=== PATIENT | male | born 1950 | race Caucasian/White ===

== ENCOUNTER → 2017-10-14 09:06 | Outpatient (CLI) | payer MEDICARE, OTHER, SELFPAY ==
[2017-10-14 10:29] LABS: Cholesterol 182 mg/dL (200); Glucose 95 mg/dL (74-106); High Density Lipoprotein 43 mg/dL; Triglycerides 172 mg/dL; Very Low Density Lipoprotein 34 mg/dL (5-40)
== END ==
PROVIDERS: Family Provider Family Medicine; PCP Family Medicine; Visit Provider Family Medicine
DX: Z13.220 Encounter for screening for lipoid disorders (principal); Z13.1 Encounter for screening for diabetes mellitus
CPT/HCPCS: 36415; 80061; 82947

== ENCOUNTER → 2020-07-31 | Outpatient (CLI) | payer MEDICARE, OTHER, SELFPAY | END | disposition home or self-care (01) | PROVIDERS: PCP Family Medicine; Visit Provider Family Medicine | DX: Z20.822 Contact with and (suspected) exposure to COVID-19 (principal) | CPT/HCPCS: 87635; U0005; U0003 ==

== ENCOUNTER 2020-08-09 13:51 | Outpatient (RCR) | payer MEDICARE, SELFPAY ==
[2020-08-09] MEDS: COVID-19 VACC, MRNA(PFIZER)/PF 30 MCG/0.3 ML SYRINGE IM (08:14)
[2020-08-30] MEDS: COVID-19 VACC, MRNA(PFIZER)/PF 30 MCG/0.3 ML SYRINGE IM (08:00)
== END 2020-08-09 23:59 ==
LOC: IMMUN 13:51
PROVIDERS: PCP Family Medicine; Visit Provider Family Medicine
DX: Z23 Encounter for immunization (principal)
CPT/HCPCS: 0001A; 0002A

== ENCOUNTER → 2020-12-27 13:12 | Outpatient (CLI) | payer MEDICARE, OTHER, SELFPAY ==
[2020-12-17 13:10] VITALS: BMI 22.8
--- NOTE | 2020-12-27 13:15 | CT_ITS ---
STUDY: LOW DOSE CT LUNG CANCER SCREENING REASON FOR EXAM: Male, 70 years old. Patient has a 50 pack-year history of smoking. Patient quit smoking 20 years ago. RADIATION DOSAGE (If Supplied By Facility): CTDIvol = ( 1.59 ) mGy, DLP = ( 57.98 ) mGycm TECHNIQUE: No contrast was administered. Low dose technique was utilized (average mAS-38 and kVp 120). 1.25 mm axial source images with a slice interval of 1.25-mm were reconstructed in lung windows. 2.5 mm axial source images with a slice interval of 2.5-mm were reconstructed in lung windows. 5.0 mm axial source images with a slice interval of 5.0-mm were reconstructed in soft tissue windows. Nodule measured using lung windows on PACS and/or independent workstation with automated measurement of minimum and maximum diameter. Nodule measurement reported as average diameter rounded to the nearest whole number. Growth is defined as an increase ins size of greater than 1.5 mm. COMPARISON: None. NODULES: There is an 8.7 cm x 7 cm x 5.3 cm mass in the lingular segment of the left upper lobe abutting the left major fissure. There is enlargement of the left hilum in keeping with adenopathy. The mass lesion abuts the mediastinum and left cardiac border. Emphysema: Hyperinflation. Diffuse emphysema with centrilobular changes worse in the upper lobes. There is evidence of stellate-like scarring in the right lung apex. Linear scarring at the lung bases more prominent on the right side. Aorta: Atherosclerotic calcification of the aorta. Coronary arteries: Coronary artery calcification. CT/Low Dose CT Lung Screening IMPRESSION: Lung-RADS category 4B - Chest CT with or without contrast, PET/CT and/or tissue sampling can be obtained depending on the probability of malignancy and comorbidities. IMPORTANT NOTES FOR USE: ACR Lung-RADS Version 1.1 Assessment Categories Release Date: 2018 Category: Coded 0-4 bases on nodule(s) with highest degree of suspicion. Negative screen is defined as categories 1 and 2; a positive screen is defined as categories 3 and 4. Category 3 and 4A nodules that are unchanged on interval CT should be coded as category 2, and individuals returned to screening in 12 months. Category 4X: Category 3 or 4 nodules with additional imaging findings that increase the suspicion of lung cancer, such as spiculation, GGN that doubles in size in 1 year, enlarged lymph notes, etc. Category Modifiers: S (significant finding unrelated to lung cancer) Electronically Signed: Juan M Gipson MD at 14:03 EDT , Service support ,
== END ==
PROVIDERS: PCP Family Medicine; Referring Provider Internal Medicine Critical Care Medicine; Visit Provider Internal Medicine Critical Care Medicine
DX: J44.9 Chronic obstructive pulmonary disease, unspecified (principal); Z87.891 Personal history of nicotine dependence
CPT/HCPCS: 71271

== ENCOUNTER 2021-01-11 10:59 | Day surgery (SDC) | payer MEDICARE, OTHER, SELFPAY ==
[2020-12-28 08:37] VITALS: BMI 22.9
[2021-01-11] VITALS (9 sets, daily range): BP systolic 96–137; BP diastolic 47–87; PULSE 88–97; RESP 16–18; TEMP 36–36.6; O2SAT 92–100; BMI 22.8
--- NOTE | 2021-01-11 | IMM_PTH ---
PATIENT: TONY SNYDER LOC: EN U#:[id number] AGE/SX: 70/M ROOM: RE01/11/[address]: Dr. Long Banegas MD : 1950 BED: DIS: 01/11/2021 SPEC #: [id number] RECD: 01/14/21 13:52 STATUS: XAVIER REQ #: [id number] MCKENNA: 01/11/21 00:[address]: Long Banegas DEPT: IMMUNOHISTOCHEMISTRY RECD BY: Lisa Golden ENTERED: 01/14/21 13:54 SP TYPE: IMMUNO OTHR DR: Dr. Travis Reyes MD Tissues: L - Lung, NOS Procedures: CK14 (add) CK20 (add) CK5-6 (add) CK7 (add) MACRO (add) P53 (add) Vimentin (add) Pankeratin (initial) P40 (add) PHYSICIAN & INSTITUTION [place] [id number] SPECIMEN INFORMATION: Tissue Source: L ? EBUS, TBNA, site 7 Clinical Info: Lung mass Specimen Number: [id number] CPT code: 73814, 65586 x8 METHODOLOGY: Deparaffinized sections of prefer/formalin-fixed tissue or PAP/DQ stained slides are incubated with monoclonal/polyclonal antibodies/oligonucleotide probes. Localization is made via biotin free immunoperoxidase method. Appropriate controls are performed and reacted as expected. Results on target cell population are indicated in the following table: RESULTS: ANTIBODY / CLONE RESULT Block L AE1-3 (AE1/AE3/PCK26) negative CK7 (OV-TL12/30) negative CK20 (KS20.8) negative Vimentin (V9) positive Macro (HAM-56) positive CK5-6 (D5 & 1684) negative CK14 (LL002) negative P40 (BC28) negative P53 (DO-7) negative These tests were developed and their performance characteristics determined by [facility]. They may not have been cleared or approved by the U.S. Food and Drug Administration. The FDA has determined that such clearance or approval is not necessary. The above immunohistochemical/dualISH markers are ordered and reviewed by the Pathologist. INTERPRETATION: Macarena EBUS, TBNA, site 7: Pigment laden histiocytes. No evidence of carcinoma. AM:debbie 01/15/2021
--- NOTE | 2021-01-11 | IMM_PTH ---
PATIENT: TONY SNYDER LOC: EN U#:[id number] AGE/SX: 70/M ROOM: RE01/11/[address]: Dr. Long Banegas MD : 1950 BED: DIS: 01/11/2021 SPEC #: [id number] RECD: 01/14/21 13:50 STATUS: XAVIER REQ #: [id number] MCKENNA: 01/11/21 00:[address]: Long Banegas DEPT: IMMUNOHISTOCHEMISTRY RECD BY: Lisa Golden ENTERED: 01/14/21 13:51 SP TYPE: IMMUNO OTHR DR: Dr. Travis Reyes MD Tissues: Lung, NOS Procedures: NAPSIN A (add) CK14 (add) CK20 (add) CK5-6 (add) CK7 (add) CK8 (add) P16 (add) P53 (add) TTF1 (add) Pankeratin (initial) P40 (add) PHYSICIAN & INSTITUTION [place] [id number] SPECIMEN INFORMATION: Tissue Source: LLL, endobronchial biopsy Clinical Info: Lung mass Specimen Number: [id number] CPT code: 56544, 35567 x10 METHODOLOGY: Deparaffinized sections of prefer/formalin-fixed tissue or PAP/DQ stained slides are incubated with monoclonal/polyclonal antibodies/oligonucleotide probes. Localization is made via biotin free immunoperoxidase method. Appropriate controls are performed and reacted as expected. Results on target cell population are indicated in the following table: RESULTS: ANTIBODY / CLONE RESULT AE1-3 (AE1/AE3/PCK26) positive CK7 (OV-TL12/30) negative CK8 (51lyqpJ98) positive CK20 (KS20.8) negative TTF-1 (8G7G3/1) negative Napsin A (Rabbit Polyclonal) negative CK5-6 (D5 & 1684) positive CK14 (LL002) negative P40 (BC28) positive P16 (E6H4) negative P53 (DO-7) positive, >95% These tests were developed and their performance characteristics determined by [facility]. They may not have been cleared or approved by the U.S. Food and Drug Administration. The FDA has determined that such clearance or approval is not necessary. The above immunohistochemical/dualISH markers are ordered and reviewed by the Pathologist. INTERPRETATION: HANY, endobronchial biopsy: Squamous cell carcinoma. AM:debbie 01/15/2021
--- NOTE | 2021-01-11 | ASPIG_PTH ---
PATIENT: TONY SNYDER LOC: EN U#:[id number] AGE/SX: 70/M ROOM: RE01/11/[address]: Dr. Long Banegas MD : 1950 BED: DIS: 01/11/2021 SPEC #: [id number] RECD: 01/11/21 13:34 STATUS: XAVIER ELIF #: [id number] MCKENNA: 01/11/21 00:[address]: Long Banegas DEPT: CYTOLOGY RECD BY: Rebecca Gerardo ENTERED: 01/11/21 13:36 SP TYPE: ASP OUT OTHR DR: Dr. Travis Reyes MD Tissues: A - Lung, NOS B - Lung, NOS C - Lung, NOS D - Lung, NOS E - Lung, NOS F - Lung, NOS G - Lung, NOS H - Lung, NOS I - Lung, NOS J - Lung, NOS K - Lung, NOS L - Lung, NOS M - Lung, NOS N - Bronchus of left lower lobe Procedures: FNA Specimen Adequacy Special Stain Group II Surgery Specimen Level IV Imprint (control) Cytology Other HEADER OPERATION: EBUS PRE-OP DIAGNOSIS: Lung mass TISSUE SUBMITTED: A - EBUS, TBNA, site 4R #1, B - EBUS, TBNA, site 4R #2, C - EBUS, TBNA, site 7 #3, D - EBUS, TBNA, site 7 #4, E - EBUS, TBNA, site 7 #5, F - EBUS, TBNA, site 7 #6, G - EBUS, TBNA, site 7 #7, H - EBUS, TBNA, site 10L #8, I - EBUS, TBNA, site 10L #9, J - EBUS, TBNA, site 10L #10, K - EBUS, TBNA, site 4R, L - EBUS, TBNA, site 7, M - EBUS, TBNA, site 10, N - Wash LLL, O - LLL biopsy DIAGNOSIS CYTOLOGY A. EBUS, TBNA, site 4R #1: Negative for carcinoma. Lymphocytes are present. B. EBUS, TBNA, site 4R #2: Negative for malignant cells. Abundant bronchial epithelial cells. Rare lymphocytes. C. EBUS, TBNA, site 7 #3: Negative for malignant cells. No lymphocytes. D. EBUS, TBNA, site 7 #4: Negative for malignant cells. Blood and some lymphocytes. E. EBUS, TBNA, site 7 #5: Negative for malignant cells. Blood. Rare lymphocytes. F. EBUS, TBNA, site 7 #6: Negative for malignant cells. Blood. Rare lymphocytes. G. EBUS, TBNA, site 7 #7: Negative for malignant cells. Bronchial epithelial and subepithelial cells. Blood. H. EBUS, TBNA, site 10L #8: Negative for malignant cells. Abundant lymphocyte. Macrophages with pigment. Blood I. EBUS, TBNA, site 10L #9: Negative for malignant cells. Blood. Rare lymphocytes. J. EBUS, TBNA, site 10L #10: Negative for malignant cells. Blood. Rare lymphocytes. K. EBUS, TBNA, site 4R (cell block): Negative for malignant cells. See comment. L. EBUS, TBNA, site 7 (cell block): Pigment laden macrophages, blood, lymphocytes and neutrophils. Fragment of benign bronchial epithelium and cartilage. See comment. M. EBUS, TBNA, site 10 (cell block): Negative for malignant cells, blood and lymphocytes. N. Left lower lobe of lung, washings (cytospin and cell block): Negative for malignant cells. O. Left lower lobe lung, biopsy (crush prep): Negative for malignant cells. AM:debbie 01/14/2021 COMMENT The specimen is evaluated at the time of procedure by Dr. Green. Rapid Onsite Evaluation: A. EBUS, TBNA, site 4R #1: Negative for carcinoma. Lymphocytes are present. B. EBUS, TBNA, site 4R #2: Negative for malignant cells. Abundant bronchial epithelial cells. Rare lymphocytes. C. EBUS, TBNA, site 7 #3: Negative for malignant cells. No lymphocytes. D. EBUS, TBNA, site 7 #4: Negative for malignant cells. Blood and some lymphocytes. E. EBUS, TBNA, site 7 #5: Negative for malignant cells. Blood. Rare lymphocytes. F. EBUS, TBNA, site 7 #6: Negative for malignant cells. Blood. Rare lymphocytes. G. EBUS, TBNA, site 7 #7: Negative for malignant cells. Bronchial epithelial and subepithelial cells. Blood. H. EBUS, TBNA, site 10L #8: Negative for malignant cells. Abundant lymphocyte. Macrophages with pigment. Blood I. EBUS, TBNA, site 10L #9: Negative for malignant cells. Blood. Rare lymphocytes. J. EBUS, TBNA, site 10L #10: Negative for malignant cells. Blood. Rare lymphocytes. A-J. The specimen contains blood and rare lymphocytes. K. The specimen contains benign bronchial epithelial cells, blood and rare lymphocytes. L. Immunohistochemistry ([id number]) supports the above diagnosis. O. The specimen is evaluated at the time of crush prep by Dr. Green. Immediate Evaluation = Negative for malignant cells. Abundant bronchial epithelial cells. Please correlate this case with endobronchial biopsy of left lower lung mass ([id number]). Case has been reviewed in consultation with Dr. Kulkarni who concurs with the above diagnosis. IDC:SJ CYTOLOGY STUDY Slides are reviewed. CYTOLOGY GROSS A - Received labeled with the patient's name and and designated EBUS, TBNA, site 4R #1. The specimen consists of two stained smears for SID (Rapid Onsite Evaluation). B - Received labeled with the patient's name and and designated EBUS, TBNA, site 4R #2. The specimen consists of two stained smears for SID. C - Received labeled with the patient's name and and designated EBUS, TBNA, site 7 #3. The specimen consists of two stained smears for SID. D - Received labeled with the patient's name and and designated EBUS, TBNA, site 7 #4. The specimen consists of two stained smears for SID. E - Received labeled with the patient's name and and designated EBUS, TBNA, site 7 #5. The specimen consists of two stained smears for SID. F - Received labeled with the patient's name and and designated EBUS, TBNA, site 7 #6. The specimen consists of two stained smears for SID. G - Received labeled with the patient's name and and designated EBUS, TBNA, site 7 #7. The specimen consists of two stained smears for SID. H - Received labeled with the patient's name and and designated EBUS, TBNA, site 10L #8. The specimen consists of two stained smears for SID. I - Received labeled with the patient's name and and designated EBUS, TBNA, site 10L #9. The specimen consists of two stained smears for SID. J - Received labeled with the patient's name and and designated EBUS, TBNA, site 10L #10. The specimen consists of two stained smears for SID. K - Received in RPMI is 20 ml of pink, needle rinsed fluid labeled with the patient's name and and designated EBUS, TBNA, site 4R. The specimen is submitted for cell block preparation. L - Received in RPMI is 20 ml of pink, needle rinsed fluid labeled with the patient's name and and designated EBUS, TBNA, site 7. The specimen is submitted for cell block preparation. M - Received in RPMI is 20 ml of pink, needle rinsed fluid labeled with the patient's name and and designated EBUS, TBNA, site 10. The specimen is submitted for cell block preparation. N - Received is 35 ml of red mucoidy fluid labeled with the patient's name and and designated per the requisition as wash LLL. Submitted for cytology preparation including cell block. O - Received in fixative is one container labeled with the patient's name and designated left lower lobe lung biopsy (crush prep). The specimen consists of fresh pink-bergman tissue measuring 0.2 x 0.2 x <0.1 cm. A crush prep smear is prepared. / AM:debbie 01/11/2021 TC:5 CPT: 77028, 20384, 96092 x3, 96658 x3, 74617 x7, 33006 x4
--- NOTE | 2021-01-11 | LUNG_PTH ---
PATIENT: TONY SNYDER LOC: EN U#:[id number] AGE/SX: 70/M ROOM: RE01/11/[address]: Dr. Long Banegas MD : 1950 BED: DIS: 01/11/2021 SPEC #: [id number] RECD: 01/11/21 13:56 STATUS: XAVIER ELIF #: [id number] MCKENNA: 01/11/21 00:[address]: Long Banegas DEPT: SURGICAL PATHOLOGY RECD BY: Rebecca Gerardo ENTERED: 01/11/21 13:56 SP TYPE: LUNG BX OTHR DR: Dr. Travis Reyes MD Tissues: Lung, NOS Procedures: Surgery Specimen Level IV HEADER OPERATION: EBUS PRE-OP DIAGNOSIS: Lung mass TISSUE SUBMITTED: Endobronchial biopsy LLL MICROSCOPIC DIAGNOSIS Left lower lobe of lung, endobronchial biopsy: Squamous cell carcinoma. See comment. AM:debbie 01/14/2021 COMMENT Immunohistochemistry ([id number]) supports the above diagnosis. Please correlate with corresponding EBUS ([id number]). Case has been reviewed in consultation with Dr. Kulkarni who concurs with the above diagnosis. IDC:SJ MICROSCOPIC DESCRIPTION Slides are reviewed. GROSS DESCRIPTION Received in fixative is one container labeled with the patient's name and designated endobronchial biopsy left lower lobe of lung. The specimen consists of multiple irregular fragments of bergman mucoid soft tissue that in aggregate measure 0.8 x 0.5 x <0.1 cm. The specimen is totally submitted in one cassette. / AM:debbie 01/11/21 TC:0 CPT: 77093 ADDENDUM ADDENDUM ADDENDUM ADDENDUM ADDENDUM ADDENDUM 02/19/2021 09:01 ADDENDUM 02/19/2021 09:01 ADDENDUM 02/19/2021 09:01 ADDENDUM 02/19/2021 09:01 ADDENDUM 02/19/2021 09:01 PD-L1 (KEYTRUDA) IMMUNOHISTOCHEMICAL ANALYSIS FROM [email or web address] RESULTS: Tumor proportion score: <1% / Negative Please see complete report in e-chart or EMR
[2021-01-11] MEDS: Lactated Ringers 1,000 ML 100 ML IV (11:30)
[2021-01-11] MEDS: Lidocaine 2% Jelly 1 APPLIC Tube (13:17)
[2021-01-11 13:46] LABS: Cytology, Body Fluid / CSF SEE PATHOLOGY REPORT
--- NOTE | 2021-01-11 14:07 | OP.BRONCH_ITS ---
Patient Name: Savi Mohr Procedure Date: 01/11/2021 11:50 AM Date of : 1950 Age: 70 Procedure: Bronchoscopy Indications: Sub-hayley mass, Mediastinal adenopathy, Lung mass Providers: Long Banegas MD Referring MD: Travis Reyes Complications: No immediate complications Procedure: Pre-Anesthesia Assessment: - Prior to the procedure, a History and Physical was performed, and patient medications and allergies were reviewed. The patient's tolerance of previous anesthesia was also reviewed. The risks and benefits of the procedure and the sedation options and risks were discussed with the patient. All questions were answered, and informed consent was obtained. Prior Anticoagulants: The patient has taken no previous anticoagulant or antiplatelet agents. ASA Grade Assessment: III - A patient with severe systemic disease. After reviewing the risks and benefits, the patient was deemed in satisfactory condition to undergo the procedure. - A History and Physical has been performed. The patient's medications, allergies and sensitivities have been reviewed. - Patient identification and proposed procedure were verified prior to the procedure by the physician, the nurse and the technical sales specialist. The procedure was verified in the procedure room. After I obtained informed consent, the scope was passed under direct vision. Throughout the procedure, the patient's blood pressure, pulse, and oxygen saturations were monitored continuously. The bronchoscope was introduced through the mouth, via laryngeal mask airway and advanced to the tracheobronchial tree. The ultrasound bronchoscope was introduced through the mouth and advanced to the tracheobronchial tree. The procedure was accomplished without difficulty. The patient tolerated the procedure well. The procedure was accomplished without difficulty. The patient tolerated the procedure well. Findings: The laryngeal mask airway is in good position. The vocal cords appear normal. The subglottic space is normal. The trachea is of normal caliber. The hayley is sharp. The tracheobronchial tree was examined to at least the first subsegmental level. Bronchial mucosa and anatomy are normal; there are no endobronchial lesions, and no secretions. The scope was withdrawn and replaced with the EBUS bronchoscope to accomplish the ultrasound examination. Lymph Nodes: An endobronchial ultrasound endoscope was utilized to systematically examine the right lower paratracheal region (level 4R), subcarinal mediastinum (level 7) and left hilar region (level 10L) in order to assist with fine needle aspiration. Lymph node sizing was performed via endobronchial ultrasound for suspected lung cancer. Sampling by transbronchial needle aspiration was also performed using an Olympus EBUS-TBNA 19 gauge needle in the right lower paratracheal region (level 4R), subcarinal mediastinum (level 7) and left hilar region (level 10L) and sent for routine cytology. Rapid On-Site Evaluation (SID) was also performed. - The 4R (lower paratracheal) node was not measured by EBUS. The node was had poorly defined margins. Two samples with the needle were obtained. Preliminary cytology was suggestive of benign-appearing lymphoid tissue (final results are pending). - The 7 (subcarinal) node was not measured by EBUS. The node was hyperechoic and had poorly defined margins. Five samples with the needle were obtained. Preliminary cytology was suggestive of benign-appearing lymphoid tissue (final results are pending). - The 10L (hilar) node was 20 mm by EBUS. The node was round, hyperechoic, homogenous and had well defined margins. Three samples with the needle were obtained. Preliminary cytology was suggestive of benign-appearing lymphoid tissue (final results are pending). The EBUS scope was withdrawn and bronchoscope was introduced. Endobronchial biopsies were performed in the anterior medial segment of the left lower lobe and in the lateral basal segment of the left lower lobe using forceps and sent for histopathology examination. 7 were obtained. Impression: - Sub-hayley mass - Mediastinal adenopathy - Lung mass - The airway examination was normal. - Endobronchial ultrasound was performed. - Systematic lymph node sizing, sampling, ultrasound visualization and preliminary cytology was performed. Tissue was obtained from this exam, and results are pending. However, the endosonographic appearance is benign inflammatory changes. This was staged as T1. Recommendation: - The patient will be observed post-procedure, until all discharge criteria are met. - Await biopsy and cytology results. - Follow up with bronchoscopist when results available. - The patient was advised to call or return to the clinic if there are signs or symptoms suggesting a complication/adverse reaction from the procedure. Procedure Code(s): --- Professional --- 59872, Bronchoscopy, rigid or flexible, including fluoroscopic guidance, when performed; with endobronchial ultrasound (EBUS) guided transtracheal and/or transbronchial sampling (eg, aspiration[s]/biopsy[ies]), 3 or more mediastinal and/or hilar lymph node stations or structures 77048, 51, Bronchoscopy, rigid or flexible, including fluoroscopic guidance, when performed; with bronchial or endobronchial biopsy(s), single or multiple sites Diagnosis Code(s): --- Professional --- R91.8, Other nonspecific abnormal finding of lung field R59.0, Localized enlarged lymph nodes CPT copyright 2017 [employer]. All rights reserved. The codes documented in this report are preliminary and upon human resources professional review may be revised to meet current compliance requirements. MD Long Slater MD 01/11/2021 2:06:47 PM This report has been signed electronically. Number of Addenda: 0 Note Initiated On: 01/11/2021 11:50 AM
--- NOTE | 2021-01-14 13:26 | PCM.HP.BLA ---
History and Physical Date of Admission: 01/11/21 Patient was seen and evaluated prior to the procedure. Multiple questions were answered by the family. There were no changes compared to the note completed below. Assessment and Plan Assessment and Plan (1) Mass of left lung: Status: Acute Orders: Orders: CBC-Complete Blood Cnt No Diff Today Plan - Seble Dee CLINICAL RESEARCH MANAGEMENT ASSOCIATE, CLINICAL RESEARCH MANAGEMENT ASSOCIATE-C: New. Lengthy discussion about possible next steps. We discussed the possibility of CT-guided biopsy, endobronchial ultrasound-guided biopsy or traditional bronchoscopy with biopsy. After discussing the risks and benefits of each procedure the patient and his decided that they would like to proceed with an EBUS. He will need a little bit of blood work the week prior to his procedure to make sure that he is not at increased risk for bleeding. He is not currently on any blood thinners. This case was discussed in detail with Dr. Banegas. (2) COPD (chronic obstructive pulmonary disease): Status: Chronic Plan - Seble Dee CLINICAL RESEARCH MANAGEMENT ASSOCIATE, CLINICAL RESEARCH MANAGEMENT ASSOCIATE-C: Complicates exam, plan, care and prognosis. He does not appear to be in exacerbation today. No change in maintenance medications. Plan Details Other Orders: Orders: Bronchoscopy 01/18/21 Partial Thromboplast Time Today R06.00 Prothrombin Time w/INR Today R06.00, Z87.19, Z98.[address] results Chief Complaint: Review test results HPI Comments Details: This patient presents to the office today to discuss recent test results. He is ambulatory and currently on room air. He is accompanied today by his . He has not been seen in the ED or urgent care for any respiratory illnesses since his last office visit. He has not required any antibiotics or prednisone for any breathing problems. He maintains compliance with the use of Asmanex twice daily. He does report rinsing his mouth out after each use. He denies any medication side effect such as sore throat or thrush. He is also compliant with the use of Stiolto daily. He continues compliance with Singulair and Daliresp. He is using his albuterol rescue inhaler approximately once per day. He does have shortness of breath on exertion, it has not progressed. He has a cough that is typically productive of clear to white-colored sputum. He denies any hemoptysis. He does report some chest tightness and chest congestion. He denies any chest pain or palpitations. He has not had any fever, chills or body aches. Test results personally reviewed with the patient: Low-dose CT lung screening completed on December 27, 2020. Impression: Lung RADS category 4B chest CT without contrast PET/CT and or tissue sampling can be obtained depending on probability of malignancy and comorbidities. Noted is an 8.7 cm x 7 cm x 5.3 cm mass in the lingular segment of the left upper lobe abutting the left major fissure. There is enlargement of the left hilum in keeping with adenopathy. The mass lesion abuts the mediastinum and left cardiac border. Hyperinflation and diffuse emphysematous central lobar changes worse in the upper lobes. There is evidence of stellate-like scarring in the right lung apex. Linear scarring at the lung bases more prominent on the right side. Intake Vital Signs 12/28/20 08:37 Height 5 ft 9 in Weight: 155 lb 6 oz BMI 22.9 BP 141/83 H Blood Pressure Location Lt brachial Position Sitting Respiration 18 Pulse 74 Pulse Source Monitor Temp 98.5 F Temperature Source Tympanic Pulse Oximetry (%) 97 Oxygen Delivery Method room air Intake Visit Reasons: CT results Allergies No Known Allergies Allergy (Unverified 12/28/20 09:11) Medications albuterol sulfate 90 mcg/actuation aerosol inhaler 2 puff INHALATION Q6H PRN 12/11/20 [History Confirmed 12/28/20] mometasone 1 inh INHALATION BID 12/11/20 [History Confirmed 12/28/20] montelukast 10 mg tablet 10 mg PO QHS 12/11/20 [History Confirmed 12/28/20] roflumilast 500 mcg tablet 500 mcg PO DAILY 12/11/20 [History Confirmed 12/28/20] tiotropium 2.5 mcg-olodaterol 2.5 mcg/actuation mist for inhalation 2 puff INHALATION DAILY 12/11/20 [History Confirmed 12/28/20] diclofenac sodium 1.5 % topical drops-menthol 10 % roll-on combo pack pkg TOPICAL 12/17/20 [History Confirmed 12/28/20] [facility] Medical History (Reviewed 12/28/20 @ 09:21 by Seble Dee CLINICAL RESEARCH MANAGEMENT ASSOCIATE, CLINICAL RESEARCH MANAGEMENT ASSOCIATE-C) COPD (chronic obstructive pulmonary disease) Surgical History (Reviewed 12/28/20 @ 09:21 by Seble Dee CLINICAL RESEARCH MANAGEMENT ASSOCIATE, CLINICAL RESEARCH MANAGEMENT ASSOCIATE-C) History of inguinal hernia repair History of tonsillectomy and adenoidectomy Social History (Reviewed 12/28/20 @ 09:21 by Seble Dee CLINICAL RESEARCH MANAGEMENT ASSOCIATE, CLINICAL RESEARCH MANAGEMENT ASSOCIATE-C) Smoking Status: Former smoker pack-years: 30 Tobacco: How many years used: 30 Review of Systems Resp Respiratory: Yes as per HPI Exam Const Constitutional: Positive conversant, cooperative, in no acute respiratory distress, healthy appearing, well developed, well nourished, good hygiene and thin Head Head: Yes normocephalic, Yes atraumatic and No cyanosis of lips/distal nose Eyes Eye: Positive clear conjunctiva; Negative nystagmus, scleral abnormality or cataract present Ears Ear: Positive hearing normal and external ears normal; Negative hard of hearing Neck Neck: Positive normal visual inspection, full ROM and trachea midline Chest Wall Chest: Positive normal inspection of the chest and symmetric chest movement; Negative crepitus or tenderness Resp lung sounds: Positive diminished lung sounds and normal expiratory time; Negative wheezes, rhonchi, rales or use of accessory muscles Cardio Cardiac: Positive regular rate, regular rhythm, S1 normal and S2 normal; Negative murmur, rub or gallop GI GI: Positive normal to inspection; Negative distended, ascites or epigastric tenderness Genitourinary: Positive deferred Musc Musculoskeletal: Positive steady gait; Negative using an assistive device for ambulation, kyphosis or scoliosis Skin Pulmonary Skin Exam: Positive intact; Negative lesion, rash, ulcers or erythema Pulses Pulse: Yes radial pulses present Extremities Extremities: Yes capillary refill normal, No clubbing, No cyanosis and No edema Neuro Neurologic: Yes no focal neuro deficits, Yes conversant, Yes cooperative, Yes normal cognition, Yes normal coordination, Yes normal concentration and Yes understands questions Psych Appearance: Positive grossly normal Mental Status: Positive mental status grossly normal Mood: Positive congruent mood Affect: Positive normal affect Assessment & Plan Assessment/Plan (1) Mass of left lung:
== END 2021-01-11 14:34 ==
LOC: EN 11:00 → AC 11:02
PROVIDERS: PCP Family Medicine; Referring Provider Family Medicine; Visit Provider Internal Medicine Critical Care Medicine
PROC: BB4BZZZ Ultrasonography of Pleura (ICD-10-PCS; CPT 31625; principal; 2021-01-11 11:30)
DX: C34.32 Malignant neoplasm of lower lobe, left bronchus or lung (principal); J44.9 Chronic obstructive pulmonary disease, unspecified; M19.90 Unspecified osteoarthritis, unspecified site; K21.9 Gastro-esophageal reflux disease without esophagitis; Z79.899 Other long term (current) drug therapy; Z79.51 Long term (current) use of inhaled steroids; Z87.891 Personal history of nicotine dependence
CPT/HCPCS: 31625; 31653; 88161; 88172; 88305; 88313; 88341; 88342; J7120; J2405

== ENCOUNTER → 2021-02-05 06:54 | Outpatient (CLI) | payer MEDICARE, OTHER, SELFPAY ==
[2020-12-17 13:10] VITALS: BMI 22.8
[2021-02-05 11:56] LABS: Base Excess -4 mmol/L (-2 to +2); Bicarbonate 20.3 mmol/L (22-26); Blood Gas Specimen Type ART; PO2 87 mmHG (75-100); SITE L Brach; SO2 97 % (95-99); Total Carbon Dioxide 21 mmol/L; pCO2 28.3 mmHg (35-45); pH 7.46 (7.35-7.45)
--- NOTE | 2021-02-05 14:33 | PFTCOMP_ITS ---
COMPLETE PULMONARY FUNCTION TEST INTERPRETATION Brief HPI: Patient is a 71 year old male, currently under the care of myself, who presents to [facility] for complete pulmonary function tests secondary to diagnosis of COPD. Respiratory therapist reports good effort and reproducible results. Interpretation: Forced expiration spirometry shows a very severe large airways obstructive ventilatory defect with an FEV1 of 39% predicted. There is no significant bronchodilator response by strict ATS criteria. Spirograms are of good quality and plateau slowly, indicating slowly emptying areas of the lungs. The respiratory flow volume loop shows decreased expiratory flow rates at all lung volumes consistent with airway obstruction. Lung volumes by body plethysmography show an elevated total lung capacity at 8.38 L, 134% predicted. FRC and RV are elevated out of proportion. Lung volume measurements are consistent with hyperinflation and air-trapping. Diffusion capacity by carbon monoxide is decreased at 32% predicted. The airway resistance is elevated. No previous pulmonary function tests were available for review. Impression: Irreversible very severe large airways obstructive ventilatory defect with a symmetric reduction diffusing capacity, resulting in air trapping with hyperinflation.
== END ==
PROVIDERS: PCP Family Medicine; Referring Provider Internal Medicine Critical Care Medicine; Visit Provider Internal Medicine Critical Care Medicine
DX: J44.9 Chronic obstructive pulmonary disease, unspecified (principal); C34.90 Malignant neoplasm of unspecified part of unspecified bronchus or lung
CPT/HCPCS: 36600; 82803; 94060; 94726; 94729

== ENCOUNTER 2021-02-14 09:14 | Inpatient (IN) | payer MEDICARE, OTHER, SELFPAY ==
[2021-02-14] VITALS (20 sets, daily range): BP systolic 113–166; BP diastolic 63–86; PULSE 95–132; RESP 12–31; TEMP 36–37.3; O2SAT 95–100; BMI 22.4
--- NOTE | 2021-02-14 09:20 | NURSING ---
NO OLD EKGS
--- NOTE | 2021-02-14 09:38 | EKG12_ITS ---
Test Reason : Blood Pressure : / mmHG Vent. Rate : 125 BPM Atrial Rate : 125 BPM P-R Int : 120 ms QRS Dur : 086 ms QT Int : 284 ms P-R-T Axes : 082 018 017 degrees QTc Int : 409 ms Sinus tachycardia Otherwise normal ECG Confirmed by DOMINIC BUTLER, SCARLETT ([id number]), non linear editor SHAYNE LAURA ([id number]) on 02/18/2021 1:01:31 PM Referred By: AMPARO Confirmed By:SCARLETT ALFARO MD
--- NOTE | 2021-02-14 09:38 | RAD_ITS ---
STUDY: X-RAY CHEST REASON FOR EXAM: Male, 71 years old. Chest pain. Covid positive. Lung cancer. TECHNIQUE: Single AP portable view of the chest. COMPARISON: Comparison is made with prior study dated 10/03/2011. FINDINGS: EKG electrodes are seen. There is hyperinflation of the lungs consistent with chronic obstructive lung disease (COPD). There is evidence of a 11.2 cm x 7.2 cm mass in the lingular segment of the left upper lobe abutting the left cardiac border with the mild scarring. Minimal scarring at the right lung base. There is no demonstrated pleural abnormality. Normal size heart. Normal mediastinum and urszula. Normal visualized pulmonary arteries. Normal visualized aortic arch and descending thoracic aorta. There are diffuse degenerative changes of the visualized thoracic spine. Normal visualized ribs, clavicles, and shoulders. There is no demonstrated abnormality of the visualized soft tissue structures of the upper abdomen. RAD/Chest 1 View (Portable) IMPRESSION: 11.2 cm x 7.2 cm mass in the late Gabriel of the left upper lobe. Hyperinflation. Findings suggestive of linear scarring in the right lung base and left midlung. Electronically Signed: Juan M Gipson MD at 10:32 EDT , Service support ,
--- NOTE | 2021-02-14 09:40 | ED.VIS.DYS ---
HPI History of Present Illness Chief Complaint: Shortness of Breath Informant: patient and spouse/S.O. Onset/Context/Timing Onset: Days and Weeks Timing: Continuous Current Severity: Mild Maximum Severity: Moderate Worsened by: Exertion and Coughing Relieved by: Oxygen Associated Symptoms cough Chest Pain: Positive for None Narrative Narrative: 71-year-old male history of lung cancer diagnosed in December which she has not had any treatment for and diagnosed with COVID-19 around 1 week ago but they believe he may have had symptoms for a week before that. He is normally not on home O2. His shortness of breath is progressively gotten worse and his pulse ox today when the paramedics brought him in from home was 71% on room air. He denies any hemoptysis. is present at bedside. PE Risk Factors: Positive for Cancer; Negative for OCP + Smoking + > 35, Prior DVT or PE, Recent immobilization, Recent surgery and Recent travel Prior similar symptoms: Yes Recent Illness/Hospitalization: No PFSH PFSH Medical History Arthritis Back pain Chronic cough COPD (chronic obstructive pulmonary disease) Former smoker Gastric reflux History of pain when walking History of steroid therapy History of stress test Shortness of breath on exertion Wears hearing aid Home Medications albuterol sulfate 90 mcg/actuation aerosol inhaler 2 puff INHALATION Q6H PRN 12/11/20 [History Last Taken Unknown] montelukast 10 mg tablet 10 mg PO QHS 12/11/20 [History Last Taken Unknown] roflumilast 500 mcg tablet 500 mcg PO DAILY 12/11/20 [History Last Taken Unknown] mometasone [Asmanex HFA] 2 puff INHALATION BID 01/10/21 [History Last Taken Unknown] tiotropium-olodaterol [Stiolto Respimat] 2 puff INHALATION DAILY 01/10/21 [History Last Taken Unknown] prednisone 20 mg PO QDAY 02/14/21 [History Last Taken Unknown] Allergy/AdvReac Type Severity Reaction Status Date / Time No Known Allergies Allergy Verified 02/14/21 09:28 Surgical History History of inguinal hernia repair History of tonsillectomy and adenoidectomy Hx of bilateral cataract extraction Social History Smoking Status: Former smoker pack-years: 30 Tobacco: How many years used: 30 ROS ROS ED ROS Narrative Cough, shortness of breath, loose stools and nausea. Review of Systems ROS Unobtainable: Denies due to encephalopathy Constitutional Constitutional ED: Denies chills or fever(s) Eyes Eyes: Denies change in vision ENT ENT ED: Denies ear pain or sore throat Cardiovascular Cardiovascular: Denies chest pain Respiratory/Chest Respiratory/Chest: Reports cough and dyspnea Gastrointestinal Gastrointestinal: Reports diarrhea and nausea; Denies abdominal pain or vomiting Genitourinary Genitourinary ED: Denies dysuria Musculoskeletal Musculoskeletal: Denies myalgias Integumentary Denies rash Neurologic Neurologic: Denies headache(s) Psychiatric Psychiatric: Denies depression Endocrine Endocrinology: Denies polyuria Hematologic/Lymphatic Hematologic/Lymphatic: Denies easy bruising Allergic/Immunologic Allergic/Immunologic ED: Denies urticaria EXAM Physical Exam Narrative Exam Narrative: Older male vital signs are stable. He is tachycardic at 132. His pulse ox 100% compliance on BiPAP. Temperature 991. HEENT exam unremarkable. Moist with memories. Neck nontender no lymphadenopathy. Lungs few scattered expiratory wheezes. No rales or rhonchi. Equal symmetrical. Heart tachycardic rate about 120 no murmur. Abdomen soft nontender. Patient moving all 4 extremities. Calves are nontender without edema. Neurologically is awake alert moving all 4 extremities. Const Vital Signs: 02/14/21 09:21 02/14/21 09:24 02/14/21 09:41 Temperature 99.1 F 99.1 F Temperature Source Temporal Temporal Pulse Rate 132 H 131 H Respiratory Rate 26 H 31 H Respiratory Effort Short of Breath Labored Accessory Muscle Use Respiratory Depth Deep Respiratory Pattern Hyperpnea Blood Pressure 166/86 H 166/86 H Blood Pressure Mean 112 112 Pulse Ox 100 100 100 Oxygen Delivery Method Bi-pap Bi-pap Bi-pap Fraction of Inspired Oxygen (FIO2) 02/14/21 10:26 02/14/21 10:29 Temperature 96.8 F L Temperature Source Temporal Pulse Rate 112 H 119 H Respiratory Rate 28 H 31 H Respiratory Effort Respiratory Depth Respiratory Pattern Tachypnea Blood Pressure 133/70 H Blood Pressure Mean 91 Pulse Ox 100 100 Oxygen Delivery Method Bi-pap Fraction of Inspired Oxygen (FIO2) 100 Positive well nourished and well developed; Negative for obese, cachectic, contractures or unkempt General Appearance ED: well developed; Negative for unkempt, cachectic, contractures or NAD Nutritional Appearance: Negative for cachectic or obese HEENT Reports moist mucous membranes atraumatic; Negative for trauma or tenderness Eyes PERRL and EOMs intact bilaterally Neck no lymphadenopathy, supple, no meningeal signs and no JVD General: Negative for tenderness Resp No normal respiratory effort and No clear to auscultation bilaterally Resp Narrative: Increased respiratory effort on oxygen. Auscultation: wheezes; Negative for rales or rhonchi Cardio regular rhythm, S1 normal heart sound, S2 normal heart sound and no murmurs; Negative for regular rate Rate: tachycardic GI non-tender, non-distended and no masses Auscultation: normoactive bowel sounds Palpation: soft; Negative for tender, guarding or rebound tenderness present Back/Spine no CVA tenderness and normal to inspection Extremity normal to inspection General Extremety ED: Negative for edema or tenderness General Extremity: Negative for edema Neuro oriented x3 Sensorium / Orientation: alert, oriented to person, oriented to place and oriented to time; Negative for orientation impaired, confused, lethargic or stuporous Motor Exam: strength 5/5 throughout Psych mental status grossly normal Appearance: Negative for unkempt Skin no wounds Lesions: no lesions Rashes: no rashes MDM MDM MDM Narrative Medical decision making narrative: Older male Covid positive for more than a week by test and probably 2+ weeks with symptoms. Progressively worsening with increasing oxygen requirement hypoxic at home. He worked up. Treated with Solu-Medrol and will need to be admitted. Repeat exam at 10:40 AM patient is doing well. He is on BiPAP. His sats are around 100%. He does have mildly labored breathing. He and his and I discussed his test results and were awaiting admission. Lab Data Attestation: I reviewed the patient's lab results. Lab results narrative: CBC shows a white count of 16.4. Hemoglobin 11.3. D-dimer slightly elevated 0.55 but given his age that is not significantly abnormal. Electrolytes unremarkable gap of 6 normal creatinine. Troponin XV. Labs: Laboratory Results - last 24 hr 02/14/21 02/14/21 02/14/21 09:26 09:26 09:26 WBC 16.4 H RBC 4.48 L Hgb 11.3 L Hct 36.8 L MCV 82.1 MCH 25.2 L MCHC 30.7 L RDW Std Deviation 43.8 RDW Coeff of Zane 14.6 Plt Count 455 H MPV 9.0 Immature Gran % (Auto) 0.500 Neut % (Auto) 90.6 H Lymph % (Auto) 2.6 L [place] % (Auto) 6.1 Eos % (Auto) 0.0 Baso % (Auto) 0.2 Absolute Neuts (auto) 14.9 H Absolute Lymphs (auto) 0.42 L Nucleated RBC % 0 Differential Comment SCANNED D-Dimer Quant (PE/DVT) 0.55 H* Sodium 136 Potassium 3.5 Chloride 103 Carbon Dioxide 27.0 Anion Gap 6 BUN 16 Creatinine 0.93 Estim Creat Clear Calc 71.00 Est GFR (MDRD) Af Amer 103 Est GFR (MDRD) Non-Af 85 BUN/Creatinine Ratio 17.2 Glucose 116 H Calcium 9.7 Troponin I High Sens 15 Radiography Chest X-Ray - ED: 1 View, Read by ED Physician, Heart, Mediastinum, Bony Structures and No Acute Disease Diagnostic Testing: Radiology Impression Chest X-Ray 02/14/21 09:38 IMPRESSION: 11.2 cm x 7.2 cm mass in the late May of the left upper lobe. Hyperinflation. Findings suggestive of linear scarring in the right lung base and left midlung. Electronically Signed: Juan M Gipson MD at 10:32 EDT , Service support , Portable chest x-ray 1 view interpreted by myself and radiologist shows left lung mass consistent with cancer which the patient has a history of. No obvious pneumonia. Rhythm Strip Rhythm Strip: Sinus Tach Rate: 125 Ectopy: None EKG Initial EKG: Attestation: I personally reviewed and interpreted this EKG as follows: Interpretation: No Acute Injury Pattern and Sinus Tachycardia Comments: Sinus tachycardia rate of 125 no acute signs of MN or ischemia. Discharge Plan Triage Chief Complaint: Shortness of Breath ED Provider: Jonathan Khan Dx/Rx/DC Orders Clinical Impression: COPD (chronic obstructive pulmonary disease), COVID-19, Hypoxia, History of lung cancer Prescriptions: No Action albuterol sulfate [Proventil HFA] 90 mcg/actuation HFA aerosol inhaler 2 puff inhalation Q6H PRN (Reason: COPD) RF: 0 Daliresp 500 mcg tablet 500 mcg PO DAILY RF: 0 montelukast 10 mg tablet 10 mg PO QHS RF: 0 Asmanex HFA 200 mcg/actuation Hfa Aerosol Inhaler 2 puff INHALATION BID RF: 0 Stiolto Respimat 2.5-2.5 mcg/actuation Mist 2 puff INHALATION DAILY RF: 0 prednisone 10 mg tablet 20 mg PO QDAY RF: 0 Primary Care Provider: Travis Reyes Referrals: Travis Reyes MD [Primary Care Provider] - Disposition Disposition: Acute Care Hospital [facility]
[2021-02-14 09:55] LABS: Absolute Lymphocyte Count 0.42 X10^3/uL (0.83-4.51); Absolute Neutrophil Count 14.9 X10^3/uL (2.0-7.7); Basophil# 0.03 X10^3/uL; Basophil% 0.2 % (0-1); Differential Indicated SCAN CRITERIA MET; Hematocrit 36.8 % (40-54); Hemoglobin 11.3 g/dL (13.0-16.5); Lymphocyte # 0.42 X10^3/ul (0.83-4.51); Lymphocyte % 2.6 % (19-41); Mean Corp Hgb Conc 30.7 g/dL (32-36); Mean Corpuscular Hgb 25.2 pg (27.0-32.0); Mean Corpuscular Volume 82.1 fL (80-94); Monocyte% 6.1 % (0-10); NRBC Flagged by Analyzer 0 % (0-5); Neutrophil % 90.6 % (47-70); POSITIVE DIFFERENTIAL YES; Platelet Count 455 K/mm3 (150-450); RBC Distribution Width CV 14.6 % (11.6-14.6); RBC Distribution Width SD 43.8 fl (35.1-43.9); Red Blood Count 4.48 M/mm3 (4.6-6.2); White Blood Count 16.4 K/mm3 (4.4-11.0)
[2021-02-14 10:05] LABS: Anion Gap 6 (5-15); BUN 16 mg/dL (7-18); BUN/Creat Ratio 17.2 RATIO (10-20); Calcium,Total 9.7 mg/dL (8.5-10.1); Chloride 103 mmol/L (98-107); Creatinine, Serum 0.93 mg/dL (0.70-1.30); EST Glomerular Filtration Rate 85 mL/min (>60); Est Glom Filt Rate - Afr Amer 103 mL/min (>60); Glucose 116 mg/dL (74-106); Potassium 3.5 mmol/L (3.5-5.1); Sodium Level 136 mmol/L (136-145); Troponin-I HS 15 pg/mL (3.0-78.0)
[2021-02-14 10:11] LABS: D-Dimer Quantitative (DVT/PE) 0.55 FEU/ug/m (0.27-0.49)
[2021-02-14 10:25] LABS: Differential Comment SCANNED
--- NOTE | 2021-02-14 10:48 | HP.PCM.HOS_ITS ---
[facility] - General General Date of Admission: 02/14/21 HPI Narrative TONY SNYDER, is a 71 M with an extensive PMH presents with a complaint of shortness of breath. She was diagnosed with lung cancer in December 2020. He was diagnosed with covid ~ one weeka go, and thinks he may have had symptoms a week prior to disgnoais. Shortness of breath gradually worsened and so the squad was called and was found to be saturating at 71% on room air. Review of systems is otherwise negative. At time of review, blood pressure was 133/70 with pulse rate of 119, respiratory rate of 31 and was saturating at 100% on BiPAP. Temperature was 96.8 Fahrenheit. ABG showed pH of 7.46 with bicarb of 21 and PCO2 of 28.3. Chest x-ray showed an 11.2 cm x 7.2 cm mass in the in the left upper lobe which is a known malignancy. He has been admitted to be managed for acute hypoxic respiratory failure due to COVID-19 infection. [facility] Medical History Arthritis Back pain Chronic cough COPD (chronic obstructive pulmonary disease) Former smoker Gastric reflux History of pain when walking History of steroid therapy History of stress test Shortness of breath on exertion Wears hearing aid Home Medications albuterol sulfate 90 mcg/actuation aerosol inhaler 2 puff INHALATION Q6H PRN 12/11/20 [History Last Taken Unknown] montelukast 10 mg tablet 10 mg PO QHS 12/11/20 [History Last Taken Unknown] roflumilast 500 mcg tablet 500 mcg PO DAILY 12/11/20 [History Last Taken Unknown] mometasone [Asmanex HFA] 2 puff INHALATION BID 01/10/21 [History Last Taken Un known] tiotropium-olodaterol [Stiolto Respimat] 2 puff INHALATION DAILY 01/10/21 [History Last Taken Unknown] prednisone 20 mg PO QDAY 02/14/21 [History Last Taken Unknown] Allergy/AdvReac Type Severity Reaction Status Date / Time No Known Allergies Allergy Verified 02/14/21 09:28 Surgical History History of inguinal hernia repair History of tonsillectomy and adenoidectomy Hx of bilateral cataract extraction Social History Smoking Status: Former smoker pack-years: 30 Tobacco: How many years used: 30 ROS Constitutional Constitutional: Reports anorexia, fatigue, fever(s), malaise and weakness; Denies change in weight Eyes Eyes: Denies change in vision ENT HEENT: Denies headache(s), nasal congestion or nasal discharge Cardiovascular Cardiovascular: Reports dyspnea on exertion, orthopnea, paroxysmal nocturnal dyspnea and rapid heart rate; Denies chest pain, lightheadedness or palpitations Respiratory/Chest Respiratory/Chest: Reports cough, dyspnea, shortness of breath at rest and shortness of breath with exertion; Denies excessive phlegm production, hemoptysis, productive cough or wheezing Gastrointestinal Gastrointestinal: Reports vomiting; Denies abdominal pain, constipation, diarrhea, dyspepsia or nausea Genitourinary Genitourinary: Denies burning urination or dysuria Musculoskeletal Musculoskeletal: Denies arthralgias or joint swelling Neurologic Neurologic: Denies confusion, dizziness, focal weakness, headache(s), numbness, seizure-like activity, seizures or syncope Psychiatric Psychiatric: Denies anxiety or depression Endocrine Endocrinology: Denies change in body appearance Hematologic/Lymphatic Hematologic/Lymphatic: Denies anemia Vital Signs Vital Signs Vital Signs: 02/14/21 09:21 02/14/21 09:24 02/14/21 09:41 Temperature 99.1 F 99.1 F Temperature Source Temporal Temporal Pulse Rate 132 H 131 H Respiratory Rate 26 H 31 H Respiratory Effort Short of Breath Labored Accessory Muscle Use Respiratory Depth Deep Respiratory Pattern Hyperpnea Blood Pressure 166/86 H 166/86 H Blood Pressure Mean 112 112 Pulse Ox 100 100 100 Oxygen Delivery Method Bi-pap Bi-pap Bi-pap Fraction of Inspired Oxygen (FIO2) 02/14/21 10:26 02/14/21 10:29 Temperature 96.8 F L Temperature Source Temporal Pulse Rate 112 H 119 H Respiratory Rate 28 H 31 H Respiratory Effort Respiratory Depth Respiratory Pattern Tachypnea Blood Pressure 133/70 H Blood Pressure Mean 91 Pulse Ox 100 100 Oxygen Delivery Method Bi-pap Fraction of Inspired Oxygen (FIO2) 100 Weight Weight: 151 lb 14.376 oz Body Mass Index (BMI) 22.4 Physical Exam Const alert and oriented x3 General Appearance: cooperative Orientation / Consciousness: lethargic HEENT normocephalic, head/scalp atraumatic and hearing grossly normal bilaterally HEENT Narrative: dry mucosal membranes Eyes PERRL, EOMs intact bilaterally and conjunctivae normal Neck no lymphadenopathy Resp Resp Narrative: tachypneic, on BIPAP, diminished breath sounds bibasally, no wheezes or crackles. Cardio regular rhythm, S1 normal heart sound, S2 normal heart sound and no murmurs Cardio Narrative: tachycardic GI normal to inspection, nondistended, normoactive bowel sounds, soft to palpation, non-tender and non-distended Extremity normal to inspection, full ROM and no clubbing, cyanosis or edema Peripheral Pulses: Yes pulses 2+ throughout Skin no rashes or lesions noted Neuro oriented x3 Sensorium / Orientation: awake and alert Psych affect normal Results Lab / Micro Data Result Diagrams: 02/14/21 09:26 02/14/21 09:26 Labs: Laboratory Results - last 24 hr 02/14/21 09:26: WBC 16.4 H, RBC 4.48 L, Hgb 11.3 L, Hct 36.8 L, MCV 82.1, MCH 25.2 L, MCHC 30.7 L, RDW Std Deviation 43.8, RDW Coeff of Zane 14.6, Plt Count 455 H, MPV 9.0, Immature Gran % (Auto) 0.500, Neut % (Auto) 90.6 H, Lymph % (A uto) 2.6 L, [place] % (Auto) 6.1, Eos % (Auto) 0.0, Baso % (Auto) 0.2, Absolute Neuts (auto) 14.9 H, Absolute Lymphs (auto) 0.42 L, Nucleated RBC % 0, Differential Comment SCANNED 02/14/21 09:26: Sodium 136, Potassium 3.5, Chloride 103, Carbon Dioxide 27.0, Anion Gap 6, BUN 16, Creatinine 0.93, Estim Creat Clear Calc 71.00, Est GFR (MDRD) Af Amer 103, Est GFR (MDRD) Non-Af 85, BUN/Creatinine Ratio 17.2, Glucose 116 H, Calcium 9.7, Troponin I High Sens 15 02/14/21 09:26: D-Dimer Quant (PE/DVT) 0.55 H* Rhythm Strip Rhythm Strip: Sinus Tach Rate: 125 Ectopy: None Radiology Impression Chest X-Ray 02/14/21 09:38 IMPRESSION: 11.2 cm x 7.2 cm mass in the late May of the left upper lobe. Hyperinflation. Findings suggestive of linear scarring in the right lung base and left midlung. Electronically Signed: Juan M Gipson MD at 10:32 EDT , Service support , Assessment & Plan Assessment/Plan (1) COVID-19: (2) Hypoxia: PLAN: #Acute hypoxic respiratory failure due to COVID 19 infection * Admit to ICU as patient is tachypneic and tachycardic and on BiPAP; patient however wishes to be DNRCCA no intubation, so admitted to PCU * Titrate oxygen to maintain saturation above 90%. Start on remdesivir and Decadron * Breathing treatments of bronchodilators * Consult pulmonology * did receive both doses of the COVID vaccine back in September 2020/ * #COVID-19 infection: As above * Diagnosed about 1 week ago though he states his symptoms likely started 2 weeks prior to that. * Management as above. * #Sepsis due to COVID-19 infection: * SIRS criteria is 2 out of 4 as patient is tachypneic and tachycardic. M anagement as above. * #History of lung cancer * Recently diagnosed. Not yet started treatment. To follow-up with pulmonology and oncology on outpatient basis. * #History of COPD: On Roflumilast and Respimat as well as montelukast. DVT prophylaxis: Lovenox 40 mg daily. CODE STATUS: DNR CCA no intubation * Patient and his were counseled extensively about differences between DNR CC, DNR CCA and full code. Patient elects to be DNR CCA and does not want to be intubated or sedated if needed. * Total [id number] time 17 minutes. Charges/Coding Visit Charges Inpatient E&M: 80783 Init Hosp L3 Procedures Hospitalists Procedures: 86650 Advncd Care Plan 30 Min
--- NOTE | 2021-02-14 10:51 | NURSING ---
DR MINERVA CHRISTENSEN
--- NOTE | 2021-02-14 10:57 | NURSING ---
PCU MINERVA COVID, HYPOXIA, COPD FLARE, LUNG CA
--- NOTE | 2021-02-14 11:12 | NURSING ---
ICU 3
--- NOTE | 2021-02-14 11:29 | CM.ED ---
Addendum entered by Brigitte Justa 02/14/21 14:50: ANIL provided patient with advanced directives information from [facility]. [facility] [employer] Addendum entered by [facility] Justa 02/14/21 13:54: SW updated MD Khan that patient is listed as full code but wants no compression or vents. [facility] [employer] Addendum [facility] by [facility] 02/14/21 12:55: SW met with patient and to review the Advanced Directive form. Patient request no vent or chest compressions. Patients stated that they have updated MD about the patient's desires. SW signed as witness as well as RN. Copy went to medical records to be scanned and original to the patient and . Plan: Advanced Directives completed and patient voices he does not want vent or chest compressions. Brigitte Justa [employer] Original Note: ANIL Note: Referral Source: RN Reason for Referral: Patient and family are requesting Advanced Directives SW was advised that patient wants advised directives. ANIL educated patient and the about advanced directives. Patient is being admitted to ICU. ANIL will follow up with ICU social science manager. Plan: Advanced Directives provided Brigitte Justa WEEMS
--- NOTE | 2021-02-14 14:19 | NURSING ---
RM 123
--- NOTE | 2021-02-14 16:35 | CM.ED ---
sW Note ANIL reviewed legal status and noted that patient is full code. ANIL called Daisy (PCU Charge) and stated patient does not want compressions or to be placed on a vent. ANIL advised that patient had completed his advanced directives. Plan: Updated medical team regarding patient's code status Brigitte YU
[2021-02-14 16:54] LABS: International Normalized Ratio 1.2; Prothrombin Time (Protime)PT. 14.1 SECONDS (11.7-14.9)
[2021-02-14] MEDS: 0.9% Saline Lock 10 ML Syringe IV (17:00)
[2021-02-14] MEDS: 0.9% Normal Saline 1,000 ML 100 ML IV (17:00)
[2021-02-14 17:13] LABS: BNP,B-Type NATRIURETIC PEPTIDE 52.4 pg/mL (0-100)
[2021-02-14 17:16] LABS: Alkaline Phosphatase 56 U/L (45-117); CPK Total, Creatine Kinase 27 U/L (39-308); LDH 365 U/L (87-241)
--- NOTE | 2021-02-14 17:16 | CPS ---
Nurse kun has put monitor on patient so the vitals can be seen at the nurses station due to covid.
[2021-02-14 17:22] LABS: Procalcitonin 0.75 ng/mL (0.00-0.09)
[2021-02-14 17:36] LABS: Lactic Acid 2.3 mmol/L (0.4-1.9)
[2021-02-14] MEDS: Budesonide Respules 0.5 MG/2 ML AMPUL.NEB. INHALATION (19:15)
[2021-02-14] MEDS: Montelukast 10 MG Tablet PO (20:12)
[2021-02-14 20:36] LABS: Reflex Lactate? Y
[2021-02-14 23:04] LABS: Lactic Acid 1.2 mmol/L (0.4-1.9)
[2021-02-15] VITALS (26 sets, daily range): BP systolic 109–161; BP diastolic 63–103; PULSE 92–202; RESP 12–29; TEMP 36.3–37.1; O2SAT 87–98
[2021-02-15] MEDS: 0.9% Normal Saline 1,000 ML 100 ML IV (03:20)
[2021-02-15] MEDS: Ipratropium/Albuterol Sulfate 3 ML AMPUL.NEB INHALATION ×2 (07:00→19:07)
[2021-02-15] MEDS: Budesonide Respules 0.5 MG/2 ML AMPUL.NEB. INHALATION ×2 (07:01→19:07)
[2021-02-15 07:19] LABS: Absolute Lymphocyte Count 0.53 X10^3/uL (0.83-4.51); Absolute Neutrophil Count 28.2 X10^3/uL (2.0-7.7); Basophil# 0.04 X10^3/uL; Basophil% 0.1 % (0-1); Hematocrit 34.9 % (40-54); Hemoglobin 10.4 g/dL (13.0-16.5); Lymphocyte # 0.53 X10^3/ul (0.83-4.51); Lymphocyte % 1.7 % (19-41); Mean Corp Hgb Conc 29.8 g/dL (32-36); Mean Corpuscular Hgb 24.9 pg (27.0-32.0); Mean Corpuscular Volume 83.7 fL (80-94); Mean Platelet Vol. 9.2 fl (6.2-12.0); Monocyte# 1.34 X10^3/uL; Monocyte% 4.4 % (0-10); NRBC Flagged by Analyzer 0 % (0-5); Neutrophil # 28.19 X10^3/uL (2.7-7.7); POSITIVE COUNT YES; POSITIVE DIFFERENTIAL YES; Platelet Count 431 K/mm3 (150-450); RBC Distribution Width SD 45.8 fl (35.1-43.9); Red Blood Count 4.17 M/mm3 (4.6-6.2); White Blood Count 30.3 K/mm3 (4.4-11.0)
[2021-02-15 07:22] LABS: Differential Indicated SCAN CRITERIA MET
[2021-02-15 07:54] LABS: ALB/GLOB Ratio 0.5 RATIO (0.9-2.4); AST(SGOT) 23 U/L (15-37); Alanine Aminotransfer ALT/SGPT 26 U/L (16-61); Albumin, Serum 2.2 g/dL (3.2-5.0); Alkaline Phosphatase 49 U/L (45-117); Anion Gap 5 (5-15); BUN 16 mg/dL (7-18); Calcium,Total 9.4 mg/dL (8.5-10.1); Chloride 106 mmol/L (98-107); EST Glomerular Filtration Rate 101 mL/min (>60); Est Glom Filt Rate - Afr Amer 123 mL/min (>60); Globulin 4.7 g/dL (2.2-4.2); Glucose 109 mg/dL (74-106); Potassium 4.3 mmol/L (3.5-5.1); Protein, Total 6.9 g/dL (6.4-8.2); Sodium Level 137 mmol/L (136-145)
[2021-02-15 08:02] LABS: Platelet Estimate ADEQUATE (ADEQ); Red Cell Morphology NORM C+C NORMAL (NORM C&C)
--- NOTE | 2021-02-15 08:13 | EX.PCM.CONCC ---
Assessment & Plan Assessment/Plan (1) COVID-19: PLAN: RECOMMENDATIONS: 1. Continue BiPAP therapy as needed and wean oxygen to maintain saturations at or above 90%. 2. Unclear need for remdesivir, given duration of symptoms. 3. Continue Decadron to complete 10-day treatment course. 4. Given increased white count and sputum production, start empiric antimicrobials. 5. Obtain and send sputum for culture. 6. Continue Lovenox twice daily. IMPRESSIONS: 1. Acute hypoxemic respiratory failure secondary to COVID-19 pneumonia The patient apparently tested +1-week ago. However, he has had approximately 2 weeks of symptoms. Therefore, unclear benefit for continuing remdesivir. I would recommend that the patient be continued on Decadron as ordered to complete 10 days of therapy. Continue scheduled bronchodilator therapy. Given the patient's elevated white blood cell count and sputum production, I would also plan to initiate empiric antimicrobials. Obtain and send sputum for culture, if feasible. Continue to utilize BiPAP therapy as needed for patient comfort. Wean FiO2 to maintain oxygen saturations at or above 90%. Continue Lovenox twice daily. 2. Recent diagnosis of squamous cell carcinoma of the lung Follow-up with oncology through the [facility] system as previously ordered. 3. History of COPD Continue bronchodilator therapy as noted above. Resume triple therapy inhaler regimen at discharge. This note was generated with [employer] dictation software. It may contain incorrect words, spelling, and punctuation that were not noted in checking the note before signing. HPI Consult Data Date of Consult: 02/15/21 HPI Narrative Reason for Consultation: Acute hypoxemic respiratory failure secondary to COVID-19 pneumonia HPI Narrative: The patient is a 71-year-old male, with a history as outlined below, who presented to the emergency department on February 14 with worsening dyspnea and hypoxemia. 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 The patient is currently followed in the pulmonary medicine clinic by Dr. Banegas and recently underwent an EBUS procedure which revealed squamous cell carcinoma of the lung. The patient reports to me that his lungs feel tight. On presentation to the emergency department, the patient was noted to be afebrile and hemodynamically stable. He was, however, notably tachycardic and tachypneic. The patient was immediately placed on BiPAP. Initial laboratory evaluation revealed an elevated white blood cell count to 16,000. Platelet count was elevated to 455,000. D-dimer was noted to be 0.55. Chemistry profile was unremarkable. Lactate was elevated to 2.3. Procalcitonin was noted to be 0.75. Chest x-ray demonstrated hyperinflated lung meredith with the previously noted left upper lobe lung mass. The patient was subsequently placed on remdesivir, Decadron and Lovenox. Scheduled bronchodilator therapy was initiated. The patient was subsequently admitted to the progressive care unit for further management. [facility], [facility] Medical History Arthritis Back pain Chronic cough COPD (chronic obstructive pulmonary disease) Former smoker Gastric reflux History of pain when walking History of steroid therapy History of stress test Shortness of breath on exertion Wears hearing aid Home Medications albuterol sulfate 90 mcg/actuation aerosol inhaler 2 puff INHALATION Q6H PRN 12/11/20 [History Last Taken Unknown] montelukast 10 mg tablet 10 mg PO QHS 12/11/20 [History Last Taken Unknown] roflumilast 500 mcg tablet 500 mcg PO DAILY 12/11/20 [History Last Taken Unknown] mometasone [Asmanex HFA] 2 puff INHALATION BID 01/10/21 [History Last Taken Unknown] tiotropium-olodaterol [Stiolto Respimat] 2 puff INHALATION DAILY 01/10/21 [History Last Taken Unknown] prednisone 20 mg PO QDAY 02/14/21 [History Last Taken Unknown] Allergy/AdvReac Type Severity Reaction Status Date / Time No Known Allergies Allergy Verified 02/14/21 09:28 Surgical History History of inguinal hernia repair History of tonsillectomy and adenoidectomy Hx of bilateral cataract extraction Social History Smoking Status: Former smoker pack-years: 30 Tobacco: How many years used: 30 ROS Constitutional Constitutional: Reports fatigue; Denies chills or fever(s) Eyes Eyes: Denies blurry vision or change in vision ENT HEENT: Denies dysphagia, loss taste/smell, nasal discharge or sore throat Cardiovascular Cardiovascular: Reports dyspnea; Denies chest pain Respiratory/Chest Respiratory/Chest: Reports cough and dyspnea Gastrointestinal Gastrointestinal: Denies abdominal pain, diarrhea, nausea or vomiting Genitourinary Genitourinary: Denies difficulty urinating Musculoskeletal Musculoskeletal: Denies arthralgias, back pain or joint pain Integumentary Integumentary: Denies lesions, rash or skin ulcer Neurologic Neurologic: Denies abnormal gait or abnormal speech Psychiatric Psychiatric: Denies anxiety or depression Endocrine Endocrinology: Denies fatigue or polydipsia Hematologic/Lymphatic Hematologic/Lymphatic: Denies easy bleeding or easy bruising Physical Exam Const alert General Appearance: cooperative and on BiPAP HEENT normocephalic and head/scalp atraumatic Eyes EOMs intact bilaterally and conjunctivae normal Neck supple General: trachea midline Resp Effort and Inspection: tachypneic Auscultation: diminished lung sounds; Negative for rales, rhonchi or wheezes Cardio S1 normal heart sound and S2 normal heart sound Rate: tachycardic GI normal to inspection, nondistended, normoactive bowel sounds Extremity no clubbing, cyanosis or edema Skin no rashes or lesions noted Neuro CN's II-XII intact bilaterally and no focal motor deficits Psych cooperative and affect normal Lab / Micro Data Result Diagrams: 02/15/21 07:00 02/15/21 07:00 Labs: Laboratory Results - last 24 hr 02/14/21 09:26: WBC 16.4 H, RBC 4.48 L, Hgb 11.3 L, Hct 36.8 L, MCV 82.1, MCH 25.2 L, MCHC 30.7 L, RDW Std Deviation 43.8, RDW Coeff of Zane 14.6, Plt Count 455 H, MPV 9.0, Immature Gran % (Auto) 0.500, Neut % (Auto) 90.6 H, Lymph % (Auto) 2.6 L, [place] % (Auto) 6.1, Eos % (Auto) 0.0, Baso % (Auto) 0.2, Absolute Neuts (auto) 14.9 H, Absolute Lymphs (auto) 0.42 L, Nucleated RBC % 0, Differential Comment SCANNED 02/14/21 09:26: Sodium 136, Potassium 3.5, Chloride 103, Carbon Dioxide 27.0, Anion Gap 6, BUN 16, Creatinine 0.93, Estim Creat Clear Calc 71.00, Est GFR (MDRD) Af Amer 103, Est GFR (MDRD) Non-Af 85, BUN/Creatinine Ratio 17.2, Glucose 116 H, Calcium 9.7, Troponin I High Sens 15 02/14/21 09:26: D-Dimer Quant (PE/DVT) 0.55 H* 02/14/21 16:15: Alkaline Phosphatase 56, Lactate Dehydrogenase 365 H, Total Creatine Kinase 27 L, C-React Prot Ext Range 107.00 H 02/14/21 16:15: B-Natriuretic Peptide 52.4 02/14/21 16:15: PT 14.1, INR 1.2 02/14/21 16:15: Lactic Acid 2.3 H* 02/14/21 16:15: Procalcitonin 0.75 H 02/14/21 22:13: Lactic Acid 1.2 02/15/21 07:00: WBC 30.3 H*, RBC 4.17 L, Hgb 10.4 L, Hct 34.9 L, MCV 83.7, MCH 24.9 L, MCHC 29.8 L, RDW Std Deviation 45.8 H, RDW Coeff of Znae 15.0 H, Plt Count 431, MPV 9.2, Immature Gran % (Auto) 0.800, Neut % (Auto) 93.0 H, Lymph % (Auto) 1.7 L, [place] % (Auto) 4.4, Eos % (Auto) 0.0, Baso % (Auto) 0.1, Absolute Neuts (auto) 28.2 H, Absolute Lymphs (auto) 0.53 L, Nucleated RBC % 0, Differential Comment , Diff Path Review May foll, Platelet Estimate ADEQUATE, RBC Morphology NORM C+C 02/15/21 07:00: Sodium 137, Potassium 4.3, Chloride 106, Carbon Dioxide 26.0, Anion Gap 5, BUN 16, Creatinine 0.80, Estim Creat Clear Calc 82.30, Est GFR (MDRD) Af Amer 123, Est GFR (MDRD) Non-Af 101, BUN/Creatinine Ratio 20.0, Glucose 109 H, Calcium 9.4, Total Bilirubin 0.40, AST 23, ALT 26, Alkaline Phosphatase 49, Total Protein 6.9, Albumin 2.2 L, Globulin 4.7 H, Albumin/Globulin Ratio 0.5 L Rhythm Strip Rhythm Strip: Sinus Tach Rate: 125 Ectopy: None Radiology Impression Chest X-Ray 02/14/21 09:38 IMPRESSION: 11.2 cm x 7.2 cm mass in the late May of the left upper lobe. Hyperinflation. Findings suggestive of linear scarring in the right lung base and left midlung. Electronically Signed: Juan M Gipson MD at 10:32 EDT , Service support , Charges/Coding Visit Charges Inpatient E&M: 10886 Init Hosp L3
[2021-02-15] MEDS: dexAMETHasone 10 MG/ML Vial 6 MG IV (10:02)
[2021-02-15] MEDS: Enoxaparin 40 MG/0.4 ML Syringe SC (10:03)
--- NOTE | 2021-02-15 10:28 | PCS.PANDOC ---
PANDEMIC DOCUMENTATION INITIATED: Date: 01/21/2021 Time: 190
--- NOTE | 2021-02-15 11:17 | PN.HOSP_ITS ---
Subjective Subjective Patient seen and examined. He had no active complaints and had been taken off BIPAP and was on 4L of oxygen. He still felt like his breathing hadnt improved much as he had severe coughing and was expectorating a lot of sputum. Review of systems is otherwise negative. He was noted to be tachycardic and tachypneic th is morning. WBC has also trended up to 30.3. Objective Data Objective Data Vital Signs: Vital Signs Temp Pulse Resp BP Pulse Ox 97.6 F L 102 H 19 H 139/63 H 97 02/15/21 08:00 02/15/21 08:00 02/15/21 08:00 02/15/21 08:00 02/15/21 08:00 Oxygen Flow Rate (L/min) 6 Oxygen Delivery Method Nasal Cannula Weight: 151 lb 7.321 oz Body Mass Index (BMI) 22.4 Intake & Output: Intake and Output for Last 24 Hours 02/13/21 02/14/21 02/15/21 23:59 23:59 23:59 Intake Total 490 / 490 1969 Output Total 600 / 600 Balance -110 / -110 1969 Lab / Micro Data Result Diagrams: 02/15/21 07:00 02/15/21 07:00 Labs: Laboratory Results - last 24 hr 02/14/21 16:15: Alkaline Phosphatase 56, Lactate Dehydrogenase 365 H, Total Creatine Kinase 27 L, C-React Prot Ext Range 107.00 H 02/14/21 16:15: B-Natriuretic Peptide 52.4 02/14/21 16:15: PT 14.1, INR 1.2 02/14/21 16:15: Lactic Acid 2.3 H* 02/14/21 16:15: Procalcitonin 0.75 H 02/14/21 22:13: Lactic Acid 1.2 02/15/21 07:00: WBC 30.3 H*, RBC 4.17 L, Hgb 10.4 L, Hct 34.9 L, MCV 83.7, MCH 24.9 L, MCHC 29.8 L, RDW Std Deviation 45.8 H, RDW Coeff of Zane 15.0 H, Plt Count 431, MPV 9.2, Immature Gran % (Auto) 0.800, Neut % (Auto) 93.0 H, Lymph % (Auto) 1.7 L, [place] % (Auto) 4.4, Eos % (Auto) 0.0, Baso % (Auto) 0.1, Absolute Neuts (auto) 28.2 H, Absolute Lymphs (auto) 0.53 L, Nucleated RBC % 0, Differential Comment , Diff Path Review May foll, Platelet Estimate ADEQUATE, RBC Morphology NORM C+C 02/15/21 07:00: Sodium 137, Potassium 4.3, Chloride 106, Carbon Dioxide 26.0, Anion Gap 5, BUN 16, Creatinine 0.80, Estim Creat Clear Calc 82.30, Est GFR (MDRD) Af Amer 123, Est GFR (MDRD) Non-Af 101, BUN/Creatinine Ratio 20.0, Glucose 109 H, Calcium 9.4, Total Bilirubin 0.40, AST 23, ALT 26, Alkaline Phosphatase 49, Total Protein 6.9, Albumin 2.2 L, Globulin 4.7 H, Albumin/Globulin Ratio 0.5 L Rhythm Strip Rhythm Strip: Sinus Tach Rate: 125 Ectopy: None Physical Exam Const alert, oriented x3 and no apparent distress General Appearance: cooperative Exam Limitations: no limitations HEENT normocephalic, head/scalp atraumatic and hearing grossly normal bilaterally Head and Scalp: normocephalic Eyes PERRL, EOMs intact bilaterally and conjunctivae normal Neck no lymphadenopathy Resp Resp Narrative: tachypneic, on 4L of oxygen by nasal canula, breath sounds diminished bibasally, no wheezes or crackles. Cardio regular rhythm, S1 normal heart sound, S2 normal heart sound and no murmurs Cardio Narrative: tachycardic GI normal to inspection, nondistended, normoactive bowel sounds, soft to palpation, non-tender and non-distended Extremity normal to inspection, full ROM and no clubbing, cyanosis or edema Peripheral Pulses: Yes pulses 2+ throughout Skin no rashes or lesions noted Neuro oriented x3 Sensorium / Orientation: awake and alert Psych affect normal Assessment & Plan Assessment/Plan (1) COVID-19: (2) Hypoxia: PLAN: #Acute hypoxic respiratory failure due to COVID 19 infection * now on 4L of oxygen by nasal canula * on remdesivir and decadron. * pulmonology consulted. * titrate oxygen to maintain sats >90% * breathing treatment with bronchodilators * 021/ * #COVID-19 infection: As above * Diagnosed about 1 week ago though he states his symptoms likely started 2 weeks prior to that. * Management as above. * has received both vaccines * #SIRS criteria due to COVID-19 infection: * tachycardia and tachypnea got better whilst on BIPAP. Tachycardic and t achypneic again this morning after he was taken off BIPAP * D dimer was 0.55, which when age adjusted is not elevated. * BIPAP prn for shortness of breath. * #History of lung cancer * Recently diagnosed. Not yet started treatment. To follow-up with pulmonology and oncology on outpatient basis. * #History of COPD: On Roflumilast and Respimat as well as montelukast. DVT prophylaxis: Lovenox 40 mg daily. CODE STATUS: DNR CCA no intubation * Charges/Coding Visit Charges Inpatient E&M: 03679 Subs Hosp L3
--- NOTE | 2021-02-15 11:18 | EKG12_ITS ---
Test Reason : Blood Pressure : / mmHG Vent. Rate : 120 BPM Atrial Rate : 120 BPM P-R Int : 128 ms QRS Dur : 086 ms QT Int : 296 ms P-R-T Axes : 076 032 046 degrees QTc Int : 418 ms Sinus tachycardia Otherwise normal ECG When compared with ECG of 14-FEB-2021 09:50, MANUAL COMPARISON REQUIRED, DATA IS UNCONFIRMED Confirmed by SEBLE BUTLER, NERI ([id number]), newspaper editor SHAYNE LAURA ([id number]) on 02/19/2021 10:35:36 AM Referred By: MINERVA Confirmed By:NERI PRUETT MD
--- NOTE | 2021-02-15 14:07 | CON.PCM.ID_ITS ---
Assessment & Plan Assessment/Plan (1) COVID-19: PLAN: Sx since 02/05/21. On dex, remdesivir. Will check sputum cx, agree with empiric zosyn. On lovenox 40mg daily, d-dimer was 0.5. Has been vaccinated. Plan on 20 day quarantine. Will follow, thank you (2) Hypoxia: (3) Squamous cell carcinoma of left lung: HPI Consult Data Date of Consult: 02/15/21 HPI Narrative HPI Narrative: TONY SNYDER, is a 71 M with COPD, recent dx NSCLC, presented with sx starting 02/05/21, c/o dyspnea, cough with yellow sputum, change in taste/smell, fatigue. Sat down to the 70s at home, came to ED, admitted on dex, remdesivir. Zosyn added today. He and have been vaccinated for covid. Full ROS performed and neg except as noted above. PFSH Medical History Arthritis Back pain Chronic cough COPD (chronic obstructive pulmonary disease) Former smoker Gastric reflux History of pain when walking History of steroid therapy History of stress test Shortness of breath on exertion Wears hearing aid Home Medications albuterol sulfate 90 mcg/actuation aerosol inhaler 2 puff INHALATION Q6H PRN 12/11/20 [History Last Taken Unknown] montelukast 10 mg tablet 10 mg PO QHS 12/11/20 [History Last Taken Unknown] roflumilast 500 mcg tablet 500 mcg PO DAILY 12/11/20 [History Last Taken Unknown] mometasone [Asmanex HFA] 2 puff INHALATION BID 01/10/21 [History Last Taken Unknown] tiotropium-olodaterol [Stiolto Respimat] 2 puff INHALATION DAILY 01/10/21 [History Last Taken Unknown] prednisone 20 mg PO QDAY 02/14/21 [History Last Taken Unknown] Allergy/AdvReac Type Severity Reaction Status Date / Time No Known Allergies Allergy Verified 02/14/21 09:28 Surgical History History of inguinal hernia repair History of tonsillectomy and adenoidectomy Hx of bilateral cataract extraction Social History Smoking Status: Former smoker pack-years: 30 Tobacco: How many years used: 30 Physical Exam Const alert and no apparent distress General Appearance: cooperative HEENT normocephalic and head/scalp atraumatic Eyes PERRL and EOMs intact bilaterally Neck supple and No nodes Resp clear to auscultation bilaterally Auscultation: diminished lung sounds Cardio regular rate and regular rhythm GI normal to inspection, nondistended, normoactive bowel sounds Extremity no clubbing, cyanosis or edema Skin no rashes or lesions noted Neuro CN's II-XII intact bilaterally Lab / Micro Data Result Diagrams: 02/15/21 07:00 02/15/21 07:00 Labs: Laboratory Results - last 24 hr 02/14/21 16:15: Alkaline Phosphatase 56, Lactate Dehydrogenase 365 H, Total Creatine Kinase 27 L, C-React Prot Ext Range 107.00 H 02/14/21 16:15: B-Natriuretic Peptide 52.4 02/14/21 16:15: PT 14.1, INR 1.2 02/14/21 16:15: Lactic Acid 2.3 H* 02/14/21 16:15: Procalcitonin 0.75 H 02/14/21 22:13: Lactic Acid 1.2 02/15/21 07:00: WBC 30.3 H*, RBC 4.17 L, Hgb 10.4 L, Hct 34.9 L, MCV 83.7, MCH 24.9 L, MCHC 29.8 L, RDW Std Deviation 45.8 H, RDW Coeff of Zane 15.0 H, Plt Count 431, MPV 9.2, Immature Gran % (Auto) 0.800, Neut % (Auto) 93.0 H, Lymph % (Auto) 1.7 L, [place] % (Auto) 4.4, Eos % (Auto) 0.0, Baso % (Auto) 0.1, Absolute Neuts (auto) 28.2 H, Absolute Lymphs (auto) 0.53 L, Nucleated RBC % 0, Differential Comment , Diff Path Review May foll, Platelet Estimate ADEQUATE, RBC Morphology NORM C+C 02/15/21 07:00: Sodium 137, Potassium 4.3, Chloride 106, Carbon Dioxide 26.0, Anion Gap 5, BUN 16, Creatinine 0.80, Estim Creat Clear Calc 82.30, Est GFR (MDRD) Af Amer 123, Est GFR (MDRD) Non-Af 101, BUN/Creatinine Ratio 20.0, Glucose 109 H, Calcium 9.4, Total Bilirubin 0.40, AST 23, ALT 26, Alkaline Phosphatase 49, Total Protein 6.9, Albumin 2.2 L, Globulin 4.7 H, Albumin/Globulin Ratio 0.5 L Rhythm Strip Rhythm Strip: Sinus Tach Rate: 125 Ectopy: None
--- NOTE | 2021-02-15 14:20 | CASEMGMT ---
SHAWN VARGAS Assessment: Initial transition planning/care coordination assessment. SHAWN VARGAS introduced self and role at [facility], pt voices understanding and consents to assessment. Pt able to speak in full sentences on 6L nc at this time. Pt is A/Ox4 and answers all questions appropriately. Care providers, pharmacy, and demographics verified. Presentation: Pt COVID + w/ hx lung CA, COPD, asthma-pt states was tested at [facility] urgent care Admitting dx: Acute hypoxic resp failure d/t COVID PCP: Amy Specialists: Bassam pulshelli; Jeremiah, onc Preferred Pharmacy: [facility]/Mustapha Jimenez Insurance: ALTHIA A/B, Babycare, FiTeq Prescription Benefit: [place] only Living Will/HPOA: Pt has LW/HPOA that was just completed this visit in the ED prior to admission and are on chart. LNOK: Latoya Mohr, Living Arrangements: Pt states lives with in 1 story home and states no concerns at home. Pt states is independent with ADL's. Pt states no concerns getting groceries, etc. once home. Transportation: Pt states drives self and states no transportation concerns. DME/HHC: Pt states no current DME or need for any further DME. Pt states unsure of [facility] vs local DME for home oxygen, if he qualifies for oxygen at d/c. CM to follow. Pt states no hx of HHC or SNF in the past. Pt states no concerns with going home at time of discharge. Pt is retired. Pt states quit smoking 20 years ago and states occasionally drinks ETOH. Pt states no further concerns/needs. CM to follow for home oxygen and any further discharge planning/needs. Advised pt to ask for CM if any further questions/concerns/needs arise, voices understanding. Pt Goal: Home Plan: Home, pending home oxygen testing. [place] SHAWN VARGAS
--- NOTE | 2021-02-15 19:28 | EKG12_ITS ---
Test Reason : TACHY Blood Pressure : / mmHG Vent. Rate : 139 BPM Atrial Rate : 139 BPM P-R Int : 142 ms QRS Dur : 092 ms QT Int : 278 ms P-R-T Axes : 044 037 031 degrees QTc Int : 423 ms Sinus tachycardia Otherwise normal ECG No previous ECGs available Confirmed by SEBLE BUTLER, NERI ([id number]), telegraph editor SHAYNE LAURA ([id number]) on 02/19/2021 10:52:31 AM Referred By: Confirmed By:NERI PRUETT MD
--- NOTE | 2021-02-15 19:42 | NURSING ---
Telemetry alarming HR 203. This RN into room to assess pt. Pt resting in bed with bipap on getting breathing treatment. Respiratory therapist Padmini in room. Pt taken off bipap and placed on 5 L NC. Had pt bear down x2 and blow through straw with no results. HR remains 202 on monitor. EKG obtained. Anita ESCOBAR paged Dr Alexis to room. Pt HR now 137, v/o from Dr. Alexis who is now at bedside for metoprolol.
[2021-02-15] MEDS: Montelukast 10 MG Tablet PO (20:54)
[2021-02-15] MEDS: Metoprolol Tartrate 25 MG Tablet PO (20:54)
[2021-02-16] VITALS (21 sets, daily range): BP systolic 107–132; BP diastolic 59–78; PULSE 76–121; RESP 12–24; TEMP 36.7–36.8; O2SAT 95–100
[2021-02-16 07:37] LABS: Absolute Lymphocyte Count 0.51 X10^3/uL (0.83-4.51); Absolute Neutrophil Count 22.6 X10^3/uL (2.0-7.7); Basophil# 0.02 X10^3/uL; Basophil% 0.1 % (0-1); Hematocrit 35.8 % (40-54); Hemoglobin 10.9 g/dL (13.0-16.5); Lymphocyte # 0.51 X10^3/ul (0.83-4.51); Lymphocyte % 2.1 % (19-41); Mean Corp Hgb Conc 30.4 g/dL (32-36); Mean Corpuscular Hgb 24.9 pg (27.0-32.0); Mean Corpuscular Volume 81.9 fL (80-94); Mean Platelet Vol. 9.6 fl (6.2-12.0); Monocyte# 1.05 X10^3/uL; Monocyte% 4.3 % (0-10); NRBC Flagged by Analyzer 0 % (0-5); Neutrophil # 22.56 X10^3/uL (2.7-7.7); Neutrophil % 91.6 % (47-70); POSITIVE DIFFERENTIAL YES; POSITIVE MORPHOLOGY YES; Platelet Count 434 K/mm3 (150-450); RBC Distribution Width SD 45.6 fl (35.1-43.9); Red Blood Count 4.37 M/mm3 (4.6-6.2); White Blood Count 24.6 K/mm3 (4.4-11.0)
[2021-02-16 07:44] LABS: ALB/GLOB Ratio 0.4 RATIO (0.9-2.4); AST(SGOT) 40 U/L (15-37); Alanine Aminotransfer ALT/SGPT 42 U/L (16-61); Alkaline Phosphatase 51 U/L (45-117); Anion Gap 6 (5-15); BUN 19 mg/dL (7-18); BUN/Creat Ratio 26.1 RATIO (10-20); Calcium,Total 9.2 mg/dL (8.5-10.1); Chloride 103 mmol/L (98-107); Creatinine, Serum 0.73 mg/dL (0.70-1.30); EST Glomerular Filtration Rate 113 mL/min (>60); Est Glom Filt Rate - Afr Amer 137 mL/min (>60); Estimated Creatinine Clearance 65.84 ml/min; Globulin 4.8 g/dL (2.2-4.2); Glucose 105 mg/dL (74-106); Potassium 4.1 mmol/L (3.5-5.1); Protein, Total 6.8 g/dL (6.4-8.2); Sodium Level 137 mmol/L (136-145)
[2021-02-16] MEDS: Ipratropium/Albuterol Sulfate 3 ML AMPUL.NEB INHALATION ×2 (07:57→21:21)
[2021-02-16] MEDS: Budesonide Respules 0.5 MG/2 ML AMPUL.NEB. INHALATION (07:57)
[2021-02-16 08:00] LABS: Differential Indicated SCAN CRITERIA MET
--- NOTE | 2021-02-16 09:33 | PCM.PN.INT ---
Assessment & Plan Assessment/Plan (1) COVID-19: PLAN: RECOMMENDATIONS: 1. Continue to wean oxygen as tolerated to maintain saturations at or above 90%. 2. Continue remdesivir to complete treatment course. 3. Continue Decadron to complete 10-day treatment course. 4. Continue empiric antimicrobials. 5. Continue Lovenox. IMPRESSIONS: 1. Acute hypoxemic respiratory failure secondary to COVID-19 pneumonia The patient apparently tested +1-week ago. However, he has had approximately 2 weeks of symptoms. Therefore, unclear benefit for continuing remdesivir. I would recommend that the patient be continued on Decadron as ordered to complete 10 days of therapy. Continue scheduled bronchodilator therapy. Given the patient's elevated white blood cell count and sputum production, I would also plan to continue empiric antimicrobials. Obtain and send sputum for culture, if feasible. Continue to utilize BiPAP therapy as needed for patient comfort. Continue to wean oxygen to maintain saturations at or above 90%. Continue Lovenox. 2. Recent diagnosis of squamous cell carcinoma of the lung Follow-up with oncology through the [facility] system as previously ordered. 3. History of COPD Continue bronchodilator therapy as noted above. Resume triple therapy inhaler regimen at discharge. This note was generated with [employer] dictation software. It may contain incorrect words, spelling, and punctuation that were not noted in checking the note before signing. Subjective Subjective The patient was seen and examined at the bedside this morning. Events from the last 24 hours have been reviewed. The patient is currently afebrile, hemodynamically stable and maintaining appropriate oxygen saturations on BiPAP with an FiO2 requirement of 30%. The patient is currently documented to be overall net +1.7 L for the hospital admission. The patient remains on antimicrobials, remdesivir, Decadron and Lovenox. Objective Data Objective Data The patient's most recent lab work, culture data and imaging studies have all been personally reviewed. Vital Signs: Vital Signs Temp Pulse Resp BP Pulse Ox 98.0 F 99 22 H 107/73 98 02/16/21 06:00 02/16/21 07:02 02/16/21 06:00 02/16/21 06:00 02/16/21 06:00 Oxygen Flow Rate (L/min) 5 Oxygen Delivery Method Bi-pap Weight: 68.7 kg Body Mass Index (BMI) 22.4 Intake & Output: Intake and Output for Last 24 Hours 02/14/21 02/15/21 02/16/21 23:59 23:59 23:59 Intake Total 490 / 490 2710 / 2710 50 / 50 Output Total 600 / 600 550 / 550 350 / 350 Balance -110 / -110 2160 / 2160 -300 / -300 Lab / Micro Data Attestation: I reviewed the patient's lab results. Result Diagrams: 02/16/21 07:05 02/16/21 07:05 Labs: Laboratory Results - last 24 hr 02/16/21 07:05: WBC 24.6 H, RBC 4.37 L, Hgb 10.9 L, Hct 35.8 L, MCV 81.9, MCH 24.9 L, MCHC 30.4 L, RDW Std Deviation 45.6 H, RDW Coeff of Zane 15.0 H, Plt Count 434, MPV 9.6, Immature Gran % (Auto) 1.900 H, Neut % (Auto) 91.6 H, Lymph % (Auto) 2.1 L, [place] % (Auto) 4.3, Eos % (Auto) 0.0, Baso % (Auto) 0.1, Absolute Neuts (auto) 22.6 H, Absolute Lymphs (auto) 0.51 L, Nucleated RBC % 0 02/16/21 07:05: Sodium 137, Potassium 4.1, Chloride 103, Carbon Dioxide 28.0, Anion Gap 6, BUN 19 H, Creatinine 0.73, Estim Creat Clear Calc 65.84, Est GFR (MDRD) Af Amer 137, Est GFR (MDRD) Non-Af 113, BUN/Creatinine Ratio 26.1 H, Glucose 105, Calcium 9.2, Total Bilirubin 0.40, AST 40 H, ALT 42, Alkaline Phosphatase 51, Total Protein 6.8, Albumin 2.0 L, Globulin 4.8 H, Albumin/Globulin Ratio 0.4 L Rhythm Strip Rhythm Strip: Sinus Tach Rate: 125 Ectopy: None Physical Exam Const alert and no apparent distress General Appearance: cooperative HEENT normocephalic and head/scalp atraumatic Eyes EOMs intact bilaterally and conjunctivae normal Neck supple General: trachea midline Resp Auscultation: diminished lung sounds; Negative for rales, rhonchi or wheezes Cardio regular rate, regular rhythm, S1 normal heart sound and S2 normal heart sound GI normal to inspection, nondistended, normoactive bowel sounds Extremity no clubbing, cyanosis or edema Skin no rashes or lesions noted Neuro CN's II-XII intact bilaterally and no focal motor deficits Psych cooperative and affect normal Charges/Coding Visit Charges Inpatient E&M: 76446 Subs Hosp L2
--- NOTE | 2021-02-16 11:04 | PN.HOSP_ITS ---
Subjective Subjective Patient seen and examined. He was oxygen at time of review. He had just been taken off BIPAP. He was coughing and bringing up greenish sputum. He denies fever or chills. Review of systems otherwise negative. Objective Data Objective Data Vital Signs: Vital Signs Temp Pulse Resp BP Pulse Ox 98.0 F 99 22 H 107/73 98 02/16/21 06:00 02/16/21 07:02 02/16/21 06:00 02/16/21 06:00 02/16/21 06:00 Oxygen Flow Rate (L/min) 5 Oxygen Delivery Method Bi-pap Weight: 151 lb 7.321 oz Body Mass Index (BMI) 22.4 Intake & Output: Intake and Output for Last 24 Hours 02/14/21 02/15/21 02/16/21 23:59 23:59 23:59 Intake Total 490 / 490 2710 / 2710 50 / 50 Output Total 600 / 600 550 / 550 350 / 350 Balance -110 / -110 2160 / 2160 -300 / -300 Lab / Micro Data Result Diagrams: 02/16/21 07:05 02/16/21 07:05 Labs: Laboratory Results - last 24 hr 02/16/21 07:05: WBC 24.6 H, RBC 4.37 L, Hgb 10.9 L, Hct 35.8 L, MCV 81.9, MCH 24.9 L, MCHC 30.4 L, RDW Std Deviation 45.6 H, RDW Coeff of Zane 15.0 H, Plt Count 434, MPV 9.6, Immature Gran % (Auto) 1.900 H, Neut % (Auto) 91.6 H, Lymph % (Auto) 2.1 L, [place] % (Auto) 4.3, Eos % (Auto) 0.0, Baso % (Auto) 0.1, Absolute Neuts (auto) 22.6 H, Absolute Lymphs (auto) 0.51 L, Nucleated RBC % 0 02/16/21 07:05: Sodium 137, Potassium 4.1, Chloride 103, Carbon Dioxide 28.0, Anion Gap 6, BUN 19 H, Creatinine 0.73, Estim Creat Clear Calc 65.84, Est GFR (MDRD) Af Amer 137, Est GFR (MDRD) Non-Af 113, BUN/Creatinine Ratio 26.1 H, Glucose 105, Calcium 9.2, Total Bilirubin 0.40, AST 40 H, ALT 42, Alkaline Phosphatase 51, Total Protein 6.8, Albumin 2.0 L, Globulin 4.8 H, Albumin/Globulin Ratio 0.4 L Rhythm Strip Rhythm Strip: Sinus Tach Rate: 125 Ectopy: None Physical Exam Const alert, oriented x3 and no apparent distress General Appearance: cooperative Orientation / Consciousness: lethargic Exam Limitations: no limitations HEENT normocephalic, head/scalp atraumatic and hearing grossly normal bilaterally Head and Scalp: normocephalic Eyes PERRL, EOMs intact bilaterally and conjunctivae normal Neck no lymphadenopathy Resp Resp Narrative: tachypneic, on 10L of oxygen by nasal canula, breath sounds diminished bibasally, no wheezes or crackles. Cardio regular rate, regular rhythm, S1 normal heart sound, S2 normal heart sound and no murmurs Cardio Narrative: tachycardic GI normal to inspection, nondistended, normoactive bowel sounds, soft to palpation, non-tender and non-distended Extremity normal to inspection, full ROM and no clubbing, cyanosis or edema Peripheral Pulses: Yes pulses 2+ throughout Skin no rashes or lesions noted Neuro oriented x3 Sensorium / Orientation: awake and alert Psych affect normal Assessment & Plan Assessment/Plan (1) COVID-19: (2) Hypoxia: PLAN: #Acute hypoxic respiratory failure due to COVID 19 infection * now on 10L of oxygen by nasal canula * on remdesivir and decadron. * pulmonology on board; started on zosyn o/a of productive cough. * titrate oxygen to maintain sats >90% * breathing treatment with bronchodilators * wbc is down to 24.6 today from 30 yesterday * ID also consulted. * #COVID-19 infection: As above * Management as above. * has received both vaccines * #sepsis due to Superimposed bacterial pneumonia * wbc trended up to 24.6 today. he is tachypneic and SIRS criteria is 2.4 * started on zosyn yesterday. * sputum cultures ordered * will order blood cultures * #History of lung cancer * Recently diagnosed. Not yet started treatment. To follow-up with pulmonology and oncology on outpatient basis. * #History of COPD: On Roflumilast and Respimat as well as montelukast. DVT prophylaxis: Lovenox 40 mg daily. CODE STATUS: DNR CCA no intubation * Charges/Coding Visit Charges Inpatient E&M: 28265 Subs Hosp L3
[2021-02-16] MEDS: Enoxaparin 40 MG/0.4 ML Syringe SC (11:22)
[2021-02-16] MEDS: dexAMETHasone 10 MG/ML Vial 6 MG IV (11:23)
[2021-02-16] MEDS: Metoprolol Tartrate 25 MG Tablet PO ×2 (11:24→20:47)
[2021-02-16 12:02] LABS: Differential Comment SCANNED
[2021-02-16] MEDS: Montelukast 10 MG Tablet PO (20:47)
--- NOTE | 2021-02-16 21:37 | CPS ---
Patient wants to try being off the BiPAP tonight. 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
[2021-02-17] VITALS (20 sets, daily range): BP systolic 117–145; BP diastolic 65–82; PULSE 79–109; RESP 18–21; TEMP 36.1–36.7; O2SAT 87–98
[2021-02-17 06:57] LABS: Absolute Lymphocyte Count 0.36 X10^3/uL (0.83-4.51); Absolute Neutrophil Count 14.8 X10^3/uL (2.0-7.7); Basophil# 0.02 X10^3/uL; Basophil% 0.1 % (0-1); Hematocrit 32.2 % (40-54); Hemoglobin 9.7 g/dL (13.0-16.5); Lymphocyte # 0.36 X10^3/ul (0.83-4.51); Lymphocyte % 2.3 % (19-41); Mean Corp Hgb Conc 30.1 g/dL (32-36); Mean Corpuscular Hgb 24.9 pg (27.0-32.0); Mean Corpuscular Volume 82.6 fL (80-94); Monocyte# 0.54 X10^3/uL; Monocyte% 3.4 % (0-10); NRBC Flagged by Analyzer 0 % (0-5); Neutrophil # 14.75 X10^3/uL (2.7-7.7); Neutrophil % 93.5 % (47-70); POSITIVE DIFFERENTIAL YES; Platelet Count 348 K/mm3 (150-450); RBC Distribution Width CV 14.9 % (11.6-14.6); RBC Distribution Width SD 44.9 fl (35.1-43.9); White Blood Count 15.8 K/mm3 (4.4-11.0)
[2021-02-17 07:08] LABS: Differential Indicated SCAN CRITERIA MET
[2021-02-17 07:19] LABS: ALB/GLOB Ratio 0.5 RATIO (0.9-2.4); AST(SGOT) 28 U/L (15-37); Alanine Aminotransfer ALT/SGPT 41 U/L (16-61); Albumin, Serum 1.9 g/dL (3.2-5.0); Alkaline Phosphatase 47 U/L (45-117); Anion Gap 4 (5-15); BUN 23 mg/dL (7-18); BUN/Creat Ratio 36.2 RATIO (10-20); Calcium,Total 8.8 mg/dL (8.5-10.1); Chloride 104 mmol/L (98-107); Creatinine, Serum 0.64 mg/dL (0.70-1.30); EST Glomerular Filtration Rate 132 mL/min (>60); Est Glom Filt Rate - Afr Amer 160 mL/min (>60); Estimated Creatinine Clearance 65.93 ml/min; Globulin 4.2 g/dL (2.2-4.2); Glucose 130 mg/dL (74-106); Potassium 4.2 mmol/L (3.5-5.1); Protein, Total 6.1 g/dL (6.4-8.2); Sodium Level 138 mmol/L (136-145)
[2021-02-17 08:16] LABS: Differential Comment SCANNED
[2021-02-17] MEDS: Metoprolol Tartrate 25 MG Tablet PO ×2 (09:15→21:05)
[2021-02-17] MEDS: 0.9% Saline Lock 10 ML Syringe IV (09:15)
[2021-02-17] MEDS: Enoxaparin 40 MG/0.4 ML Syringe SC (09:15)
[2021-02-17] MEDS: dexAMETHasone 10 MG/ML Vial 6 MG IV (09:16)
--- NOTE | 2021-02-17 10:13 | PN.HOSP_ITS ---
Subjective Subjective Patient seen and examined. He is down to 2L of oxygen today and looks much better. He is still coughing and is expectorating greenish sputum. He remains mildly tachycardic but is otherwise stable. Review of systems otherwise negative. Objective Data Objective Data Vital Signs: Vital Signs Temp Pulse Resp BP Pulse Ox 97.1 F L 109 H 19 H 119/67 92 02/17/21 09:10 02/17/21 09:15 02/17/21 09:10 02/17/21 09:10 02/17/21 09:23 Oxygen Flow Rate (L/min) 2 Oxygen Delivery Method Room Air Weight: 151 lb 10.848 oz Body Mass Index (BMI) 22.4 Intake & Output: Intake and Output for Last 24 Hours 02/15/21 02/16/21 02/17/21 23:59 23:59 23:59 Intake Total 2710 / 2710 799.17 / 799.17 850 / 850 Output Total 550 / 550 700 / 700 500 / 500 Balance 2160 / 2160 99.17 / 99.17 350 / 350 Lab / Micro Data Result Diagrams: 02/17/21 06:35 02/17/21 06:35 Labs: Laboratory Results - last 24 hr 02/16/21 07:05: Differential Comment SCANNED 02/17/21 02:35: MRSA (PCR) Cancelled 02/17/21 06:35: WBC 15.8 H, RBC 3.90 L, Hgb 9.7 L, Hct 32.2 L, MCV 82.6, MCH 24.9 L, MCHC 30.1 L, RDW Std Deviation 44.9 H, RDW Coeff of Zane 14.9 H, Plt Count 348, MPV 10.0, Immature Gran % (Auto) 0.700, Neut % (Auto) 93.5 H, Lymph % (Auto) 2.3 L, [place] % (Auto) 3.4, Eos % (Auto) 0.0, Baso % (Auto) 0.1, Absolute Neuts (auto) 14.8 H, Absolute Lymphs (auto) 0.36 L, Nucleated RBC % 0, Differential Comment SCANNED 02/17/21 06:35: Sodium 138, Potassium 4.2, Chloride 104, Carbon Dioxide 30.0, Anion Gap 4 L, BUN 23 H, Creatinine 0.64 L, Estim Creat Clear Calc 65.93, Est GFR (MDRD) Af Amer 160, Est GFR (MDRD) Non-Af 132, BUN/Creatinine Ratio 36.2 H, Glucose 130 H, Calcium 8.8, Total Bilirubin 0.40, AST 28, ALT 41, Alkaline Phosphatase 47, Total Protein 6.1 L, Albumin 1.9 L, Globulin 4.2, Albumin/Globulin Ratio 0.5 L Micro: Microbiology 02/17/21 02:55 Urine, Clean Catch Legionella Antigen - Final 02/17/21 02:55 Urine, Clean Catch Streptococcus pneumoniae Antigen (M - Final Rhythm Strip Rhythm Strip: Sinus Tach Rate: 125 Ectopy: None Physical Exam Const alert, oriented x3 and no apparent distress General Appearance: cooperative Exam Limitations: no limitations HEENT normocephalic, head/scalp atraumatic and hearing grossly normal bilaterally Head and Scalp: normocephalic Eyes PERRL, EOMs intact bilaterally and conjunctivae normal Neck no lymphadenopathy Resp Resp Narrative: on 2L of oxygen by nasal canula, no wheezes or crackles. Cardio regular rhythm, S1 normal heart sound, S2 normal heart sound and no murmurs Cardio Narrative: tachycardic GI normal to inspection, nondistended, normoactive bowel sounds, soft to palpation, non-tender and non-distended Extremity normal to inspection, full ROM and no clubbing, cyanosis or edema Skin no rashes or lesions noted Neuro oriented x3 Sensorium / Orientation: awake and alert Psych affect normal Assessment & Plan Assessment/Plan (1) COVID-19: (2) Hypoxia: PLAN: #Acute hypoxic respiratory failure due to COVID 19 infection * now down to 2L of oxygen by nasal canula * on remdesivir and decadron. * on IV zosyn * titrate oxygen to maintain sats >90% * breathing treatment with bronchodilators * wbc is down to is down to 15.8 today * ID also consulted. * #COVID-19 infection: As above * Management as above. * has received both vaccines * #sepsis due to Superimposed bacterial pneumonia * wbc trended down to 15.8 today. * on IV zosyn * sputum culutres and blood culutres pending * urine for strep and legionella negative. * * #History of lung cancer * Recently diagnosed. Not yet started treatment. To follow-up with pulmonology and oncology on outpatient basis. * #History of COPD: On Roflumilast and Respimat as well as montelukast. DVT prophylaxis: Lovenox 40 mg daily. CODE STATUS: DNR CCA no intubation * * Disposition: for potential discharge in 24-48 hours Charges/Coding Visit Charges Inpatient E&M: 40064 Subs Hosp L2
[2021-02-17 12:39] LABS: M R Staph aureus DNA By PCR Negative (Negative); Probe Check PASS; Specimen Processing Control PASS
[2021-02-17] MEDS: Ipratropium/Albuterol Sulfate 3 ML AMPUL.NEB INHALATION ×2 (13:12→19:56)
--- NOTE | 2021-02-17 14:21 | PCM.PN.INT ---
Assessment & Plan Assessment/Plan (1) COVID-19: PLAN: RECOMMENDATIONS: 1. Continue to wean oxygen as tolerated to maintain saturations at or above 90%. 2. Discontinue Remdesivir 3. Continue Decadron to complete 10-day treatment course. 4. Continue empiric antimicrobials. 5. Continue Lovenox. 6. Obtain walking oximetry IMPRESSIONS: 1. Acute hypoxemic respiratory failure secondary to COVID-19 pneumonia The patient apparently tested +1-week ago. However, he has had approximately 2 weeks of symptoms. Therefore, unclear benefit for continuing remdesivir. I would recommend that the patient be continued on Decadron as ordered to complete 10 days of therapy. Continue scheduled bronchodilator therapy. Continue empiric antibiotics pending culture results. Continue to utilize BiPAP therapy as needed for patient comfort. Continue to wean oxygen to maintain saturations at or above 90%. Continue Lovenox. Anticipate multiple contributing etiologies. Patient does not have significant bilateral infiltrates. Patient could potentially be discharged if able to tolerate ambulation on 6 L or less. Patient could follow-up in our office as previously planned. 2. Recent diagnosis of squamous cell carcinoma of the lung Follow-up with oncology through the [facility] as previously ordered. Patient follows with Dr. Daniels 3. History of COPD Continue bronchodilator therapy as noted above. Resume triple therapy inhaler regimen at discharge. This note was generated with [employer] dictation software. It may contain incorrect words, spelling, and punctuation that were not noted in checking the note before signing. Subjective Subjective Patient did well overnight. No acute issues were reported. Patient continues to report a cough productive of white sputum. No hemoptysis is been reported. Patient is denying any chest pain. Objective Data Objective Data Vital Signs: Vital Signs Temp Pulse Resp BP Pulse Ox 36.4 C L 85 20 H 122/65 H 96 02/17/21 12:53 02/17/21 13:12 02/17/21 13:12 02/17/21 12:53 02/17/21 12:53 Oxygen Flow Rate (L/min) 2 Oxygen Delivery Method Nasal Cannula Weight: 68.8 kg Body Mass Index (BMI) 22.4 Intake & Output: Intake and Output for Last 24 Hours 02/15/21 02/16/21 02/17/21 23:59 23:59 23:59 Intake Total 2710 / 2710 799.17 / 799.17 900 / 900 Output Total 550 / 550 700 / 700 500 / 500 Balance 2160 / 2160 99.17 / 99.17 400 / 400 Lab / Micro Data Result Diagrams: 02/17/21 06:35 02/17/21 06:35 Labs: Laboratory Results - last 24 hr 02/17/21 02:35: MRSA (PCR) Cancelled 02/17/21 06:35: WBC 15.8 H, RBC 3.90 L, Hgb 9.7 L, Hct 32.2 L, MCV 82.6, MCH 24.9 L, MCHC 30.1 L, RDW Std Deviation 44.9 H, RDW Coeff of Zane 14.9 H, Plt Count 348, MPV 10.0, Immature Gran % (Auto) 0.700, Neut % (Auto) 93.5 H, Lymph % (Auto) 2.3 L, [place] % (Auto) 3.4, Eos % (Auto) 0.0, Baso % (Auto) 0.1, Absolute Neuts (auto) 14.8 H, Absolute Lymphs (auto) 0.36 L, Nucleated RBC % 0, Differential Comment SCANNED 02/17/21 06:35: Sodium 138, Potassium 4.2, Chloride 104, Carbon Dioxide 30.0, Anion Gap 4 L, BUN 23 H, Creatinine 0.64 L, Estim Creat Clear Calc 65.93, Est GFR (MDRD) Af Amer 160, Est GFR (MDRD) Non-Af 132, BUN/Creatinine Ratio 36.2 H, Glucose 130 H, Calcium 8.8, Total Bilirubin 0.40, AST 28, ALT 41, Alkaline Phosphatase 47, Total Protein 6.1 L, Albumin 1.9 L, Globulin 4.2, Albumin/Globulin Ratio 0.5 L 02/17/21 09:30: MRSA (PCR) Negative Micro: Microbiology 02/17/21 02:55 Urine, Clean Catch Legionella Antigen - Final 02/17/21 02:55 Urine, Clean Catch Streptococcus pneumoniae Antigen (M - Final Rhythm Strip Rhythm Strip: Sinus Tach Rate: 125 Ectopy: None Physical Exam Const alert and no apparent distress General Appearance: cooperative HEENT normocephalic and head/scalp atraumatic Eyes EOMs intact bilaterally and conjunctivae normal Neck supple General: trachea midline Chest Chest Narrative: Increased AP diameter Resp Auscultation: diminished lung sounds; Negative for rales, rhonchi or wheezes Cardio regular rate, regular rhythm, S1 normal heart sound and S2 normal heart sound GI normal to inspection, nondistended, normoactive bowel sounds Extremity General Extremity: clubbing; Negative for cyanosis or edema Skin no rashes or lesions noted Neuro CN's II-XII intact bilaterally and no focal motor deficits Psych cooperative and affect normal Charges/Coding Visit Charges Inpatient E&M: 74565 Subs Hosp L2
[2021-02-17] MEDS: Budesonide Respules 0.5 MG/2 ML AMPUL.NEB. INHALATION (19:56)
[2021-02-17] MEDS: Montelukast 10 MG Tablet PO (21:04)
[2021-02-18] VITALS (15 sets, daily range): BP systolic 128–148; BP diastolic 67–83; PULSE 75–101; RESP 16–20; TEMP 35.2–36.8; O2SAT 87–98
--- NOTE | 2021-02-18 00:12 | CPS ---
pt refusing bipap
[2021-02-18] MEDS: Ipratropium/Albuterol Sulfate 3 ML AMPUL.NEB INHALATION ×3 (07:12→19:02)
--- NOTE | 2021-02-18 07:25 | CPS ---
no pulmicort available in pcu accudose for morning treatment
[2021-02-18 08:01] LABS: Absolute Lymphocyte Count 0.59 X10^3/uL (0.83-4.51); Absolute Neutrophil Count 18.2 X10^3/uL (2.0-7.7); Basophil# 0.02 X10^3/uL; Basophil% 0.1 % (0-1); Hematocrit 30.8 % (40-54); Hemoglobin 9.5 g/dL (13.0-16.5); Lymphocyte # 0.59 X10^3/ul (0.83-4.51); Lymphocyte % 2.9 % (19-41); Mean Corp Hgb Conc 30.8 g/dL (32-36); Mean Corpuscular Hgb 25.2 pg (27.0-32.0); Mean Corpuscular Volume 81.7 fL (80-94); Mean Platelet Vol. 9.7 fl (6.2-12.0); Monocyte# 1.16 X10^3/uL; Monocyte% 5.8 % (0-10); NRBC Flagged by Analyzer 0 % (0-5); Neutrophil # 18.19 X10^3/uL (2.7-7.7); Neutrophil % 90.6 % (47-70); POSITIVE DIFFERENTIAL YES; Platelet Count 429 K/mm3 (150-450); RBC Distribution Width CV 14.6 % (11.6-14.6); RBC Distribution Width SD 43.9 fl (35.1-43.9); Red Blood Count 3.77 M/mm3 (4.6-6.2); White Blood Count 20.1 K/mm3 (4.4-11.0)
[2021-02-18 08:03] LABS: Differential Indicated SCAN CRITERIA MET
[2021-02-18 08:32] LABS: ALB/GLOB Ratio 0.5 RATIO (0.9-2.4); AST(SGOT) 26 U/L (15-37); Alanine Aminotransfer ALT/SGPT 44 U/L (16-61); Albumin, Serum 1.8 g/dL (3.2-5.0); Alkaline Phosphatase 59 U/L (45-117); Anion Gap 5 (5-15); BUN 21 mg/dL (7-18); BUN/Creat Ratio 31.3 RATIO (10-20); Calcium,Total 8.7 mg/dL (8.5-10.1); Chloride 104 mmol/L (98-107); Creatinine, Serum 0.67 mg/dL (0.70-1.30); EST Glomerular Filtration Rate 124 mL/min (>60); Est Glom Filt Rate - Afr Amer 150 mL/min (>60); Estimated Creatinine Clearance 65.17 ml/min; Globulin 3.9 g/dL (2.2-4.2); Glucose 100 mg/dL (74-106); Potassium 3.9 mmol/L (3.5-5.1); Protein, Total 5.7 g/dL (6.4-8.2); Sodium Level 138 mmol/L (136-145)
[2021-02-18] MEDS: Enoxaparin 40 MG/0.4 ML Syringe SC (10:15)
[2021-02-18] MEDS: Metoprolol Tartrate 25 MG Tablet PO ×2 (10:15→23:03)
[2021-02-18] MEDS: dexAMETHasone 10 MG/ML Vial 6 MG IV (10:15)
--- NOTE | 2021-02-18 11:32 | DCINST_ITS ---
Discharge Instructions Diet Discharge Diet: No restrictions Activity Discharge Activity: Return to Normal Activity Additional Activity Instructions:: Self isolate for at least 20 days since symptoms began 01/30-02/19/2021) AND at least one day (24 hours) have passed since resolution of fever without the use of fever-reducing agents AND improvement of symptoms (e.g., cough, shortness of breath) When around people in the same room, wear a face mask. Individuals also in the room should wear a mask. If possible, use a different bathroom and bedroom. Perform adequate hand hygiene. Avoid sharing dishes, glasses, etc. Dressing / Incision Call your doctor if you observe: Fever of 101 or Higher and Shortness of breath Follow Up Care Test Results: Test results from this visit will be discussed in further detail at your follow-up appointment, if applicable. Discharge Plan Admission Admit Date/Time: 02/14/21 11:17 Primary Reason for Your Visit: Respiratory failure. COVID 19. Pneumonia Attending Provider: Hunter Moreno Primary Care Provider: Travis Reyes Consulting Providers: Humberto Correa ; Long Banegas ; Misael Perez ; Seble Dee RAKE OPERATOR Discharge Orders/Prescriptions Prescriptions: No Action albuterol sulfate [Proventil HFA] 90 mcg/actuation HFA aerosol inhaler 2 puff inhalation Q6H PRN (Reason: COPD) RF: 0 Daliresp 500 mcg tablet 500 mcg PO DAILY RF: 0 montelukast 10 mg tablet 10 mg PO QHS RF: 0 Asmanex HFA 200 mcg/actuation Hfa Aerosol Inhaler 2 puff INHALATION BID RF: 0 Stiolto Respimat 2.5-2.5 mcg/actuation Mist 2 puff INHALATION DAILY RF: 0 prednisone 10 mg tablet 20 mg PO QDAY RF: 0 Referrals / Follow Up: Department of [employer] [Outside] - Within 2 Weeks (Pulmonology) Farooq Daniels MD [STAFF PHYSICIAN] - Within 2 Weeks Travis Reyes MD [Primary Care Provider] - Within 1 Week Disposition Disposition (needs filled in before D/C Order can be placed): Home, Self Care
--- NOTE | 2021-02-18 11:37 | PCM.DC.SUM ---
Providers Date of Admission: 02/14/21 Primary Care Physician: Dr. Travis Reyes MD Consultations 02/14/21 15:26 Consult: Infectious Disease Routine Consulting Provider: Humberto Correa Reason for Consult: Covid-19 EMERGENT Consult: No Notified: Yes Date Notified: 02/14/21 Time Notified: 11:16 Method of Notification: Text Consult: Laser Beam Machine Operator / Pulmonary Medicine Routine Consulting Provider: Pulmonary Medicine [facility] Reason for Consult: Covid-19 EMERGENT Consult: No Notified: Yes Date Notified: 02/14/21 Time Notified: 11:16 Method of Notification: Text Reason For Visit: ACUTE HYPOXIC RESPIRATORY FAILURE DUE TO COVID 19 Diagnosis Discharge Diagnosis (1) COVID-19: Status: Acute Code(s): U07.1 - COVID-19 (2) Acute respiratory failure with hypoxia: Status: Acute Code(s): J96.01 - Acute respiratory failure with hypoxia (3) COPD exacerbation: Status: Chronic Code(s): J44.1 - Chronic obstructive pulmonary disease with (acute) exacerbation (4) Pseudomonal pneumonia: Status: Acute Code(s): J15.1 - Pneumonia due to Pseudomonas Medications at Discharge Home Medications albuterol sulfate 90 mcg/actuation aerosol inhaler 2 puff INHALATION Q6H PRN 12/11/20 montelukast 10 mg tablet 10 mg PO QHS 12/11/20 roflumilast 500 mcg tablet 500 mcg PO DAILY 12/11/20 Asmanex HFA 2 puff INHALATION BID 01/10/21 Stiolto Respimat 2 puff INHALATION DAILY 01/10/21 prednisone 20 mg PO QDAY 02/14/21 dexamethasone 6 mg PO DAILY #6 tab 02/19/21 levofloxacin 750 mg PO DAILY #3 tab 02/19/21 metoprolol tartrate 25 mg PO BID #60 tab 02/19/21 Hospital Course Operations None Procedures None Summary of Care Provided Minutes Spent on Discharge: 32 Hospital Course: 1. acute hypoxic respiratory failure multifactorial: COVID 19 + pseudomonal pneumonia + AECOPD + lung CA wean oxygen as able. Will require oxygen upon discharge. Patient requires 2 L nasal cannula at rest. 2. Pseudomonal pneumonia confirmed on Cx, sensitivity pending dc pip/tazo and transition to levofloxacin to complete 7 day of abx. 3. COVID 19 pneumonia on dexa through the completed remdesivir Quantine through the 4. AECOPD continue BDs and steroid follow up with pulm 5. Lung CA complicates care and recovery follow up with Dr. Daniels Physical Exam Const alert Resp normal respiratory effort, no retractions, no use of accessory muscles and clear to auscultation bilaterally Cardio regular rate, regular rhythm, S1 normal heart sound and S2 normal heart sound GI normal to inspection, nondistended, normoactive bowel sounds, soft to palpation, non-tender and non-distended Weight / BMI Weight Weight: 68 kg Body Mass Index (BMI) 22.4 ABG / Lab / Microbiology Data Result Diagrams: 02/19/21 06:34 02/19/21 06:34 Laboratory: Laboratory Results - last 24 hr 02/17/21 09:30: MRSA (PCR) Negative 02/18/21 07:10: WBC 20.1 H, RBC 3.77 L, Hgb 9.5 L, Hct 30.8 L, MCV 81.7, MCH 25.2 L, MCHC 30.8 L, RDW Std Deviation 43.9, RDW Coeff of Zane 14.6, Plt Count 429, MPV 9.7, Immature Gran % (Auto) 0.600, Neut % (Auto) 90.6 H, Lymph % (Auto) 2.9 L, [place] % (Auto) 5.8, Eos % (Auto) 0.0, Baso % (Auto) 0.1, Absolute Neuts (auto) 18.2 H, Absolute Lymphs (auto) 0.59 L, Nucleated RBC % 0, Differential Comment COMMENT 02/18/21 07:10: Sodium 138, Potassium 3.9, Chloride 104, Carbon Dioxide 29.0, Anion Gap 5, BUN 21 H, Creatinine 0.67 L, Estim Creat Clear Calc 65.17, Est GFR (MDRD) Af Amer 150, Est GFR (MDRD) Non-Af 124, BUN/Creatinine Ratio 31.3 H, Glucose 100, Calcium 8.7, Total Bilirubin 0.40, AST 26, ALT 44, Alkaline Phosphatase 59, Total Protein 5.7 L, Albumin 1.8 L, Globulin 3.9, Albumin/Globulin Ratio 0.5 L Microbiology: Microbiology 02/17/21 03:00 Sputum, Expectorated/Coughed Respiratory Culture - Preliminary GNR Poss Pseudomonas sp 02/17/21 02:35 Sputum, Expectorated/Coughed Respiratory Culture - Preliminary Appears to be normal respiratory feng. Further studies to follow. 02/16/21 11:39 Blood Culture (Wb) - Anticubital Right Blood Culture - Preliminary No growth in 48 hours. 02/16/21 11:45 Blood Culture (Wb) - Arm Right Blood Culture - Preliminary No growth in 48 hours. 02/17/21 02:55 Urine, Clean Catch Legionella Antigen - Final 02/17/21 02:55 Urine, Clean Catch Streptococcus pneumoniae Antigen (M - Final D/C Instructions Discharge Diet: No restrictions Additional Activity Instructions: Self isolate for at least 20 days since symptoms began 01/30-02/19/2021) AND at least one day (24 hours) have passed since resolution of fever without the use of fever-reducing agents AND improvement of symptoms (e.g., cough, shortness of breath) When around people in the same room, wear a face mask. Individuals also in the room should wear a mask. If possible, use a different bathroom and bedroom. Perform adequate hand hygiene. Avoid sharing dishes, glasses, etc. Call your doctor if you observe: Fever of 101 or Higher and Shortness of breath Meaningful Use Info Meaningful Use Diagnoses (Choose all that apply): None applicable Discharge Plan Admission Admit Date/Time: 02/14/21 11:17 Primary Reason for Your Visit: Respiratory failure. COVID 19. Pneumonia Attending Provider: Hunter Moreno Primary Care Provider: Travis Reyes Consulting Providers: Humberto Correa ; Long Banegas ; Misael Perez ; Seble Dee HOSPITAL INTERN Discharge Orders/Prescriptions Prescriptions: New metoprolol tartrate 25 mg Tablet 25 mg PO BID Qty: 60 RF: 0 levofloxacin 750 mg tablet 750 mg PO DAILY Qty: 3 RF: 0 dexamethasone 6 mg tablet 6 mg PO DAILY Qty: 6 RF: 0 Continued albuterol sulfate [Proventil HFA] 90 mcg/actuation HFA aerosol inhaler 2 puff inhalation Q6H PRN (Reason: COPD) RF: 0 Daliresp 500 mcg tablet 500 mcg PO DAILY RF: 0 montelukast 10 mg tablet 10 mg PO QHS RF: 0 Asmanex HFA 200 mcg/actuation Hfa Aerosol Inhaler 2 puff INHALATION BID RF: 0 Stiolto Respimat 2.5-2.5 mcg/actuation Mist 2 puff INHALATION DAILY RF: 0 Held prednisone 10 mg tablet 20 mg PO QDAY RF: 0 Hold Instructions: Resume on 02/26/21. Referrals / Follow Up: [facility] [place] [facility] [Outside] - Within 2 Weeks (Pulmonology) Farooq Daniels MD [STAFF PHYSICIAN] - Within 2 Weeks Travis Reyes MD [Primary Care Provider] - Within 1 Week Disposition Disposition (needs filled in before D/C Order can be placed): Home, Self Care Charges/Coding Visit Charges Inpatient E&M: 70090 Disch Hosp
--- NOTE | 2021-02-18 11:40 | PN.HOSP_ITS ---
Subjective Subjective Feeling better. Anxious to go home. Coughing up some sputum, yellow in appearance. Objective Data Objective Data Vital Signs: Vital Signs Temp Pulse Resp BP Pulse Ox 36.6 C 87 16 148/83 H 92 02/18/21 10:07 02/18/21 10:15 02/18/21 10:07 02/18/21 10:15 02/18/21 10:07 Oxygen Flow Rate (L/min) 3 Oxygen Delivery Method Nasal Cannula Weight: 68 kg Body Mass Index (BMI) 22.4 Intake & Output: Intake and Output for Last 24 Hours 02/16/21 02/17/21 02/18/21 23:59 23:59 23:59 Intake Total 799.17 / 799.17 1800 / 1800 220 / 220 Output Total 700 / 700 500 / 500 400 / 400 Balance 99.17 / 99.17 1300 / 1300 -180 / -180 Lab / Micro Data Result Diagrams: 02/18/21 07:10 02/18/21 07:10 Labs: Laboratory Results - last 24 hr 02/17/21 09:30: MRSA (PCR) Negative 02/18/21 07:10: WBC 20.1 H, RBC 3.77 L, Hgb 9.5 L, Hct 30.8 L, MCV 81.7, MCH 25.2 L, MCHC 30.8 L, RDW Std Deviation 43.9, RDW Coeff of Zane 14.6, Plt Count 429, MPV 9.7, Immature Gran % (Auto) 0.600, Neut % (Auto) 90.6 H, Lymph % (Auto) 2.9 L, [place] % (Auto) 5.8, Eos % (Auto) 0.0, Baso % (Auto) 0.1, Absolute Neuts (auto) 18.2 H, Absolute Lymphs (auto) 0.59 L, Nucleated RBC % 0, Differential Comment COMMENT 02/18/21 07:10: Sodium 138, Potassium 3.9, Chloride 104, Carbon Dioxide 29.0, Anion Gap 5, BUN 21 H, Creatinine 0.67 L, Estim Creat Clear Calc 65.17, Est GFR (MDRD) Af Amer 150, Est GFR (MDRD) Non-Af 124, BUN/Creatinine Ratio 31.3 H, Glucose 100, Calcium 8.7, Total Bilirubin 0.40, AST 26, ALT 44, Alkaline Phosphatase 59, Total Protein 5.7 L, Albumin 1.8 L, Globulin 3.9, Albumin/Globulin Ratio 0.5 L Micro: Microbiology 02/17/21 03:00 Sputum, Expectorated/Coughed Respiratory Culture - Preliminary GNR Poss Pseudomonas sp 02/17/21 02:35 Sputum, Expectorated/Coughed Respiratory Culture - Preliminary Appears to be normal respiratory feng. Further studies to follow. 02/16/21 11:39 Blood Culture (Wb) - Anticubital Right Blood Culture - Preliminary No growth in 48 hours. 02/16/21 11:45 Blood Culture (Wb) - Arm Right Blood Culture - Preliminary No growth in 48 hours. 02/17/21 02:55 Urine, Clean Catch Legionella Antigen - Final 02/17/21 02:55 Urine, Clean Catch Streptococcus pneumoniae Antigen (M - Final Rhythm Strip Rhythm Strip: Sinus Tach Rate: 125 Ectopy: None Physical Exam Const alert and oriented x3 Constitutional Narrative: up in chair on oxygen. no respiratory distress. no co nversational dyspnea. Resp normal respiratory effort, no retractions, no use of accessory muscles and clear to auscultation bilaterally Cardio regular rate, regular rhythm, S1 normal heart sound and S2 normal heart sound GI normal to inspection, nondistended, normoactive bowel sounds, soft to palpation, non-tender and non-distended Psych affect normal Assessment & Plan Assessment/Plan (1) Acute respiratory failure with hypoxia: (2) Pseudomonal pneumonia: QUALIFIERS: Laterality: unspecified laterality Lung location: unspecified part of lung Qualified Code(s): J15.1 - Pneumonia due to Pseudomonas (3) COPD exacerbation: (4) COVID-19: PLAN: 1. acute hypoxic respiratory failure multifactorial: COVID 19 + pseudomonal pneumonia + AECOPD + lung CA wean oxygen as able. 2. Pseudomonal pneumonia confirmed on Cx, sensitivity pending continue pip/tazo, wean abx according to final sensitivities 3. COVID 19 pneumonia on dexa through the completed remdesivir Quantine through the 4. AECOPD continue BDs and steroid follow up with pulm 5. Lung CA complicates care and recovery follow up with Dr. Daniels 6. VTE prophylaxis: LMWH 7. DC planning: will need oxygen upon discharge. Hold DC today pending results of culture. Charges/Coding Visit Charges Inpatient E&M: 44881 Subs Hosp L2
[2021-02-18 13:15] LABS: Pathologist Review Reviewed
--- NOTE | 2021-02-18 13:35 | PCM.PN.INT ---
Assessment & Plan Assessment/Plan (1) COVID-19: PLAN: RECOMMENDATIONS: 1. Continue to wean oxygen as tolerated to maintain saturations at or above 90%. 2. Discontinue Remdesivir 3. Continue Decadron to complete 10-day treatment course. 4. Patient can likely complete a 7-day course of antibiotics (p.o. Levaquin to complete course) 5. Continue Lovenox. 6. Obtain walking oximetry prior to discharge 7. Patient can follow-up in our office as previously scheduled. 8. Priority for oncology to initiate chemotherapy IMPRESSIONS: 1. Acute hypoxemic respiratory failure secondary to COVID-19 pneumonia The patient apparently tested +1-week ago. However, he has had approximately 2 weeks of symptoms. Therefore, unclear benefit for continuing remdesivir. I would recommend that the patient be continued on Decadron as ordered to complete 10 days of therapy. Continue scheduled bronchodilator therapy. Continue empiric antibiotics pending culture results. Continue to utilize BiPAP therapy as needed for patient comfort. Continue to wean oxygen to maintain saturations at or above 90%. Continue Lovenox. Anticipate multiple contributing etiologies. Patient does not have significant bilateral infiltrates. Patient could potentially be discharged if able to tolerate ambulation on 6 L or less. Patient could follow-up in our office as previously planned. Patient is growing minor Pseudomonas from sputum culture. It is unclear if this represents colonization versus an acute infection, but given that the patient will require chemotherapy in the near future, treatment for 7 days total of antibiotics would be appropriate. Patient should prioritize initiation of therapy for squamous cell lung carcinoma with oncology over pulmonary follow-up. 2. Recent diagnosis of squamous cell carcinoma of the lung Follow-up with oncology through the [facility] system as previously ordered. Patient follows with Dr. Daniels 3. History of COPD Continue bronchodilator therapy as noted above. Resume triple therapy inhaler regimen at discharge. This note was generated with [employer] dictation software. It may contain incorrect words, spelling, and punctuation that were not noted in checking the note before signing. Subjective Subjective Patient did well overnight. Patient has tolerated nasal cannula oxygen over the last 24 hours. Patient continues to cough, but reports little secretions. Objective Data Objective Data Vital Signs: Vital Signs Temp Pulse Resp BP Pulse Ox 36.6 C 86 20 H 148/83 H 89 02/18/21 10:07 02/18/21 13:08 02/18/21 13:08 02/18/21 10:15 02/18/21 11:49 Oxygen Flow Rate (L/min) [ 2 AMBULATING with Oxygen #2] Oxygen Flow Rate (L/min) [ 1 AMBULATING with Oxygen #1] Oxygen Flow Rate (L/min) [ 0 AMBULATING on Room Air] Oxygen Flow Rate (L/min) [At 0 REST on Room Air] Oxygen Flow Rate (L/min) 3 Oxygen Delivery Method Nasal Cannula Weight: 68 kg Body Mass Index (BMI) 22.4 Intake & Output: Intake and Output for Last 24 Hours 02/16/21 02/17/21 02/18/21 23:59 23:59 23:59 Intake Total 799.17 / 799.17 1800 / 1800 220 / 220 Output Total 700 / 700 500 / 500 400 / 400 Balance 99.17 / 99.17 1300 / 1300 -180 / -180 Lab / Micro Data Result Diagrams: 02/18/21 07:10 02/18/21 07:10 Labs: Laboratory Results - last 24 hr 02/15/21 07:00: Diff Path Review Reviewed 02/18/21 07:10: WBC 20.1 H, RBC 3.77 L, Hgb 9.5 L, Hct 30.8 L, MCV 81.7, MCH 25.2 L, MCHC 30.8 L, RDW Std Deviation 43.9, RDW Coeff of Zane 14.6, Plt Count 429, MPV 9.7, Immature Gran % (Auto) 0.600, Neut % (Auto) 90.6 H, Lymph % (Auto) 2.9 L, [place] % (Auto) 5.8, Eos % (Auto) 0.0, Baso % (Auto) 0.1, Absolute Neuts (auto) 18.2 H, Absolute Lymphs (auto) 0.59 L, Nucleated RBC % 0, Differential Comment COMMENT 02/18/21 07:10: Sodium 138, Potassium 3.9, Chloride 104, Carbon Dioxide 29.0, Anion Gap 5, BUN 21 H, Creatinine 0.67 L, Estim Creat Clear Calc 65.17, Est GFR (MDRD) Af Amer 150, Est GFR (MDRD) Non-Af 124, BUN/Creatinine Ratio 31.3 H, Glucose 100, Calcium 8.7, Total Bilirubin 0.40, AST 26, ALT 44, Alkaline Phosphatase 59, Total Protein 5.7 L, Albumin 1.8 L, Globulin 3.9, Albumin/Globulin Ratio 0.5 L Micro: Microbiology 02/17/21 03:00 Sputum, Expectorated/Coughed Respiratory Culture - Preliminary GNR Poss Pseudomonas sp 02/17/21 02:35 Sputum, Expectorated/Coughed Respiratory Culture - Preliminary Appears to be normal respiratory feng. Further studies to follow. 02/16/21 11:39 Blood Culture (Wb) - Anticubital Right Blood Culture - Preliminary No growth in 48 hours. 02/16/21 11:45 Blood Culture (Wb) - Arm Right Blood Culture - Preliminary No growth in 48 hours. 02/17/21 02:55 Urine, Clean Catch Legionella Antigen - Final 02/17/21 02:55 Urine, Clean Catch Streptococcus pneumoniae Antigen (M - Final Rhythm Strip Rhythm Strip: Sinus Tach Rate: 125 Ectopy: None Physical Exam Const alert and no apparent distress General Appearance: cooperative HEENT normocephalic and head/scalp atraumatic Eyes EOMs intact bilaterally and conjunctivae normal Neck supple General: trachea midline Chest Chest Narrative: Increased AP diameter Resp Auscultation: diminished lung sounds; Negative for rales, rhonchi or wheezes Cardio regular rate, regular rhythm, S1 normal heart sound and S2 normal heart sound GI normal to inspection, nondistended, normoactive bowel sounds Extremity General Extremity: clubbing; Negative for cyanosis or edema Skin no rashes or lesions noted Neuro CN's II-XII intact bilaterally and no focal motor deficits Psych cooperative and affect normal Charges/Coding Visit Charges Inpatient E&M: 38032 Subs Hosp L2
--- NOTE | 2021-02-18 14:10 | CPS ---
pt refuses bipap
--- NOTE | 2021-02-18 15:20 | PCM.PN.ID ---
Physical Exam Narrative Feeling better, wants to go home, still thick sputum Const alert General Appearance: cooperative Resp Auscultation: diminished lung sounds Cardio regular rate and regular rhythm GI normal to inspection, nondistended, normoactive bowel sounds Extremity no clubbing, cyanosis or edema Skin no rashes or lesions noted ID ID: Route of nutrition/ use of supplements: [] Nutritional Intake: [] IV Site: [] [place] Catheter: [] Assessment & Plan Assessment/Plan (1) COVID-19: PLAN: Sx since 02/05/21. On dex, completed remdesivir. Sputum with pseudomonas. Cont with empiric zosyn. On lovenox 40mg daily, d-dimer was 0.5. Has been vaccinated. Plan on 20 day quarantine. Will follow (2) Hypoxia: (3) Squamous cell carcinoma of left lung:
[2021-02-18] MEDS: Budesonide Respules 0.5 MG/2 ML AMPUL.NEB. INHALATION (19:02)
[2021-02-18] MEDS: Montelukast 10 MG Tablet PO (23:03)
[2021-02-19] VITALS (9 sets, daily range): BP systolic 138–149; BP diastolic 64–74; PULSE 65–108; RESP 16–20; TEMP 36.8; O2SAT 94–98
[2021-02-19 06:48] LABS: Absolute Lymphocyte Count 1.02 X10^3/uL (0.83-4.51); Basophil# 0.02 X10^3/uL; Basophil% 0.1 % (0-1); Hematocrit 32.2 % (40-54); Hemoglobin 9.8 g/dL (13.0-16.5); Lymphocyte # 1.02 X10^3/ul (0.83-4.51); Lymphocyte % 6.2 % (19-41); Mean Corp Hgb Conc 30.4 g/dL (32-36); Mean Corpuscular Volume 82.1 fL (80-94); Mean Platelet Vol. 9.2 fl (6.2-12.0); Monocyte# 1.33 X10^3/uL; Monocyte% 8.1 % (0-10); NRBC Flagged by Analyzer 0 % (0-5); Neutrophil # 13.95 X10^3/uL (2.7-7.7); Neutrophil % 84.7 % (47-70); Platelet Count 457 K/mm3 (150-450); RBC Distribution Width CV 14.7 % (11.6-14.6); RBC Distribution Width SD 44.5 fl (35.1-43.9); Red Blood Count 3.92 M/mm3 (4.6-6.2); White Blood Count 16.5 K/mm3 (4.4-11.0)
[2021-02-19] MEDS: Budesonide Respules 0.5 MG/2 ML AMPUL.NEB. INHALATION (07:13)
[2021-02-19] MEDS: Ipratropium/Albuterol Sulfate 3 ML AMPUL.NEB INHALATION ×2 (07:13→13:41)
[2021-02-19 07:27] LABS: ALB/GLOB Ratio 0.5 RATIO (0.9-2.4); AST(SGOT) 18 U/L (15-37); Alanine Aminotransfer ALT/SGPT 42 U/L (16-61); Albumin, Serum 1.8 g/dL (3.2-5.0); Alkaline Phosphatase 45 U/L (45-117); Anion Gap 4 (5-15); BUN 20 mg/dL (7-18); Calcium,Total 8.5 mg/dL (8.5-10.1); Chloride 106 mmol/L (98-107); Creatinine, Serum 0.69 mg/dL (0.70-1.30); EST Glomerular Filtration Rate 120 mL/min (>60); Est Glom Filt Rate - Afr Amer 146 mL/min (>60); Estimated Creatinine Clearance 65.65 ml/min; Globulin 3.9 g/dL (2.2-4.2); Glucose 87 mg/dL (74-106); Potassium 3.8 mmol/L (3.5-5.1); Protein, Total 5.7 g/dL (6.4-8.2); Sodium Level 139 mmol/L (136-145)
--- NOTE | 2021-02-19 09:44 | CASEMGMT ---
Addendum entered by Leonora Joseph 02/19/21 10:20: Pt was tested yesterday for home oxygen and qualifies for 2L w/ exertion. Referral faxed to [facility] and call to [facility] to notify of referral/pt discharge. Pt voices no further questions/concerns/needs. Jackie ESCOBAR CM Original Note: Per pt, he would like this RN CM to call to decide on DME company and pharmacy for discharge. Call to pt's and after provided list of local DME companies, states no preference for DME company and states would like home meds sent to [facility] retail pharmacy for this visit. states no further questions/concerns with pt coming home at discharge and pt is anxious to be discharged. CM to follow for O2 testing and any further discharge planning/needs. Jackie ESCOBAR CM
--- NOTE | 2021-02-19 10:05 | DCINST_ITS ---
Discharge Instructions Diet Discharge Diet: No restrictions Activity Discharge Activity: Return to Normal Activity Additional Activity Instructions:: Self isolate for at least 20 days since symptoms began (01/30-02/19/2021) AND at least one day (24 hours) have passed since resolution of fever without the use of fever-reducing agents AND improvement of symptoms (e.g., cough, shortness of breath) When around people in the same room, wear a face mask. Individuals also in the room should wear a mask. If possible, use a different bathroom and bedroom. Perform adequate hand hygiene. Avoid sharing dishes, glasses, etc. Dressing / Incision Call your doctor if you observe: Fever of 101 or Higher and Shortness of breath Follow Up Care Test Results: Test results from this visit will be discussed in further detail at your follow-up appointment, if applicable. Discharge Plan Admission Admit Date/Time: 02/14/21 11:17 Primary Reason for Your Visit: Respiratory failure. COVID 19. Pneumonia Attending Provider: Hunter Moreno Primary Care Provider: Travis Reyes Consulting Providers: Humberto Correa ; Long Banegas ; Misael Perez ; Seble Dee FRONT OFFICE REPRESENTATIVE Discharge Orders/Prescriptions Prescriptions: No Action albuterol sulfate [Proventil HFA] 90 mcg/actuation HFA aerosol inhaler 2 puff inhalation Q6H PRN (Reason: COPD) RF: 0 Daliresp 500 mcg tablet 500 mcg PO DAILY RF: 0 montelukast 10 mg tablet 10 mg PO QHS RF: 0 Asmanex HFA 200 mcg/actuation Hfa Aerosol Inhaler 2 puff INHALATION BID RF: 0 Stiolto Respimat 2.5-2.5 mcg/actuation Mist 2 puff INHALATION DAILY RF: 0 prednisone 10 mg tablet 20 mg PO QDAY RF: 0 Referrals / Follow Up: [facility] [Outside] - Within 2 Weeks (Pulmonology) Farooq Daniels MD [STAFF PHYSICIAN] - Within 2 Weeks Travis Reyes MD [Primary Care Provider] - Within 1 Week Disposition Disposition (needs filled in before D/C Order can be placed): Home, Self Care
--- NOTE | 2021-02-19 10:07 | PCM.DC ---
Discharge Instructions Diet Discharge Diet: No restrictions Activity Discharge Activity: Return to Normal Activity Additional Activity Instructions:: Self isolate for at least 20 days since symptoms began (01/30-02/19/2021) AND at least one day (24 hours) have passed since resolution of fever without the use of fever-reducing agents AND improvement of symptoms (e.g., cough, shortness of breath) When around people in the same room, wear a face mask. Individuals also in the room should wear a mask. If possible, use a different bathroom and bedroom. Perform adequate hand hygiene. Avoid sharing dishes, glasses, etc. Dressing / Incision Call your doctor if you observe: Fever of 101 or Higher and Shortness of breath Follow Up Care Test Results: Test results from this visit will be discussed in further detail at your follow-up appointment, if applicable. Discharge Plan Admission Admit Date/Time: 02/14/21 11:17 Primary Reason for Your Visit: Respiratory failure. COVID 19. Pneumonia Attending Provider: Hunter Moreno Primary Care Provider: Travis Reyes Consulting Providers: Humberto Correa ; Long Banegas ; Misael Perez ; Seble Dee STUDENT ACTIVITIES DIRECTOR Discharge Orders/Prescriptions Prescriptions: New metoprolol tartrate 25 mg Tablet 25 mg PO BID Qty: 60 RF: 0 levofloxacin 750 mg tablet 750 mg PO DAILY Qty: 3 RF: 0 dexamethasone 6 mg tablet 6 mg PO DAILY Qty: 6 RF: 0 Continued albuterol sulfate [Proventil HFA] 90 mcg/actuation HFA aerosol inhaler 2 puff inhalation Q6H PRN (Reason: COPD) RF: 0 Daliresp 500 mcg tablet 500 mcg PO DAILY RF: 0 montelukast 10 mg tablet 10 mg PO QHS RF: 0 Asmanex HFA 200 mcg/actuation Hfa Aerosol Inhaler 2 puff INHALATION BID RF: 0 Stiolto Respimat 2.5-2.5 mcg/actuation Mist 2 puff INHALATION DAILY RF: 0 Held prednisone 10 mg tablet 20 mg PO QDAY RF: 0 Hold Instructions: Resume on 02/26/21. Referrals / Follow Up: [facility] [employer] [Outside] - Within 2 Weeks (Pulmonology) Farooq Daniels MD [STAFF PHYSICIAN] - Within 2 Weeks Travis Reyes MD [Primary Care Provider] - Within 1 Week Disposition Disposition (needs filled in before D/C Order can be placed): Home, Self Care
[2021-02-19] MEDS: Enoxaparin 40 MG/0.4 ML Syringe SC (10:26)
[2021-02-19] MEDS: Metoprolol Tartrate 25 MG Tablet PO (10:26)
[2021-02-19] MEDS: dexAMETHasone 10 MG/ML Vial 6 MG IV (10:27)
--- NOTE | 2021-02-20 13:38 | CASEMGMT ---
Addendum entered by Guillermina Mchugh 02/20/21 14:12: Per Dr Moreno, pt to resume home prednisone dose 02/26 he was on prior to coming to the hospital after he completes the new rx for dexamethasone. Spoke w/ re: Prednisone dose pt was taking prior to coming to the hospital. She states pt was just taking it as needed as a rescue medication that was prescribed by pt's acid mixer. Clarification made w/ re: new script for dexamethasone and resumption of prednisone. aware pt is to take the 6 days of dexamethasone and then to resume prednisone as he was previously taking prior to coming to the hospital and made aware pt is not to take the tapering dose. She voices understanding. Original Note: RN CM Discharge Follow-Up Phone Call. Lace: 12 Strata: 3 Discharge Date: 02/19/21 Adm Dx: Acute Hypoxic resp failure d/t COVID-19 Call to pt to inquire about how he has been doing since being discharged from the hospital. Pt and both got on the phone and spoke w/this SHAWN VARGAS. Pt states he is doing fine, stating his breathing is about the same and states pulse ox has been in the 90's since being home. [employer] did deliver O2 to pt's home last PM. Pt did receive his new medications from [facility] pharmacy prior to going home. Questions answered. They deny having any further questions about the discharge instructions. Pt has an appt scheduled w/Dr Daniels and they plan on making an appt w/Dr Banegas-pulmonology, [facility] of [facility]. They plan to call Dr Reyes's office yet. Pt states the care @ [facility] was great. Cinthya ARIASN SHAWN CM
== END 2021-02-19 15:59 | disposition home or self-care (01) | DRG 177 ==
LOC: ED 10:44 → ICU 11:30 → PCU 14:22
PROVIDERS: Admitting Provider Student in an Organized Health Care Education/Training Program; Emergency Provider Emergency Medicine; PCP Family Medicine
DX: U07.1 COVID-19 (principal); J12.82 Pneumonia due to coronavirus disease 2019; J15.1 Pneumonia due to Pseudomonas; J96.01 Acute respiratory failure with hypoxia; C34.12 Malignant neoplasm of upper lobe, left bronchus or lung; J44.0 Chronic obstructive pulmonary disease with (acute) lower respiratory infection; J44.1 Chronic obstructive pulmonary disease with (acute) exacerbation; R79.89 Other specified abnormal findings of blood chemistry; M19.90 Unspecified osteoarthritis, unspecified site; K21.9 Gastro-esophageal reflux disease without esophagitis; Z79.899 Other long term (current) drug therapy; Z92.241 Personal history of systemic steroid therapy; Z87.891 Personal history of nicotine dependence
CPT/HCPCS: 36415; 71045; 80048; 80053; 82550; 83605; 83615; 83880; 84075; 84145; 84484; 85025; 85379; 85610; 86140; 87040; 87070; 87077; 87184; 87186; 87205; 87449; 87641; 93005; 94002; 94003; 94640; 97110; 97162; 97166; 97530; 99251; 99285; J7030; J7040; J7050; A4216; G0463

== ENCOUNTER 2021-03-11 16:54 | Emergency (ER) | payer MEDICARE, OTHER, SELFPAY ==
[2021-03-11] VITALS (9 sets, daily range): BP systolic 81–120; BP diastolic 53–62; PULSE 91–108; RESP 20–28; TEMP 36.3; O2SAT 95–100; BMI 21.4
--- NOTE | 2021-03-11 17:01 | EKG12_ITS ---
Test Reason : Blood Pressure : / mmHG Vent. Rate : 103 BPM Atrial Rate : 103 BPM P-R Int : 100 ms QRS Dur : 086 ms QT Int : 330 ms P-R-T Axes : 049 029 -09 degrees QTc Int : 432 ms Sinus tachycardia with short MD with Premature atrial complexes Otherwise normal ECG Confirmed by DOMINIC BUTLER, SCARLETT ([id number]), index editor SHAYNE LAURA ([id number]) on 03/12/2021 8:40:28 AM Referred By: YOSI Confirmed By:SCARLETT ALFARO MD
--- NOTE | 2021-03-11 17:17 | RAD_ITS ---
INDICATION: chest pain EXAMINATION/TECHNIQUE: X-RAY - XR Chest 1 View COMPARISON: 02/14/2021. FINDINGS: Slight interval decrease in size of a left perihilar mass measuring approximately 10 x 8.5 cm. The cardiomediastinal silhouette is unremarkable. No pleural effusion or pneumothorax. No acute osseous abnormalities. RAD/Chest 1 View (Portable) IMPRESSION: Slight interval decrease in size of a left perihilar mass measuring approximately 10 x 8.5 cm. Electronically Signed: Alejandro Medellin MD at 17:47 EDT Tel , Service support ,
[2021-03-11 17:31] LABS: Hematocrit 31.6 % (40-54); Hemoglobin 9.9 g/dL (13.0-16.5); Mean Corp Hgb Conc 31.3 g/dL (32-36); Mean Corpuscular Hgb 25.5 pg (27.0-32.0); Mean Corpuscular Volume 81.4 fL (80-94); POSITIVE DIFFERENTIAL YES; POSITIVE MORPHOLOGY YES; Platelet Count 191 K/mm3 (150-450); RBC Distribution Width CV 16.1 % (11.6-14.6); RBC Distribution Width SD 47.8 fl (35.1-43.9); Red Blood Count 3.88 M/mm3 (4.6-6.2); White Blood Count 7.3 K/mm3 (4.4-11.0)
[2021-03-11] MEDS: 0.9% Normal Saline 1,000 ML 500 ML IV (17:50)
[2021-03-11 17:57] LABS: Scan Smear per Review Criteria MANUAL DIFF
[2021-03-11 17:58] LABS: Differential Indicated MANUAL DIFF
[2021-03-11 17:59] LABS: Anion Gap 11 (5-15); BUN 18 mg/dL (7-18); BUN/Creat Ratio 18.4 RATIO (10-20); Calcium,Total 8.4 mg/dL (8.5-10.1); Chloride 96 mmol/L (98-107); Creatinine, Serum 0.98 mg/dL (0.70-1.30); EST Glomerular Filtration Rate 80 mL/min (>60); Est Glom Filt Rate - Afr Amer 97 mL/min (>60); Estimated Creatinine Clearance 64.32 ml/min; Glucose 156 mg/dL (74-106); Potassium 3.3 mmol/L (3.5-5.1); Sodium Level 133 mmol/L (136-145); Troponin-I HS 72 pg/mL (3.0-78.0)
[2021-03-11 18:01] LABS: Lymphocyte 17 % (19-41); Monocyte 3 % (0-10); Neutrophil-Band 16 % (0-5); Neutrophil-Segmented 64 % (47-70); Total Cells Counted 100 (MANUAL DIFF)
[2021-03-11 18:02] LABS: Platelet Estimate ADEQUATE (ADEQ); Red Cell Morphology NORM C+C NORMAL (NORM C&C)
[2021-03-11 18:04] LABS: Absolute Lymphocyte Count 1.24 X10^3/uL (0.83-4.51); Absolute Neutrophil Count 5.8 X10^3/uL (2.0-7.7)
[2021-03-11 19:10] LABS: Lactic Acid 1.4 mmol/L (0.4-1.9)
--- NOTE | 2021-03-11 19:53 | EDS_ITS ---
HPI History of Present Illness Chief Complaint: Shortness of Breath Informant: patient Onset/Context/Timing Onset: Today and Hours Context: Gradual Onset Timing: Continuous Current Severity: Mild Maximum Severity: Mild Narrative Narrative: 71-year-old male known history of COPD on home O2 and lung CA receiving chemotherapy just had his most recent second treatment. Patient states he just feels generally weak. His heart rate was elevated today and he was sent in by his oncologist to be evaluated. He had nausea vomiting x1. Denies any fever. No diarrhea. No chest pain. No abdominal pain. No melena. Prior similar symptoms: Yes Recent Illness/Hospitalization: Yes [facility] Medical History Arthritis Back pain Chronic cough COPD (chronic obstructive pulmonary disease) Former smoker Gastric reflux History of lung cancer History of pain when walking History of smoking 30 or more pack years History of steroid therapy History of stress test Mass of left lung Shortness of breath on exertion Squamous cell carcinoma of left lung Wears hearing aid Home Medications albuterol sulfate 90 mcg/actuation aerosol inhaler 2 puff INHALATION Q6H PRN 12/11/20 [History Last Taken Unknown] montelukast 10 mg tablet 10 mg PO QHS 12/11/20 [History Last Taken Unknown] roflumilast 500 mcg tablet 500 mcg PO DAILY 12/11/20 [History Last Taken Unknown] Asmanex HFA 2 puff INHALATION BID 01/10/21 [History Last Taken Unknown] Stiolto Respimat 2 puff INHALATION DAILY 01/10/21 [History Last Taken Unknown] prednisone 20 mg PO QDAY 02/14/21 [History Last Taken Unknown] dexamethasone 6 mg PO DAILY #6 tab 02/19/21 [Rx Last Taken Unknown] levofloxacin 750 mg PO DAILY #3 tab 02/19/21 [Rx Last Taken Unknown] metoprolol tartrate 25 mg PO BID #60 tab 02/19/21 [Rx Last Taken Unknown] prochlorperazine maleate 10 mg tablet 10 mg PO Q6H PRN 03/04/21 [History Last Taken Unknown] Allergy/AdvReac Type Severity Reaction Status Date / Time No Known Allergies Allergy Verified 03/11/21 16:55 Surgical History History of inguinal hernia repair History of tonsillectomy and adenoidectomy Hx of bilateral cataract extraction Social History Smoking Status: Former smoker pack-years: 30 Tobacco: How many years used: 30 ROS ROS ED ROS Narrative Generalized weakness. Accelerated heart rate. Chronic shortness of breath. Review of Systems ROS Unobtainable: Denies due to encephalopathy Constitutional Constitutional ED: Denies chills or fever(s) Eyes Eyes: Denies change in vision ENT ENT ED: Denies ear pain, rhinorrhea or sore throat Cardiovascular Cardiovascular: Denies chest pain Respiratory/Chest Respiratory/Chest: Reports dyspnea Gastrointestinal Gastrointestinal: Reports nausea and vomiting; Denies abdominal pain or diarrhea Genitourinary Genitourinary ED: Denies dysuria Musculoskeletal Musculoskeletal: Denies myalgias Integumentary Denies rash Neurologic Neurologic: Denies headache(s) Psychiatric Psychiatric: Denies depression Endocrine Endocrinology: Denies polyuria Allergic/Immunologic Allergic/Immunologic ED: Denies urticaria EXAM Physical Exam Narrative Exam Narrative: 71-year-old male coming by his initial blood pressure 81/53. Pulse 108. Respirations 20 temperature 97.4 O2 sat 95% on oxygen. He does not look septic or toxic. H EENT exam unremarkable. Neck nontender. Lungs coarse breath sounds bilaterally. No rales, rhonchi no wheezing. The heart regular rhythm rate about 110 no murmur. Abdomen soft nontender normal bowel sounds no peritoneal signs. Patient moving all 4 extremities. Calves nontender no edema back nontender. Neurologically is awake alert with no focal motor deficit. Const Vital Signs: 03/11/21 16:55 03/11/21 18:15 03/11/21 18:16 Temperature 97.4 F L Temperature Source Temporal Pulse Rate 108 H 99 Respiratory Rate 20 H 28 H Respiratory Effort Blood Pressure 81/53 L Blood Pressure Mean 62 Pulse Ox 95 100 Oxygen Delivery Method Nasal Cannula Nasal Cannula Nasal Cannula Oxygen Flow Rate (L/min) 2 3 2 Fraction of Inspired Oxygen (FIO2) 100 03/11/21 18:18 03/11/21 18:19 03/11/21 18:21 Temperature Temperature Source Pulse Rate Respiratory Rate Respiratory Effort Short of Breath Labored Blood Pressure 91/57 L Blood Pressure Mean 68 Pulse Ox 100 Oxygen Delivery Method Nasal Cannula Nasal Cannula Oxygen Flow Rate (L/min) 2 1 Fraction of Inspired Oxygen (FIO2) 03/11/21 19:31 03/11/21 20:26 03/11/21 21:15 Temperature Temperature Source Pulse Rate 96 91 96 Respiratory Rate 22 H 24 H 24 H Respiratory Effort Blood Pressure 93/61 120/62 Blood Pressure Mean 71 81 Pulse Ox 99 99 99 Oxygen Delivery Method Nasal Cannula Nasal Cannula Nasal Cannula Oxygen Flow Rate (L/min) 1 1 2 Fraction of Inspired Oxygen (FIO2) Positive well nourished and well developed; Negative for obese, cachectic, contractures or unkempt General Appearance ED: well developed and NAD; Negative for unkempt, cachectic, contractures, cyanotic, diaphoretic or pallor Nutritional Appearance: Negative for cachectic or obese HEENT Reports moist mucous membranes Negative for trauma or tenderness Eyes PERRL and EOMs intact bilaterally Neck no lymphadenopathy, supple and no JVD General: Negative for tenderness Chest Wall inspection of chest normal and palpation of chest normal Resp normal respiratory effort and clear to auscultation bilaterally Resp Narrative: Coarse distant breath sounds bilaterally. History of COPD. No distress. Effort and Inspection: Negative for pain with movement Auscultation: Negative for rales, rhonchi or wheezes Cardio regular rhythm, S1 normal heart sound, S2 normal heart sound and no murmurs Rate: tachycardic GI normal to inspection, nondistended, normoactive bowel sounds, non-tender, non- distended and no masses Auscultation: normoactive bowel sounds Palpation: soft; Negative for tender Back/Spine no CVA tenderness General Back: Negative for CVA tenderness Cervical Spine: Negative for cervical spine tenderness Extremity normal to inspection General Extremety ED: Negative for edema or tenderness General Extremity: Negative for edema Neuro oriented x3 Sensorium / Orientation: alert; Negative for orientation impaired, lethargic or stuporous Motor Exam: strength 5/5 throughout Psych mental status grossly normal Appearance: Negative for unkempt Attitude: No agitated Mood & Affect: Negative for depressed or tearful Skin no rashes or lesions noted, no wounds and No skin turgor normal General Skin Exam: elasticity normal; Negative for jaundice or pallor MDM MDM MDM Narrative Medical decision making narrative: 71-year-old male with hypotension. Clinically looks well. Afebrile. He will undergo an evaluation. He has no lung cancer and COPD is currently undergoing chemotherapy. Repeat exam patient is doing well at 9:30 PM. He says he feels fine. He got up and ambulated his pulse ox stayed above 90 the entire time he had no trouble walking. He has no complaints. He was given IV fluids currently his blood pressure is 120/62 and his heart rates around 100. His exam is benign. I went over all lab results with both he and his . This is his baseline anemia. His kidney function is normal there is no signs of significant dehydration. No signs of sepsis and is got a normal lactic acid and troponin. They are comfortable with him being discharged home and he will follow up with his oncologist. I have that group on page. Lab Data Attestation: I reviewed the patient's lab results. Lab results narrative: CBC shows a white count 7.3. Hemoglobin 9.9 which is his baseline chronic anemia. Electrolytes sodium 133 potassium 3.3 gap 11 normal BUN and creatinine glucose 156. Lactic acid 1.4. Troponin 72. Labs: Laboratory Results - last 24 hr 03/11/21 03/11/21 03/11/21 17:14 17:14 18:30 WBC 7.3 RBC 3.88 L Hgb 9.9 L Hct 31.6 L MCV 81.4 MCH 25.5 L MCHC 31.3 L RDW Std Deviation 47.8 H RDW Coeff of Zane 16.1 H Plt Count 191 MPV 10.0 Immature Gran % (Auto) ACUTE SPECIALIST Neut % (Auto) ACUTE SPECIALIST Lymph % (Auto) ACUTE SPECIALIST Brantley % (Auto) ACUTE SPECIALIST Eos % (Auto) ACUTE SPECIALIST Baso % (Auto) ACUTE SPECIALIST Absolute Neuts (auto) 5.8 Absolute Lymphs (auto) 1.24 Total Counted 100 Neutrophils % (Manual) 64 Band Neutrophils % 16 H Lymphocytes % (Manual) 17 L Monocytes % (Manual) 3 Nucleated RBC % ACUTE SPECIALIST Differential Comment Diff Path Review May foll Platelet Estimate ADEQUATE RBC Morphology NORM C+C Sodium 133 L Potassium 3.3 L Chloride 96 L Carbon Dioxide 26.0 Anion Gap 11 BUN 18 Creatinine 0.98 Estim Creat Clear Calc 64.32 Est GFR (MDRD) Af Amer 97 Est GFR (MDRD) Non-Af 80 BUN/Creatinine Ratio 18.4 Glucose 156 H Lactic Acid 1.4 Calcium 8.4 L Troponin I High Sens 72 03/11/21 20:20 WBC RBC Hgb Hct MCV MCH MCHC RDW Std Deviation RDW Coeff of Zane Plt Count MPV Immature Gran % (Auto) Neut % (Auto) Lymph % (Auto) Brantley % (Auto) Eos % (Auto) Baso % (Auto) Absolute Neuts (auto) Absolute Lymphs (auto) Total Counted Neutrophils % (Manual) Band Neutrophils % Lymphocytes % (Manual) Monocytes % (Manual) Nucleated RBC % Differential Comment Diff Path Review Platelet Estimate RBC Morphology Sodium Potassium Chloride Carbon Dioxide Anion Gap BUN Creatinine Estim Creat Clear Calc Est GFR (MDRD) Af Amer Est GFR (MDRD) Non-Af BUN/Creatinine Ratio Glucose Lactic Acid Cancelled Calcium Troponin I High Sens Radiography Chest X-Ray - ED: 1 View, Read by ED Physician, Read by Radiologist and Chronic Changes Diagnostic Testing: Radiology Impression Chest X-Ray 03/11/21 17:17 IMPRESSION: Slight interval decrease in size of a left perihilar mass measuring approximately 10 x 8.5 cm. Electronically Signed: Alejandro Medellin MD at 17:47 EDT Tel , Service support , Portable single view chest x-ray shows lungs consistent with COPD and a left hilar mass which she has had known history of lung cancer. Rhythm Strip Rhythm Strip: Sinus Tach Rate: 103 Ectopy: None EKG Initial EKG: Attestation: I personally reviewed and interpreted this EKG as follows: Interpretation: Sinus Rhythm and No Acute Injury Pattern Comments: Sinus tachycardia rate of 103 no acute signs of [place] or ischemia. Discharge Plan Triage Chief Complaint: Shortness of Breath ED Provider: Jonathan Khan Dx/Rx/DC Orders Clinical Impression: Tachycardia, Transient hypotension, History of lung cancer, History of COPD Prescriptions: No Action albuterol sulfate [Proventil HFA] 90 mcg/actuation HFA aerosol inhaler 2 puff inhalation Q6H PRN (Reason: COPD) RF: 0 Daliresp 500 mcg tablet 500 mcg PO DAILY RF: 0 montelukast 10 mg tablet 10 mg PO QHS RF: 0 prochlorperazine maleate 10 mg tablet 10 mg PO Q6H PRNRF: 0 Asmanex HFA 200 mcg/actuation Hfa Aerosol Inhaler 2 puff INHALATION BID RF: 0 Stiolto Respimat 2.5-2.5 mcg/actuation Mist 2 puff INHALATION DAILY RF: 0 prednisone 10 mg tablet 20 mg PO QDAY RF: 0 Hold Instructions: Resume on 02/26/21. metoprolol tartrate 25 mg Tablet 25 mg PO BID Qty: 60 RF: 0 levofloxacin 750 mg tablet 750 mg PO DAILY Qty: 3 RF: 0 dexamethasone 6 mg tablet 6 mg PO DAILY Qty: 6 RF: 0 Primary Care Provider: Travis Reyes Referrals: Travis Reyes MD [Primary Care Provider] - As Needed Activity Restrictions/Additional Instructions: Plenty of fluids and rest. Follow-up with Dr. Escamilla. Your labs EKG and x-ray tonight were unremarkable. Disposition Disposition: Home, Self Care
[2021-03-11] MEDS: 0.9% Normal Saline 1,000 ML 999 ML IV (20:18)
[2021-03-12 12:02] LABS: Pathologist Review Reviewed
== END 2021-03-11 21:45 | disposition home or self-care (01) ==
PROVIDERS: Emergency Provider Emergency Medicine; PCP Family Medicine
DX: R06.02 Shortness of breath (principal); R00.0 Tachycardia, unspecified; J44.9 Chronic obstructive pulmonary disease, unspecified; C34.92 Malignant neoplasm of unspecified part of left bronchus or lung; I95.9 Hypotension, unspecified; D64.9 Anemia, unspecified; R11.2 Nausea with vomiting, unspecified; M19.90 Unspecified osteoarthritis, unspecified site; K21.9 Gastro-esophageal reflux disease without esophagitis; Z99.81 Dependence on supplemental oxygen; Z79.890 Hormone replacement therapy; Z79.52 Long term (current) use of systemic steroids; Z79.51 Long term (current) use of inhaled steroids; Z79.899 Other long term (current) drug therapy; Z87.891 Personal history of nicotine dependence
CPT/HCPCS: 71045; 80048; 83605; 84484; 85025; 93005; 96360; 96361; 99283; J7030; A4216

== ENCOUNTER → 2021-04-15 | Outpatient (CLI) | payer MEDICARE, OTHER, SELFPAY ==
[2021-04-15] VITALS (7 sets, daily range): BP systolic 93–124; BP diastolic 48–63; PULSE 63–80; RESP 16; TEMP 36.2–36.6; O2SAT 98–100; BMI 21.7
[2021-04-15] MEDS: Acetaminophen 325 MG Tablet 650 MG PO (08:06)
[2021-04-15] MEDS: 0.9 % NaCl (Sterile) Posiflush 10 mL IV (08:07)
[2021-04-15] MEDS: 0.9% NaCl VAD Flush IV (12:46)
== END | disposition home or self-care (01) ==
LOC: MEDOUTP 07:51
PROVIDERS: PCP Family Medicine; Referring Provider Internal Medicine Hematology & Oncology; Visit Provider Internal Medicine Hematology & Oncology
DX: Z51.89 Encounter for other specified aftercare (principal); D64.81 Anemia due to antineoplastic chemotherapy; D49.9 Neoplasm of unspecified behavior of unspecified site
CPT/HCPCS: 36430; 86850; 86900; 86901; 86920; 86922; J7040; P9016; A4216

== ENCOUNTER → 2021-04-24 | Outpatient (CLI) | payer MEDICARE, OTHER, SELFPAY | END | disposition home or self-care (01) | LOC: LABSPEC 09:33 | PROVIDERS: PCP Family Medicine; Referring Provider Nurse Practitioner Acute Care; Visit Provider Nurse Practitioner Acute Care | DX: J44.9 Chronic obstructive pulmonary disease, unspecified (principal) | CPT/HCPCS: 87070; 87205 ==

== ENCOUNTER 2021-05-24 14:18 | Emergency (ER) | payer OTHER, MEDICARE, SELFPAY ==
[2021-05-24] VITALS (7 sets, daily range): BP systolic 114–131; BP diastolic 60–72; PULSE 115–125; RESP 18–20; TEMP 36.5–36.9; O2SAT 96–98; BMI 20.7
--- NOTE | 2021-05-24 14:45 | EKG12_ITS ---
Test Reason : SOB Blood Pressure : / mmHG Vent. Rate : 108 BPM Atrial Rate : 108 BPM P-R Int : 122 ms QRS Dur : 080 ms QT Int : 324 ms P-R-T Axes : 064 060 043 degrees QTc Int : 434 ms Sinus tachycardia Otherwise normal ECG Confirmed by DOMINIC BUTLER, SCARLETT ([id number]), editorial assistant SHAYNE LAURA ([id number]) on 05/27/2021 11:05:59 AM Referred By: DAVE Confirmed By:SCARLETT ALFARO MD
--- NOTE | 2021-05-24 14:55 | EDS_ITS ---
HPI History of Present Illness Chief Complaint: Shortness of Breath Narrative Narrative: 71-year-old male with history of COPD and lung cancer presenting with shortness of breath which is worse over the last 3 days. He status post chemotherapy and just started radiation therapy on Thursday. He states he has been short of breath at home. He has 3 L of oxygen that he wears as needed at home. He previously had home nebulizers when he had pneumonia which he states was about a month ago. He was on antibiotics and states that he used all the nebulizers at home. Patient has not had a fever or chills. He does admit to a cough which is worse over the last 3 days. He does not have any chest pain. He denies history of DVT/PE. [facility] Medical History Arthritis Back pain Chronic cough COPD (chronic obstructive pulmonary disease) Former smoker Gastric reflux History of lung cancer History of pain when walking History of smoking 30 or more pack years History of steroid therapy History of stress test Mass of left lung Shortness of breath on exertion Squamous cell carcinoma of left lung Wears hearing aid Home Medications albuterol sulfate 90 mcg/actuation aerosol inhaler 2 puff INHALATION Q6H PRN 12/11/20 [History Last Taken Unknown] montelukast 10 mg tablet 10 mg PO QHS 12/11/20 [History Last Taken Unknown] roflumilast 500 mcg tablet 500 mcg PO DAILY 12/11/20 [History Last Taken Unknown] Asmanex HFA 2 puff INHALATION BID 01/10/21 [History Last Taken Unknown] Stiolto Respimat 2 puff INHALATION DAILY 01/10/21 [History Last Taken Unknown] metoprolol tartrate 25 mg PO BID #60 tab 02/19/21 [Rx Last Taken Unknown] prochlorperazine maleate 10 mg tablet 10 mg PO Q6H PRN 03/04/21 [History Last Taken Unknown] potassium chloride 20 mEq/15 mL oral liquid 20 meq PO BID 03/27/21 [History Last Taken Unknown] guaifenesin 1,200 mg tablet, extended release 12 hr 1,200 mg PO Q12H #60 tab 04/24/21 [Rx Last Taken Unknown] albuterol sulfate 0.63 mg INHALATION Q6H PRN #90 ml 05/24/21 [Rx Last Taken Unknown] apixaban [Eliquis DVT-PE Treat 30D Start] 5 mg PO BID #74 tab 05/24/21 [Rx Last Taken Unknown] prednisone 50 mg PO DAILY 5 Days #5 tab 05/24/21 [Rx Last Taken Unknown] Allergy/AdvReac Type Severity Reaction Status Date / Time No Known Allergies Allergy Verified 05/24/21 14:20 Surgical History History of inguinal hernia repair History of tonsillectomy and adenoidectomy Hx of bilateral cataract extraction Social History Smoking Status: Former smoker pack-years: 30 Tobacco: How many years used: 30 ROS ROS ED Constitutional Constitutional ED: Denies chills or fever(s) Eyes Eyes: Denies blurry vision or diplopia ENT ENT ED: Denies rhinorrhea or sore throat Cardiovascular Cardiovascular: Denies chest pain or palpitations Respiratory/Chest Respiratory/Chest: Reports cough, dyspnea and dyspnea on exertion Gastrointestinal Gastrointestinal: Denies abdominal pain, nausea or vomiting Genitourinary Genitourinary ED: Denies dysuria or hematuria Musculoskeletal Musculoskeletal: Denies arthralgias or myalgias Integumentary Denies Abrasions or rash Neurologic Neurologic: Denies headache(s) or weakness Psychiatric Psychiatric: Denies anxiety or depression EXAM Physical Exam Const Vital Signs: 05/24/21 14:19 05/24/21 14:29 05/24/21 14:53 Temperature 97.7 F L Temperature Source Temporal Pulse Rate 115 H Respiratory Rate 20 H 20 H Respiratory Effort Normal Respiratory Depth Normal Respiratory Pattern Normal Normal Blood Pressure 131/72 H Blood Pressure Mean 91 Pulse Ox 96 Oxygen Delivery Method Nasal Cannula Nasal Cannula Oxygen Flow Rate (L/min) 3 3 05/24/21 16:26 05/24/21 17:06 05/24/21 19:00 Temperature 98.4 F 98.5 F Temperature Source Oral Oral Pulse Rate 121 H 125 H Respiratory Rate 18 18 Respiratory Effort Respiratory Depth Respiratory Pattern Blood Pressure 122/60 H 114/60 Blood Pressure Mean 80 78 Pulse Ox 96 97 Oxygen Delivery Method Nasal Cannula Nasal Cannula Nasal Cannula Oxygen Flow Rate (L/min) 3 05/24/21 19:01 Temperature Temperature Source Pulse Rate Respiratory Rate 18 Respiratory Effort Respiratory Depth Respiratory Pattern Blood Pressure Blood Pressure Mean Pulse Ox Oxygen Delivery Method Oxygen Flow Rate (L/min) Positive well nourished General Appearance ED: NAD; Negative for pallor HEENT Reports dry mucous membranes atraumatic Mouth ED: Yes dry mucous membranes Mouth: dry mucous membranes Eyes PERRL and EOMs intact bilaterally General Eye ED: Negative for pale conjunctiva or scleral icterus Neck no lymphadenopathy and supple Resp normal respiratory effort Auscultation: rales bilateral and wheezes scattered wheezes Cardio regular rhythm Rate: tachycardic Neuro oriented x3 and CN's II-XII intact bilaterally Sensorium / Orientation: alert Skin General Skin Exam: Negative for jaundice or pallor Rashes: no rashes MDM MDM MDM Narrative Medical decision making narrative: Patient presented with shortness of breath. He does wear 3 L of oxygen is not requiring more than this. He is wheezing on exam he is given breathing treatments and IV Medrol. Patient does not have any chest pain. He is not had fever, chills, body aches, loss of taste or smell but does admit to a little bit of a cough. Patient status post chemotherapy and is currently doing radiation therapy with his last visit on Thursday. EKG is performed on arrival which shows a sinus tachycardia with a ventricular rate of 108 bpm on my interpretation. Chest x-ray on my interpretation shows bilateral pleural effusions the radiologist reads this as infiltrates as well. Patient does not have any fever or chills. His white blood cell count is 9.3. It is noted that his hemoglobin is 7.7 which is lower than it previously been in the nines. I did obtain an occult stool and this is negative. Renal function and electrolytes are normal. LFTs unremarkable. Lactic acid is 1.0. Urinalysis negative for infection. D-dimer was significantly elevated at 4.12, so I did obtain a CTA of the chest patient is found to have PEs in the right upper and lower lobes there is also a 7 mm pulmonary nodule and there is also 74 x 36 mm cavitary mass which the radiologist read is consistent with the patient's known lung cancer. The radiologist reads the bilateral lower lobes is possibly infiltrates could also be lymphangitic spread of pneumonia. Patient feels improved after breathing treatments. I do not believe there is any evidence of true infection. I spoke with Dr. Davila regarding the patient. He feels the same. The patient is slightly anemic but he does not have a GI bleed. He feels the patient is safe for outpatient follow-up and may need a transfusion on an outpatient setting by Thursday. He agrees with starting Eliquis for the PEs. Patient is written a prescription for refills of his nebulizer solution. He is also given a prednisone burst. Patient was cultured and counseled these are positive he might have to return. Patient is amenable to this plan. Impression: 1. Dyspnea 2. Anemia 3. Right upper lobe and lower lobe pulmonary emboli 4. COPD exacerbation 5. History of squamous cell carcinoma Lab Data Labs: Laboratory Results - last 24 hr 05/24/21 05/24/21 05/24/21 15:30 15:30 15:30 WBC 9.3 RBC 2.55 L Hgb 7.7 L Hct 24.5 L MCV 96.1 H MCH 30.2 MCHC 31.4 L RDW Std Deviation 72.1 H RDW Coeff of Zane 20.5 H Plt Count 262 MPV 9.4 Immature Gran % (Auto) 1.500 H Neut % (Auto) 87.1 H Lymph % (Auto) 6.2 L Dickenson % (Auto) 4.7 Eos % (Auto) 0.2 Baso % (Auto) 0.3 Absolute Neuts (auto) 8.1 H Absolute Lymphs (auto) 0.58 L Nucleated RBC % 0 Differential Comment Platelet Estimate ADEQUATE Hypochromasia 1+ Anisocytosis 2+ PT 16.0 H INR 1.3 APTT 45.2 H D-Dimer Quant (PE/DVT) 4.12 H* Sodium 135 L Potassium 3.7 Chloride 102 Carbon Dioxide 23.0 Anion Gap 10 BUN 22 H Creatinine 0.81 Estim Creat Clear Calc 75.13 Est GFR (MDRD) Af Amer 120 Est GFR (MDRD) Non-Af 99 BUN/Creatinine Ratio 27.0 H Glucose 126 H Lactic Acid Calcium 9.2 Total Bilirubin 0.50 AST 44 H ALT 49 Alkaline Phosphatase 99 Troponin I High Sens 8 Total Protein 7.4 Albumin 2.1 L Globulin 5.3 H Albumin/Globulin Ratio 0.4 L Urine Color Urine Clarity Urine pH Ur Specific [place] Urine Protein Urine Glucose (UA) Urine Ketones Urine Occult Blood Urine Nitrite Urine Bilirubin Urine Urobilinogen Ur Leukocyte Esterase Urine RBC Urine WBC Ur Squamous Epith Cells Urine Bacteria Urine Mucus 05/24/21 05/24/21 15:34 18:17 WBC RBC Hgb Hct MCV MCH MCHC RDW Std Deviation RDW Coeff of Zane Plt Count MPV Immature Gran % (Auto) Neut % (Auto) Lymph % (Auto) Dickenson % (Auto) Eos % (Auto) Baso % (Auto) Absolute Neuts (auto) Absolute Lymphs (auto) Nucleated RBC % Differential Comment Platelet Estimate Hypochromasia Anisocytosis PT INR APTT D-Dimer Quant (PE/DVT) Sodium Potassium Chloride Carbon Dioxide Anion Gap BUN Creatinine Estim Creat Clear Calc Est GFR (MDRD) Af Amer Est GFR (MDRD) Non-Af BUN/Creatinine Ratio Glucose Lactic Acid 1.0 Calcium Total Bilirubin AST ALT Alkaline Phosphatase Troponin I High Sens Total Protein Albumin Globulin Albumin/Globulin Ratio Urine Color Yellow Urine Clarity Sl. Cloudy Urine pH 5.0 Ur Specific [place] 1.015 Urine Protein 30 H Urine Glucose (UA) Normal Urine Ketones 5 H Urine Occult Blood 10 H Urine Nitrite Negative Urine Bilirubin Negative Urine Urobilinogen Normal Ur Leukocyte Esterase Negative Urine RBC 0-5 SEEN Urine WBC 0 SEEN Ur Squamous Epith Cells 0-5 SEEN Urine Bacteria 0 SEEN Urine Mucus 0 SEEN Radiography Diagnostic Testing: Clinical Impression(s) from Imaging Studies Chest X-Ray 05/24/21 16:19 IMPRESSION: There are bilateral pleural effusions. There are bilateral infiltrates. Electronically Signed: Dov Jenkins MD at 16:38 EST , Service support , Chest CTA 05/24/21 17:05 IMPRESSION: 1. There is a thrombus in the right upper lobe and right lower lobe pulmonary artery branches. There is no heart strain. 2. There is a a 7 mm right upper lobe nodule. Se 2 Im; 236. Metastatic focus should be considered. 3. There is a left upper lobe / left hilar cavitary mass that is 74 x 36 mm in size. Se 2 IM: 135. This is consistent with the patients known history of lung cancer. 4. There are posterior lower lobe infiltrates which may be related to a pneumonia. However, this also has appearance of lymphangitic spread of carcinoma. Electronically Signed: Dov Jenkins MD at 17:44 EST , Service support , ADDENDUM: 05/24/211816 IMPRESSION: 1. There is a thrombus in the right upper lobe and right lower lobe pulmonary artery branches. There is no heart strain. 2. There is a a 7 mm right upper lobe nodule. Se 2 Im; 236. Metastatic focus should be considered. 3. There is a left upper lobe / left hilar cavitary mass that is 74 x 36 mm in size. Se 2 IM: 135. This is consistent with the patients known history of lung cancer. 4. There are posterior lower lobe infiltrates which may be related to a pneumonia. However, this also has appearance of lymphangitic spread of carcinoma. N.B. : The above Results were Read Back by Dov Jenkins MD to MD Adarsh, and understanding confirmed on 05/24/2021 18:10:33 (ET). Electronically Signed: Dov Jenkins MD at 17:44 EST , Service support , Discharge Plan Triage Chief Complaint: Shortness of Breath ED Provider: Jonathan Kruger Dx/Rx/DC Orders Instructions: DVT/PE Discharge instruction sheet, ED COPD Flare Prescriptions: New prednisone 50 mg tablet 50 mg PO DAILY 5 Days Qty: 5 RF: 0 Eliquis DVT-PE Treat 30D Start 5 mg (74 tabs) tablets,dose pack 5 mg PO BID Qty: 74 RF: 0 Changed albuterol sulfate 0.63 mg/3 mL solution for nebulization 0.63 mg inhalation Q6H PRN (Reason: wheezing) Qty: 90 RF: 3 No Action albuterol sulfate [Proventil HFA] 90 mcg/actuation HFA aerosol inhaler 2 puff inhalation Q6H PRN (Reason: COPD) RF: 0 Daliresp 500 mcg tablet 500 mcg PO DAILY RF: 0 montelukast 10 mg tablet 10 mg PO QHS RF: 0 potassium chloride 20 mEq/15 mL liquid 20 meq PO BID RF: 0 prochlorperazine maleate 10 mg tablet 10 mg PO Q6H PRNRF: 0 guaifenesin 1,200 mg tablet extended release 12hr 1,200 mg PO Q12H Qty: 60 RF: 6 Asmanex HFA 200 mcg/actuation Hfa Aerosol Inhaler 2 puff INHALATION BID RF: 0 Stiolto Respimat 2.5-2.5 mcg/actuation Mist 2 puff INHALATION DAILY RF: 0 metoprolol tartrate 25 mg Tablet 25 mg PO BID Qty: 60 RF: 0 Primary Care Provider: Travis Reyes Referrals: Travis Reyes MD [Primary Care Provider] - Disposition Disposition: Home, Self Care Discharge Date/Time: 05/24/21 19:06
[2021-05-24] MEDS: Ipratropium/Albuterol Sulfate 3 ML AMPUL.NEB INHALATION (14:58)
[2021-05-24] MEDS: Albuterol 2.5 MG/3 ML VIAL.NEB. INHALATION (14:58)
[2021-05-24] MEDS: MethylPREDNISolone 125 MG/2 ML Vial IV (15:41)
[2021-05-24 15:49] LABS: Absolute Lymphocyte Count 0.58 X10^3/uL (0.83-4.51); Absolute Neutrophil Count 8.1 X10^3/uL (2.0-7.7); Basophil# 0.03 X10^3/uL; Basophil% 0.3 % (0-1); Eosinophil# 0.02 X10^3/uL; Eosinophils% 0.2 % (0-5); Hematocrit 24.5 % (40-54); Hemoglobin 7.7 g/dL (13.0-16.5); Lymphocyte # 0.58 X10^3/ul (0.83-4.51); Lymphocyte % 6.2 % (19-41); Mean Corp Hgb Conc 31.4 g/dL (32-36); Mean Corpuscular Hgb 30.2 pg (27.0-32.0); Mean Corpuscular Volume 96.1 fL (80-94); Mean Platelet Vol. 9.4 fl (6.2-12.0); Monocyte# 0.44 X10^3/uL; Monocyte% 4.7 % (0-10); NRBC Flagged by Analyzer 0 % (0-5); Neutrophil # 8.12 X10^3/uL (2.7-7.7); Neutrophil % 87.1 % (47-70); POSITIVE DIFFERENTIAL YES; POSITIVE MORPHOLOGY YES; Platelet Count 262 K/mm3 (150-450); RBC Distribution Width CV 20.5 % (11.6-14.6); RBC Distribution Width SD 72.1 fl (35.1-43.9); Red Blood Count 2.55 M/mm3 (4.6-6.2); White Blood Count 9.3 K/mm3 (4.4-11.0)
[2021-05-24 15:56] LABS: Differential Indicated SCAN CRITERIA MET
[2021-05-24 15:59] LABS: International Normalized Ratio 1.3
[2021-05-24 16:01] LABS: Partial Thromboplast Time 45.2 Seconds (24.1-36.2)
[2021-05-24 16:07] LABS: ALB/GLOB Ratio 0.4 RATIO (0.9-2.4); AST(SGOT) 44 U/L (15-37); Alanine Aminotransfer ALT/SGPT 49 U/L (16-61); Albumin, Serum 2.1 g/dL (3.2-5.0); Alkaline Phosphatase 99 U/L (45-117); Anion Gap 10 (5-15); BUN 22 mg/dL (7-18); Calcium,Total 9.2 mg/dL (8.5-10.1); Chloride 102 mmol/L (98-107); Creatinine, Serum 0.81 mg/dL (0.70-1.30); EST Glomerular Filtration Rate 99 mL/min (>60); Est Glom Filt Rate - Afr Amer 120 mL/min (>60); Estimated Creatinine Clearance 75.13 ml/min; Globulin 5.3 g/dL (2.2-4.2); Glucose 126 mg/dL (74-106); Potassium 3.7 mmol/L (3.5-5.1); Protein, Total 7.4 g/dL (6.4-8.2); Sodium Level 135 mmol/L (136-145); Troponin-I HS 8 pg/mL (3.0-78.0)
--- NOTE | 2021-05-24 16:19 | RAD_ITS ---
STUDY: X-RAY CHEST REASON FOR EXAM: Male, 71 years old. CHEST PAIN cough TECHNIQUE: XR Chest 1 View COMPARISON: 03.11.21 FINDINGS: There are bilateral pleural effusions. There are bilateral infiltrates. There is a right Port-A-Cath and/or mediport in place. The tip is in the superior vena cava. Normal size heart. Normal mediastinum and urszula. Normal visualized pulmonary arteries. There is atherosclerotic calcification of the aortic arch with tortuosity. There are diffuse degenerative changes of the visualized thoracic spine. There is degenerative osteoarthritis of the bilateral shoulders. There is no demonstrated abnormality of the visualized soft tissue structures of the upper abdomen. RAD/Chest 1 View (Portable) IMPRESSION: There are bilateral pleural effusions. There are bilateral infiltrates. Electronically Signed: Dov Jenkins MD at 16:38 EST , Service support ,
[2021-05-24 16:56] LABS: Anisocytosis 2+; Hypochromasia 1+; Platelet Estimate ADEQUATE (ADEQ)
[2021-05-24 17:03] LABS: D-Dimer Quantitative (DVT/PE) 4.12 FEU/ug/m (0.27-0.49)
--- NOTE | 2021-05-24 17:05 | CT_ITS ---
We are attempting to reach an attending provider to discuss findings. An addendum with communication details will be sent when the communication is complete. EXAM: CT ANGIOGRAPHY CHEST WITHOUT AND WITH INTRAVENOUS CONTRAST CLINICAL INDICATION: dyspnea LOW O2, SOB, LUNG CA TECHNIQUE: Helically acquired angiography images were obtained of the chest without and with intravenous contrast. This CT exam was performed using one or more of the following dose reduction techniques: automated exposure control, adjustment of the mA and/or kV according to patient size, and/or use of iterative reconstruction technique. This report was created using [employer] report generation technology. MIP reconstructed images were created and reviewed. CONTRAST: IV 100mL [id number] COMPARISON: 12.27.20 FINDINGS: PULMONARY ARTERIES: See below. AORTA: Unremarkable. Normal in caliber. No evidence of dissection. GREAT VESSELS OF AORTIC ARCH: Unremarkable. Normal in caliber. No evidence of dissection. LUNGS AND PLEURAL SPACES: There is a thrombus in the right upper lobe and right lower lobe pulmonary artery branches. There is no heart strain. There is a a 7 mm right upper lobe nodule. Se 2 Im; 236. Metastatic focus should be considered. There is a left upper lobe / left hilar cavitary mass that is 74 x 36 mm in size. Se 2 IM: 135. This is consistent with the patients known history of lung cancer. There are posterior lower lobe infiltrates which may be related to a pneumonia. However, this also has appearance of lymphangitic spread of carcinoma. There are scattered blebs and bullae. This can be seen in pulmonary emphysema. No pleural effusion or thickening. HEART: See above. MEDIASTINUM: Mediastinal adenopathy.. Esophagus is unremarkable. No hiatal hernia. THYROID: Unremarkable. No thyroid lesions. BONES/JOINTS: Unremarkable. No suspicious lytic or blastic abnormality. TUBES, LINES AND DEVICES: There is a right Port-A-Cath and/or mediport in place. The tip is in the superior vena cava. CT/CTA Chest W/WO Contrast IMPRESSION: 1. There is a thrombus in the right upper lobe and right lower lobe pulmonary artery branches. There is no heart strain. 2. There is a a 7 mm right upper lobe nodule. Se 2 Im; 236. Metastatic focus should be considered. 3. There is a left upper lobe / left hilar cavitary mass that is 74 x 36 mm in size. Se 2 IM: 135. This is consistent with the patients known history of lung cancer. 4. There are posterior lower lobe infiltrates which may be related to a pneumonia. However, this also has appearance of lymphangitic spread of carcinoma. Electronically Signed: Dov Jenkins MD at 17:44 EST , Service support ,
[2021-05-24 18:21] LABS: Bacteria 0 SEEN /hpf (None Seen); Mucous, Urine 0 SEEN /hpf (<or=2+); White Blood Cells 0 SEEN /hpf (0-5)
[2021-05-24 18:34] LABS: Color, Urine Yellow (Yellow); Glucose, Dipstick Normal (Normal); Ketone-Dipstick 5 mg/dl (Negative); Leukocyte Esterase-Dipstick Negative /ul (Negative); Nitrite-Dipstick Negative (Negative); Occult Blood-Urine 10 /ul (Negative); Protein-Dipstick 30 mg/dl (Negative); Specific Gravity, Urine 1.015 (1.002-1.030); Urine Bilirubin Dipstick Negative (Negative); Urine Clarity Sl. Cloudy (Clear); Urine Urobilinogen Normal (Normal)
[2021-05-24 18:48] LABS: Red Blood Cells-Urine 0-5 SEEN /hpf (0-5); Squamous Epithelial Cells - UA 0-5 SEEN /hpf (0-5)
[2021-05-24] MEDS: APIXABAN 5 MG TABLET 10 MG PO (18:56)
--- NOTE | 2021-05-25 11:01 | ED.RN ---
OF PT CALLED AND STATED TE PHARMACY DID NOT HAVE THE ALBUTEROL FOR NEBULIZER. PHARMACY CALLED AND ORIGINAL SCRIPT STRENGTH WAS BACK ORDERED. VERIFIED STRENGTH CHANGE WITH DR OLMSTEAD AND PHARMACY IS NOW FILLING THE ORDER. CALLED THE PT AND TALKED WITH AND INFORMED HER IT WAS BEING FILLED
== END 2021-05-24 19:06 | disposition home or self-care (01) ==
PROVIDERS: Emergency Provider Student in an Organized Health Care Education/Training Program; PCP Family Medicine
DX: J44.1 Chronic obstructive pulmonary disease with (acute) exacerbation (principal); I26.99 Other pulmonary embolism without acute cor pulmonale; Z20.822 Contact with and (suspected) exposure to COVID-19; J90 Pleural effusion, not elsewhere classified; D64.9 Anemia, unspecified; C34.92 Malignant neoplasm of unspecified part of left bronchus or lung; M19.90 Unspecified osteoarthritis, unspecified site; K21.9 Gastro-esophageal reflux disease without esophagitis; Z79.899 Other long term (current) drug therapy; Z79.51 Long term (current) use of inhaled steroids; Z92.21 Personal history of antineoplastic chemotherapy; Z87.891 Personal history of nicotine dependence
CPT/HCPCS: 36591; 71045; 71275; 80053; 81001; 82274; 83605; 84484; 85025; 85379; 85610; 85730; 87040; 87426; 93005; 94640; 96374; 99284; Q9967; A4216

== ENCOUNTER → 2021-05-28 10:26 | Outpatient (CLI) | payer MEDICARE, OTHER, SELFPAY ==
[2021-05-28 10:37] VITALS: BP 96/57; RESP 18
[2021-05-28 10:54] VITALS: BP 96/57; PULSE 96; RESP 16; TEMP 36.1; O2SAT 99
[2021-05-28 11:14] VITALS: BP 107/60; PULSE 91; RESP 16; TEMP 35.9; O2SAT 96
[2021-05-28 12:09] VITALS: BP 106/60; PULSE 92; RESP 16; O2SAT 99
[2021-05-28 12:50] VITALS: BP 112/66; PULSE 95; RESP 16; TEMP 35.8; O2SAT 96
== END ==
PROVIDERS: PCP Family Medicine; Referring Provider Internal Medicine Hematology & Oncology; Visit Provider Internal Medicine Hematology & Oncology
DX: D64.81 Anemia due to antineoplastic chemotherapy (principal)
CPT/HCPCS: 36430; 86850; 86900; 86901; 86920; 86922; P9016; A4216

== ENCOUNTER 2021-07-25 12:20 | Outpatient (CLI) | payer MEDICARE, OTHER, SELFPAY ==
--- NOTE | 2021-07-25 14:55 | PFTCOMP_ITS ---
COMPLETE PULMONARY FUNCTION TEST INTERPRETATION Brief HPI: Patient is a 71 year old male, currently under the care of myself, who presents to [facility] for complete pulmonary function tests secondary to diagnosis of COPD. Respiratory therapist reports good effort and reproducible results. Interpretation: Forced expiration spirometry shows a severe large airways obstructive ventilatory defect with an FEV1 of 41% predicted. There is no significant bronchodilator response by strict ATS criteria. Spirograms are of good quality and plateau slowly, indicating slowly emptying areas of the lungs. The respiratory flow volume loop shows decreased expiratory flow rates at all lung volumes consistent with airway obstruction. Lung volumes by body plethysmography show a decreased total lung capacity at 3.9 L, 62% predicted. All other lung volumes are reduced symmetrically. Diffusion capacity by carbon monoxide is decreased at 33% predicted. The airway resistance is elevated. Compared to previous pulmonary function tests from 02/05/2021, there is been a significant reduction in TLC and DLCO. Impression: Irreversible severe mixed ventilatory defect with a disproportionate reduction diffusing capacity, indicating a significant worsening compared to January 2021
== END 2021-07-25 23:59 | disposition home or self-care (01) ==
LOC: PSN 12:23
PROVIDERS: PCP Family Medicine; Referring Provider Internal Medicine Critical Care Medicine; Visit Provider Internal Medicine Critical Care Medicine
DX: C34.90 Malignant neoplasm of unspecified part of unspecified bronchus or lung (principal); J44.9 Chronic obstructive pulmonary disease, unspecified
CPT/HCPCS: 94060; 94726; 94729

== ENCOUNTER 2021-07-26 08:09 | Outpatient (CLI) | payer MEDICARE, OTHER, SELFPAY ==
[2021-07-26 08:46] VITALS: PULSE 109; PULSE 112; PULSE 117; PULSE 119; PULSE 123; PULSE 124; PULSE 129; PULSE 98; O2SAT 87; O2SAT 89; O2SAT 92; O2SAT 94; O2SAT 96; O2SAT 98
--- NOTE | 2021-07-26 08:52 | CPS ---
HE CAME IN WEARING O2 AT 2 LPM HIS SPO2 WAS 96% REMOVED FOR 4 MINS HIS SPO2 98%. STARTED THE WALK WITH O2 OFF UNTIL 4 MINUTES AND REAPPLIED THE O2 AT 2LPM. IN MY OPINION I THINK HE WAS MORE SOB THAN HE RATED IT TO ME.
--- NOTE | 2021-07-26 11:31 | PCM.PSN.6M ---
PSN 6 Minute Walk Test 6 Minute Walk Test 6 Minute Walk Test: 6 Minute Walk Test PSN:6-Minute Walk Test Start: 07/26/21 08:46 Freq: Status: Active Protocol: [id number] Document 07/26/21 08:46 FR (Rec: 07/26/21 08:55 FR [id number]) 6 Minute Walk Test Date Performed 07/26/21 Time Performed 08:30 Height 5 ft 9 in Weight: 63.503 kg Weight in Pounds 140.[address]: Assistive device used: None Pre-test Oxygen Delivery Method Room Air Pulse Ox (%) 98 Pulse Rate (60-100 beats/min) 98 Dyspnea Mian Scale (0-10) 0 Exertion Mian Scale (6-20) 7 1st minute Oxygen Delivery Method Room Air Pulse Ox (%) 96 Pulse Rate (60-100 beats/min) 112 H 2nd minute Oxygen Delivery Method Room Air Pulse Ox (%) 94 Pulse Rate (60-100 beats/min) 119 H 3rd minute Oxygen Delivery Method Room Air Pulse Ox (%) 89 Pulse Rate (60-100 beats/min) 123 H Reported Symptoms Increased Work of Breathing 4th minute Oxygen Flow Rate (L/min) (L/min) 2 Oxygen Delivery Method Nasal Cannula Pulse Ox (%) 87 Pulse Rate (60-100 beats/min) 124 H Reported Symptoms Increased Work of Breathing 5th minute Oxygen Flow Rate (L/min) (L/min) 2 Oxygen Delivery Method Nasal Cannula Pulse Ox (%) 96 Pulse Rate (60-100 beats/min) 117 H Reported Symptoms Increased Work of Breathing 6th minute Oxygen Flow Rate (L/min) (L/min) 2 Oxygen Delivery Method Nasal Cannula Pulse Ox (%) 92 Pulse Rate (60-100 beats/min) 129 H Dyspnea Mian Scale (0-10) 2 Exertion Mian Scale (6-20) 10 Post-test Oxygen Flow Rate (L/min) (L/min) 2 Oxygen Delivery Method Nasal Cannula Pulse Ox (%) 98 Pulse Rate (60-100 beats/min) 109 H Reported Symptoms Increased Work of Breathing Full Laps Walked 15 Partial Lap, Number of Tiles Walked 31 Total Distance Walked (ft) 916 07/26/21 08:52 Cardiopulmonary Services by Lisa Edmonds HE CAME IN WEARING O2 AT 2 LPM HIS SPO2 WAS 96% REMOVED FOR 4 MINS HIS SPO2 98%. STARTED THE WALK WITH O2 OFF UNTIL 4 MINUTES AND REAPPLIED THE O2 AT 2LPM. IN MY OPINION I THINK HE WAS MORE SOB THAN HE RATED IT TO ME. Initialized on 07/26/21 08:52 - END OF NOTE Interpretation Interpretation: The patient was noted to be 98% on room air, but desaturated to 87% in the fourth minute was placed on 2 L nasal cannula. In total, the patient traveled 916 feet over the course of 6 minutes with no assistive devices and 1 break. The patient did have significant tachycardia with a peak heart rate of 129 bpm. These findings are consistent with a respiratory limitation exercise tolerance. Recommendations Recommendations: No supplemental oxygen is indicated at rest, but patient should be using 2 L nasal cannula with any exertion.
== END 2021-07-26 23:59 | disposition home or self-care (01) ==
LOC: PSN 08:10
PROVIDERS: PCP Family Medicine; Referring Provider Internal Medicine Critical Care Medicine; Visit Provider Internal Medicine Critical Care Medicine
DX: C34.90 Malignant neoplasm of unspecified part of unspecified bronchus or lung (principal); J44.9 Chronic obstructive pulmonary disease, unspecified
CPT/HCPCS: 94618

== ENCOUNTER → 2022-05-19 | Outpatient (CLI) | payer MEDICARE, OTHER, SELFPAY | END | disposition home or self-care (01) | PROVIDERS: PCP Family Medicine; Referring Provider Nurse Practitioner Acute Care; Visit Provider Nurse Practitioner Acute Care | DX: J44.9 Chronic obstructive pulmonary disease, unspecified (principal) | CPT/HCPCS: 87633; C9803 ==

== ENCOUNTER → 2022-06-05 | Outpatient (CLI) | payer MEDICARE, OTHER, SELFPAY ==
[2022-06-05 12:37] LABS: Absolute Lymphocyte Count 1.03 X10^3/uL (0.83-4.51); Absolute Neutrophil Count 7.9 X10^3/uL (2.0-7.7); Basophil# 0.04 X10^3/uL; Basophil% 0.4 % (0-1); Eosinophil# 0.15 X10^3/uL; Eosinophils% 1.5 % (0-5); Hematocrit 38.2 % (40-54); Hemoglobin 12.5 g/dL (13.0-16.5); Lymphocyte # 1.03 X10^3/ul (0.83-4.51); Lymphocyte % 10.3 % (19-41); Mean Corp Hgb Conc 32.7 g/dL (32-36); Mean Corpuscular Hgb 28.7 pg (27.0-32.0); Mean Corpuscular Volume 87.8 fL (80-94); Mean Platelet Vol. 9.7 fl (6.2-12.0); Monocyte# 0.86 X10^3/uL; Monocyte% 8.6 % (0-10); NRBC Flagged by Analyzer 0 % (0-5); Neutrophil # 7.88 X10^3/uL (2.7-7.7); Neutrophil % 78.8 % (47-70); Platelet Count 256 K/mm3 (150-450); RBC Distribution Width CV 13.5 % (11.6-14.6); RBC Distribution Width SD 43.8 fl (35.1-43.9); Red Blood Count 4.35 M/mm3 (4.6-6.2)
[2022-06-05 20:26] LABS: Xtra Tube EP Lab EXTRA TUBE
== END | disposition home or self-care (01) ==
LOC: MEDOUTP 11:32
PROVIDERS: PCP Family Medicine; Referring Provider Specialist; Visit Provider Specialist
DX: Z01.818 Encounter for other preprocedural examination (principal)
CPT/HCPCS: 36591; 85025; A4216

== ENCOUNTER 2022-06-11 14:43 | Observation (INO) | payer MEDICARE, OTHER, SELFPAY ==
--- NOTE | 2022-05-26 21:36 | PCM.HP.BLA ---
History and Physical History and Physical [facility] Patient Name: Savi Mohr : 1950 From:? REBECA NORWOOD PA-C? DATE OF SURGERY:? 06/11/2022 SCHEDULED PROCEDURE:? Left total hip arthroplasty HISTORY OF PRESENT ILLNESS: Preoperative history and physical exam was performed on May 26, 2022.? This is a 72-year-old male who has had ongoing pain in the left hip for over 3 years.? His pain can reach a size 5/10 with activities.? Patient has pain that has been constant, aching, sharp, stabbing.? Pain is increased with going up and down stairs, driving, sitting.? He does have start up pain.? Pain is located over the lateral hip and in the groin.? Pain does awaken him at nighttime.? Patient was previously scheduled for hip replacement at the [facility] however he did develop lung cancer and was treated by local physician.? [facility] based on his need for oxygen with activity.? Patient has tried previous corticosteroid injection at the [facility] with no relief in symptoms.? He has been through previous physical therapy and home exercises.? He has tried oral medications without relief.? Patient denies previous history.? He does have medical history pertinent for emphysema/COPD and previous lung cancer.? He states he is on oxygen at home with activities but at rest and sleeping does not require oxygen.? He has had previous COVID 19 last year.? He also reports that he was treated for a possible pulmonary embolism in which she was on Eliquis for over 4 months.? We are obtaining surgical clearance from Dr. Banegas the creative resource manager, Dr. Daniels the addiction medicine physician/oncologist, and primary care physician Dr. Thomas.? Oncologist as recommended patient is treated postoperatively with Eliquis or Rivaroxaban.? Patient reports he still has Eliquis left over from previously.? He states the lung cancer has been in remission.? Currently denies chest pain or recent infections.? After failing conservative measures and discussing treatment options with Dr. Walter Maza, the patient does wish to proceed with a left total hip arthroplasty. REVIEW OF SYSTEMS: Review Of Systems: Constitutional: Reports difficulty sleeping, but denies anorexia, change in appetite, fever and weight change. Cardiovasular: Denies chest pain, heart murmur, irregular heartbeat and peripheral vascular disease. Respiratory: Reports asthma, COPD, shortness of breath and wheezing, but denies cough, pneumonia, sleep apnea and tuberculosis. Gastrointestinal: Reports heartburn, but denies constipation, diarrhea, nausea, rectal itching, bloody stools and vomiting. Genitourinary: Denies incontinence. Musculoskeletal: Denies leg swelling, pain, trouble walking and weakness. Skin: Denies Raynaud's, history of shingles and tattoo. Neurological: Denies ambulatory dysfunction, dizziness, numbness/tingling and tremor. Psychiatric: Denies anxiety, depression, insomnia, mental illness and stress. Hematologic/Lymphatic: Reports bleeding/bruising tendency, but denies anemia and past transfusion. Reviewed, no changes. PAST MEDICAL HISTORY: Advance Care Plan: Other Directive, LIVING WILL Effective Date: 03/03/2022 Past Medical History: Medical Problems: Asthma, Emphysema, COPD Cancer - LUNG- STILL HAS TUMOR BUT NO CANCER CURRENTLY? Accidents: Fracture - (1966) ANKLE Heel FX Surgical Hx: Hernia Repair - (2011) Tonsillectomy Cataracts - BILAT Anesthesia Complications: None Assistive Devices: Glasses, Hearing Aid Reviewed, no changes. SOCIAL HISTORY: Social History: Marital: .Occupation: Retired.Work Status: Retired.Hand Dominance: Right-handed. Personal Habits:? Cigarette Use: Former.Smokeless Tobacco: Never Used Smokeless Tobacco.E-Cigarette Use: Never used.Alcohol: Occasionally.Drug Use: Denies Use.Enjoy Exercising: Daily. Reviewed, no changes. VITALS: Ht: 70 Wt: 165lb Wt k.844 BMI: 23.7 BP: 122/78 Pulse: 87 Resp: 18 T: 98.0 T: 36.7C Pain Level: 5 O2SatR: 97 ALLERGIES: No Known Drug Allergy? MEDICATIONS: Montelukast Sodium 10 mg 1 by mouth every day, Vitamin D (Cholecalciferol) 50 mcg (1999 Ut) take 3 capsules by mouth once daily, Stiolto Respimat 2.5-2.5 mcg/Act twice daily, Asmanex HFA 50 mcg/Act, Diclofenac Sodium 1 % apply 2-4 times daily over affected area, Daliresp 500 mcg 1 by mouth every day, Prednisone 10 mg, Doxycycline Hyclate 100 mg 1 by mouth twice a day PRE-OP EXAM:? General appearance:NORMAL? ? ? Other: Eyes: Conjunctivae and lids: NORMAL? Pupils: ERR Ears, Nose, Mouth, and Throat: NORMAL? Other: Inspection of lips, teeth and gums: NORMAL? ?Other: Neck: Examination of neck: no masses noted. Respiratory: Assessment of respiratory effort: NORMAL? ?Other: ?Auscultation of lungs: clear to auscultation no wheezes, rhonchi or rales. Cardiovascular:? Auscultation of heart: regular rate and rhythm, no murmurs, gallops or rubs. PHYSICAL EXAMINATION: Patient walks with an antalgic gait.? Patient's left hip he complains of groin pain with range of motion.? There is moderate tenderness over the lateral aspect of the left hip at the greater trochanteric region.? He has 10 flexion contracture bilaterally.? There is obligatory external rotation with flexion, flexion 60, internal rotation 10, external rotation 20.? Sensation intact to light touch. IMAGING STUDIES: Previous x-rays of the left hip reveal joint space narrowing, subchondral sclerosis, osteophyte formation consistent with severe stage IV erosive osteoarthritis. IMPRESSION: 1.? Severe left hip osteoarthritis 2.? Emphysema/COPD 3.? History of lung cancer PLAN: Dr. Walter Maza did discuss and review with the patient all treatment options including surgical versus nonsurgical options.? Patient does wish to proceed with the above-stated procedure.? Potential risks, benefits, and complications of the procedure were discussed in detail including but not limited to , infection, nerve and blood vessel damage, persistent pain, numbness, tingling, paresthesias, blood clot, pulmonary embolism, and requirement for possible further surgery.? The patient expressed full understanding and has no further questions for the doctor.? Patient does agree to proceed with the above-stated procedure and has signed the surgery consent form. We discussed the current risks associated with COVID 19.? This does include the risk of exposure while in the hospital.? Patient was reassured local hospitals have low infection rates and are taking all necessary precautions to avoid exposure to patients.? In addition, we discussed strategies that can be used to help limit exposure including those that limit the patient's time in the hospital.? Also using strategies to limit the patient's need for continued inpatient services after being discharged from the hospital.? Patient was notified that we will need to comply with any screening or testing the hospital wishes to perform or that surgery may be delayed for any positive results. This dictation was created using voice recognition software. Phonetic and/or grammatical errors may exist. ___? I have re-examined the patient.? There are no clinical changes since date of exam. ___? See progress notes for changes. ___? Dictated on admission Date: ? ? ?Time: Signature:
[2022-05-29 11:08] LABS: Absolute Lymphocyte Count 1.12 X10^3/uL (0.83-4.51); Absolute Neutrophil Count 17.9 X10^3/uL (2.0-7.7); Basophil# 0.09 X10^3/uL; Basophil% 0.4 % (0-1); Eosinophil# 0.07 X10^3/uL; Eosinophils% 0.3 % (0-5); Hematocrit 42.1 % (40-54); Hemoglobin 13.8 g/dL (13.0-16.5); Lymphocyte # 1.12 X10^3/ul (0.83-4.51); Lymphocyte % 5.4 % (19-41); Mean Corp Hgb Conc 32.8 g/dL (32-36); Mean Corpuscular Hgb 29.1 pg (27.0-32.0); Mean Corpuscular Volume 88.6 fL (80-94); Mean Platelet Vol. 8.8 fl (6.2-12.0); Monocyte% 5.3 % (0-10); NRBC Flagged by Analyzer 0 % (0-5); Neutrophil # 17.88 X10^3/uL (2.7-7.7); Neutrophil % 85.6 % (47-70); Platelet Count 434 K/mm3 (150-450); RBC Distribution Width CV 13.7 % (11.6-14.6); RBC Distribution Width SD 44.3 fl (35.1-43.9); Red Blood Count 4.75 M/mm3 (4.6-6.2); White Blood Count 20.9 K/mm3 (4.4-11.0)
[2022-05-29 11:44] LABS: Magnesium 2.4 mg/dL (1.6-2.6)
[2022-05-29 11:47] LABS: Albumin, Serum 3.6 g/dL (3.2-5.0); Anion Gap 6 (5-15); BUN 28 mg/dL (7-18); Calcium,Total 9.2 mg/dL (8.5-10.1); Chloride 103 mmol/L (98-107); Creatinine, Serum 1.12 mg/dL (0.70-1.30); EST Glomerular Filtration Rate 68 mL/min (>60); Est Glom Filt Rate - Afr Amer 83 mL/min (>60); Glucose 96 mg/dL (74-106); Potassium 3.7 mmol/L (3.5-5.1); Sodium Level 138 mmol/L (136-145)
[2022-06-11] VITALS (14 sets, daily range): BP systolic 106–126; BP diastolic 50–73; PULSE 73–85; RESP 16–18; TEMP 36.2–36.9; O2SAT 92–100; BMI 23.4
[2022-06-11] MEDS: Celecoxib 200 MG Capsule 400 MG PO (12:20)
[2022-06-11] MEDS: Lactated Ringers 1,000 ML 999 ML IV ×2 (12:20→15:22)
[2022-06-11] MEDS: Gabapentin 600 MG Tablet PO (12:20)
[2022-06-11] MEDS: Acetaminophen 500 MG Tablet 1000 MG PO ×2 (12:20→21:34)
[2022-06-11] MEDS: Magnesium 1 GM over 15 mins IV (12:29)
--- NOTE | 2022-06-11 12:32 | PCM.OPRPT ---
Report of Operation Date of Procedure: 06/11/22 Pre-Operative Diagnosis: Left hip primary osteoarthritis Post-Operative Diagnosis: Left hip primary osteoarthritis Surgery/Procedure Performed:: Left minimally invasive direct anterior hip replacement Description of Surgical Findings:: Stable hip with equal leg lengths Surgeon: Walter Maza calculation clerk: Kolton Cm Type of Anesthesia: Spinal Anesthesiologist: Matt Oliveira Special Medications: 2 g Ancef, 1 g TXA at incision, 1 g TXA closure, 10 mg Decadron, joint cocktail (5 mg Duramorph, 30 mL of 0.5% Ropivicaine, 1000 units of epinephrine, 30 mg of Toradol) Specimen's removed: Bony cuts Estimated Blood Loss (mL): 200 Fluids Replaced: 800 ml LR Description of Procedure: Components used: 1. Accolade 2 Gregor femoral stem size 9 127? 2. [place] trident 2 acetabular shell size 54 mm 3. [place] X3 polyethylene E 4. Gregor Biolox delta 36mm, -5mm femoral head Brief history operative indications: 72 yo M who failed conservative measures for their hip osteoarthritis. X-rays were consistent with osteoarthritis including joint space narrowing, osteophyte formation and subchondral cysts. Total hip replacement was discussed with the patient with risks and benefits including but not limited to blood loss, DVTs, PEs, neurovascular damage, dislocation, general risks of anesthesia including loss of life. Patient demonstrated an understanding medical clearance is obtained the patient was consented for surgery. Procedure: On the date of procedure the patient's L hip was marked in the preoperative area. Patient was then taken back to the operating room where anesthesia assumed control of the C-spine and airway and administered anesthetic. Patient was transferred to the operating table and placed in the supine position. The hips were placed at the break of the bed and a sacral bump was placed. L The lower extremity was then prepped out in a sterile fashion using chlorhexidine while the surgeon scrubbed. The PA was vital in the positioning of the patient. Upon reentering the room the left lower extremity was draped in the standard orthopedic fashion and the incision was marked. A timeout was called and everyone agreed upon the side, the site, the procedure be performed, antibody given, and patient's identity. At this time incision was made through skin, subcutaneous tissue, and fat down to fascia. The fascia was then incised and the TFL was retracted laterally. A retractor was placed on the lateral border of the femoral neck. Attention was directed to the inferior portion of the approach and all crossing vessels were identified and appropriately coagulated. A retractor was then placed on the medial portion of the femoral neck. The anterior capsule was then cleared of all soft tissue and then H shaped capsulotomy was made. The retractors were then placed inside the capsule. The femoral neck was identified and a cleanup cut was made. At this time a power corkscrew was used to remove the femoral head. Attention was then turned toward the acetabulum where the soft tissues were appropriately retracted and the acetabulum was sequentially reamed to 54 mm. A 54 mm cup was then selected and impacted into place. Acetabular liner was impacted into place and locking mechanism was verified. The position of the acetabular cup was then verified under live fluoroscopy. Attention was then turned to the femur. Soft tissue releases on the medial and lateral femoral neck were appropriately done, the leg was externally rotated and lateralized. A Mitchell retractor was placed medially and proximally to the greater trochanter this allowed appropriate visualization and exposure of the femoral canal. Rongeour was then used to remove excess lateral bone. A canal finder and entry broach were used to open the proximal canal. Once we verified we were down the femoral canal we subsequently broached up to a size 9 femur. The appropriate neck was placed in the previously selected head was trialed with a -5 mm neck. Traction was pulled and the hip was reduced with internal rotation. Once it was appropriately reduced and stability was checked. There was minimal shuck, equal leg lengths and appropriate stability with hyperextension and external rotation as well as with 90? flexion and internal rotation. Fluoroscopy was then also used to verify the position of the components and leg lengths using the contralateral side for comparison. The trial components were then dislocated the proximal femur was again exposed and the components were removed from the wound. The final components were verified and opened. The wound was copiously irrigated out with normal saline. The acetabulum was checked for any residual debris. The final components were placed and impacted. Traction and internal rotation were again used to reduce the hip. After adequate reduction the hip remained stable with appropriate leg lengths. The final components were once again checked with live fluoroscopy and were found to be satisfactory. The wound was then copiously irrigated with normal saline once more, and hemostasis was obtained. Closure was then done using #1 Vicryl runner to close the fascia. A 2-0 vicryl interuppted sutures were used to close the subcutaneous skin. A 3-0 Monocryl and Steri-Strips were used for final skin closure. A Silverlon dressing was placed. Patient was awakened by anesthesia and transferred to the [facility]. Patient was then transferred to the PACU for recovery. During the course of the procedure the physician crossband layer (PE) played a vital role. Their intimate knowledge of my steps in the procedure aided in safe and expedient completion of the procedure. The PE played a vital rolls in positioning particularly in obtaining the appropriate positioning of the sacral bump. The PE was also vital in the retraction of soft tissues during the exposure and especially the femoral work as this is a vital part of the procedure to prevent complications and fractures. The PE was also vital and protecting soft tissues during times of bony cuts and reaming. He also played a vital role in closure with my direct supervision. The PE was also important during reduction and dislocation of the joint and trials intraoperatively. Postoperative plan: Patient will get 24 hours postop antibiotics. Patient will get in-house physical therapy and will be weight-bear as tolerated. Patient will follow up in office in 2 weeks for a wound check and x-rays. Patient be placed on Eliquis 2.5 mg p.o. twice daily for 6 weeks at recommendation of his hematology oncologist due to history of VTE. Complications No intraoperative complications Admit VTE Documentation VTE Present on Admission: No VTE Mechan Device Prophylaxis: SCD's and Thigh High SAVAGE Hose VTE Pharm Prophylaxis ordered?: Yes
[2022-06-11 13:05] LABS: Bedside Glucose 93 mg/dL (74-106)
[2022-06-11] MEDS: Cefazolin 2 GM in 0.9% Normal Saline 100 ML IV (13:50)
[2022-06-11] MEDS: dexAMETHasone 10 MG/ML Vial IV (14:05)
[2022-06-11] MEDS: TXA 1000mg in NS100 100ml (IVPB at Closure) 660 MG IV (14:07)
--- NOTE | 2022-06-11 14:30 | HIP_PTH ---
PATIENT: TONY SNYDER LOC: [facility]3 U#:[id number] AGE/SX: 72/M ROOM: DC319 RE06/11/[address]: Dr. Walter Maza MD : 1950 BED: 1 DIS: 06/12/2022 SPEC #: [id number] RECD: 06/11/22 17:14 STATUS: XAVIER REQ #: [id number] MCKENNA: 06/11/22 14:[address]: Walter Maza DEPT: SURGICAL PATHOLOGY RECD BY: Rebecca Gerardo ENTERED: 06/12/22 12:19 SP TYPE: TOTAL HIP OTHR DR: DO Dr. Travis Song MD Tissues: Hip, NOS Procedures: Decalcification bone/plaque Surgery Specimen Level IV HEADER OPERATION: ERAS, total hip anterior approach PRE-OP DIAGNOSIS: Severe left hip osteoarthritis TISSUE SUBMITTED: Left hip bone MICROSCOPIC DIAGNOSIS Left hip bone, total hip replacement/resection: Femoral head with degenerative osteoarthritic changes. TAVON:debbie 06/18/2022 MICROSCOPIC DESCRIPTION Slides are reviewed. GROSS DESCRIPTION Received is one container labeled with the patient's name and designated left hip bone. The specimen consists of a bergman femoral head measuring 5.5 x 5.2 x 5 cm. The articular surface displays prominent osteophyte formation, eburnation and bone erosion. Also present in the specimen container is an irregular fragment of bergman bone measuring 4 x 1.5 x 1 cm. Director Quality Assurance section is submitted in one cassette after decalcification. / TAVON:debbie 06/12/2022 TC:5 CPT: 76877, 53595
--- NOTE | 2022-06-11 14:35 | RAD_ITS ---
EXAM: XR LEFT HIP WITH PELVIS WHEN PERFORMED, 1 VIEW CLINICAL INDICATION: PAIN TECHNIQUE: Frontal view of the left hip with pelvis when performed. This report was created using [employer] report generation technology. COMPARISON: None. FINDINGS: BONES/JOINTS: 4 fluoroscopic spot views of the hips demonstrate right hip prosthesis in place in satisfactory position. SOFT TISSUES: Normal. No soft tissue swelling or gas. RAD/Hip 1 view with Pelvis IMPRESSION: Intact right hip prosthesis. Electronically Signed: Varghese Hook MD at 14:57 EST ,
[2022-06-11] MEDS: TXA 1000mg in NS100 100ml (IVPB at Incision) 660 MG IV (14:41)
--- NOTE | 2022-06-11 15:20 | RAD_ITS ---
EXAM: XR LEFT HIP WITH PELVIS WHEN PERFORMED, 2 OR 3 VIEWS CLINICAL INDICATION: Post Op -- AP both hips on single kenneth/lateral of op hip PACU TECHNIQUE: Two or three views of the left hip with pelvis when performed. This report was created using [employer] report generation technology. COMPARISON: None. FINDINGS: BONES/JOINTS: Left hip prosthesis in place in satisfactory position. Narrowing of the right hip joint space noted. Marginal osteophytosis of the right femoral head. SOFT TISSUES: Lateral soft tissue gas related to the recent surgery. RAD/Hip Min 2 Views (Portable) IMPRESSION: Satisfactory postop appearance of left hip prosthesis. Degenerative changes of the right hip. Electronically Signed: Varghese Hook MD at 15:44 EST ,
--- NOTE | 2022-06-11 16:36 | SUR.PHASEII ---
pt notes slight nausea, however he refuses any antiemetic.
[2022-06-11] MEDS: Lactated Ringers 1,000 ML 125 ML IV (18:25)
--- NOTE | 2022-06-11 19:02 | PCM.PN.HOSP ---
Subjective Subjective Mr. Mohr is a 72-year-old white male who presented to [facility] on 06/11/2022 for an elective left total hip arthroplasty. Evidently, the patient had been having ongoing left hip pain for approximately 3 years that has limited his activity. He reported the pain has been constant, aching, sharp and stabbing in nature. He was having increased pain with ADLs and IADLs. His pain was typically over the lateral hip in the groin area. It was disrupting his sleep. He had been scheduled for total hip arthroplasty by the [facility] however he developed lung cancer and was treated for this. [facility] based on his need for oxygen with activity and he had undergone conservative management with failure. He was cleared medically by his produce clerk and his buckram sewer/oncologist as well as his PCP preoperatively. The oncologist evidently did recommend postoperative treatment with a DOAC with his recent malignancy. We have been consulted for postoperative management of any his medical issues. I evaluated him on the medical floor postoperatively. Patient states he is feeling well overall. Beginning get feeling back into his legs. Had a spinal for anesthesia. Is hoping to go home tomorrow and is anxious to get out of bed. We did discuss that therapy would be by to see him tomorrow morning and they would initiate that at that time. Objective Data Objective Data Vital Signs: Vital Signs Temp Pulse Resp BP Pulse Ox O2 Del Method O2 Flow Rate 97.7 F L 85 18 123/64 H 94 Room Air 2 06/11/22 18:34 06/11/22 18:34 06/11/22 18:34 06/11/22 18:34 06/11/22 18:34 06/11/22 18:34 06/11/22 17:20 Oxygen Flow Rate (L/min) 2 Oxygen Delivery Method Room Air Weight: 72 kg Body Mass Index (BMI) 23.4 Intake & Output: Intake and Output for Last 24 Hours 06/09/22 06/10/22 06/11/22 23:59 23:59 23:59 Intake Total 2432 / 2432 Balance 2432 / 2432 Lab / Micro Data Result Diagrams: 05/29/22 10:43 05/29/22 10:43 Labs: Laboratory Results - last 24 hr 06/11/22 12:14: POC Glucose 93 Micro: Microbiology 05/29/22 10:43 Swab (Method) Nasal Screen MRSA/MSSA - Final Radiography Diagnostic Testing: Radiology Impression Hip/Pelvis X-Ray 06/11/22 14:35 IMPRESSION: Intact right hip prosthesis. Electronically Signed: Varghese Hook MD at 14:57 EST , Hip X-Ray 06/11/22 15:20 IMPRESSION: Satisfactory postop appearance of left hip prosthesis. Degenerative changes of the right hip. Electronically Signed: Varghese Hook MD at 15:44 EST , Physical Exam Const alert, oriented x3, no apparent distress, healthy appearing and well nourished Constitutional Narrative: Older white male sitting up in bed reading a book, at bedside, patient appears comfortable nontoxic HEENT head/scalp atraumatic and moist oral mucous membranes HEENT Narrative: Mallampati 2, no thrush Head and Scalp: normocephalic Resp normal respiratory effort, no retractions, no use of accessory muscles and No clear to auscultation bilaterally Resp Narrative: Scattered end expiratory wheeze Auscultation: wheezes; Negative for crackles or rhonchi Cardio regular rate, regular rhythm, S1 normal heart sound, S2 normal heart sound, no murmurs, no rub, no gallops and no clicks GI normal to inspection, nondistended, normoactive bowel sounds, soft to palpation and non-tender Extremity no clubbing, cyanosis or edema Extremity Narrative: Pedal pulses are 2+, patient is able to move ankles up and down, sensation is returning in legs Neuro Speech: speech normal Psych affect normal Psych Narrative: Very pleasant Assessment & Plan Assessment/Plan (1) Osteoarthritis of left hip: PLAN: Plan Left hip osteoarthritis -Postop day 0 left total hip arthroplasty-minimally invasive -Patient underwent spinal anesthesia -PT/OT consultation -Weightbearing as tolerated -Plan is for Eliquis 2.5 mg p.o. twice daily for 6 weeks postoperatively for DVT prophylaxis -Outpatient follow-up in 2 weeks for wound check and x-rays postoperatively with Dr. Maza -Would recommend bowel regiment -Postoperative pain management per primary service COPD/lung cancer -Patient currently in remission with regards to his cancer -Continue home inhalers -Continue home prednisone as needed -Patient is currently on room air at 94% postoperatively and appears to be doing quite well.--> Does not wear oxygen at rest -Patient is on oxygen supplementally with exertion only--> 2 to 3 L -FEV1 is 41% of predicted Chronic hypoxic respiratory failure -Patient utilizes oxygen only with exertion -Continue outpatient follow-up with pulmonary medicine as directed after last visit -Incentive spirometry DVT prophylaxis -Eliquis 2.5 mg p.o. twice daily for 6 weeks as directed by oncologist Thank you for the consultation of Mr. Mohr. He appears medically stable at this time and we will sign off service as discussed with GLADIS Oliveira for Dr. Maza. Please call with any concerns or questions. Charges/Coding Visit Charges Inpatient E&M: 28069 Subs Hosp L2
[2022-06-11] MEDS: Montelukast 10 MG Tablet PO (21:34)
[2022-06-11] MEDS: Cefazolin 1 GM/50 ML BAG IV (21:34)
[2022-06-11] MEDS: Senna/Docusate Sodium 1 Tablet 2 TABLET PO (21:34)
[2022-06-12 05:10] VITALS: BP 117/64; PULSE 79; RESP 18; TEMP 36.9; O2SAT 92
[2022-06-12] MEDS: Cefazolin 1 GM/50 ML BAG IV (05:11)
[2022-06-12] MEDS: Acetaminophen 500 MG Tablet 1000 MG PO (05:13)
[2022-06-12 05:48] LABS: Hematocrit 30.5 % (40-54); Hemoglobin 9.7 g/dL (13.0-16.5); Mean Corp Hgb Conc 31.8 g/dL (32-36); Mean Corpuscular Hgb 28.4 pg (27.0-32.0); Mean Corpuscular Volume 89.4 fL (80-94); Mean Platelet Vol. 9.6 fl (6.2-12.0); Platelet Count 214 K/mm3 (150-450); RBC Distribution Width CV 13.3 % (11.6-14.6); Red Blood Count 3.41 M/mm3 (4.6-6.2); White Blood Count 12.9 K/mm3 (4.4-11.0)
[2022-06-12 06:05] LABS: Anion Gap 10 (5-15); BUN 22 mg/dL (7-18); BUN/Creat Ratio 14.5 RATIO (10-20); Calcium,Total 8.2 mg/dL (8.5-10.1); Chloride 104 mmol/L (98-107); Creatinine, Serum 1.52 mg/dL (0.70-1.30); EST Glomerular Filtration Rate 48 mL/min (>60); Est Glom Filt Rate - Afr Amer 58 mL/min (>60); Estimated Creatinine Clearance 43.93 ml/min; Glucose 152 mg/dL (74-106); Potassium 4.1 mmol/L (3.5-5.1); Sodium Level 136 mmol/L (136-145)
[2022-06-12] MEDS: Senna/Docusate Sodium 1 Tablet 2 TABLET PO (07:32)
[2022-06-12] MEDS: Famotidine 20 MG Tablet PO (07:32)
[2022-06-12 08:22] VITALS: BP 105/61; PULSE 73; RESP 18; TEMP 36.7; O2SAT 92
[2022-06-12 08:23] VITALS: BP 105/61; PULSE 73; RESP 18; TEMP 36.7; O2SAT 92
--- NOTE | 2022-06-12 10:22 | PCM.PN.ORT ---
Subjective Subjective The patient was sitting in bedside chair upon examination. Patient denies any chest pain, shortness of breath, dizziness, lightheadedness, nausea or vomiting, or calf pain. Pain is controlled on medications. No adverse overnight events. Patient overall is doing very well today. He has been up walking. He states he is only taking Tylenol for pain control. Patient did have a drop in his hemoglobin which is currently 9.7. Patient does report that this has happened in the past and he has been on previous iron in the past. Recently he has not required iron supplements. He denies any symptoms and no chest pain, shortness of breath, dizziness or lightheadedness. Patient's vital signs have been stable. His pulse ox patient has been above 92% on room air. He does have history of lung cancer in which she is currently in remission. He occasionally uses home oxygen. His oncologist does recommend we use Eliquis postoperatively for DVT prophylaxis. He denies any shortness of breath. Objective Data Objective Data Vital Signs: Vital Signs Temp Pulse Resp BP Pulse Ox O2 Del Method O2 Flow Rate 98.1 F 73 18 105/61 92 Room Air 2 06/12/22 08:23 06/12/22 08:23 06/12/22 08:23 06/12/22 08:23 06/12/22 08:23 06/12/22 08:23 06/11/22 17:20 Oxygen Flow Rate (L/min) 2 Oxygen Delivery Method Room Air Weight: 72 kg Body Mass Index (BMI) 23.4 Intake & Output: Intake and Output for Last 24 Hours 06/10/22 06/11/22 06/12/22 23:59 23:59 23:59 Intake Total 2929.92 / 3229.92 750 / 750 Output Total 425 / 425 Balance 2929.92 / 3129.92 325 / 325 Lab / Micro Data Result Diagrams: 06/12/22 05:02 06/12/22 05:02 Labs: Laboratory Results - last 24 hr 06/11/22 12:14: POC Glucose 93 06/12/22 05:02: WBC 12.9 H, RBC 3.41 L, Hgb 9.7 L, Hct 30.5 L, MCV 89.4, MCH 28.4, MCHC 31.8 L, RDW Std Deviation 44.0 H, RDW Coeff of Zane 13.3, Plt Count 214, MPV 9.6 06/12/22 05:02: Sodium 136, Potassium 4.1, Chloride 104, Carbon Dioxide 22.0, Anion Gap 10, BUN 22 H, Creatinine 1.52 H, Estim Creat Clear Calc 43.93, Est GFR (MDRD) Af Amer 58 L, Est GFR (MDRD) Non-Af 48 L, BUN/Creatinine Ratio 14.5, Glucose 152 H, Calcium 8.2 L Micro: Microbiology 05/29/22 10:43 Swab (Method) Nasal Screen MRSA/MSSA - Final Radiography Diagnostic Testing: Radiology Impression Hip/Pelvis X-Ray 06/11/22 14:35 IMPRESSION: Intact right hip prosthesis. Electronically Signed: Varghese Hook MD at 14:57 EST , Hip X-Ray 06/11/22 15:20 IMPRESSION: Satisfactory postop appearance of left hip prosthesis. Degenerative changes of the right hip. Electronically Signed: Varghese Hook MD at 15:44 EST , Physical Exam Narrative Vital signs stable and afebrile. Patient's O2 saturation has been greater than 92% on room air. SCDs and SAVAGE hose are in place bilaterally Patient is able to plantarflex and dorsiflex actively. Sensation is intact to light touch to saphenous, sural, superficial and deep peroneal, and tibial distribution. Dressing is clean dry and intact. Negative Homans bilaterally, negative signs and symptoms of DVT. Const alert, oriented x3 and no apparent distress Assessment & Plan Assessment/Plan (1) S/P total left hip arthroplasty: PLAN: 1. S/P left direct anterior total hip arthroplasty POD #1 2. Continue Pain Medications: Tylenol and oxycodone. Patient has only been requiring Tylenol for pain control while in the hospital. We did discuss discharge medications and we will give him a small amount of the oxycodone in case he has increased pain and need for breakthrough pain medication. He voiced understanding agreement. 3. DVT Prophylaxis: Patient will continue with Eliquis 2.5 mg twice daily as recommended from his oncologist. Patient has Eliquis leftover at home which is 5 mg and he did reach out to the pharmacist prior to the procedure and they stated that he can cut this in half and use this medication postoperatively as he has large amount left over from previous treatment. This was discussed again in detail with the patient and he voiced understanding agreement 4. PT/OT: Weightbearing as tolerated with walker 5. H & H: 9.7/30.5, asymptomatic. Postoperative anemia secondary to acute blood loss from surgery without any intra operative complications. Patient was started on ferrous sulfate and folic acid. He will also be given order for outpatient lab work including CBC. I would like him to follow-up with his primary care physician in 2 weeks and he will obtain the lab work couple days prior to that appointment. Patient has had this happen in the past and has required ferrous sulfate. I would then defer to the primary care physician for any further treatment of the anemia postoperatively. 6. Reactive leukocytosis: Currently 12.9, afebrile. Patient did receive Decadron intraoperatively 7. Postoperative medical management per medicine: Medicine did see the patient yesterday and discussed with myself and will only be consulted if there is a medical reason. 8. Severe chronic obstructive pulmonary disease: Patient is currently followed by battery service technician Dr. Banegas. Patient has oxygen at home which he uses on occasion. He has remained greater than 92% on room air and denies any symptoms. I discussed in detail with the patient that if he has any postoperative drop in O2 saturation he has to reach out to the battery service technician about further treatment. Patient voiced understanding agreement. 9. Encouraged Incentive Spirometry 10. Disposition: Plan will be for discharge home today as patient is doing very well. His pain has been controlled on Tylenol. Discharge will be based on as long as patient tolerates physical therapy and he remains medically stable. Patient would like his medications E scribed to [facility] in [facility]. He has the Eliquis at home that he will continue for 6 weeks postoperatively for DVT prophylaxis per his oncologist. He will follow-up per postop instructions. He has outpatient physical therapy established. He was instructed to contact our office with any postoperative concerns or complications. Case was discussed with case management and they will place appointment with primary care physician in 2 weeks for follow-up of his postoperative anemia. Outpatient lab work for CBC will be placed on chart I have reviewed the [place] Automated Rx Reporting System (OARRS) report for this patient for refill pattern and other prescriber involvement as part of the appropriate surveillance for the provision of acute and chronic controlled medications. The report was requested and reviewed on the date of this entry and was considered in the prescribing process. This dictation was created using voice recognition software. Phonetic and/or grammatical errors may exist. (2) Stage 3 severe COPD by GOLD classification: (3) Squamous cell lung cancer: QUALIFIERS: Laterality: unspecified laterality Qualified Code(s): C34.90 - Malignant neoplasm of unspecified part of unspecified bronchus or lung
--- NOTE | 2022-06-12 10:31 | DCINST_ITS ---
Discharge Instructions Diet Discharge Diet: No restrictions Activity Discharge Activity: May Not Drive (while taking narcotic pain medications.) May shower in (days): 1 (only if incision is dry and without drainage. Do NOT soak/submerge in tub/pool/[place]/stream/hot tub.)) Ice area for (Minutes): 20 (Every 1-2 hours while awake[address] barrier between ice and skin.) Weight Bearing Status: Weight bearing as tolerated Keep extremity elevated above heart level: Operative Extremity Additional Activity Instructions:: Follow [facility] Post-op Instructions. Once postoperative dressing has been removed only use gentle soap and water over the incision. Do not use any ointments, Neosporin, salves, alcohol pads over the incision for 6 weeks postoperatively. Do not submerge underwater for 6 weeks postoperatively. Wear elastic stockings for 2 weeks. Do NOT use alcohol with narcotic pain medication. Do NOT make important decisions while taking narcotic medication. If you have problems with taking your medication (rash, itching, nausea, etc.) call the office at once. Dressing / Incision Call your doctor if your incision/area has: Continuous Slow Oozing, Sudden Increased Bleeding, Increased Pain/ Swelling, Increased Redness and Foul Smelling Discharge Call your doctor if you observe: Fever of 101 or Higher, Shortness of breath, Chest pain, Calf discomfort and Uncontrolled pain Remove Dressing in: 4 days (Okay to remove dressing on June 16, 2022) Additional Dressing/Incision Instructions:: Follow [facility] Post-op Instructions. Once postoperative dressing has been removed, only use gentle soap and water over the incision. Do not use any ointments, Neosporin, salves, alcohol pads over the incision for 6 weeks postoperatively. Do not submerge underwater for 6 weeks postoperatively. Continue with SAVAGE hose/elastic stockings for 2 weeks postoperatively. May remove at nighttime but needs to be placed back on the leg during the day. Do NOT use alcohol with narcotic pain medication. Do NOT make important decisions while taking narcotic medication. If you have problems with taking your medication (rash, itching, nausea, etc.) call the office at once. Follow Up Care Test Results: Test results from this visit will be discussed in further detail at your follow- up appointment, if applicable. Discharge Plan Admission Admit Date/Time: 06/11/22 14:43 Attending Provider: Link,Walter Primary Care Provider: Travis Reyes Consulting Providers: Trini Long Discharge Orders/Prescriptions Prescriptions: New acetaminophen 500 mg Tablet 1,000 mg PO Q8 Qty: 0 0RF Rx Instructions: Do not take more than 3000 mg Tylenol in a 24-hour period. ferrous sulfate [FeroSul] 325 mg (65 mg iron) Tablet 325 mg PO 1200,1700 14 Days Qty: 28 0RF Eliquis 5 mg Tablet 2.5 mg PO BID Qty: 0 0RF Rx Instructions: Take 2.5 mg of Eliquis twice daily for 6 weeks postoperatively for DVT prophylaxis folic acid 1 mg Tablet 1 mg PO BREAKFAST 14 Days Qty: 14 0RF oxycodone 5 mg Tablet 5 - 10 mg PO Q4H PRN PRN (Reason: Pain Score 4-10) 3 Days Qty: 20 0RF sennosides-docusate sodium [Stool Softener-Stimulant Laxat] 8.6-50 mg Tablet 2 tab PO BID Qty: 12 0RF Rx Instructions: Take until first bowel movement, then as needed Continued albuterol sulfate [Proventil HFA] 90 mcg/actuation HFA aerosol inhaler 2 puff inhalation Q6H PRN (Reason: COPD) Daliresp 500 mcg tablet 500 mcg PO DAILY montelukast 10 mg tablet 10 mg PO QHS Asmanex HFA 200 mcg/actuation Hfa Aerosol Inhaler 2 puff INHALATION BID Stiolto Respimat 2.5-2.5 mcg/actuation Mist 2 puff INHALATION DAILY albuterol sulfate 0.63 mg/3 mL solution for nebulization 0.63 mg inhalation Q6H PRN (Reason: wheezing) Qty: 90 3RF prednisone 10 mg tablet 10 mg PO PRN PRN (Reason: Shortness Of Breath) Rx Instructions: take 4 tabs for three days, then 3 tabs for three days, then 2 tabs for three days, then 1 tab for 3 days Other Ambulatory Orders: CBC-Complete Blood Cnt No Diff (Routine) Timeframe: 2 Weeks Facility: [facility] - Location: Laboratory Ordered By: Kolton GRIFFITH 12 Lead EKG (Routine) Timeframe: [id number] Location: None Selected Ordered By: Dr. Walter Maza Referrals / Follow Up: Physical,Therapy [Other] - 06/16/22 1:00 pm Travis Reyes MD [Primary Care Provider] - (Follow-up in 2 weeks with outpatient lab work for CBC and management of postoperative anemia) Kolton Cm PA-C [Med Staff - Adv Practice Prof] - 06/26/22 2:45 pm Disposition Disposition (needs filled in before D/C Order can be placed): Home, Self Care
[2022-06-12 10:48] VITALS: BP 100/67; PULSE 94; RESP 18; TEMP 37.2; O2SAT 96
--- NOTE | 2022-06-12 11:15 | CASEMGMT ---
Addendum entered by Jenise Miller 06/12/22 13:42: Received tc back from pt , she is aware of appt date and time and that is out but will see pt. Addendum entered by Jenise Miller 06/12/22 13:30: Received tc back from Promise at 's office, appt scheduled for June 27 at 12:50pm. TC to pt, left vm to call this RN CM back. Addendum entered by Jenise Miller 06/12/22 13:10: TC to 's office, left message for special needs babysitter requesting post op anemia appt in 2wks and provided call back number. Original Note: RN CM Assessment: Face to Face with pt for initial transition planning/care coordination assessment. RN CM introduced self and role at [facility], pt voices understanding and consents to assessment. Pt is A/O x4 and answers all questions appropriately at this time. Pt sitting in chair in no distress, at bedside. Care providers, pharmacy, and demographics verified/updated. Admitting Dx: anterior left total hip PCP:Amy Specialists:vianey Maza; Bassam pulshelli; Jeremiah, onc Preferred [facility]acy: [facility] Insurance: [employer] Prescription Benefit: yes LNOK: Latoya Mohr, Living Arrangements: Pt lives with in a single story home with 3 steps to enter with a rail. Pt reports he is I in ADL's and denies concerns at home. Transportation: Pt drives self and denies concerns with transportation. Pt will transport him to medical appts until he can drive again. DME/HHC/SNF: Pt has a FWW, pox and oxygen through [employer]. Pt states his orders are 2L with exertion. He has a portable tank to dc home with. Pt denies hx of HHC or SNF stays. Pt states no concerns with going home at time of dc. Pt has an appt on Thursday at [facility] for therapy. He is aware that this RN CM will make a post op follow up appt with for him at the request of Kolton GRIFFITH. He wishes for this RN CM to call him at home with this information and would like it to be in the afternoon. Pt is aware he will need blood work drawn. Pt states no further concerns/needs. CM to follow. Advised pt to ask CM if any further question/concerns/needs arise, voices understanding. Pt Goal: Home with outpt therapy set up. Plan:Home with outpt therapy set up.
[2022-06-12] MEDS: 0.9% Saline Lock 10 ML Syringe IV (11:33)
== END 2022-06-12 11:53 | disposition home or self-care (01) ==
LOC: SDC 17:20 → MS3 17:20
PROVIDERS: Anesthesiology; Admitting Provider Specialist; PCP Family Medicine; Referring Provider Specialist; Visit Provider Specialist
PROC: (CPT 27284; principal; 2022-06-11 14:05)
DX: M16.12 Unilateral primary osteoarthritis, left hip (principal); J43.9 Emphysema, unspecified; J96.10 Chronic respiratory failure, unspecified whether with hypoxia or hypercapnia; Z86.16 Personal history of COVID-19; Z99.81 Dependence on supplemental oxygen; Z87.891 Personal history of nicotine dependence; Z79.899 Other long term (current) drug therapy; Z85.118 Personal history of other malignant neoplasm of bronchus and lung
CPT/HCPCS: 27130; 01214; 36415; 73501; 73502; 76000; 80048; 82040; 82962; 83036; 83735; 85025; 85027; 87081; 88305; 88311; 93005; 96361; 96365; 96366; 97162; 97166; 99221; 99252; C1776; J7120; A4216; G0378; G0463; J2405; J3475

== ENCOUNTER → 2022-06-27 | Outpatient (CLI) | payer MEDICARE, OTHER, SELFPAY ==
[2022-06-27 18:17] LABS: Absolute Lymphocyte Count 0.84 X10^3/uL (0.83-4.51); Absolute Neutrophil Count 7.4 X10^3/uL (2.0-7.7); Basophil# 0.12 X10^3/uL; Basophil% 1.3 % (0-1); Eosinophil# 0.22 X10^3/uL; Eosinophils% 2.3 % (0-5); Hematocrit 36.7 % (40-54); Hemoglobin 11.6 g/dL (13.0-16.5); Lymphocyte # 0.84 X10^3/ul (0.83-4.51); Lymphocyte % 8.9 % (19-41); Mean Corp Hgb Conc 31.6 g/dL (32-36); Mean Corpuscular Hgb 28.3 pg (27.0-32.0); Mean Corpuscular Volume 89.5 fL (80-94); Mean Platelet Vol. 9.7 fl (6.2-12.0); Monocyte# 0.83 X10^3/uL; Monocyte% 8.8 % (0-10); NRBC Flagged by Analyzer 0 % (0-5); Neutrophil # 7.36 X10^3/uL (2.7-7.7); Platelet Count 551 K/mm3 (150-450); RBC Distribution Width CV 13.8 % (11.6-14.6); RBC Distribution Width SD 45.4 fl (35.1-43.9); White Blood Count 9.4 K/mm3 (4.4-11.0)
[2022-06-27 18:35] LABS: Anion Gap 10 (5-15); BUN 23 mg/dL (7-18); BUN/Creat Ratio 20.2 RATIO (10-20); Calcium,Total 9.6 mg/dL (8.5-10.1); Chloride 104 mmol/L (98-107); Creatinine, Serum 1.14 mg/dL (0.70-1.30); EST Glomerular Filtration Rate 67 mL/min (>60); Est Glom Filt Rate - Afr Amer 81 mL/min (>60); Ferritin 490 ng/mL (26-388); Glucose 103 mg/dL (74-106); Iron 35 ug/dL (65-175); Potassium 4.7 mmol/L (3.5-5.1); Sodium Level 138 mmol/L (136-145)
== END | disposition home or self-care (01) ==
LOC: BFHLAB 14:10
PROVIDERS: PCP Family Medicine; Visit Provider Family Medicine
DX: D64.9 Anemia, unspecified (principal); R79.89 Other specified abnormal findings of blood chemistry
CPT/HCPCS: 36415; 80048; 82728; 83540; 85025

== ENCOUNTER → 2022-11-04 | Outpatient (CLI) | payer MEDICARE, OTHER, SELFPAY | END | disposition home or self-care (01) | LOC: LABSPEC 08:31 | PROVIDERS: PCP Family Medicine; Visit Provider Nurse Practitioner Acute Care | DX: J44.1 Chronic obstructive pulmonary disease with (acute) exacerbation (principal); R05.9 Cough, unspecified | CPT/HCPCS: 87070; 87077; 87205 ==

== ENCOUNTER 2022-11-19 13:42 | Outpatient (CLI) | payer MEDICARE, OTHER, SELFPAY ==
[2022-11-19 14:01] LABS: Platelet Count 463 K/mm3 (150-450)
[2022-11-19 14:10] LABS: International Normalized Ratio 1.1; Prothrombin Time (Protime)PT. 13.7 SECONDS (11.7-14.9)
[2022-11-19 14:17] LABS: Partial Thromboplast Time 153.2 Seconds (24.1-36.2)
== END 2022-11-19 13:43 | disposition home or self-care (01) ==
LOC: MEDOUTP 13:43
PROVIDERS: PCP Family Medicine; Referring Provider Nurse Practitioner Acute Care; Visit Provider Nurse Practitioner Acute Care
DX: I48.91 Unspecified atrial fibrillation (principal); R06.00 Dyspnea, unspecified
CPT/HCPCS: 36591; 85049; 85610; 85730; A4216

== ENCOUNTER 2022-11-25 11:06 | Outpatient (CLI) | payer MEDICARE, OTHER, SELFPAY ==
[2022-11-25 11:42] LABS: Hematocrit 38.6 % (40-54); Hemoglobin 12.1 g/dL (13.0-16.5); Mean Corp Hgb Conc 31.3 g/dL (32-36); Mean Corpuscular Volume 86.2 fL (80-94); Mean Platelet Vol. 9.2 fl (6.2-12.0); Platelet Count 313 K/mm3 (150-450); RBC Distribution Width CV 14.2 % (11.6-14.6); RBC Distribution Width SD 44.2 fl (35.1-43.9); Red Blood Count 4.48 M/mm3 (4.6-6.2); White Blood Count 12.3 K/mm3 (4.4-11.0)
[2022-11-25 11:50] LABS: Partial Thromboplast Time 27.6 Seconds (24.1-36.2)
== END 2022-11-25 11:07 | disposition home or self-care (01) ==
LOC: MEDOUTP 11:08
PROVIDERS: Physician Assistant Surgical; PCP Family Medicine; Visit Provider Nurse Practitioner Acute Care
DX: I48.91 Unspecified atrial fibrillation (principal); D64.9 Anemia, unspecified
CPT/HCPCS: 36591; 85027; 85730; A4216

== ENCOUNTER 2022-11-27 12:12 | Day surgery (SDC) | payer MEDICARE, OTHER, SELFPAY ==
[2022-11-27] VITALS (7 sets, daily range): BP systolic 101–138; BP diastolic 65–77; PULSE 57–96; RESP 16–18; TEMP 36.4–36.8; O2SAT 92–100; BMI 23.8
--- NOTE | 2022-11-27 | ASPIGT_PTH ---
PATIENT: TONY SNYDER LOC: EN U#:[id number] AGE/SX: 72/M ROOM: RE11/27/[address]: Dr. Long Banegas MD : 1950 BED: DIS: 11/27/2022 SPEC #: [id number] RECD: 11/27/22 15:13 STATUS: XAVIER ELIF #: [id number] MCKENNA: 11/27/22 00:[address]: Long Banegas DEPT: SURGICAL PATHOLOGY RECD BY: Fermin Marrero ENTERED: 11/27/22 15:14 SP TYPE: ASP RAD OTHR DR: Dr. Dk Dobbins DO Tissues: Bronchus of left upper lobe Procedures: FNA Specimen Adequacy Special Stain Group II Surgery Specimen Level IV Imprint (control) HEADER OPERATION: Endobronchial ultrasound, biopsy PRE-OP DIAGNOSIS: Squamous cell lung cancer TISSUE SUBMITTED: Left lower lobe biopsy MICROSCOPIC DIAGNOSIS Left lower lobe of lung, transbronchial biopsy: Bronchial and sub-bronchial tissue with minimal chronic inflammation and focal anthracotic pigment. No evidence of malignancy. See comment. AM:debbie 11/28/2022 COMMENT The specimen is evaluated at the time of procedure (crush preps) by Dr. Green. Immediate Evaluation: 1. Bronchial epithelial cells. No evidence of carcinoma. 2. Bronchial epithelial cells. No evidence of carcinoma. 3. Bronchial epithelial cells. No evidence of carcinoma. Please correlate this case with corresponding EBUS ([id number]). Case has been reviewed in consultation with Dr. Kulkarni who concurs with the above diagnosis. IDC:SJ MICROSCOPIC DESCRIPTION Slides are reviewed. GROSS DESCRIPTION Received in fixative is one container labeled with the patient's name and designated endobronchial biopsy left lower lobe. The specimen consists of multiple irregular fragments of light bergman soft tissue that in aggregate measure 0.5 x 0.5 x <0.1 cm. The specimen is totally submitted in one cassette. / AM:debbie 11/27/2022 TC:3 CPT: 90355, 75775, 47501
--- NOTE | 2022-11-27 | IMM_PTH ---
PATIENT: TONY SNYDER LOC: EN U#:[id number] AGE/SX: 72/M ROOM: RE11/27/[address]: Dr. Long Banegas MD : 1950 BED: DIS: 11/27/2022 SPEC #: [id number] RECD: 11/28/22 13:06 STATUS: XAVIER REQ #: [id number] MCKENNA: 11/27/22 00:[address]: Long Banegas DEPT: IMMUNOHISTOCHEMISTRY RECD BY: Lisa Golden ENTERED: 11/28/22 13:09 SP TYPE: IMMUNO OTHR DR: Dr. Dk Dobbins, Tissues: N - Lung, NOS Procedures: NAPSIN A (add) CD20 (add) CD3 (add) CD45 (add) CD5 (add) CD79A (add) CK7 (add) CK8 (add) MICHOACANO (add) KI-67 (add) P53 (add) TTF1 (add) Vimentin (add) Pankeratin (initial) CD68 (ADD) S-100 (add) PHYSICIAN & [address] [address] SPECIMEN INFORMATION: Tissue Source: N ? EBUS, TBNA, site 4L Clinical Info: Squamous cell lung cancer Specimen Number: [id number] N CPT code: 13555, 61812 x15 METHODOLOGY: Deparaffinized sections of prefer/formalin-fixed tissue or PAP/DQ stained slides are incubated with monoclonal/polyclonal antibodies/oligonucleotide probes. Localization is made via biotin free immunoperoxidase method. Appropriate controls are performed and reacted as expected. Results on target cell population are indicated in the following table: RESULTS: ANTIBODY / CLONE RESULT Block N AE1-3 (AE1/AE3/PCK26) negative CK7 (OV-TL12/30) negative CK8 (96hbvwM02) negative CD3 (PS1) positive CD5 (SP10) positive CD20 (L26) positive CD45 (RP2/18) positive CD79a (11E3) negative Vimentin (V9) positive CD68 (KP-1) positive S-100 (4C4.9) negative TTF-1 (8G7G3/1) negative Napsin A (Rabbit Polyclonal) negative MICHOACANO (E29) negative P53 (DO-7) negative Ki-67 (30-9) negative These tests were developed and their performance characteristics determined by [facility]. They may not have been cleared or approved by the U.S. Food and Drug Administration. The FDA has determined that such clearance or approval is not necessary. The above immunohistochemical/dualISH markers are ordered and reviewed by the Pathologist. INTERPRETATION: Juan David MANZO, TBNA, site 4L (cell block): Fibrous tissue with associated macrophages and anthracotic pigment. No evidence of malignancy. AM:debbie 12/01/2022
--- NOTE | 2022-11-27 | ASPIG_PTH ---
PATIENT: TONY SNYDER LOC: EN U#:[id number] AGE/SX: 72/M ROOM: RE11/27/[address]: Dr. Long Banegas MD : 1950 BED: DIS: 11/27/2022 SPEC #: [id number] RECD: 11/27/22 15:11 STATUS: XAVIER ELIF #: [id number] MCKENNA: 11/27/22 00:[address]: Lnog Banegas DEPT: CYTOLOGY RECD BY: Fermin Marrero ENTERED: 11/27/22 15:13 SP TYPE: ASP OUT OTHR DR: Dr. Dk Dobbins DO Tissues: A - Lung, NOS B - Lung, NOS C - Lung, NOS D - Lung, NOS E - Lung, NOS F - Lung, NOS G - Lung, NOS H - Lung, NOS I - Lung, NOS J - Lung, NOS K - Lung, NOS L - Lung, NOS M - Lung, NOS N - Lung, NOS Procedures: FNA Specimen Adequacy Special Stain Group II Surgery Specimen Level IV Cytology Other HEADER OPERATION: Endobronchial ultrasound, biopsy PRE-OP DIAGNOSIS: Squamous cell lung cancer TISSUE SUBMITTED: A - EBUS, TBNA, site 10L #1, B - EBUS, TBNA, site 10L #2, C - EBUS, TBNA, site 10L #3, D - EBUS, TBNA, site 10L #4, E - EBUS, TBNA, site 10L #5, F - EBUS, TBNA, site 10L #6, G - EBUS, TBNA, site 10L #7, H - EBUS, TBNA, site 10L #8, I - EBUS, TBNA, site 4L #9, J - EBUS, TBNA, site 4L #10, K - EBUS, TBNA, site 4L #11, L - EBUS, TBNA, site 4L #12, M - EBUS, TBNA, site 10L, N - EBUS, TBNA, site 4L DIAGNOSIS CYTOLOGY A. EBUS, TBNA, site 10L #1: Bronchial epithelial cells. Rare lymphocytes. No evidence of carcinoma. B. EBUS, TBNA, site 10L #2: Blood, rare lymphocytes and rare bronchial epithelial cells. No evidence of carcinoma. C. EBUS, TBNA, site 10L #3: Blood. No evidence of carcinoma. Very rare lymphocytes. D. EBUS, TBNA, site 10L #4: Blood. Rare bronchial epithelial cells. No evidence of carcinoma. E. EBUS, TBNA, site 10L #5: Blood. Rare bronchial epithelial cells. No evidence of carcinoma. F. EBUS, TBNA, site 10L #6: Blood. Scant bronchial epithelial cells. No evidence of carcinoma. G. EBUS, TBNA, site 10L #7: Blood. No evidence of carcinoma. H. EBUS, TBNA, site 10L #8: Blood and rare lymphocytes. No evidence of carcinoma. I. EBUS, TBNA, site 4L #9: Blood. No evidence of carcinoma. J. EBUS, TBNA, site 4L #10: Blood and occasional lymphocytes. Rare bronchial epithelial cells. No evidence of carcinoma. K. EBUS, TBNA, site 4L #11: Blood and rare bronchial epithelial cells. No evidence of carcinoma. L. EBUS, TBNA, site 4L #12: Bronchial epithelial cells. No evidence of carcinoma. M. EBUS, TBNA, site 10L (cell block): Negative for malignant cells. N. EBUS, TBNA, site 4L (cell block): Macrophages and benign inflammatory cells. Anthracotic pigment. No evidence of malignancy. See comment. AM:debbie 11/28/2022 COMMENT The specimen is evaluated at the time of procedure by Dr. Green. Rapid On-Site Evaluation: A. EBUS, TBNA, site 10L #1: Bronchial epithelial cells. Rare lymphocytes. No evidence of carcinoma. B. EBUS, TBNA, site 10L #2: Blood, rare lymphocytes and rare bronchial epithelial cells. No evidence of carcinoma. C. EBUS, TBNA, site 10L #3: Blood. No evidence of carcinoma. Very rare lymphocytes. D. EBUS, TBNA, site 10L #4: Blood. Rare bronchial epithelial cells. No evidence of carcinoma. E. EBUS, TBNA, site 10L #5: Blood. Rare bronchial epithelial cells. No evidence of carcinoma. F. EBUS, TBNA, site 10L #6: Blood. Scant bronchial epithelial cells. No evidence of carcinoma. G. EBUS, TBNA, site 10L #7: Blood. No evidence of carcinoma. H. EBUS, TBNA, site 10L #8: Blood and rare lymphocytes. No evidence of carcinoma. I. EBUS, TBNA, site 4L #9: Blood. No evidence of carcinoma. J. EBUS, TBNA, site 4L #10: Blood and occasional lymphocytes. Rare bronchial epithelial cells. No evidence of carcinoma. K. EBUS, TBNA, site 4L #11: Blood and rare bronchial epithelial cells. No evidence of carcinoma. L. EBUS, TBNA, site 4L #12: Bronchial epithelial cells. No evidence of carcinoma. N. Immunohistochemistry ([id number]) supports the above diagnosis. CYTOLOGY STUDY Slides are reviewed. CYTOLOGY GROSS A - Received labeled with the patient's name and and designated EBUS, TBNA, site 10L #1. The specimen consists of two stained smears for SID (Rapid On-Site Evaluation). B - Received labeled with the patient's name and and designated EBUS, TBNA, site 10L #2. The specimen consists of two stained smears for SID. C - Received labeled with the patient's name and and designated EBUS, TBNA, site 10L #3. The specimen consists of two stained smears for SID. D - Received labeled with the patient's name and and designated EBUS, TBNA, site 10L #4. The specimen consists of two stained smears for SID. E - Received labeled with the patient's name and and designated EBUS, TBNA, site 10L #5. The specimen consists of two stained smears for SID. F - Received labeled with the patient's name and and designated EBUS, TBNA, site 10L #6. The specimen consists of two stained smears for SID. G - Received labeled with the patient's name and and designated EBUS, TBNA, site 10L #7. The specimen consists of two stained smears for SID. H - Received labeled with the patient's name and and designated EBUS, TBNA, site 10L #8. The specimen consists of two stained smears for SID. I - Received labeled with the patient's name and and designated EBUS, TBNA, site 4L #9. The specimen consists of two stained smears for SID. J - Received labeled with the patient's name and and designated EBUS, TBNA, site 4L #10. The specimen consists of two stained smears for SID. K - Received labeled with the patient's name and and designated EBUS, TBNA, site 4L #11. The specimen consists of two stained smears for SID. L - Received labeled with the patient's name and and designated EBUS, TBNA, site 4L #12. The specimen consists of two stained smears for SID. M - Received in RPMI is 20 ml of pink, needle rinsed fluid labeled with the patient's name and and designated EBUS, TBNA, site 10L. The specimen is submitted for cell block preparation. N - Received in RPMI is 20 ml of pink, needle rinsed fluid labeled with the patient's name and and designated EBUS, TBNA, site 4L. The specimen is submitted for cell block preparation. / AM:debbie 11/27/2022 TC:3 CPT: 35630p7, 92380h69, 95188v3.
--- NOTE | 2022-11-27 12:31 | PCM.HP.BLA ---
History and Physical Date of Admission: 11/27/22 I have examined the patient and the H&P has been reviewed. There are no clinical changes since date of exam. Patient, and daughter are present during the preoperative evaluation. They understand the plan moving forward and all questions were answered. (1) Squamous cell lung cancer: ?Status:?Acute ?Qualifiers: ?Laterality:?unspecified laterality? Qualified Code(s):?C34.90 - Malignant neoplasm of unspecified part of unspecified bronchus or lung ?Plan: Deteriorated.? The patient has new lymphadenopathy on recent PET scan.? Reviewed the case with Dr. Banegas.? The patient is agreeable to repeat EBUS procedure.? Blood work to be obtained today to make sure that the patient does not increase risk for bleeding.? Follow-up in the office afterwards to discuss pathology results.? The patient may be a candidate for immunotherapy, this is the reason that it is important to have a tissue sample for confirmation. I have spent 45 minutes today reviewing labs, records and history.? Time includes coordinating care, interpretation of tests, discussion with Dr Banegas.? This also includes time I spent with the patient for exam, treatment plan and education as well as documenting clinical information. ? ? ? Orders: Orders Bronchoscopy 11/19/22 C34.90 - Malignant neoplasm of unspecified part of unspecified bronchus or lung ? Partial Thromboplast Time 11/19/22 I48.91 - Unspecified atrial fibrillation ? Prothrombin Time w/INR 11/19/22 I48.91 - Unspecified atrial fibrillation ? Platelet Count 11/19/22 R06.00 - Dyspnea, unspecified ? Partial Thromboplast Time 11/19/22 I48.91 - Unspecified atrial fibrillation ? HPI PET Results Chief Complaint: Test results HPI Comments Details: This patient presents to the office today to discuss recent PET scan results.? He is ambulatory and currently on room air.? He is accompanied today by his . If you recall, the patient was recently treated by this practice for an exacerbation of his COPD with a course of Augmentin and prednisone.? He reports that his symptoms are significantly improved. He is compliant with the use of Asmanex twice daily.? He does report rinsing his mouth out after each use.? He denies any medication side effect such as sore throat or thrush.? He is also compliant with Singulair, Spiriva and Daliresp daily. Shortness of breath occurs on exertion only.? Currently he denies any cough, sputum production or hemoptysis.? He denies any wheezing, chest tightness, chest pain or palpitations.? He also denies any fever, chills or body aches. Test results personally reviewed with the patient: PET scan completed on November 11, 2022, impression is approximately 1.3 x 2.0 cm intense uptake in the left anterolateral oral cavity.? 4.3 cm left upper lobe mass abutting the hilum.? Ipsilateral hilar and mediastinal nodes suspicious for metastatic disease. Intake Vital Signs ? 11/19/2306:56 Height 5 ft 9 in Weight: 161 lb BMI 23.8 BP 120/74 Blood Pressure Location Lt brachial Position Sitting Respiration 20 H Pulse 82 Pulse Source Monitor Temp 97.4 F L Temperature Source Temporal Artery Pulse Oximetry (%) 91 Oxygen Delivery Method room air Intake Visit Reasons:?PET Results Chief Complaint: Results Manager Meat Required: No DME Vendor: [employer] Accompanied by: Is patient in pain?: No Allergies No Known Allergies Allergy (Verified 11/19/22 12:45) Medications albuterol sulfate 90 mcg/actuation aerosol inhaler (Proventil HFA) 2 puff inhalation Q6H PRN COPD 12/11/20 [History Confirmed 11/19/22] montelukast 10 mg tablet 10 mg PO QHS allergies 12/11/20 [History Confirmed 11/19/22] roflumilast 500 mcg tablet (Daliresp) 500 mcg PO DAILY copd 12/11/20 [History Confirmed 11/19/22] mometasone 200 mcg/actuation HFA aerosol inhaler (Asmanex HFA) 2 puff inhalation BID breathing 01/10/21 [History Confirmed 11/19/22] tiotropium 2.5 mcg-olodaterol 2.5 mcg/actuation mist for inhalation (Stiolto Respimat) 2 puff inhalation DAILY breathing 01/10/21 [History Confirmed 11/19/22] albuterol sulfate 0.63 mg/3 mL solution for nebulization 0.63 mg (3 mL) inhalation Q6H PRN wheezing #90 mL 05/24/21 [Rx Confirmed 11/19/22] acetaminophen 500 mg tablet 1,000 mg PO Q8 #0 tabs 06/12/22 [Rx Confirmed 11/19/22] folic acid 1 mg tablet 1 mg PO BREAKFAST 14 days #14 tabs 06/12/22 [Rx Confirmed 11/19/22] oxycodone 5 mg tablet 5 - 10 mg PO Q4H PRN PRN Pain Score 4-10 3 days #20 tabs 06/12/22 [Rx Confirmed 11/19/22] sennosides 8.6 mg-docusate sodium 50 mg tablet (Stool Softener-Stimulant Laxative) 2 tab PO BID #12 tabs 06/12/22 [Rx Confirmed 11/19/22] prednisone 10 mg tablet 10 mg PO DAILY #100 tabs 09/25/22 [Rx Confirmed 11/19/22] Lactobacillus acidophilus 10 billion cell capsule 10,000 mmu cells PO DAILY #30 caps 11/06/22 [Rx Confirmed 11/19/22] PFSH Medical History? Arthritis Back pain Chronic cough COPD (chronic obstructive pulmonary disease) Former smoker Gastric reflux History of lung cancer History of pain when walking History of smoking 30 or more pack years History of steroid therapy History of stress test Loss of hearing Mass of left lung On home oxygen therapy Shortness of breath on exertion Squamous cell carcinoma of left lung Wears glasses Wears hearing aid Surgical History? History of inguinal hernia repair History of tonsillectomy and adenoidectomy Hx of bilateral cataract extraction Social History? Smoking Status:? Former smoker pack-years: 30 Tobacco: How many years used:? 30 Review of Systems Resp Respiratory: Yes as per HPI Exam Const Constitutional: Positive conversant, cooperative, in no acute respiratory distress, well developed, well nourished, good hygiene and thin Head Head: Yes normocephalic, Yes atraumatic and No cyanosis of lips/distal nose Eyes Eye: Positive clear conjunctiva; Negative nystagmus Ears Ear: Positive hard of hearing and external ears normal Nose Nose: Yes external nose normal Mouth Mouth: Positive oral mucosae normal Neck Neck: Positive normal visual inspection, full ROM and trachea midline Chest Wall Chest: Positive normal inspection of the chest and symmetric chest movement Resp lung sounds: Positive diminished lung sounds, normal expiratory time and normal chronic state of increased work of breathing; Negative wheezes, rhonchi, rales or use of accessory muscles Cardio Cardiac: Positive regular rate, regular rhythm, S1 normal and S2 normal; Negative murmur, rub or gallop GI GI: Positive normal to inspection Musc Musculoskeletal: Positive steady gait; Negative kyphosis or scoliosis Skin Pulmonary Skin Exam: Positive intact; Negative lesion, rash, ulcers or erythema Extremities Extremities: No clubbing, No cyanosis and No edema Neuro Neurologic: Yes no focal neuro deficits, Yes conversant, Yes cooperative, Yes normal cognition, Yes normal coordination, Yes normal concentration and Yes understands questions Psych Appearance: Positive grossly normal, eye contact and well kempt Mental Status: Positive mental status grossly normal Mood: Positive congruent mood Affect: Positive normal affect
[2022-11-27] MEDS: Lactated Ringers 1,000 ML 15 ML IV (12:53)
[2022-11-27] MEDS: Lidocaine Jelly 2% 20 ML Syringe (URO-JET) 1 APPLIC (13:22)
--- NOTE | 2022-11-27 15:28 | OP.BRONCH_ITS ---
Patient Name: Savi Mohr Procedure Date: 11/27/2022 12:22 PM Date of : 1950 Age: 72 Procedure: Bronchoscopy Indications: Hilar lymphadenopathy of the left side, Known lung cancer Providers: Long Banegas MD Referring MD: Long Banegas MD Medicines: Monitored Anesthesia Care Complications: No immediate complications Procedure: Pre-Anesthesia Assessment: - A History and Physical has been performed. The patient's medications, allergies and sensitivities have been reviewed. - The risks and benefits of the procedure and the sedation options and risks were discussed with the patient. All questions were answered and informed consent was obtained. - Patient identification and proposed procedure were verified prior to the procedure by the physician, the nurse and the cement mixer driver. The procedure was verified in the procedure room. - ASA Grade Assessment: III - A patient with severe systemic disease. After I obtained informed consent, the scope was passed under direct vision. Throughout the procedure, the patient's blood pressure, pulse, and oxygen saturations were monitored continuously. The ultrasound bronchoscope was introduced through the mouth, via laryngeal mask airway and advanced to the tracheobronchial tree of both lungs. The bronchoscope was introduced through the mouth, via laryngeal mask airway and advanced to the tracheobronchial tree of both lungs. The procedure was accomplished without difficulty. The patient tolerated the procedure well. Findings: The laryngeal mask airway is in good position. The vocal cords appear normal. The subglottic space is normal. The trachea is of normal caliber. The hayley is sharp. The tracheobronchial tree of the right lung was examined to at least the first subsegmental level. Bronchial mucosa and anatomy are normal; there are no endobronchial lesions, and no secretions. Initial airway examination was completed using a therapeutic bronchoscope. This was noted to have an 80% obstruction in the superior segment of the left lower lobe. The scope was withdrawn and replaced with the EBUS bronchoscope to accomplish the ultrasound examination. Lymph Nodes: An endobronchial ultrasound endoscope was utilized to systematically examine the left hilar region (level 10L) in order to assist with fine needle aspiration. Lymph node sizing was performed via endobronchial ultrasound for suspected non-small cell lung cancer. Sampling by transbronchial needle aspiration was also performed using an Olympus EBUS-TBNA 21 gauge needle in the left lower paratracheal region (level 4L) and left hilar region (level 10L) and sent for routine cytology. - The 4L (lower paratracheal) node was 15 mm by EBUS. Four samples with the needle were obtained. - The 10L (hilar) node was 17 mm by EBUS. Eight samples with the needle were obtained. Lymph Nodes: A PET scan was found to be hypermetabolic in the left lower paratracheal region (level 4L) and left hilar region (level 10L) nodes. Lymph Nodes: Rapid On-Site Evaluation (SID): Cytology was preliminarily non-diagnostic in the left hilar region (level 10L). Cytology was preliminarily non-diagnostic in the left lower paratracheal region (level 4L). Sid had reported significant contamination with epithelial cells and blood. Significant core biopsies were noted in the test tubes with visual inspection. Endobronchial biopsies of a lesion were performed in the superior segment of the left lower lobe using a forceps and sent for histopathology examination. 8 were obtained. The EBUS scope was then removed and airway examination was completed using the therapeutic bronchoscope. 8 endobronchial biopsies were obtained in the superior segment of the left lower lobe. 3 of these were evaluated by pathology at the bedside showing epithelial cells with no malignant cells noted. Hemostasis was spontaneous. Given complications with contamination with blood and epithelial cells, 2 of the samples of the 4L were completed using a second 19-gauge needle and EBUS guidance. Impression: - Hilar lymphadenopathy of the left side - Known lung cancer - The airway examination of the right lung was normal. - Endobronchial ultrasound was performed. - Lymph node sizing and sampling was performed. Tissue was obtained from this exam. The preliminary diagnosis was nondiagnostic. - Rapid On-Site Evaluation (SID): Preliminary cytology was non-diagnostic in node level 10L and preliminary cytology was non-diagnostic in node level 4L. Recommendation: - The patient will be observed post-procedure, until all discharge criteria are met. - Await biopsy and cytology results. - Patient has a contact number available for emergencies. The signs and symptoms of potential delayed complications were discussed with the patient. Return to normal activities tomorrow. Written discharge instructions were provided to the patient. - Follow up with bronchoscopist in one week. Procedure Code(s): --- Professional --- 63953, Bronchoscopy, rigid or flexible, including fluoroscopic guidance, when performed; with endobronchial ultrasound (EBUS) guided transtracheal and/or transbronchial sampling (eg, aspiration[s]/biopsy[ies]), 3 or more mediastinal and/or hilar lymph node stations or structures 92436, Bronchoscopy, rigid or flexible, including fluoroscopic guidance, when performed; with bronchial or endobronchial biopsy(s), single or multiple sites Diagnosis Code(s): --- Professional --- R59.0, Localized enlarged lymph nodes C34.90, Malignant neoplasm of unspecified part of unspecified bronchus or lung R09.89, Other specified symptoms and signs involving the circulatory and respiratory systems CPT copyright 2017 [employer]. All rights reserved. The codes documented in this report are preliminary and upon contact center specialist review may be revised to meet current compliance requirements. MD Long Slater MD 11/27/2022 3:28:32 PM This report has been signed electronically. Number of Addenda: 0 Note Initiated On: 11/27/2022 12:22 PM
== END 2022-11-27 16:30 | disposition home or self-care (01) ==
LOC: EN 12:14 → AC 12:15
PROVIDERS: PCP Family Medicine; Referring Provider Internal Medicine Critical Care Medicine; Visit Provider Internal Medicine Critical Care Medicine
PROC: BB4BZZZ Ultrasonography of Pleura (ICD-10-PCS; CPT 31653; principal; 2022-11-27 12:30)
DX: C34.90 Malignant neoplasm of unspecified part of unspecified bronchus or lung (principal); J44.9 Chronic obstructive pulmonary disease, unspecified; Z87.891 Personal history of nicotine dependence; R59.0 Localized enlarged lymph nodes; Z79.52 Long term (current) use of systemic steroids; Z79.899 Other long term (current) drug therapy; J98.4 Other disorders of lung
CPT/HCPCS: 31653; 31625; 00520; 88161; 88172; 88305; 88313; 88341; 88342; J7120; A4216; J2405

== ENCOUNTER → 2023-05-01 | Outpatient (CLI) | payer MEDICARE, OTHER, SELFPAY | END | disposition home or self-care (01) | LOC: MTLAB 08:45 | PROVIDERS: PCP Family Medicine; Referring Provider Nurse Practitioner Acute Care; Visit Provider Nurse Practitioner Acute Care | DX: J44.1 Chronic obstructive pulmonary disease with (acute) exacerbation (principal) | CPT/HCPCS: 87070; 87205 ==

== ENCOUNTER 2023-05-28 15:55 | Inpatient (IN) | payer OTHER, SELFPAY ==
[2023-05-28] VITALS (13 sets, daily range): BP systolic 107–171; BP diastolic 58–133; PULSE 103–149; RESP 18–30; TEMP 36.4–38.2; O2SAT 94–99; BMI 22.7; BMI 22.5
--- NOTE | 2023-05-28 16:23 | EKG12_ITS ---
Test Reason : DYSPNEA Blood Pressure : / mmHG Vent. Rate : 166 BPM Atrial Rate : 115 BPM P-R Int : 000 ms QRS Dur : 078 ms QT Int : 278 ms P-R-T Axes : 000 -21 -21 degrees QTc Int : 461 ms Critical Test Result: High HR , STEMI Atrial fibrillation Abnormal ECG Confirmed by SEBLE BUTLER, NERI ([id number]), photography editor SHAYNE LAURA ([id number]) on 05/29/2023 2:06:10 PM Referred By: Confirmed By:NERI PRUETT MD
--- NOTE | 2023-05-28 16:29 | EDS_ITS ---
HPI History of Present Illness Chief Complaint: Shortness of Breath Informant: patient and spouse/S.O. Narrative Narrative: Patient presents via EMS secondary to increased shortness of breath. He has a history of COPD and lung cancer. He is currently on immunotherapy. states he uses walker today to ambulate to the restroom and became quite short of breath. He had a hard time catching his breath since then and it is significantly worse with any movement or exertion. When asked if he has chest pain he states the only the pain of breathing. He has not had significant cough. He states albuterol typically does not work for him. He has been on BiP AP in the past but states he does not feel that he needs it at this time. He is DNR with no intubation per patient and . [facility] Medical History Ambulates with cane Arthritis Back pain Cancer Chronic cough COPD (chronic obstructive pulmonary disease) Easy bruising Former smoker Gastric reflux History of lung cancer History of pain when walking History of smoking 30 or more pack years History of steroid therapy History of stress test Loss of hearing Low iron Mass of left lung On home oxygen therapy Shortness of breath on exertion Squamous cell carcinoma of left lung Wears glasses Wears hearing aid Home Medications albuterol sulfate 90 mcg/actuation aerosol inhaler (Proventil HFA) 2 puff inhalation Q6H PRN COPD 12/11/20 [History Last Taken Unknown] montelukast 10 mg tablet 10 mg PO QHS allergies 12/11/20 [History Last Taken Unknown] roflumilast 500 mcg tablet (Daliresp) 500 mcg PO DAILY copd 12/11/20 [History Last Taken Unknown] mometasone 200 mcg/actuation HFA aerosol inhaler (Asmanex HFA) 2 puff inhalation BID breathing 01/10/21 [History Last Taken Unknown] tiotropium 2.5 mcg-olodaterol 2.5 mcg/actuation mist for inhalation (Stiolto Respimat) 2 puff inhalation DAILY breathing 01/10/21 [History Last Taken Unknown] albuterol sulfate 0.63 mg/3 mL solution for nebulization 0.63 mg (3 mL) inhalation Q6H PRN wheezing #90 mL 05/24/21 [Rx Last Taken Unknown] prednisone 10 mg tablet 10 mg PO DAILY #100 tabs 09/25/22 [Rx Last Taken Unknown] diphenhydramine HCl 25 mg tablet (Benadryl Allergy) 25 mg PO BID 02/25/23 [History Last Taken Unknown] Allergy/AdvReac Type Severity Reaction Status Date / Time No Known Allergies Allergy Verified 05/28/23 15:56 Surgical History History of hip replacement (~06/11/22) History of inguinal hernia repair History of tonsillectomy and adenoidectomy Hx of bilateral cataract extraction Social History Smoking Status: Former smoker pack-years: 30 Tobacco: How many years used: 30 ROS ROS ED Constitutional Constitutional ED: Denies chills or fever(s) Eyes Eyes: Denies discharge from eye(s) ENT ENT ED: Denies discharge from eye(s), rhinorrhea or sore throat Cardiovascular Cardiovascular: Reports racing heartbeat; Denies chest pain Respiratory/Chest Respiratory/Chest: Reports dyspnea Gastrointestinal Gastrointestinal: Denies abdominal pain, nausea or vomiting Musculoskeletal Musculoskeletal: Denies back pain or extremity pain Integumentary Denies Abrasions or rash Neurologic Neurologic: Denies headache(s) or weakness Psychiatric Psychiatric: Denies anxiety or depression Allergic/Immunologic Allergic/Immunologic ED: Denies lip swelling or urticaria EXAM Physical Exam Const Vital Signs: 05/28/23 15:55 05/28/23 15:55 05/28/23 16:49 Temperature 97.8 F Temperature Source Temporal Pulse Rate 149 H 127 H Respiratory Rate 25 H 26 H Respiratory Effort Short of Breath Respiratory Depth Deep Respiratory Pattern Tachypnea Tachypnea Blood Pressure 153/106 H Blood Pressure Mean 121 Pulse Ox 95 Oxygen Delivery Method Nasal Cannula Nasal Cannula Oxygen Flow Rate (L/min) 6 6 05/28/23 16:55 05/28/23 17:12 05/28/23 17:14 Temperature Temperature Source Pulse Rate 127 H 125 H 126 H Respiratory Rate 28 H 20 H 21 H Respiratory Effort Respiratory Depth Respiratory Pattern Normal Blood Pressure 162/95 H 171/133 H Blood Pressure Mean 117 145 Pulse Ox 94 97 Oxygen Delivery Method Nasal Cannula Oxygen Flow Rate (L/min) 05/28/23 18:24 05/28/23 18:24 Temperature 97.6 F L Temperature Source Temporal Pulse Rate 112 H 114 H Respiratory Rate 21 H 24 H Respiratory Effort Respiratory Depth Respiratory Pattern Blood Pressure 133/113 H 133/113 H Blood Pressure Mean 119 119 Pulse Ox 99 98 Oxygen Delivery Method Nasal Cannula Nasal Cannula Oxygen Flow Rate (L/min) 6 6 Positive well developed General Appearance ED: well developed HEENT Reports moist mucous membranes Eyes EOMs intact bilaterally Chest Wall inspection of chest normal and palpation of chest normal Chest Narrative: Port in place to the right upper chest. Resp Resp Narrative: Tachypnea with diminished breath sounds bilaterally, left more so than right. Cardio Rate: tachycardic and other Other Details: Tachycardic and irregular with heart rates ranging from 150s to 170s. GI non-tender Palpation: soft Extremity normal to inspection Neuro oriented x3 Psych mental status grossly normal Skin no rashes or lesions noted MDM MDM MDM Narrative Medical decision making narrative: Patient placed on monitor technician. IV access obtained via patient's port. He is currently on 6 L nasal cannula and satting in the mid 90s. Patient does not feel that he needs BiPAP. EKG obtained to evaluate for cardiac arrhythmia/ischemia. Chest x-ray obtained to evaluate for acute lung pathology, cardiac size, or mediastinal abnormality. Labwork obtained to evaluate for leukocytosis, anemia, and electrolyte derangement. Patient given Atrovent treatment stating that albuterol does not help him. Heart rate does appear to be tachycardic and irregular and I am concerned for A-fib RVR. He will be given 10 mg of IV Cardizem for rate control. History & Record Review Discussion w/independent historian: Patient and Significant other Additional record(s) reviewed:: Prior outpatient record and Prior labs Lab Data Attestation: I reviewed the patient's lab results. Labs: Laboratory Results - last 24 hr 05/28/23 16:13 WBC 20.4 H RBC 5.18 Hgb 13.4 Hct 45.0 MCV 86.9 MCH 25.9 L MCHC 29.8 L RDW Std Deviation 48.3 H RDW Coeff of Zane 15.0 H Plt Count 409 MPV 10.3 Immature Gran % (Auto) 0.400 Neut % (Auto) 92.3 H Lymph % (Auto) 1.6 L [place] % (Auto) 4.8 Eos % (Auto) 0.6 Baso % (Auto) 0.3 Absolute Neuts (auto) 18.8 H Absolute Lymphs (auto) 0.32 L Nucleated RBC % 0 Differential Comment SCANNED D-Dimer Quant (PE/DVT) 0.92 H* Sodium 137 Potassium 5.2 H Chloride 102 Carbon Dioxide 27.0 Anion Gap 8 BUN 21 H Creatinine 1.20 Estim Creat Clear Calc 54.13 Est GFR (MDRD) Af Amer 76 Est GFR (MDRD) Non-Af 63 BUN/Creatinine Ratio 17.5 Glucose 111 H Calcium 10.0 Total Bilirubin 0.60 Direct Bilirubin 0.07 AST 52 H ALT 43 Alkaline Phosphatase 69 Troponin I High Sens 50 Total Protein 8.2 Albumin 3.2 Globulin 5.0 H Radiography Chest X-Ray - ED: 1 View, Read by ED Physician and - (Chronic left-sided scarring when compared to prior studies.) Diagnostic Testing: Clinical Impression(s) from Imaging Studies Chest X-Ray 05/28/23 16:55 IMPRESSION: Basilar opacities appear similar to previous study, left more than right. Electronically Signed: Aureliano Vera DO at 18:26 EST , Chest CTA 05/28/23 17:45 IMPRESSION: No demonstrated pulmonary embolism or arterial dissection. The lungs demonstrate emphysematous changes. Probable right apical scarring.. There is a spiculated left perihilar mass measuring 4.6 x 6 x 5.8 cm encasing with slight narrowing of the left upper lobe and possibly the left lower lobe bronchi. There is a Left lower lobe consolidation. Electronically Signed: Aureliano Vera DO at 19:03 EST , EKG Initial EKG: Attestation: I personally reviewed and interpreted this EKG as follows: Interpretation: - (Tachycardia at 166 with undetermined underlying rhythm. Does appear irregular and I question whether patient may have A-fib RVR.) Follow-up EKG: Attestation: I personally reviewed and interpreted this EKG as follows: Interpretation: Sinus Tachycardia (Sinus tachycardia at 124 with no acute ischemia.) Treatment and Re-Evaluation :: Patient was given 10 mg of IV Cardizem to slow his rate which did improve into the 120s to 130s. Repeat EKG confirms sinus tachycardia. CBC reveals an elevated white count of 20.4 with 92% neutrophils. Chemistry studies reveal potassium of 5.2. BUN is 21 and creatinine is 1.20. D-dimer is 0.92. Troponin is 50. Portable chest x-ray per my interpretation was chronic scarring in the left lower lobe. This appears similar to prior study. Patient initially agreed to an Atrovent treatment stating that albuterol never helps him. Following this he did have improved air movement bilaterally on auscultation, although patient states he did not medically feel any better. He did agree to trying a DuoNeb treatment which was given. Patient states he did not notice significant improvement with the DuoNeb treatment, however states she did notice that his oxygen saturations seems to increase. At this time the patient's oxygen has been turned down to 4 L. His respiratory rate is improved to 16. CTA of the chest is obtained. There is no evidence of pulmonary embolism or arterial dissection. There is a spiculated left perihilar mass measuring 4.6 x 6 x 5.8 cm encasing with slight narrowing of the left upper lobe and possible left lower lobe bronchi. There is a left lower lobe consolidation. I do have concern that the patient has a postobstructive pneumonia given his increasing dyspnea and white count. He will be given Rocephin and Zithromax. I will speak with hospitalist regarding admission. Discharge Plan Triage Chief Complaint: Shortness of Breath ED Provider: Gabriela Bloom Dx/Rx/DC Orders Clinical Impression: Postobstructive pneumonia, COPD exacerbation, Lung cancer Prescriptions: No Action albuterol sulfate [Proventil HFA] 90 mcg/actuation HFA aerosol inhaler 2 puff inhalation Q6H PRN (Reason: COPD) Daliresp 500 mcg tablet 500 mcg PO DAILY montelukast 10 mg tablet 10 mg PO QHS prednisone 10 mg tablet 10 mg PO DAILY Qty: 100 3RF diphenhydramine HCl [Benadryl Allergy] 25 mg tablet 25 mg PO BID Asmanex HFA 200 mcg/actuation Hfa Aerosol Inhaler 2 puff INHALATION BID Stiolto Respimat 2.5-2.5 mcg/actuation Mist 2 puff INHALATION DAILY albuterol sulfate 0.63 mg/3 mL solution for nebulization 0.63 mg inhalation Q6H PRN (Reason: wheezing) Qty: 90 3RF Primary Care Provider: Dk Dobbins Referrals: Dk Dobbins DO [Primary Care Provider] - Disposition Disposition: Acute Care Hospital [facility]
[2023-05-28 16:38] LABS: Absolute Lymphocyte Count 0.32 X10^3/uL (0.83-4.51); Absolute Neutrophil Count 18.8 X10^3/uL (2.0-7.7); Basophil# 0.07 X10^3/uL; Basophil% 0.3 % (0-1); Eosinophil# 0.12 X10^3/uL; Eosinophils% 0.6 % (0-5); Hemoglobin 13.4 g/dL (13.0-16.5); Lymphocyte # 0.32 X10^3/ul (0.83-4.51); Lymphocyte % 1.6 % (19-41); Mean Corp Hgb Conc 29.8 g/dL (32-36); Mean Corpuscular Hgb 25.9 pg (27.0-32.0); Mean Corpuscular Volume 86.9 fL (80-94); Mean Platelet Vol. 10.3 fl (6.2-12.0); Monocyte# 0.98 X10^3/uL; Monocyte% 4.8 % (0-10); NRBC Flagged by Analyzer 0 % (0-5); Neutrophil # 18.84 X10^3/uL (2.7-7.7); Neutrophil % 92.3 % (47-70); POSITIVE DIFFERENTIAL YES; Platelet Count 409 K/mm3 (150-450); RBC Distribution Width SD 48.3 fl (35.1-43.9); Red Blood Count 5.18 M/mm3 (4.6-6.2); White Blood Count 20.4 K/mm3 (4.4-11.0)
[2023-05-28] MEDS: dilTIAZem 25 MG/5 ML Vial 10 MG IV BOLUS (16:42)
[2023-05-28] MEDS: Ipratropium 0.5 MG/2.5 ML SOLUTION INHALATION (16:42)
[2023-05-28 16:46] LABS: Differential Indicated SCAN CRITERIA MET
--- NOTE | 2023-05-28 16:55 | RAD_ITS ---
INDICATION: sob EXAMINATION/TECHNIQUE: X-RAY - XR Chest 1 View COMPARISON: May 24, 2021 FINDINGS: LINES/DEVICES: Stable right venous port. LUNGS: Basilar opacities appear similar to previous study, left more than right. No pneumothorax. MEDIASTINUM AND CARDIOVASCULAR STRUCTURES: Cardiac silhouette not enlarged. Central airways and mediastinal contour are unremarkable. BONES AND SOFT TISSUES: Degenerative vertebral changes. RAD/Chest 1 View (Portable) IMPRESSION: Basilar opacities appear similar to previous study, left more than right. Electronically Signed: Aureliano Vera DO at 18:26 EST Reading Location ID and State: [facility] / [place] Tel [phone], Service support ,
[2023-05-28] MEDS: Ipratropium/Albuterol Sulfate 3 ML AMPUL.NEB INHALATION ×2 (17:10→22:02)
[2023-05-28 17:11] LABS: D-Dimer Quantitative (DVT/PE) 0.92 FEU/ug/m (0.27-0.49)
[2023-05-28 17:17] LABS: Differential Comment SCANNED
--- NOTE | 2023-05-28 17:24 | EKG12_ITS ---
Test Reason : CHANGE IN HR Blood Pressure : / mmHG Vent. Rate : 124 BPM Atrial Rate : 124 BPM P-R Int : 112 ms QRS Dur : 084 ms QT Int : 306 ms P-R-T Axes : 064 -10 059 degrees QTc Int : 439 ms Sinus tachycardia Otherwise normal ECG Confirmed by SEBLE BUTLER, NERI ([id number]), order editor SHAYNE LAURA ([id number]) on 05/29/2023 2:06:22 PM Referred By: CAROLE Confirmed By:NERI PRUETT MD
[2023-05-28 17:32] LABS: AST(SGOT) 52 U/L (15-37); Alanine Aminotransfer ALT/SGPT 43 U/L (16-61); Albumin, Serum 3.2 g/dL (3.2-5.0); Alkaline Phosphatase 69 U/L (45-117); Anion Gap 8 (5-15); BUN 21 mg/dL (7-18); BUN/Creat Ratio 17.5 RATIO (10-20); Bilirubin, Direct 0.07 mg/dL (0.00-0.30); Chloride 102 mmol/L (98-107); EST Glomerular Filtration Rate 63 mL/min (>60); Est Glom Filt Rate - Afr Amer 76 mL/min (>60); Estimated Creatinine Clearance 54.13 ml/min; Glucose 111 mg/dL (74-106); Potassium 5.2 mmol/L (3.5-5.1); Protein, Total 8.2 g/dL (6.4-8.2); Sodium Level 137 mmol/L (136-145); Troponin-I HS (w/2H Reflex) 50 pg/mL (3.0-78.0)
--- NOTE | 2023-05-28 17:45 | CT_ITS ---
STUDY: CTA CHEST REASON FOR EXAM: Male, 73 years old. pulmonary embolism RADIATION DOSAGE (If Supplied By Facility): CTDIvol = ( 12.19 ) mGy, DLP = ( 366.52 ) mGycm TECHNIQUE: The examination was performed with the intravenous administration of IV 100mL Isovue-370. Post-processing of the angiographic images was performed, with multiplanar reformation and 3D reconstruction. Individualized dose optimization techniques were used for this CT. COMPARISON: FINDINGS: Normal enhancement of the main pulmonary artery and right and left pulmonary arteries. Normal enhancement of the bilateral peripheral pulmonary arteries. There is no demonstrated pulmonary embolism. Normal thoracic aorta and visualized great vessels. There is no demonstrated aortic dissection. Normal heart and pericardium. Mild adenopathy in the mediastinum. The lungs demonstrate emphysematous changes. Probable right apical scarring.. There is a spiculated left perihilar mass measuring 4.6 x 6 x 5.8 cm encasing with slight narrowing of the left upper lobe and possibly the left lower lobe bronchi. There is a Left lower lobe consolidation. Normal chest wall structures. Normal osseous structures. Normal visualized upper abdomen. CT/CTA Chest W/WO Contrast IMPRESSION: No demonstrated pulmonary embolism or arterial dissection. The lungs demonstrate emphysematous changes. Probable right apical scarring.. There is a spiculated left perihilar mass measuring 4.6 x 6 x 5.8 cm encasing with slight narrowing of the left upper lobe and possibly the left lower lobe bronchi. There is a Left lower lobe consolidation. Electronically Signed: Aureliano Vera DO at 19:03 EST ,
[2023-05-28 18:35] LABS: Reflex Troponin-HS? (from REC) Y
[2023-05-28] MEDS: Ceftriaxone 1 GM/50 ML BAG IV (19:28)
[2023-05-28 19:30] LABS: Troponin-I HS 113 pg/mL (3.0-78.0)
--- NOTE | 2023-05-28 19:34 | HP.PCM.HOS_ITS ---
[facility] - General General Date of Admission: 05/28/23 Date of Service: 05/28/23 Chief Complaint: SOB. [facility] Narrative TONY SNYDER, is a 73 M with past medical history of tobacco abuse; subsequent COPD, chronic hypoxic respiratory failure on home oxygen followed by Dr. Banegas of pulmonology, history of squamous cell carcinoma of the left lower lobe; on immunotherapy since March 2023 with port in his right upper chest, remote history of COVID-19, history of iron deficiency anemia, GERD, osteoarthritis; with chronic back pain and DNR-CCA CODE STATUS with NO intubation (but he and his family are both okay with BiPAP) who presents to [facility] ER complaining of shortness of breath. Mr. Snyder reports his symptoms began ap proximately 1 hour prior to arrival when he became severely short of breath attempting to ambulate to the restroom with his walker. Though he rested he had a hard time catching his breath again and is dyspnea was made worse with minimal movement or exertion accompanied by the sensation that he had persistent heart racing. He denies significant change in his chronic cough but he does endorse a history of wheezing. When asking the ER if he had chest pain he stated that it was only from the work of breathing. He denies associated fever, chills, nausea, vomiting, diarrhea or constipation and he states that albuterol is usually not effective in helping to relieve his wheezing and shortness of breath. According to the patient he feels like he does not need BiPAP at this time because he cannot cough and he was not comfortable wearing it in the past when he had COVID-19. In the ER his CT scan of the chest was negative for PE but did reveal a spiculated left perihilar mass measuring ~4.6 x 6 x 5.8 cm encasing with the slight narrowing of the left upper lobe and possibly the left lower lobe bronchi with a left lower lobe consolidation consistent with suspected postobstructive pneumonia in the setting of known squamous cell lung cancer with leukocytosis of 20.4 and hyperkalemia of 5.2 mmol/L present on admission compounded by clinical evidence of acute exacerbation of COPD with acute hypoxic respiratory failure with the patient requiring Airvo complicated by transient tachycardia of 170 bpm with elevated troponin of 113 pg/mL present on admission likely due to acute cardiac strain causing non-ST elevation OK type-II and he was then admitted to the [facility] floor with telemetry monitoring for ongoing care for stay that is expected to be greater than 48 hours. [facility] Medical History Ambulates with cane Arthritis Back pain Cancer Chronic cough COPD (chronic obstructive pulmonary disease) Easy bruising Former smoker Gastric reflux History of lung cancer History of pain when walking History of smoking 30 or more pack years History of steroid therapy History of stress test Loss of hearing Low iron Mass of left lung On home oxygen therapy Shortness of breath on exertion Squamous cell carcinoma of left lung Wears glasses Wears hearing aid Home Medications albuterol sulfate 90 mcg/actuation aerosol inhaler (Proventil HFA) 2 puff inhalation Q6H PRN COPD 12/11/20 [History Last Taken 05/28/23 08:00] montelukast 10 mg tablet 10 mg PO QHS allergies 12/11/20 [History Last Taken 05/27/23 19:00] roflumilast 500 mcg tablet (Daliresp) 500 mcg PO DAILY copd 12/11/20 [History Last Taken 05/28/23 08:00] mometasone 200 mcg/actuation HFA aerosol inhaler (Asmanex HFA) 2 puff inhalation BID breathing 01/10/21 [History Last Taken 05/28/23 08:00] tiotropium 2.5 mcg-olodaterol 2.5 mcg/actuation mist for inhalation (Stiolto Respimat) 2 puff inhalation DAILY breathing 01/10/21 [History Last Taken 05/28/23 08:00] albuterol sulfate 0.63 mg/3 mL solution for nebulization 0.63 mg (3 mL) inhalation Q6H PRN wheezing #90 mL 05/24/21 [Rx Last Taken 05/28/23 08:00] prednisone 10 mg tablet 10 mg PO DAILY #100 tabs 09/25/22 [Rx Last Taken 05/28/23 08:00] diphenhydramine HCl 25 mg tablet (Benadryl Allergy) 25 mg PO BID allergies 02/25/23 [History Last Taken Unknown] cetirizine 10 mg tablet (All Day Allergy (cetirizine)) 10 mg PO DAILY PRN allergy symptoms 05/28/23 [History Last Taken 05/28/23 08:00] fluticasone propionate 50 mcg/actuation nasal spray,suspension (Allergy Relief (fluticasone)) 1 spray intranasal BID allergy symptoms 05/28/23 [History Last Taken 05/28/23 08:00] Allergy/AdvReac Type Severity Reaction Status Date / Time No Known Allergies Allergy Verified 05/28/23 15:56 Surgical History History of hip replacement (~06/11/22) History of inguinal hernia repair History of tonsillectomy and adenoidectomy Hx of bilateral cataract extraction Social History Smoking Status: Former smoker pack-years: 30 Tobacco: How many years used: 30 ROS ROS Narrative Review of systems: Constitutional: Patient denies fevers or chills. Eyes: Patient denies visual changes or discharge from the eyes. ENT: Patient denies runny nose, sore throat or ear pain. Cardiovascular: Patient admits to heart racing but denies chest pain. Respiratory: Patient admits to shortness of breath and wheezing. Gastrointestinal: Patient denies abdominal pain, nausea or vomiting. Genitourinary: Patient denies dysuria, hematuria or urinary frequency. Integumentary: Patient denies abrasions or rash. Neurologic: Patient denies headache, dizziness or focal neurologic deficits. Psychiatric: Patient denies uncontrolled anxiety or depression. Allergic: Patient denies lip swelling, tongue swelling or urticaria. Hematologic: Patient does admit to easy bleeding. 14 point review of systems otherwise negative except for positives noted above in HPI. Vital Signs Vital Signs Vital Signs: 05/28/23 15:55 05/28/23 15:55 05/28/23 16:49 Temperature 97.8 F Temperature Source Temporal Pulse Rate 149 H 127 H Respiratory Rate 25 H 26 H Respiratory Effort Short of Breath Respiratory Depth Deep Respiratory Pattern Tachypnea Tachypnea Blood Pressure 153/106 H Blood Pressure Mean 121 Pulse Ox 95 Oxygen Delivery Method Nasal Cannula Nasal Cannula Oxygen Flow Rate (L/min) 6 6 05/28/23 16:55 05/28/23 17:12 05/28/23 17:14 Temperature Temperature Source Pulse Rate 127 H 125 H 126 H Respiratory Rate 28 H 20 H 21 H Respiratory Effort Respiratory Depth Respiratory Pattern Normal Blood Pressure 162/95 H 171/133 H Blood Pressure Mean 117 145 Pulse Ox 94 97 Oxygen Delivery Method Nasal Cannula Oxygen Flow Rate (L/min) 05/28/23 18:24 05/28/23 18:24 Temperature 97.6 F L Temperature Source Temporal Pulse Rate 112 H 114 H Respiratory Rate 21 H 24 H Respiratory Effort Respiratory Depth Respiratory Pattern Blood Pressure 133/113 H 133/113 H Blood Pressure Mean 119 119 Pulse Ox 99 98 Oxygen Delivery Method Nasal Cannula Nasal Cannula Oxygen Flow Rate (L/min) 6 6 Weight Weight: 153 lb 14.122 oz Body Mass Index (BMI) 22.7 Physical Exam Const alert, oriented x3 and average body habitus Constitutional Narrative: Patient appears chronically ill and moderately short of breath with labored respirations. General Appearance: cooperative HEENT normocephalic, head/scalp atraumatic, hearing grossly normal bilaterally, moist oral mucous membranes and oropharynx normal Eyes PERRL and EOMs intact bilaterally Neck no lymphadenopathy and supple Resp Resp Narrative: Diminished breath sounds throughout with scattered wheezes. Cardio Cardio Narrative: Tachycardic at 110 bpm and occasionally irregular. GI normal to inspection, nondistended, normoactive bowel sounds, soft to palpation, non-tender and non-distended Extremity normal to inspection, full ROM and no clubbing, cyanosis or edema Skin Skin Narrative: Patient has no evidence of rash at this time. Neuro oriented x3, CN's II-XII intact bilaterally, moves all extremities and no focal motor deficits Sensorium / Orientation: awake, alert, oriented to person, oriented to place and oriented to time Speech: speech normal Motor Exam: strength 5/5 throughout Psych affect normal Results Medical Records Data Attestation: I reviewed the patient's medical records Lab / Micro Data Attestation: I reviewed the patient's lab results. 05/28/23 16:13 05/28/23 16:13 Labs: Laboratory Results - last 24 hr 05/28/23 16:13: WBC 20.4 H, RBC 5.18, Hgb 13.4, Hct 45.0, MCV 86.9, MCH 25.9 L, MCHC 29.8 L, RDW Std Deviation 48.3 H, RDW Coeff of Zane 15.0 H, Plt Count 409, MPV 10.3, Immature Gran % (Auto) 0.400, Neut % (Auto) 92.3 H, Lymph % (Auto) 1.6 L, [place] % (Auto) 4.8, Eos % (Auto) 0.6, Baso % (Auto) 0.3, Absolute Neuts (auto) 18.8 H, Absolute Lymphs (auto) 0.32 L, Nucleated RBC % 0, Differential Comment SCANNED, D-Dimer Quant (PE/DVT) 0.92 H*, Sodium 137, Potassium 5.2 H, Chloride 102, Carbon Dioxide 27.0, Anion Gap 8, BUN 21 H, Creatinine 1.20, Estim Creat Clear Calc 54.13, Est GFR (MDRD) Af Amer 76, Est GFR (MDRD) Non-Af 63, BUN/Creatinine Ratio 17.5, Glucose 111 H, Calcium 10.0, Total Bilirubin 0.60, Direct Bilirubin 0.07, AST 52 H, ALT 43, Alkaline Phosphatase 69, Troponin I High Sens 50, Total Protein 8.2, Albumin 3.2, Globulin 5.0 H 05/28/23 19:05: Troponin I High Sens 113 H Imagaing Radiology Impression Chest X-Ray 05/28/23 16:55 IMPRESSION: Basilar opacities appear similar to previous study, left more than right. Electronically Signed: Aureliano Vera DO at 18:26 EST , Chest CTA 05/28/23 17:45 IMPRESSION: No demonstrated pulmonary embolism or arterial dissection. The lungs demonstrate emphysematous changes. Probable right apical scarring.. There is a spiculated left perihilar mass measuring 4.6 x 6 x 5.8 cm encasing with slight narrowing of the left upper lobe and possibly the left lower lobe bronchi. There is a Left lower lobe consolidation. Electronically Signed: Aureliano Vera DO at 19:03 EST , Assessment & Plan Assessment/Plan (1) Postobstructive pneumonia: (2) COPD exacerbation: (3) Acute respiratory failure with hypoxia: (4) Chronic respiratory failure with hypoxia: (5) Stage 3 severe COPD by GOLD classification: (6) Squamous cell lung cancer: QUALIFIERS: Laterality: left Qualified Code(s): C34.92 - Malignant neoplasm of unspecified part of left bronchus or lung (7) NSTEMI, initial episode of care: PLAN: Plan 1. Spiculated left perihilar mass measuring ~4.6 x 6 x 5.8 cm encasing with the slight narrowing of the left upper lobe and possibly the left lower lobe bronchi with a left lower lobe consolidation consistent with suspected postobstructive pneumonia in the setting of known squamous cell lung cancer with leukocytosis of 20.4 present on admission and patient with DNR-CCA CODE STATUS with NO intubation (but he and his family are both okay with BiPAP) - Admit to general medical floor. Continue broad-spectrum antibiotics and await culture and sensitivity data. Also continue steroids and as needed and scheduled nebulizers. Give Tylenol as needed for mild to moderate level 1-5 out of 10 pain or fever. Give morphine IV as needed for severe level 6-10 out of 10 pain. Finally, we will consult the typesetting machine tender on-call to see this patient on rounds in the a.m. for recommendations regarding potential stent placement with help appreciated in advance. 2. Acute exacerbation of COPD; with acute on chronic hypoxic respiratory failure requiring Airvo due to #1 - Check ABG to establish baseline with patient still having labored respirations. Resume antibiotics, steroids and nebulizers outlined above. Also continue home medications as previous. 3. Transient sinus tachycardia approximately 170 bpm with troponin elevation of 113 pg/mL present on admission due to suspected acute cardiac strain causing non-STEMI type II arising from #1 & #2 - Start baby aspirin, Plavix, statin and full dose Lovenox. Serialize troponin. Check echocardiogram to evaluate left ventricular ejection fraction. Finally, we will consult fibre technologist on-call to see this patient on rounds in the a.m. for further recommendations with help appreciated in advance. 4. History of iron deficiency anemia - Stable. 5. GERD - Start PPI in light of steroid therapy for #1 and #2. 6. Osteoarthritis; with chronic back pain - Stable. We will use pain scale outlined above. 7. DVT prophylaxis - Patient on full dose Lovenox for #3 plus we will add SCDs. Total time: Approximately 55 minutes. Charges/Coding Visit Charges Inpatient E&M: 22711 Init Hosp L2
[2023-05-28] MEDS: Azithromycin 500 MG in Dextrose 5%-Water (250mL Bag) 250 ML 250 MG IV (20:16)
[2023-05-28 21:36] LABS: Lactic Acid 4.3 mmol/L (0.4-1.9); Troponin-I HS 126 pg/mL (3.0-78.0)
--- NOTE | 2023-05-28 21:44 | NURSING ---
this rn took lab result lactic 4.3, troponin 126, charger tester & primary rn notified, primary rn notified Dr. Bae, nursing printing and stamping supervisor notified of labs and pt on airvo. cps in room states pt may need bipap.
[2023-05-28] MEDS: Budesonide Respules 0.5 MG/2 ML AMPUL.NEB. INHALATION (22:02)
--- NOTE | 2023-05-28 22:22 | NURSING ---
this RN notified Sebastian about lactic and troponin results. notified of pts work of breathing/ labored respirations and recent vitals. Sebastian acknowledged and stated pt is a DNRCCA, i do not want to transfer him to another floor at this time. no new orders at this time. Mineral Technologist and retail office associate updated on poc.
[2023-05-28] MEDS: Montelukast 10 MG Tablet PO (23:43)
[2023-05-28] MEDS: Aspirin 81 MG TAB.CHEW PO (23:43)
[2023-05-28] MEDS: guaiFENesin 1,200 MG Tablet 1200 MG PO (23:43)
[2023-05-28] MEDS: MethylPREDNISolone 125 MG/2 ML Vial IV (23:47)
[2023-05-28] MEDS: Enoxaparin 80 MG/0.8 ML Syringe 70 MG SC (23:48)
[2023-05-29] VITALS (13 sets, daily range): BP systolic 99–134; BP diastolic 57–73; PULSE 86–110; RESP 18–21; TEMP 36.1–36.6; O2SAT 88–98
[2023-05-29 00:57] LABS: Reflex Lactate? Y
[2023-05-29 02:25] LABS: Lactic Acid 1.6 mmol/L (0.4-1.9)
--- NOTE | 2023-05-29 05:30 | RAD_ITS ---
INDICATION: Pneumonia-486 EXAMINATION/TECHNIQUE: X-RAY - XR Chest 1 View COMPARISON: 05/28/2023 FINDINGS: LINES/DEVICES: Mediport on the right is suggested is in the right atrium. LUNGS: There is a spiculated left perihilar mass measuring 4.6 x 6 x 5.8 cm. MEDIASTINUM AND CARDIOVASCULAR STRUCTURES: Cardiac silhouette not enlarged. Central airways and mediastinal contour are unremarkable. BONES AND SOFT TISSUES: Unremarkable. RAD/Chest 1 View (Portable) IMPRESSION: There is a spiculated left perihilar mass measuring 4.6 x 6 x 5.8 cm. Electronically Signed: Lakisha Medrano MD at 7:26 EST ,
[2023-05-29] MEDS: Azithromycin 500 MG in Dextrose 5%-Water (250mL Bag) 250 ML 250 MG IV (08:36)
[2023-05-29] MEDS: Enoxaparin 80 MG/0.8 ML Syringe 70 MG SC (08:39)
[2023-05-29] MEDS: 0.9% Saline Lock 10 ML Syringe IV ×2 (08:40→14:11)
[2023-05-29] MEDS: Budesonide Respules 0.5 MG/2 ML AMPUL.NEB. INHALATION (09:14)
[2023-05-29] MEDS: Ipratropium/Albuterol Sulfate 3 ML AMPUL.NEB INHALATION ×2 (09:14→19:35)
--- NOTE | 2023-05-29 10:12 | EX.PCM.CONCC ---
Assessment & Plan Assessment/Plan (1) COPD exacerbation: (2) Postobstructive pneumonia: (3) Stage 3 severe COPD by GOLD classification: (4) Acute respiratory failure with hypoxia: PLAN: Plan RECOMMENDATIONS: 1. Continue antibiotics 2. Transition to systemic steroids 3. Encourage incentive spirometer and Acapella 4. Wean oxygen as tolerated 5. Walking oximetry prior to discharge 6. Unable to place bronchial stent without transfer to tertiary center IMPRESSIONS: 1. Acute hypoxic respiratory failure secondary to COPD exacerbation secondary to postobstructive pneumonia secondary to pneumococcus Patient currently on appropriate antibiotics. Patient will be transitioned over to IV steroids. This will need to be weaned slowly given patient is on prednisone at baseline. Patient is pneumococcal antigen positive, but would continue with current antibiotics until cultures are finalized. Continue to wean oxygen as tolerated. Patient will need a walking oximetry prior to discharge. Patient is followed by [facility], which could place a bronchial stent if necessary. Will hold on any bronchoscopy at this time as stent cannot be placed at [facility]. This could be evaluated as an outpatient. 2. Squamous cell lung carcinoma Patient has received immunotherapy by [facility]. Patient being followed by Dr. Moon. Unclear if we would proceed with a bronchial stent, but there has been growth noted on previous CT scans. Likely treat patient acutely given his marginal oxygen increase requirements and then reevaluate when patient is more stable. 3. Sinus tachycardia/iron deficiency anemia/GERD/osteoarthritis/advanced age/debility Complicates care, management, recovery and prognosis. Patient has been initiated on a PPI which is reasonable. Patient did have a mild elevation of troponin with sinus tachycardia, but is unclear if this represents coronary artery disease as patient was having some hypoxia at home. Workup would likely be completed as an outpatient. Agree with chemical and mechanical prophylaxis for DVT as patient is at high risk given problem #2. HPI Consult Data Date of Consult: 05/29/23 HPI Narrative Reason for Consultation: Hypoxic respiratory failure HPI Narrative: TONY SNYDER is a 73 M, with past medical history listed below and well-known to me from the outpatient office, who presents to [facility] on 05/28/2023 secondary to our office recommendation with worsening shortness of breath. Patient reportedly was of his usual health on Thursday, but then through the week started to have a hard time breathing. Patient states that he was unable to ambulate despite the use of a walker. Patient had reported breathing pain on the left side, which was new for him. Patient is undergoing therapy secondary to lung cancer and is known to be a DNR/DNI. In the ER, patient was afebrile, tachycardic and hypertensive. Patient was noted to be requiring 6 L nasal cannula to maintain saturations at rest. Laboratory data showed a white blood cell count of 20.4, hemoglobin 13.4 and platelets of 409. Patient did have a left shift. Patient's D-dimer was slightly elevated, along with potassium of 5.2 and glucose of 111. Renal function showed a creatinine of 1.2 with normal LFTs. Chest x-ray had shown slightly more left basilar infiltrate and a CT of the chest showed no PE, right apical scarring, perihilar mass and left lower lobe consolidation. Patient was given IV Cardizem to help with his tachycardia and to confirm sinus rhythm. Patient was initiated on Rocephin and Zithromax and admitted to the hospital for further evaluation. Since being on the floor, patient has been placed on Airvo to maintain saturations. Patient did tolerate BiPAP for a brief period of time. Patient did test positive for pneumococcal antigen on continued workup. Patient also had slightly elevated troponin. Pulmonary consult was obtained secondary to his respiratory status. On my arrival, patient was very hard of hearing, but did not have his hearing aids in place. Patient states that he does feel subjectively improved compared to previous in the ER. Patient has not really had a productive cough. Patient denies any nausea or vomiting, but does have some mild pleuritic chest pain. Patient is a relatively poor historian, but was not at the bedside. Review of systems otherwise negative from a constitutional, HEENT, respiratory, cardiovascular, GI, genitourinary, musculoskeletal, skin, neurologic, psychiatric and hematologic system unless stated above. [facility] Medical History Ambulates with cane Arthritis Back pain Cancer Chronic cough COPD (chronic obstructive pulmonary disease) Easy bruising Former smoker Gastric reflux History of lung cancer History of pain when walking History of smoking 30 or more pack years History of steroid therapy History of stress test Loss of hearing Low iron Mass of left lung On home oxygen therapy Shortness of breath on exertion Squamous cell carcinoma of left lung Wears glasses Wears hearing aid Home Medications albuterol sulfate 90 mcg/actuation aerosol inhaler (Proventil HFA) 2 puff inhalation Q6H PRN COPD 12/11/20 [History Last Taken 05/28/23 08:00] montelukast 10 mg tablet 10 mg PO QHS allergies 12/11/20 [History Last Taken 05/27/23 19:00] roflumilast 500 mcg tablet (Daliresp) 500 mcg PO DAILY copd 12/11/20 [History Last Taken 05/28/23 08:00] mometasone 200 mcg/actuation HFA aerosol inhaler (Asmanex HFA) 2 puff inhalation BID breathing 01/10/21 [History Last Taken 05/28/23 08:00] tiotropium 2.5 mcg-olodaterol 2.5 mcg/actuation mist for inhalation (Stiolto Respimat) 2 puff inhalation DAILY breathing 01/10/21 [History Last Taken 05/28/23 08:00] albuterol sulfate 0.63 mg/3 mL solution for nebulization 0.63 mg (3 mL) inhalation Q6H PRN wheezing #90 mL 05/24/21 [Rx Last Taken 05/28/23 08:00] prednisone 10 mg tablet 10 mg PO DAILY #100 tabs 09/25/22 [Rx Last Taken 05/28/23 08:00] diphenhydramine HCl 25 mg tablet (Benadryl Allergy) 25 mg PO BID allergies 02/25/23 [History Last Taken Unknown] cetirizine 10 mg tablet (All Day Allergy (cetirizine)) 10 mg PO DAILY PRN allergy symptoms 05/28/23 [History Last Taken 05/28/23 08:00] fluticasone propionate 50 mcg/actuation nasal spray,suspension (Allergy Relief (fluticasone)) 1 spray intranasal BID allergy symptoms 05/28/23 [History Last Taken 05/28/23 08:00] Allergy/AdvReac Type Severity Reaction Status Date / Time No Known Allergies Allergy Verified 05/28/23 15:56 Surgical History History of hip replacement (~06/11/22) History of inguinal hernia repair History of tonsillectomy and adenoidectomy Hx of bilateral cataract extraction Social History Smoking Status: Former smoker pack-years: 30 Tobacco: How many years used: 30 ROS ROS Narrative See HPI Physical Exam Const alert, oriented x3 and average body habitus Constitutional Narrative: Patient appears chronically ill and with mild conversational dyspnea General Appearance: cooperative HEENT normocephalic, head/scalp atraumatic, moist oral mucous membranes and oropharynx normal HEENT Narrative: Airvo in place General Ear: hearing grossly impaired diffuse Eyes PERRL and EOMs intact bilaterally Neck no lymphadenopathy and supple Resp Effort and Inspection: actively coughing Auscultation: rhonchi left lower, wheezes and diminished lung sounds Cardio regular rate, regular rhythm, S1 normal heart sound, S2 normal heart sound, no murmurs, no rub and no gallops GI normal to inspection, nondistended, normoactive bowel sounds, soft to palpation, non-tender and non-distended Extremity normal to inspection, full ROM and no clubbing, cyanosis or edema Skin no rashes or lesions noted Neuro oriented x3, CN's II-XII intact bilaterally, moves all extremities and no focal motor deficits Psych affect normal Medical Records Data Attestation: I reviewed the patient's medical records Medical records narrative: History of squamous cell carcinoma being treated at [facility]. Patient previously has been on low-dose prednisone therapy chronically. Patient does have a history of concurrent bronchiectasis and last PFT shows an FEV1 of 41% Lab / Micro Data Attestation: I reviewed the patient's lab results. Lab results narrative: Patient has had multiple positive cultures in the past, but no MDRO. Patient now with pneumococcal antigen positive 05/28/23 16:13 05/28/23 16:13 Labs: Laboratory Results - last 24 hr 05/28/23 16:13: WBC 20.4 H, RBC 5.18, Hgb 13.4, Hct 45.0, MCV 86.9, MCH 25.9 L, MCHC 29.8 L, RDW Std Deviation 48.3 H, RDW Coeff of Zane 15.0 H, Plt Count 409, MPV 10.3, Immature Gran % (Auto) 0.400, Neut % (Auto) 92.3 H, Lymph % (Auto) 1.6 L, Beadle % (Auto) 4.8, Eos % (Auto) 0.6, Baso % (Auto) 0.3, Absolute Neuts (auto) 18.8 H, Absolute Lymphs (auto) 0.32 L, Nucleated RBC % 0, Differential Comment SCANNED, D-Dimer Quant (PE/DVT) 0.92 H*, Sodium 137, Potassium 5.2 H, Chloride 102, Carbon Dioxide 27.0, Anion Gap 8, BUN 21 H, Creatinine 1.20, Estim Creat Clear Calc 54.13, Est GFR (MDRD) Af Amer 76, Est GFR (MDRD) Non-Af 63, BUN/Creatinine Ratio 17.5, Glucose 111 H, Calcium 10.0, Total Bilirubin 0.60, Direct Bilirubin 0.07, AST 52 H, ALT 43, Alkaline Phosphatase 69, Troponin I High Sens 50, Total Protein 8.2, Albumin 3.2, Globulin 5.0 H 05/28/23 19:05: Troponin I High Sens 113 H 05/28/23 20:53: Lactic Acid 4.3 H*, Troponin I High Sens 126 H* 05/29/23 01:48: Lactic Acid 1.6 Micro: Microbiology 05/28/23 21:25 Mucosa - Nasopharyngeal Respiratory Panel (PCR) - Final 05/28/23 23:55 Urine, Clean Catch Legionella Antigen - Final 05/28/23 23:55 Urine, Clean Catch Streptococcus pneumoniae Antigen (M - Final Streptococcus pneumonia Ag 05/28/23 21:25 Mucosa - Nasopharyngeal Coronavirus COVID-19 PCR - Final Imagaing Radiology Impression Chest X-Ray 05/28/23 16:55 IMPRESSION: Basilar opacities appear similar to previous study, left more than right. Electronically Signed: Aureliano Vera DO at 18:26 EST Reading Location ID and State: [facility] / [place] Tel [phone], Service support , Chest CTA 05/28/23 17:45 IMPRESSION: No demonstrated pulmonary embolism or arterial dissection. The lungs demonstrate emphysematous changes. Probable right apical scarring.. There is a spiculated left perihilar mass measuring 4.6 x 6 x 5.8 cm encasing with slight narrowing of the left upper lobe and possibly the left lower lobe bronchi. There is a Left lower lobe consolidation. Electronically Signed: Aureliano Vera DO at 19:03 EST , Chest X-Ray 05/29/23 05:30 IMPRESSION: There is a spiculated left perihilar mass measuring 4.6 x 6 x 5.8 cm. Electronically Signed: Lakisha Medrano MD at 7:26 EST , Charges/Coding Visit Charges Inpatient E&M: 02495 Init Hosp L3
[2023-05-29] MEDS: Zinc Sulfate 50 mg zinc (220 mg) ORAL capsule PO (11:03)
[2023-05-29] MEDS: Pantoprazole Sodium 40 MG Tablet PO (11:03)
[2023-05-29] MEDS: guaiFENesin 1,200 MG Tablet 1200 MG PO ×2 (11:03→21:21)
[2023-05-29] MEDS: Ascorbic Acid 500 MG Tablet 1000 MG PO ×2 (11:03→17:23)
[2023-05-29] MEDS: Ceftriaxone 1 GM/50 ML BAG IV (11:03)
[2023-05-29] MEDS: Cholecalciferol (Vit D3) 125 MCG CAPSULE (5,000 UNITS) PO (11:04)
--- NOTE | 2023-05-29 11:24 | PN.HOSP_ITS ---
Reason for Visit Reason for Visit: Diagnoses Malignant neoplasm of unspecified part of left bronchus or lung (05/28/23) Non-ST elevation (NSTEMI) myocardial infarction (05/28/23) Pneumonia, unspecified organism (05/28/23) Chronic obstructive pulmonary disease with (acute) exacerbation (05/28/23) Chronic obstructive pulmonary disease, unspecified (05/28/23) Acute respiratory failure with hypoxia (05/28/23) Chronic respiratory failure with hypoxia (05/28/23) Objective Data Objective Data Vital Signs: Vital Signs Temp Pulse Resp BP Pulse Ox O2 Del Method O2 Flow Rate 97.5 F L 109 H 21 H 107/73 98 Airvo 50 05/29/23 08:30 05/29/23 09:20 05/29/23 09:20 05/29/23 08:30 05/29/23 08:30 05/29/23 08:30 05/29/23 08:30 FiO2 33 05/29/23 08:30 Oxygen Flow Rate (L/min) 50 Oxygen Delivery Method Airvo Weight: 152 lb 5.431 oz Body Mass Index (BMI) 22.5 Intake & Output: Intake and Output for Last 24 Hours 05/27/23 05/28/23 05/29/23 23:59 23:59 23:59 Intake Total 305 / 305 255 / 255 Output Total 200 / 200 300 / 300 Balance 105 / 105 -45 / -45 Lab / Micro Data 05/28/23 16:13 05/28/23 16:13 Labs: Laboratory Results - last 24 hr 05/28/23 16:13: WBC 20.4 H, RBC 5.18, Hgb 13.4, Hct 45.0, MCV 86.9, MCH 25.9 L, MCHC 29.8 L, RDW Std Deviation 48.3 H, RDW Coeff of Zane 15.0 H, Plt Count 409, MPV 10.3, Immature Gran % (Auto) 0.400, Neut % (Auto) 92.3 H, Lymph % (Auto) 1.6 L, Patrick % (Auto) 4.8, Eos % (Auto) 0.6, Baso % (Auto) 0.3, Absolute Neuts (auto) 18.8 H, Absolute Lymphs (auto) 0.32 L, Nucleated RBC % 0, Differential Comment SCANNED, D-Dimer Quant (PE/DVT) 0.92 H*, Sodium 137, Potassium 5.2 H, Chloride 102, Carbon Dioxide 27.0, Anion Gap 8, BUN 21 H, Creatinine 1.20, Estim Creat Clear Calc 54.13, Est GFR (MDRD) Af Amer 76, Est GFR (MDRD) Non-Af 63, BUN/Creatinine Ratio 17.5, Glucose 111 H, Calcium 10.0, Total Bilirubin 0.60, Direct Bilirubin 0.07, AST 52 H, ALT 43, Alkaline Phosphatase 69, Troponin I High Sens 50, Total Protein 8.2, Albumin 3.2, Globulin 5.0 H 05/28/23 19:05: Troponin I High Sens 113 H 05/28/23 20:53: Lactic Acid 4.3 H*, Troponin I High Sens 126 H* 05/29/23 01:48: Lactic Acid 1.6 Micro: Microbiology 05/28/23 21:25 Mucosa - Nasopharyngeal Respiratory Panel (PCR) - Final 05/28/23 23:55 Urine, Clean Catch Legionella Antigen - Final 05/28/23 23:55 Urine, Clean Catch Streptococcus pneumoniae Antigen (M - Final Streptococcus pneumonia Ag 05/28/23 21:25 Mucosa - Nasopharyngeal Coronavirus COVID-19 PCR - Final Radiography Diagnostic Testing: Radiology Impression Chest X-Ray 05/28/23 16:55 IMPRESSION: Basilar opacities appear similar to previous study, left more than right. Electronically Signed: Aureliano Vera DO at 18:26 EST , Chest CTA 05/28/23 17:45 IMPRESSION: No demonstrated pulmonary embolism or arterial dissection. The lungs demonstrate emphysematous changes. Probable right apical scarring.. There is a spiculated left perihilar mass measuring 4.6 x 6 x 5.8 cm encasing with slight narrowing of the left upper lobe and possibly the left lower lobe bronchi. There is a Left lower lobe consolidation. Electronically Signed: Aureliano Vera DO at 19:03 EST , Chest X-Ray 05/29/23 05:30 IMPRESSION: There is a spiculated left perihilar mass measuring 4.6 x 6 x 5.8 cm. Electronically Signed: Lakisha Medrano MD at 7:26 EST , Physical Exam Narrative Seen and examined. Patient is still short of breath. He coughed up a small blood-tinged purulent sputum. Patient on Airvo. Discussed with the present near the bedside. Patient has lung cancer on immunotherapy every 3-week by Dr. Moon. General: Alert, Oriented x3, Cooperative HEENT: Atraumatic, PERRLA, EOMI, Normocephalic Oral: . No Gingival or Mucosal Lesions/ Ulcerations Neck: Supple, No JVD, Negative Carotid Bruits Lungs: NIPPV, on Airvo. Air entry severely diminished bilaterally. Bilateral expiratory rhonchi. Mild coarse crepitations bilateral lung bases Cardiovascular: Regular rate, Regular Rhythm, Normal S1, Normal S2, No murmurs Abdomen: Bowel Sounds Present, Soft, Non Tender, Non-Distended : No renal angle tenderness. No suprapubic tenderness. Extremities: No edema, Capillary Refill Less than 3 Seconds Skin: No rashes, No breakdown Musculoskeletal: No Tenderness to Palpation of Joints or Extremities. Mild muscle atrophy of extremities. Neurological: Cranial nerves II-XII grossly intact, DTR 2+/4. No acute focal neurological deficit. Psych/Mental Status: Flat affect. Assessment & Plan Assessment/Plan (1) Postobstructive pneumonia: (2) COPD exacerbation: (3) Acute respiratory failure with hypoxia: (4) Chronic respiratory failure with hypoxia: (5) Stage 3 severe COPD by GOLD classification: (6) Squamous cell lung cancer: QUALIFIERS: Laterality: left Qualified Code(s): C34.92 - Malignant neoplasm of unspecified part of left bronchus or lung (7) NSTEMI, initial episode of care: PLAN: Plan 73-year-old female brought by EMS for increased shortness of breath with history of COPD and lung cancer. Patient on immunotherapy infusion every 3 weeks. He uses walker to evaluate restroom with severe dyspnea on exertion not getting better with albuterol inhaler. 1. Spiculated left perihilar mass measuring ~4.6 x 6 x 5.8 cm encasing with the slight narrowing of the left upper lobe and possibly the left lower lobe bronchi with a left lower lobe consolidation consistent with suspected postobstructive pneumonia cannot to pneumococcus pneumoniae in the setting of known squamous cell lung cancer: Patient is being admitted to floor. Leukocytosis with neutrophilia 92%, lymphocyte 1.6% with immature granulocytes 0.4%. Ceftriaxone changed to IV Zosyn for broad-spectrum coverage including anaerobes. Patient is immunocompromised on immunotherapy. Continue Zithromax. Continue steroids and as needed and scheduled nebulizers. Incentive spirometry and PEP. Mucinex DM. 2. Acute exacerbation of COPD; with acute on chronic hypoxic respiratory failure requiring Airvo: ABG shows 7.4 12/03/1986 on ambient air. Already described in detail above. On Airvo. 3. Transient sinus tachycardia approximately 170 bpm with troponin elevation of 113 pg/mL present on admission due to suspected acute myocardial injury from increased cardiac strain/demand- Start baby aspirin, Plavix, statin and full d ose Lovenox. Serialize troponin. Check echocardiogram to evaluate left ventricular ejection fraction. [employer] consulted 4. History of iron deficiency anemia - Stable. 5. GERD - Start PPI in light of steroid therapy 6. Osteoarthritis; with chronic back pain - Stable. On pain medication. 7. DVT prophylaxis -Lovenox 40 mg subcu daily. Living will/advanced directive/end of life care: Patient does have living will or advanced directive. His present in the room is power of city attorney for health. After discussion of benefits/risks procedures involved with full code, DNR CC arrest and DNR CC, the patient and his opted for DNRCC arrest with no intubation Patient doesn't want artificial life support including intubation, tube feed, ventilator and/chest compression, central venous catheter, vasopressor and DC shock if needed Total time spent in [id number] encounter in discussion of advanced directive 17 minutes. Microbiology Past 72 Hours 05/28/23 21:25 Mucosa - Nasopharyngeal Respiratory Panel (PCR) - Final 05/28/23 23:55 Urine, Clean Catch Legionella Antigen - Final 05/28/23 23:55 Urine, Clean Catch Streptococcus pneumoniae Antigen (M - Final Streptococcus pneumonia Ag 05/28/23 21:25 Mucosa - Nasopharyngeal Coronavirus COVID-19 PCR - Final Laboratory Results 05/28/23 16:13: WBC 20.4 H, RBC 5.18, Hgb 13.4, Hct 45.0, MCV 86.9, MCH 25.9 L, MCHC 29.8 L, RDW Std Deviation 48.3 H, RDW Coeff of Zane 15.0 H, Plt Count 409, MPV 10.3, Immature Gran % (Auto) 0.400, Neut % (Auto) 92.3 H, Lymph % (Auto) 1.6 L, Patrick % (Auto) 4.8, Eos % (Auto) 0.6, Baso % (Auto) 0.3, Absolute Neuts (auto) 18.8 H, Absolute Lymphs (auto) 0.32 L, Nucleated RBC % 0, Differential Comment SCANNED, D-Dimer Quant (PE/DVT) 0.92 H*, Sodium 137, Potassium 5.2 H, Chloride 102, Carbon Dioxide 27.0, Anion Gap 8, BUN 21 H, Creatinine 1.20, Estim Creat Clear Calc 54.13, Est GFR (MDRD) Af Amer 76, Est GFR (MDRD) Non-Af 63, BUN/Creatinine Ratio 17.5, Glucose 111 H, Calcium 10.0, Total Bilirubin 0.60, Direct Bilirubin 0.07, AST 52 H, ALT 43, Alkaline Phosphatase 69, Troponin I High Sens 50, Total Protein 8.2, Albumin 3.2, Globulin 5.0 H 05/28/23 19:05: Troponin I High Sens 113 H 05/28/23 20:53: Lactic Acid 4.3 H*, Troponin I High Sens 126 H* 05/29/23 01:48: Lactic Acid 1.6 Charges/Coding Visit Charges Inpatient E&M: 44433 Subs Hosp L2 Procedures Hospitalists Procedures: 27943 Advncd Care Plan 30 Min
--- NOTE | 2023-05-29 11:50 | ECHOCS_ITS ---
Reason For Study: ELEVATED TROPONINS Procedure This was a 2D Doppler, Color Flow transthoracic echocardiogram. The study was technically difficult. Exam performed portable in patient room. Left Ventricle Mildly dilated left ventricle. The estimated ejection fraction is 40-45 %. Right Ventricle Normal right ventricle. Normal systolic function. Atria Normal left atrium. The right atrium is mildly enlarged. Mitral Valve The mitral valve is structurally normal. No prolapse or stenosis seen. Trivial mitral valve insufficiency. Tricuspid Valve Normal tricuspid valve. Trivial tricuspid valve insufficiency. Aortic Valve Trisinus/trileaflet aortic valve. Pulmonic Valve The pulmonic valve is not well visualized. Great Vessels Normal aortic root. Pericardium/Pleural No pericardial effusion. Medication Diluted definity 3ml given slow IV push to enhance endocardial definition. MMode/2D Measurements & Calculations RVDd: 3.6 cm Ao root diam: 3.1 cm LAV(MOD-bp): 25.9 ml LAV(MOD-bp) Indexed: 14.2 ml/m2 LAV(MOD-sp2): 25.6 ml LAV(MOD-sp4): 26.2 ml SV(MOD-sp4): 31.8 ml SV(sp4-el): 32.6 ml LVAd ap4: 27.9 cm2 LVLd ap4: 7.7 cm EDV(MOD-sp4): 82.8 ml EDV(sp4-el): 85.8 ml LVAs ap4: 20.2 cm2 LVLs ap4: 6.5 cm ESV(MOD-sp4): 51.1 ml ESV(sp4-el): 53.2 ml EF(MOD-sp4): 38.4 % EF(sp4-el): 38.0 % LA dimension(2D): 2.6 cm LA A4 area: 12.0 cm2 RA A4 area: 12.4 cm2 Time Measurements MV dec time: 0.21 sec Doppler Measurements & Calculations MV E max joseluis: 44.5 cm/sec Lat Peak E' Joseluis: 6.7 cm/sec Med Peak E' Joseluis: 6.9 cm/sec MV A max joseluis: 78.5 cm/sec E/E' lat: 6.7 E/E' med: 6.4 MV E/A: 0.57 Ao V2 max: 95.0 cm/sec LV V1 max: 80.5 cm/sec PA V2 max: 54.6 cm/sec Ao max P.6 mmHg LV V1 max P.6 mmHg TR max joseluis: 219.0 cm/sec TR max P.2 mmHg ECHO/Echo Complete W/ Contrast Interpretation Summary The estimated ejection fraction is 40-45 %. Reduced LV systolic function In comparison to the previous echocardiogram February 24, 2009. Ordering Physician: Yen Alexander Referring Physician: JIM GEMMA Performed By: Moni Richards RDCS
--- NOTE | 2023-05-29 12:00 | CASEMGMT ---
SHAWN VARGAS Assessment: SHAWN VARGAS to room to meet with pt for initial transition planning/care coordination assessment. SHAWN VARGAS introduced self and role at [facility], pt voices understanding and consents to assessment. Pt is A/O and answers all questions appropriately at this time. Pt resting in bed in no distress, at bedside. Care providers, pharmacy, and demographics verified/updated. PCP: Dr Dobbins Specialists: Dr Banegas, pulm; Dr Moon, onc Preferred [facility]acy[facility] Prescription Benefit: VA benefits only Living Will/HPOA:? Pt has both LW and HCPOA, who is his , Latoya MUNIZOK: Latoya Mohr, . 2 adult children Living Arrangements: Pt lives with in a one- story home with 3 steps to enter with a rail. assists pt w/bathing and pt able to dress himself. Pt manages his own medications. does home mgnt tasks. Transportation: Pt drives self and denies concerns with transportation. also drives. DME: Pt has a FWW, rollator, RTS, W/C, Vest therapy, pox and oxygen through [employer]. Pt states his orders were 2L with exertion but states Dr Banegas told him he could wear IT continuously and he states he does turn it up to 3 L/M at times. Per Steve @ [employer], current orders are 2 L/M w/exertion. He has a concentrator and portable tank that can bring in for pt to go home on. HHC/SNF: Pt denies hx of HHC or SNF stays. Pt and deny wanting HHC or OP therapy. Palliative: Discussed Palliative care. Pt and decline wanting Palliative referral at this time. Plan: Home w/spousal support and discharge plans in place. Cinthya MONSIVAIS RN, CM
[2023-05-29 13:32] LABS: Troponin-I HS 42 pg/mL (3.0-78.0)
--- NOTE | 2023-05-29 13:54 | CON.PCM.CA_ITS ---
<Statement entered by Yen Alexander MD - 05/29/23 15:55> Pt seen & evaluated w/[facility]. I personally interviewed & exam the pt. I was involved in all aspects of pt's orders, interpretation of results & treatment Assessment & Plan Assessment/Plan (1) Elevated troponin: (2) Acute respiratory failure with hypoxia: (3) Lung cancer: PLAN: Plan * Troponins are trending down. Feel that this was a type II event from his hypoxia. * Echo is pending * based on echo results will decide if medications need to be adjusted. HPI Consult Data Date of Consult: 05/29/23 HPI Narrative HPI Narrative: TONY SNYDER, is a 73 M who presented to [facility] on 05/28/2023 with increased SOB. He was admitted for pneumonia with acute hypoxic respiratory failure, squamous cell carcinoma and sinus tachycardiac. He did have troponins done, they have trended 112/126/42. With his elevated troponin we were consulted. Pt does have not have a previous cardiac hx. Prior to being admitted he denies any cardiac symptoms. He is being followed by Dr. Moon for his lung cancer. [facility] Medical History Ambulates with cane Arthritis Back pain Cancer Chronic cough COPD (chronic obstructive pulmonary disease) Easy bruising Former smoker Gastric reflux History of lung cancer History of pain when walking History of smoking 30 or more pack years History of steroid therapy History of stress test Loss of hearing Low iron Mass of left lung On home oxygen therapy Shortness of breath on exertion Squamous cell carcinoma of left lung Wears glasses Wears hearing aid Home Medications albuterol sulfate 90 mcg/actuation aerosol inhaler (Proventil HFA) 2 puff inhalation Q6H PRN COPD 12/11/20 [History Last Taken 05/28/23 08:00] montelukast 10 mg tablet 10 mg PO QHS allergies 12/11/20 [History Last Taken 05/27/23 19:00] roflumilast 500 mcg tablet (Daliresp) 500 mcg PO DAILY copd 12/11/20 [History Last Taken 05/28/23 08:00] mometasone 200 mcg/actuation HFA aerosol inhaler (Asmanex HFA) 2 puff inhalation BID breathing 01/10/21 [History Last Taken 05/28/23 08:00] tiotropium 2.5 mcg-olodaterol 2.5 mcg/actuation mist for inhalation (Stiolto Respimat) 2 puff inhalation DAILY breathing 01/10/21 [History Last Taken 05/28/23 08:00] albuterol sulfate 0.63 mg/3 mL solution for nebulization 0.63 mg (3 mL) inhal ation Q6H PRN wheezing #90 mL 05/24/21 [Rx Last Taken 05/28/23 08:00] prednisone 10 mg tablet 10 mg PO DAILY #100 tabs 09/25/22 [Rx Last Taken 05/28/23 08:00] diphenhydramine HCl 25 mg tablet (Benadryl Allergy) 25 mg PO BID allergies 02/25/23 [History Last Taken Unknown] cetirizine 10 mg tablet (All Day Allergy (cetirizine)) 10 mg PO DAILY PRN allergy symptoms 05/28/23 [History Last Taken 05/28/23 08:00] fluticasone propionate 50 mcg/actuation nasal spray,suspension (Allergy Relief (fluticasone)) 1 spray intranasal BID allergy symptoms 05/28/23 [History Last Taken 05/28/23 08:00] Allergy/AdvReac Type Severity Reaction Status Date / Time No Known Allergies Allergy Verified 05/28/23 15:56 Surgical History History of hip replacement (~06/11/22) History of inguinal hernia repair History of tonsillectomy and adenoidectomy Hx of bilateral cataract extraction Social History Smoking Status: Former smoker pack-years: 30 Tobacco: How many years used: 30 ROS Constitutional Constitutional: Denies chills, fatigue, frequent falls, headache(s) or lethargy Eyes Eyes: Denies acute decrease in peripheral vision, blurry vision or change in vision ENT HEENT: Denies dizziness, dry mouth, epistaxis, headache(s), tinnitus or vertigo Cardiovascular Cardiovascular: Reports as per HPI; Denies chest pain at rest, chest pain with activity, claudication, edema, irregular heart rhythm, palpitations or pedal edema Respiratory/Chest Respiratory/Chest: Reports as per HPI Gastrointestinal Gastrointestinal: Denies abdominal pain, bloating, coffee ground emesis, diarrhea, heartburn, hematemesis, melena or nausea Genitourinary Genitourinary: Denies hematuria Musculoskeletal Musculoskeletal: Denies myalgias, numbness or tingling Neurologic Neurologic: Denies abnormal gait, abnormal speech, memory loss, paresthesias or weakness Physical Exam Const alert and oriented x3 HEENT normocephalic, head/scalp atraumatic, hearing grossly normal bilaterally, secondary connector armature al ears normal, external nose normal and moist oral mucous membranes Eyes PERRL, EOMs intact bilaterally, conjunctivae normal and no scleral icterus Neck no lymphadenopathy, supple and no JVD Resp Auscultation: diminished lung sounds bilateral lower Cardio regular rate, regular rhythm, S1 normal heart sound, S2 normal heart sound, no murmurs, no rub, no gallops, no clicks, no JVD and peripheral pulses 2+ throughout GI normal to inspection, nondistended, normoactive bowel sounds, soft to palpation, non-tender and non-distended Extremity normal to inspection, normal capillary refill, no clubbing, cyanosis or edema and no pedal edema Neuro oriented x3, CN's II-XII intact bilaterally, moves all extremities and no focal motor deficits Psych cooperative and affect normal Risk Stratification Risk Stratification Applicable: Yes Age >/= 65: Yes >/= 3 CAD Risk Factors (HTN, HLD, DM, family hx of CAD, or current smoker): No Aspirin Use in the Past 7 Days: No Severe Angina (>/= episodes in 24 hours): No EKG ST Changes >/= 0.5mm: No Positive Cardiac Marker: Yes SEBASTIÁN Risk Stratification Score: 2 SEBASTIÁN % Risk: 8% Risk Objective Data Vital Signs: Vital Signs Temp Pulse Resp BP Pulse Ox O2 Del Method O2 Flow Rate 97.5 F L 109 H 21 H 107/73 93 Airvo 50 05/29/23 08:30 05/29/23 09:20 05/29/23 09:20 05/29/23 08:30 05/29/23 12:00 05/29/23 08:30 05/29/23 08:30 FiO2 33 05/29/23 08:30 Oxygen Flow Rate (L/min) 50 Oxygen Delivery Method Airvo Weight: 152 lb 5.431 oz Body Mass Index (BMI) 22.5 Intake & Output: Intake and Output for Last 24 Hours 05/27/23 05/28/23 05/29/23 23:59 23:59 23:59 Intake Total 305 / 305 305 / 305 Output Total 200 / 200 300 / 300 Balance 105 / 105 5 / 5 Lab / Micro Data 05/28/23 16:13 05/28/23 16:13 Labs: Laboratory Results - last 24 hr 05/28/23 16:13: WBC 20.4 H, RBC 5.18, Hgb 13.4, Hct 45.0, MCV 86.9, MCH 25.9 L, MCHC 29.8 L, RDW Std Deviation 48.3 H, RDW Coeff of Zane 15.0 H, Plt Count 409, MPV 10.3, Immature Gran % (Auto) 0.400, Neut % (Auto) 92.3 H, Lymph % (Auto) 1.6 L, Walton % (Auto) 4.8, Eos % (Auto) 0.6, Baso % (Auto) 0.3, Absolute Neuts (auto) 18.8 H, Absolute Lymphs (auto) 0.32 L, Nucleated RBC % 0, Differential Comment SCANNED, D-Dimer Quant (PE/DVT) 0.92 H*, Sodium 137, Potassium 5.2 H, Chloride 102, Carbon Dioxide 27.0, Anion Gap 8, BUN 21 H, Creatinine 1.20, Estim Creat Clear Calc 54.13, Est GFR (MDRD) Af Amer 76, Est GFR (MDRD) Non-Af 63, BUN/Creatinine Ratio 17.5, Glucose 111 H, Calcium 10.0, Total Bilirubin 0.60, Direct Bilirubin 0.07, AST 52 H, ALT 43, Alkaline Phosphatase 69, Troponin I High Sens 50, Total Protein 8.2, Albumin 3.2, Globulin 5.0 H 05/28/23 19:05: Troponin I High Sens 113 H 05/28/23 20:53: Lactic Acid 4.3 H*, Troponin I High Sens 126 H* 05/29/23 01:48: Lactic Acid 1.6 05/29/23 13:08: Troponin I High Sens 42 Micro: Microbiology 05/28/23 21:25 Mucosa - Nasopharyngeal Respiratory Panel (PCR) - Final 05/28/23 23:55 Urine, Clean Catch Legionella Antigen - Final 05/28/23 23:55 Urine, Clean Catch Streptococcus pneumoniae Antigen (M - Final Streptococcus pneumonia Ag 05/28/23 21:25 Mucosa - Nasopharyngeal Coronavirus COVID-19 PCR - Final Cardiology Labs/Tests 05/28/23 16:13: WBC 20.4 H, RBC 5.18, Hgb 13.4, Hct 45.0, MCV 86.9, MCH 25.9 L, MCHC 29.8 L, Plt Count 409, MPV 10.3, Immature Gran % (Auto) 0.400, Neut % (Au to) 92.3 H, Lymph % (Auto) 1.6 L, Walton % (Auto) 4.8, Eos % (Auto) 0.6, Baso % (Auto) 0.3, Absolute Neuts (auto) 18.8 H, Nucleated RBC % 0, D-Dimer Quant (PE/DVT) 0.92 H*, Sodium 137, Potassium 5.2 H, Chloride 102, Carbon Dioxide 27.0, Anion Gap 8, BUN 21 H, Creatinine 1.20, Est GFR (MDRD) Af Amer 76, Est GFR (MDRD) Non-Af 63, BUN/Creatinine Ratio 17.5, Glucose 111 H, Calcium 10.0, Total Bilirubin 0.60, Direct Bilirubin 0.07 05/28/23 20:53: Lactic Acid 4.3 H* 05/29/23 01:48: Lactic Acid 1.6 Rhythm: Sinus Tach ECHO: pending Radiography Diagnostic Testing: Radiology Impression Chest X-Ray 05/28/23 16:55 IMPRESSION: Basilar opacities appear similar to previous study, left more than right. Electronically Signed: Aureliano Vera DO at 18:26 EST Reading Location ID and State: [facility] / [place] Tel [phone], Service support , Chest CTA 05/28/23 17:45 IMPRESSION: No demonstrated pulmonary embolism or arterial dissection. The lungs demonstrate emphysematous changes. Probable right apical scarring.. There is a spiculated left perihilar mass measuring 4.6 x 6 x 5.8 cm encasing with slight narrowing of the left upper lobe and possibly the left lower lobe bronchi. There is a Left lower lobe consolidation. Electronically Signed: Aureliano Vera DO at 19:03 EST , Chest X-Ray 05/29/23 05:30 IMPRESSION: There is a spiculated left perihilar mass measuring 4.6 x 6 x 5.8 cm. Electronically Signed: Lakisha Medrano MD at 7:26 EST ,
[2023-05-29] MEDS: Piperacil/Tazobactam 3.375 GM in 0.9% Normal Saline (50mL MB+) 50 ML IV ×2 (14:11→21:22)
[2023-05-29] MEDS: Fluticasone 0.05% 1 SPRAY NASAL.SRY NASAL (21:17)
[2023-05-29] MEDS: Montelukast 10 MG Tablet PO (21:21)
[2023-05-30] VITALS (8 sets, daily range): BP systolic 109–148; BP diastolic 66–85; PULSE 89–113; RESP 16–22; TEMP 36.2–36.8; O2SAT 87–98
[2023-05-30] MEDS: 0.9% Saline Lock 10 ML Syringe IV (05:04)
[2023-05-30] MEDS: Piperacil/Tazobactam 3.375 GM in 0.9% Normal Saline (50mL MB+) 50 ML IV ×3 (05:04→21:17)
[2023-05-30] MEDS: Ipratropium/Albuterol Sulfate 3 ML AMPUL.NEB INHALATION ×2 (05:18→13:32)
[2023-05-30 07:36] LABS: Absolute Lymphocyte Count 0.31 X10^3/uL (0.83-4.51); Absolute Neutrophil Count 19.4 X10^3/uL (2.0-7.7); Basophil# 0.02 X10^3/uL; Basophil% 0.1 % (0-1); Hematocrit 32.9 % (40-54); Hemoglobin 10.2 g/dL (13.0-16.5); Lymphocyte # 0.31 X10^3/ul (0.83-4.51); Lymphocyte % 1.5 % (19-41); Mean Corpuscular Hgb 26.8 pg (27.0-32.0); Mean Corpuscular Volume 86.4 fL (80-94); Mean Platelet Vol. 9.8 fl (6.2-12.0); Monocyte# 0.43 X10^3/uL; Monocyte% 2.1 % (0-10); NRBC Flagged by Analyzer 0 % (0-5); Neutrophil # 19.36 X10^3/uL (2.7-7.7); Neutrophil % 95.3 % (47-70); POSITIVE DIFFERENTIAL YES; Platelet Count 379 K/mm3 (150-450); RBC Distribution Width CV 15.3 % (11.6-14.6); RBC Distribution Width SD 48.2 fl (35.1-43.9); Red Blood Count 3.81 M/mm3 (4.6-6.2); White Blood Count 20.3 K/mm3 (4.4-11.0)
[2023-05-30 07:52] LABS: Anion Gap 5 (5-15); BUN 29 mg/dL (7-18); BUN/Creat Ratio 28.2 RATIO (10-20); Calcium,Total 9.3 mg/dL (8.5-10.1); Chloride 105 mmol/L (98-107); Creatinine, Serum 1.03 mg/dL (0.70-1.30); EST Glomerular Filtration Rate 75 mL/min (>60); Est Glom Filt Rate - Afr Amer 91 mL/min (>60); Glucose 156 mg/dL (74-106); Potassium 3.3 mmol/L (3.5-5.1); Sodium Level 138 mmol/L (136-145)
[2023-05-30 07:53] LABS: Differential Indicated SCAN CRITERIA MET
--- NOTE | 2023-05-30 08:00 | PN.CC_ITS ---
Assessment & Plan Assessment/Plan (1) COPD exacerbation: (2) Postobstructive pneumonia: (3) Stage 3 severe COPD by GOLD classification: (4) Acute respiratory failure with hypoxia: PLAN: Plan RECOMMENDATIONS: 1. Continue antibiotics 2. Possibly transition to prednisone in the next 24 hours and wean over 12 to 14 days 3. Encourage incentive spirometer and Acapella 4. Wean oxygen as tolerated 5. Obtain walking oximetry 6. Unable to place bronchial stent without transfer to tertiary center IMPRESSIONS: 1. Acute hypoxic respiratory failure secondary to COPD exacerbation secondary to postobstructive pneumonia secondary to pneumococcus Improving. Patient currently on appropriate antibiotics. Patient will be transitioned over to IV steroids. This will need to be weaned slowly given patient is on prednisone at baseline. Patient is pneumococcal antigen positive, but would continue with current antibiotics until cultures are finalized. Continue to wean oxygen as tolerated. Patient will need a walking oximetry prior to discharge. Patient is followed by [facility], which could place a bronchial stent if necessary. Will hold on any bronchoscopy at this time as stent cannot be placed at [facility]. This could be evaluated as an outpatient. 2. Squamous cell lung carcinoma Patient has received immunotherapy by [facility]. Patient being fo llowed by Dr. Moon. Unclear if we would proceed with a bronchial stent, but there has been growth noted on previous CT scans. Likely treat patient acutely given his marginal oxygen increase requirements and then reevaluate when patient is more stable. Mild hemoptysis yesterday, but this is improving. 3. Sinus tachycardia/iron deficiency anemia/GERD/osteoarthritis/advanced age/debility Complicates care, management, recovery and prognosis. Patient has been initiated on a PPI which is reasonable. Patient did have a mild elevation of troponin with sinus tachycardia, but is unclear if this represents coronary artery disease as patient was having some hypoxia at home. Workup would likely be completed as an outpatient. Agree with chemical and mechanical prophylaxis for DVT as patient is at high risk given problem #2. Subjective Subjective Patient did well overnight. Patient has been able to be weaned to nasal cannula. Patient still reporting shortness of breath with minimal exertion. Patient did have some mild hemoptysis yesterday, but states it is cleared up this morning. Objective Data Objective Data Vital Signs: Vital Signs Temp Pulse Resp BP Pulse Ox O2 Del Method O2 Flow Rate 36.2 C L 89 20 H 109/77 98 Nasal Cannula 2 05/30/23 04:57 05/30/23 05:19 05/30/23 05:19 05/30/23 04:57 05/30/23 04:57 05/30/23 05:00 05/30/23 05:00 FiO2 95 05/29/23 15:29 Oxygen Flow Rate (L/min) 2 Oxygen Delivery Method Nasal Cannula Weight: 69.1 kg Body Mass Index (BMI) 22.5 Intake & Output: Intake and Output for Last 24 Hours 05/28/23 05/29/23 05/30/23 23:59 23:59 23:59 Intake Total 305 / 305 1225 / 1225 50 / 50 Output Total 200 / 200 1150 / 1150 250 / 250 Balance 105 / 105 75 / 75 -200 / -200 Lab / Micro Data Attestation: I reviewed the patient's lab results. 05/30/23 06:30 05/30/23 06:30 Labs: Laboratory Results - last 24 hr 05/29/23 13:08: Troponin I High Sens 42 05/30/23 06:30: WBC 20.3 H, RBC 3.81 L, Hgb 10.2 L, Hct 32.9 L, MCV 86.4, MCH 26.8 L, MCHC 31.0 L, RDW Std Deviation 48.2 H, RDW Coeff of Zane 15.3 H, Plt Count 379, MPV 9.8, Immature Gran % (Auto) 1.000 H, Neut % (Auto) 95.3 H, Lymph % (Auto) 1.5 L, [place]uming % (Auto) 2.1, Eos % (Auto) 0.0, Baso % (Auto) 0.1, Absolute Neuts (auto) 19.4 H, Absolute Lymphs (auto) 0.31 L, Nucleated RBC % 0, Sodium 138, Potassium 3.3 L, Chloride 105, Carbon Dioxide 28.0, Anion Gap 5, BUN 29 H, Creatinine 1.03, Estim Creat Clear Calc 61.80, Est GFR (MDRD) Af Amer 91, Est GFR (MDRD) Non-Af 75, BUN/Creatinine Ratio 28.2 H, Glucose 156 H, Calcium 9.3 Micro: Microbiology 05/28/23 23:55 Sputum, Expectorated/Coughed Gram Stain - Final 05/28/23 21:25 Mucosa - Nasopharyngeal Respiratory Panel (PCR) - Final 05/28/23 23:55 Urine, Clean Catch Legionella Antigen - Final 05/28/23 23:55 Urine, Clean Catch Streptococcus pneumoniae Antigen (M - Final Streptococcus pneumonia Ag 05/28/23 21:25 Mucosa - Nasopharyngeal Coronavirus COVID-19 PCR - Final Radiography Diagnostic Testing: Radiology Impression Echocardiogram 05/29/23 11:50 Interpretation Summary The estimated ejection fraction is 40-45 %. Reduced LV systolic function In comparison to the previous echocardiogram February 24, 2009. Ordering Physician: Yen Alexander Referring Physician: JIM MENENDEZ Performed By: Moni Richards RDCS Physical Exam Const alert, oriented x3 and average body habitus Constitutional Narrative: Less conversational dyspnea today. General Appearance: cooperative HEENT normocephalic, head/scalp atraumatic, moist oral mucous membranes and oropharynx normal General Ear: hearing grossly impaired bilateral Eyes PERRL and EOMs intact bilaterally Neck no lymphadenopathy and supple Resp Effort and Inspection: Negative for actively coughing Auscultation: rhonchi left lower, wheezes and diminished lung sounds Cardio regular rate, regular rhythm, S1 normal heart sound, S2 normal heart sound, no murmurs, no rub and no gallops GI normal to inspection, nondistended, normoactive bowel sounds, soft to palpation, non-tender and non-distended Extremity normal to inspection, full ROM and no clubbing, cyanosis or edema Skin no rashes or lesions noted Skin Narrative: Patient has no evidence of rash at this time. Neuro oriented x3, CN's II-XII intact bilaterally, moves all extremities and no focal motor deficits Sensorium / Orientation: awake, alert, oriented to person, oriented to place and oriented to time Speech: speech normal Motor Exam: strength 5/5 throughout Psych affect normal Charges/Coding Visit Charges Inpatient E&M: 26599 Subs Hosp L2
[2023-05-30] MEDS: Enoxaparin 40 MG/0.4 ML Syringe SC (08:56)
[2023-05-30] MEDS: Potassium Chloride Oral Tablet 20 MEQ 40 MEQ PO (08:56)
[2023-05-30] MEDS: Pantoprazole Sodium 40 MG Tablet PO (08:56)
[2023-05-30] MEDS: DiphenhydrAMINE 25 MG Capsule PO ×2 (08:56→21:17)
[2023-05-30] MEDS: Zinc Sulfate 50 mg zinc (220 mg) ORAL capsule PO (08:56)
[2023-05-30] MEDS: Ascorbic Acid 500 MG Tablet 1000 MG PO ×2 (08:57→16:53)
[2023-05-30] MEDS: Fluticasone 0.05% 1 SPRAY NASAL.SRY NASAL ×2 (08:57→21:18)
[2023-05-30] MEDS: Clopidogrel Bisulfate 75 MG Tablet PO (08:57)
[2023-05-30] MEDS: Cholecalciferol (Vit D3) 125 MCG CAPSULE (5,000 UNITS) PO (08:57)
[2023-05-30] MEDS: guaiFENesin 1,200 MG Tablet 1200 MG PO ×2 (08:57→21:16)
[2023-05-30] MEDS: Aspirin 81 MG TAB.CHEW PO (08:57)
[2023-05-30 10:02] LABS: Differential Comment SCANNED
[2023-05-30] MEDS: Azithromycin 500 MG in Dextrose 5%-Water (250mL Bag) 250 ML 250 MG IV (10:35)
--- NOTE | 2023-05-30 12:36 | PN_ITS ---
Subjective Subjective Patient seen and examined. He says he is feeling better and his breathing has improved. He denies any cough, chest pain, palpitations, dizziness, nausea, vomiting or any other symptoms. Review of systems is otherwise negative. He has remained hemodynamically stable, and is on 2L of oxygen by nasal canula. Objective Data Objective Data Vital Signs: Vital Signs Temp Pulse Resp BP Pulse Ox O2 Del Method O2 Flow Rate 97.4 F L 113 H 18 138/78 H 93 Nasal Cannula 2 05/30/23 09:08 05/30/23 09:08 05/30/23 09:08 05/30/23 09:08 05/30/23 09:08 05/30/23 09:11 05/30/23 09:11 FiO2 95 05/29/23 15:29 Oxygen Flow Rate (L/min) 2 Oxygen Delivery Method Nasal Cannula Weight: 152 lb 5.431 oz Body Mass Index (BMI) 22.5 Intake & Output: Intake and Output for Last 24 Hours 05/28/23 05/29/23 05/30/23 23:59 23:59 23:59 Intake Total 305 / 305 1225 / 1225 355 / 355 Output Total 200 / 200 1150 / 1150 450 / 450 Balance 105 / 105 75 / 75 -95 / -95 Lab / Micro Data 05/30/23 06:30 05/30/23 06:30 Labs: Laboratory Results - last 24 hr 05/29/23 13:08: Troponin I High Sens 42 05/30/23 06:30: WBC 20.3 H, RBC 3.81 L, Hgb 10.2 L, Hct 32.9 L, MCV 86.4, MCH 26.8 L, MCHC 31.0 L, RDW Std Deviation 48.2 H, RDW Coeff of Zane 15.3 H, Plt Count 379, MPV 9.8, Immature Gran % (Auto) 1.000 H, Neut % (Auto) 95.3 H, Lymph % (Auto) 1.5 L, [place] % (Auto) 2.1, Eos % (Auto) 0.0, Baso % (Auto) 0.1, Absolute Neuts (auto) 19.4 H, Absolute Lymphs (auto) 0.31 L, Nucleated RBC % 0, Differential Comment SCANNED, Sodium 138, Potassium 3.3 L, Chloride 105, Carbon Dioxide 28.0, Anion Gap 5, BUN 29 H, Creatinine 1.03, Estim Creat Clear Calc 61.80, Est GFR (MDRD) Af Amer 91, Est GFR (MDRD) Non-Af 75, BUN/Creatinine Ratio 28.2 H, Glucose 156 H, Calcium 9.3 Micro: Microbiology 05/28/23 23:55 Sputum, Expectorated/Coughed Gram Stain - Final 05/28/23 21:25 Mucosa - Nasopharyngeal Respiratory Panel (PCR) - Final 05/28/23 23:55 Urine, Clean Catch Legionella Antigen - Final 05/28/23 23:55 Urine, Clean Catch Streptococcus pneumoniae Antigen (M - Final Streptococcus pneumonia Ag 05/28/23 21:25 Mucosa - Nasopharyngeal Coronavirus COVID-19 PCR - Final Radiography Diagnostic Testing: Radiology Impression Echocardiogram 05/29/23 11:50 Interpretation Summary The estimated ejection fraction is 40-45 %. Reduced LV systolic function In comparison to the previous echocardiogram February 24, 2009. Ordering Physician: Yen Alexander Referring Physician: JIM MENENDEZ Performed By: Moni Richards RDCS Physical Exam Const alert, oriented x3 and no apparent distress General Appearance: cooperative and well developed HEENT normocephalic, head/scalp atraumatic, moist oral mucous membranes and oropharynx normal Mouth: dry mucous membranes Eyes PERRL and EOMs intact bilaterally Neck no lymphadenopathy, supple and no JVD General: trachea midline and lymphadenopathy Lymph Lymphatic: no lymphadenopathy noted and no lymphedema noted Resp Resp Narrative: mildly diminished breath sounds bibasally, no wheezes or crackles. On 2L of oxygen by nasal canula Cardio regular rate, regular rhythm, S1 normal heart sound, S2 normal heart sound and no murmurs GI normal to inspection, nondistended, normoactive bowel sounds, soft to palpation, non-tender and non-distended Extremity normal capillary refill, no clubbing, cyanosis or edema and no calf tenderness General Extremity: no tenderness to palpation of joints or extremities Skin General Skin Exam: no breakdown Neuro CN's II-XII intact bilaterally, no focal motor deficits, no sensory deficits noted and deep tendon reflexes 2+ bilaterally Motor Exam: strength 5/5 throughout and general weakness Psych thought process normal, cooperative and affect normal Appearance: appropriate Assessment & Plan Assessment/Plan (1) Elevated troponin: (2) Postobstructive pneumonia: PLAN: Plan #Post obstructive pneumonia in the settin of lung cancer * feels better today. off Airvo and now on 2L fo oxygen by nasal canula * wbc still elevated at 20 * now on IV zosyn and azithromycin * also on IV solumedrol. Breathing treatment with bronchodilators. Titrate oxygen to maintain sats >90% * #Acute on chronic hypoxic respiratory failure due to COPD and pneumonia * On 2 L of oxygen and now off Airvo. On antibiotics as above. On IV Solu- Medrol. * Breathing treatments bronchodilators. Titrate oxygen to maintain saturation above 90%. * #History of squamous cell cancer: On immunotherapy. Follow-up with oncology on outpatient basis. #Sinus tachycardia: * Resolved. Heart rate was up in the 170s. * Initial troponin was also mildly elevated at 130. * 2D echo showed EF of 40 to 45% with mildly dilated left ventricle and reduced right systolic function. * Cardiology consulted. Cardiology this is likely a type II event from hypoxia. * On aspirin and high intensity statin. #GERD: PPI #Osteoarthritis with chronic back pain:. Tylenol DVT prophylaxis: Lovenox Charges/Coding Visit Charges Inpatient E&M: 75853 Subs Hosp L2
[2023-05-30] MEDS: Atorvastatin Calcium 40 MG Tablet PO (21:17)
[2023-05-30] MEDS: Montelukast 10 MG Tablet PO (21:21)
[2023-05-31 02:10] VITALS: BP 149/94; PULSE 94; RESP 18; TEMP 36.9; O2SAT 97
[2023-05-31] MEDS: Piperacil/Tazobactam 3.375 GM in 0.9% Normal Saline (50mL MB+) 50 ML IV (05:29)
[2023-05-31 06:15] LABS: Absolute Lymphocyte Count 0.31 X10^3/uL (0.83-4.51); Absolute Neutrophil Count 18.3 X10^3/uL (2.0-7.7); Basophil# 0.02 X10^3/uL; Basophil% 0.1 % (0-1); Hematocrit 35.6 % (40-54); Hemoglobin 10.5 g/dL (13.0-16.5); Lymphocyte # 0.31 X10^3/ul (0.83-4.51); Lymphocyte % 1.6 % (19-41); Mean Corp Hgb Conc 29.5 g/dL (32-36); Mean Corpuscular Hgb 25.5 pg (27.0-32.0); Mean Corpuscular Volume 86.4 fL (80-94); Mean Platelet Vol. 9.6 fl (6.2-12.0); Monocyte# 0.57 X10^3/uL; Monocyte% 2.9 % (0-10); NRBC Flagged by Analyzer 0 % (0-5); Neutrophil # 18.31 X10^3/uL (2.7-7.7); Neutrophil % 94.5 % (47-70); POSITIVE DIFFERENTIAL YES; Platelet Count 404 K/mm3 (150-450); RBC Distribution Width CV 15.5 % (11.6-14.6); RBC Distribution Width SD 49.1 fl (35.1-43.9); Red Blood Count 4.12 M/mm3 (4.6-6.2); White Blood Count 19.4 K/mm3 (4.4-11.0)
[2023-05-31 06:34] LABS: Differential Indicated SCAN CRITERIA MET
[2023-05-31 06:36] LABS: Anion Gap 4 (5-15); BUN 34 mg/dL (7-18); BUN/Creat Ratio 30.9 RATIO (10-20); Calcium,Total 9.4 mg/dL (8.5-10.1); Chloride 107 mmol/L (98-107); EST Glomerular Filtration Rate 70 mL/min (>60); Est Glom Filt Rate - Afr Amer 84 mL/min (>60); Estimated Creatinine Clearance 57.86 ml/min; Glucose 120 mg/dL (74-106); Sodium Level 140 mmol/L (136-145)
[2023-05-31 08:00] VITALS: BP 156/100; PULSE 100; RESP 20; TEMP 36.6; O2SAT 96
[2023-05-31] MEDS: Enoxaparin 40 MG/0.4 ML Syringe SC (08:14)
[2023-05-31] MEDS: guaiFENesin 1,200 MG Tablet 1200 MG PO (08:14)
[2023-05-31] MEDS: DiphenhydrAMINE 25 MG Capsule PO (08:14)
[2023-05-31] MEDS: Fluticasone 0.05% 1 SPRAY NASAL.SRY NASAL (08:15)
[2023-05-31] MEDS: Cholecalciferol (Vit D3) 125 MCG CAPSULE (5,000 UNITS) PO (08:15)
[2023-05-31] MEDS: Clopidogrel Bisulfate 75 MG Tablet PO (08:15)
[2023-05-31] MEDS: Aspirin 81 MG TAB.CHEW PO (08:15)
[2023-05-31] MEDS: Pantoprazole Sodium 40 MG Tablet PO (08:15)
[2023-05-31] MEDS: Ascorbic Acid 500 MG Tablet 1000 MG PO (08:15)
[2023-05-31] MEDS: Zinc Sulfate 50 mg zinc (220 mg) ORAL capsule PO (08:15)
[2023-05-31] MEDS: ROFLUMILAST 500 MCG TABLET PO (08:16)
--- NOTE | 2023-05-31 08:26 | PN.CC_ITS ---
Assessment & Plan Assessment/Plan (1) COPD exacerbation: (2) Postobstructive pneumonia: (3) Stage 3 severe COPD by GOLD classification: (4) Acute respiratory failure with hypoxia: PLAN: Plan RECOMMENDATIONS: 1. Okay to transition to p.o. antibiotics and complete a 7-day course 2. Okay to transition to prednisone and wean over 12 to 14 days to basal prednisone 3. Encourage incentive spirometer and Acapella 4. Wean oxygen as tolerated 5. Okay to discharge from a pulmonary perspective 6. Unable to place bronchial stent without transfer to tertiary center IMPRESSIONS: 1. Acute hypoxic respiratory failure secondary to COPD exacerbation secondary to postobstructive pneumonia secondary to pneumococcus Improving. Patient currently on appropriate antibiotics. Patient will be transitioned over to IV steroids. This will need to be weaned slowly given patient is on prednisone at baseline. Patient is pneumococcal antigen positive and cultures are not suggestive of a secondary infection. Okay to transition to p.o. antibiotics and complete a 7-day course. Continue to wean oxygen as tolerated. Patient was able to ambulate on 2 L/min. Patient is followed by [facility], which could place a bronchial stent if necessary. Will hold on any bronchoscopy at this time as stent cannot be placed at [facility]. This could be evaluated as an outpatient. 2. Squamous cell lung carcinoma Patient has received immunotherapy by [facility]. Patient being followed by Dr. Moon. Unclear if we would proceed with a bronchial stent, but there has been growth noted on previous CT scans. Likely treat patient acutely given his marginal oxygen increase requirements and then reevaluate when patient is more stable. Mild hemoptysis intermittently, but this is improving. 3. Sinus tachycardia/iron deficiency anemia/GERD/osteoarthritis/advanced age/debility Complicates care, management, recovery and prognosis. Patient has been initiated on a PPI which is reasonable. Patient did have a mild elevation of troponin with sinus tachycardia, but is unclear if this represents coronary artery disease as patient was having some hypoxia at home. Workup would likely be completed as an outpatient. Agree with chemical and mechanical prophylaxis for DVT as patient is at high risk given problem #2. Subjective Subjective Patient did well overnight. Patient did have a walking oximetry and desaturated to 90% on 2 L with walking in the room. Patient does report paroxysmal type coughing with protracted talking, but overall feels he is doing much better now. Objective Data Objective Data Vital Signs: Vital Signs Temp Pulse Resp BP Pulse Ox O2 Del Method O2 Flow Rate 36.9 C 94 18 149/94 H 97 Nasal Cannula 2 05/31/23 02:10 05/31/23 02:10 05/31/23 02:10 05/31/23 02:10 05/31/23 02:10 05/31/23 08:07 05/31/23 08:07 FiO2 95 05/29/23 15:29 Oxygen Flow Rate (L/min) 2 Oxygen Delivery Method Nasal Cannula Weight: 69.1 kg Body Mass Index (BMI) 22.5 Intake & Output: Intake and Output for Last 24 Hours 05/29/23 05/30/23 05/31/23 23:59 23:59 23:59 Intake Total 1225 / 1225 405 / 405 50 / 50 Output Total 1150 / 1150 450 / 450 Balance 75 / 75 -45 / -45 50 / 50 Lab / Micro Data Attestation: I reviewed the patient's lab results. 05/31/23 05:50 05/31/23 05:50 Labs: Laboratory Results - last 24 hr 05/30/23 06:30: Differential Comment SCANNED 05/31/23 05:50: WBC 19.4 H, RBC 4.12 L, Hgb 10.5 L, Hct 35.6 L, MCV 86.4, MCH 25.5 L, MCHC 29.5 L, RDW Std Deviation 49.1 H, RDW Coeff of Zane 15.5 H, Plt Count 404, MPV 9.6, Immature Gran % (Auto) 0.900, Neut % (Auto) 94.5 H, Lymph % (Auto) 1.6 L, [place] % (Auto) 2.9, Eos % (Auto) 0.0, Baso % (Auto) 0.1, Absolute Neuts (auto) 18.3 H, Absolute Lymphs (auto) 0.31 L, Nucleated RBC % 0, Sodium 140, Potassium 4.0, Chloride 107, Carbon Dioxide 29.0, Anion Gap 4 L, BUN 34 H, Creatinine 1.10, Estim Creat Clear Calc 57.86, Est GFR (MDRD) Af Amer 84, Est GFR (MDRD) Non-Af 70, BUN/Creatinine Ratio 30.9 H, Glucose 120 H, Calcium 9.4 Micro: Microbiology 05/28/23 23:55 Sputum, Expectorated/Coughed Gram Stain - Final 05/28/23 23:55 Sputum, Expectorated/Coughed Respiratory Culture - Final 05/28/23 19:20 Blood Culture (Wb) - Left Hand Blood Culture - Preliminary No growth in 48 hours. 05/28/23 16:16 Blood Culture (Wb) - Left Hand Blood Culture - Preliminary No growth in 48 hours. 05/28/23 21:25 Mucosa - Nasopharyngeal Respiratory Panel (PCR) - Final 05/28/23 23:55 Urine, Clean Catch Legionella Antigen - Final 05/28/23 23:55 Urine, Clean Catch Streptococcus pneumoniae Antigen (M - Final Streptococcus pneumonia Ag 05/28/23 21:25 Mucosa - Nasopharyngeal Coronavirus COVID-19 PCR - Final Physical Exam Const alert, oriented x3 and average body habitus Constitutional Narrative: Less conversational dyspnea today. General Appearance: cooperative HEENT normocephalic, head/scalp atraumatic, hearing grossly normal bilaterally, moist oral mucous membranes and oropharynx normal Eyes PERRL and EOMs intact bilaterally Neck no lymphadenopathy and supple Resp Resp Narrative: Diminished breath sounds throughout with scattered wheezes. Effort and Inspection: Negative for actively coughing Auscultation: rhonchi left lower, wheezes and diminished lung sounds Cardio regular rate, regular rhythm, S1 normal heart sound, S2 normal heart sound, no murmurs, no rub and no gallops Cardio Narrative: Tachycardic at 110 bpm and occasionally irregular. GI normal to inspection, nondistended, normoactive bowel sounds, soft to palpation, non-tender and non-distended Extremity normal to inspection, full ROM and no clubbing, cyanosis or edema Skin no rashes or lesions noted Skin Narrative: Patient has no evidence of rash at this time. Neuro oriented x3, CN's II-XII intact bilaterally, moves all extremities and no focal motor deficits Sensorium / Orientation: awake, alert, oriented to person, oriented to place and oriented to time Speech: speech normal Motor Exam: strength 5/5 throughout Psych affect normal Charges/Coding Visit Charges Inpatient E&M: 39645 Subs Hosp L2
[2023-05-31 09:33] VITALS: O2SAT 96
[2023-05-31 09:39] LABS: Differential Comment SCANNED
[2023-05-31] MEDS: Azithromycin 500 MG in Dextrose 5%-Water (250mL Bag) 250 ML 250 MG IV (09:47)
--- NOTE | 2023-05-31 10:46 | DCINST_ITS ---
Discharge Instructions Diet Discharge Diet: Low fat / Low cholesterol Activity Discharge Activity: Return to Normal Activity Weight Bearing Status: Weight bearing as tolerated Dressing / Incision Call your doctor if you observe: Fever of 101 or Higher, Shortness of breath, Dizziness, Swelling in the ankles and Chest pain Follow Up Care Test Results: Test results from this visit will be discussed in further detail at your follow- up appointment, if applicable. Discharge Plan Admission Admit Date/Time: 05/28/23 20:08 Primary Reason for Your Visit: pneumonia Attending Provider: Felisa Prado Primary Care Provider: Dk Dobbins Consulting Providers: Harman Mccoy; Long Banegas; Yen Alexander; Homer Ragland Instructions Patient Instructions: ED Pneumonia (Adult) Discharge Orders/Prescriptions Prescriptions: New amoxicillin-pot clavulanate 875-125 mg tablet 1 tab PO BID Qty: 10 0RF Continued albuterol sulfate [Proventil HFA] 90 mcg/actuation HFA aerosol inhaler 2 puff inhalation Q6H PRN (Reason: COPD) Daliresp 500 mcg tablet 500 mcg PO DAILY montelukast 10 mg tablet 10 mg PO QHS prednisone 10 mg tablet 10 mg PO DAILY Qty: 100 3RF diphenhydramine HCl [Benadryl Allergy] 25 mg tablet 25 mg PO BID Asmanex HFA 200 mcg/actuation Hfa Aerosol Inhaler 2 puff INHALATION BID Stiolto Respimat 2.5-2.5 mcg/actuation Mist 2 puff INHALATION DAILY albuterol sulfate 0.63 mg/3 mL solution for nebulization 0.63 mg inhalation Q6H PRN (Reason: wheezing) Qty: 90 3RF cetirizine [All Day Allergy (cetirizine)] 10 mg tablet 10 mg PO DAILY PRN (Reason: allergy symptoms) fluticasone propionate [Allergy Relief (fluticasone)] 50 mcg/actuation spray,suspension 1 spray intranasal BID Rx Instructions: administer into each nostril Referrals / Follow Up: Dk Dobbins DO [Primary Care Provider] - Within 2 Weeks Disposition Disposition (needs filled in before D/C Order can be placed): Home, Self Care
--- NOTE | 2023-05-31 10:47 | DS.PCM_ITS ---
Providers Date of Admission: 05/28/23 Date of Discharge: 05/31/23 Primary Care Physician: Dr. Dk Dobbins, Consultations 05/28/23 20:48 Consult: Whip Operator / Pulmonary Medicine Routine Consulting Provider: [facility] Reason for Consult: Postobstructive LLL PNA with known Squamous Cell Lung CA EMERGENT Consult: No MD Notified: No Date Notified: 05/28/23 Time Notified: 20:48 05/28/23 20:53 Consult: Cardiology Routine Consulting Provider: Yen Alexander Reason for Consult: Elevated troponin due to NSTEMI-II EMERGENT Consult: No Notified: Yes Date Notified: 05/29/23 Time Notified: 11:45 Method of Notification: spoke on phone Method of Consult:: In-Person 05/29/23 05:08 Consult: Whip Operator / Pulmonary Medicine Routine Consulting Provider: Long Banegas Reason for Consult: Postobstructive LLL PNA with known Squamous Cell Lung CA EMERGENT Consult: No Notified: Yes Date Notified: 05/29/23 Time Notified: 05:12 Method of Notification: Text Reason For Visit: POSTOBSTUCTIVE LEFT LOWER LOBE PNEUMONIA WITH Diagnosis Discharge Diagnosis (1) COPD exacerbation: Status: Chronic Code(s): J44.1 - Chronic obstructive pulmonary disease with (acute) exacerbation (2) Postobstructive pneumonia: Status: Acute Code(s): J18.9 - Pneumonia, unspecified organism (3) Stage 3 severe COPD by GOLD classification: Status: Acute Code(s): J44.9 - Chronic obstructive pulmonary disease, unspecified (4) Acute respiratory failure with hypoxia: Status: Resolved Code(s): J96.01 - Acute respiratory failure with hypoxia Plan #Post obstructive pneumonia in the settin of lung cancer * feels better today. off Airvo and now on 2L fo oxygen by nasal canula * wbc still elevated at 20 * now on IV zosyn and azithromycin * also on IV solumedrol. Breathing treatment with bronchodilators. Titrate oxygen to maintain sats >90% * #Acute on chronic hypoxic respiratory failure due to COPD and pneumonia * On 2 L of oxygen and now off Airvo. On antibiotics as above. On IV Solu-Medrol. * Breathing treatments bronchodilators. Titrate oxygen to maintain saturation above 90%. * #History of squamous cell cancer: On immunotherapy. Follow-up with oncology on outpatient basis. #Sinus tachycardia: * Resolved. Heart rate was up in the 170s. * Initial troponin was also mildly elevated at 130. * 2D echo showed EF of 40 to 45% with mildly dilated left ventricle and reduced right systolic function. * Cardiology consulted. Cardiology this is likely a type II event from hypoxia. * On aspirin and high intensity statin. #GERD: PPI #Osteoarthritis with chronic back pain:. Tylenol DVT prophylaxis: Lovenox Medications at Discharge Home Medications albuterol sulfate 90 mcg/actuation aerosol inhaler (Proventil HFA) 2 puff inhalation Q6H PRN COPD 12/11/20 montelukast 10 mg tablet 10 mg PO QHS allergies 12/11/20 roflumilast 500 mcg tablet (Daliresp) 500 mcg PO DAILY copd 12/11/20 mometasone 200 mcg/actuation HFA aerosol inhaler (Asmanex HFA) 2 puff inhalation BID breathing 01/10/21 tiotropium 2.5 mcg-olodaterol 2.5 mcg/actuation mist for inhalation (Stiolto Respimat) 2 puff inhalation DAILY breathing 01/10/21 albuterol sulfate 0.63 mg/3 mL solution for nebulization 0.63 mg (3 mL) inhalation Q6H PRN wheezing #90 mL 05/24/21 prednisone 10 mg tablet 10 mg PO DAILY #100 tabs 09/25/22 diphenhydramine HCl 25 mg tablet (Benadryl Allergy) 25 mg PO BID allergies 02/25/23 cetirizine 10 mg tablet (All Day Allergy (cetirizine)) 10 mg PO DAILY PRN allergy symptoms 05/28/23 fluticasone propionate 50 mcg/actuation nasal spray,suspension (Allergy Relief (fluticasone)) 1 spray intranasal BID allergy symptoms 05/28/23 amoxicillin 875 mg-potassium clavulanate 125 mg tablet 1 tab PO BID #10 tabs 05/31/23 methylprednisolone 4 mg tablets in a dose pack (Medrol (Leonardo)) See Taper PO UD #21 tabs 05/31/23 metoprolol succinate 25 mg tablet,extended release 24 hr 25 mg PO DAILY #30 tabs 05/31/23 Hospital Course Operations None Procedures None Summary of Care Provided Minutes Spent on Discharge: 55 Hospital Course: Patient is a 73-year-old male with past medical history as outlined which includes chronic respiratory failure and history of squamous cell carcinoma of the lung, currently on immunotherapy who was admitted through the ED on with a complaint of shortness of breath. His symptoms are started an hour before he came in. He could not ambulate without getting short of breath and had a difficult time catching his breath. He had exertion also made his heart race. In the ED CT of the chest was negative for PE but showed a spiculated left perihilar mass measuring 4.6 x 6 x 5.8 cm and left lower lobe consolidation consistent with suspected postobstructive pneumonia in the setting of known squamous cell lung cancer. He was therefore admitted and managed for acute exacerbation of COPD and postobstructive pneumonia. Troponins were also elevated which was concerning for non-STEMI likely type II due to demand ischemia. Cardiology was consulted. Patient was started on breathing treatments bronchodilators and antibiotics. Cardiology reviewed him and felt that his symptoms were likely due to demand ischemia. He had 2D echo which showed EF of 40 to 45% with mildly dilated left ventricle and reduced ventricular systolic function. He was started on IV Zosyn and azithromycin also. His shortness of breath improved and patient was weaned down to his baseline oxygen. Hospital course was complicated by tachycardia which worsened with ambulation. Patient said this was chronic for him and in light of his CT of the chest being negative, this was attributed to likely being from his lung cancer and debilitated state. Patient remained stable and was discharged home on 05/31/2023. He was discharged on a course of p.o. Augmentin for 5 days and discharged on a Medrol Dosepak. He is follow-up with his primary care doctor and pulmonology as well as oncology within 1 to 2 weeks. He was given a script for PO metoprolol 25mg daily to help with his tachycardia. Patient seen and examined prior to discharge. He felt well and had no active complaints. He had an uneventful night. Review of systems otherwise negative. Labs and vitals reviewed. Home medication reviewed and reconciled. Physical Exam Const alert, oriented x3, no apparent distress and average body habitus Constitutional Narrative: Patient appears chronically ill and moderately short of breath with labored respirations. General Appearance: cooperative, comfortable and well developed HEENT normocephalic, head/scalp atraumatic, hearing grossly normal bilaterally, moist oral mucous membranes and oropharynx normal Mouth: oral and palatal mucosa normal Eyes PERRL and EOMs intact bilaterally Neck no lymphadenopathy, supple and no JVD General: trachea midline and lymphadenopathy Lymph Lymphatic: no lymphadenopathy noted and no lymphedema noted Resp Resp Narrative: mildly diminished breath sounds bibasally, no wheezes or crackles. On 2L of oxygen by nasal canula Cardio regular rate, regular rhythm, S1 normal heart sound, S2 normal heart sound and no murmurs Cardio Narrative: episodic tachycardia GI normal to inspection, nondistended, normoactive bowel sounds, soft to palpation, non-tender and non-distended Extremity normal to inspection, full ROM, normal capillary refill, no clubbing, cyanosis or edema and no calf tenderness General Extremity: no tenderness to palpation of joints or extremities Skin no rashes or lesions noted General Skin Exam: no breakdown Neuro oriented x3, CN's II-XII intact bilaterally, moves all extremities, no focal motor deficits, no sensory deficits noted and deep tendon reflexes 2+ bilaterally Sensorium / Orientation: awake, alert, oriented to person, oriented to place and oriented to time Speech: speech normal Motor Exam: strength 5/5 throughout and general weakness Psych thought process normal, cooperative and affect normal Appearance: appropriate Weight / BMI Weight Weight: 152 lb 5.431 oz Body Mass Index (BMI) 22.5 ABG / Lab / Microbiology Data 05/31/23 05:50 05/31/23 05:50 Laboratory: Laboratory Results - last 24 hr 05/31/23 05:50: WBC 19.4 H, RBC 4.12 L, Hgb 10.5 L, Hct 35.6 L, MCV 86.4, MCH 25.5 L, MCHC 29.5 L, RDW Std Deviation 49.1 H, RDW Coeff of Zane 15.5 H, Plt Count 404, MPV 9.6, Immature Gran % (Auto) 0.900, Neut % (Auto) 94.5 H, Lymph % (Auto) 1.6 L, [place] % (Auto) 2.9, Eos % (Auto) 0.0, Baso % (Auto) 0.1, Absolute Neuts (auto) 18.3 H, Absolute Lymphs (auto) 0.31 L, Nucleated RBC % 0, Differential Comment SCANNED, Sodium 140, Potassium 4.0, Chloride 107, Carbon Dioxide 29.0, Anion Gap 4 L, BUN 34 H, Creatinine 1.10, Estim Creat Clear Calc 57.86, Est GFR (MDRD) Af Amer 84, Est GFR (MDRD) Non-Af 70, BUN/Creatinine Ratio 30.9 H, Glucose 120 H, Calcium 9.4 Microbiology: Microbiology 05/28/23 23:55 Sputum, Expectorated/Coughed Gram Stain - Final 05/28/23 23:55 Sputum, Expectorated/Coughed Respiratory Culture - Final 05/28/23 19:20 Blood Culture (Wb) - Left Hand Blood Culture - Preliminary No growth in 48 hours. 05/28/23 16:16 Blood Culture (Wb) - Left Hand Blood Culture - Preliminary No growth in 48 hours. 05/28/23 21:25 Mucosa - Nasopharyngeal Respiratory Panel (PCR) - Final 05/28/23 23:55 Urine, Clean Catch Legionella Antigen - Final 05/28/23 23:55 Urine, Clean Catch Streptococcus pneumoniae Antigen (M - Final Streptococcus pneumonia Ag 05/28/23 21:25 Mucosa - Nasopharyngeal Coronavirus COVID-19 PCR - Final D/C Instructions Discharge Diet: Low fat / Low cholesterol Discharge Activity: Return to Normal Activity Weight Bearing Status: Weight bearing as tolerated Call your doctor if you observe: Fever of 101 or Higher, Shortness of breath, Dizziness, Swelling in the ankles and Chest pain Meaningful Use Info Meaningful Use Diagnoses (Choose all that apply): None applicable Discharge Plan Admission Admit Date/Time: 05/28/23 20:08 Primary Reason for Your Visit: pneumonia Attending Provider: Felisa Prado Primary Care Provider: Dk Dobbins Consulting Providers: Harman Mccoy; Long Banegas; Yen Alexander; Homer Ragland Instructions Patient Instructions: ED Pneumonia (Adult) Additional Instructions / Restrictions: hold off on taking PO prednisone 10mg daily until you are done with the prednisone taper, then resume taking the PO prednisone 10mg daily Discharge Orders/Prescriptions Prescriptions: New amoxicillin-pot clavulanate 875-125 mg tablet 1 tab PO BID Qty: 10 0RF methylprednisolone [Medrol (Leonardo)] 4 mg tablets,dose pack See Taper PO UD Qty: 21 0RF Taper: Prednisone Taper 60 mg WITH BREAKFAST for 3 Days and 0 Hour 50 mg WITH BREAKFAST for 3 Days and 0 Hour 40 mg WITH BREAKFAST for 3 Days and 0 Hour 30 mg WITH BREAKFAST for 3 Days and 0 Hour 20 mg WITH BREAKFAST for 3 Days and 0 Hour 10 mg WITH BREAKFAST for 3 Days and 0 Hour Rx Instructions: See Taper metoprolol succinate 25 mg tablet extended release 24 hr 25 mg PO DAILY Qty: 30 2RF Continued albuterol sulfate [Proventil HFA] 90 mcg/actuation HFA aerosol inhaler 2 puff inhalation Q6H PRN (Reason: COPD) Daliresp 500 mcg tablet 500 mcg PO DAILY montelukast 10 mg tablet 10 mg PO QHS prednisone 10 mg tablet 10 mg PO DAILY Qty: 100 3RF diphenhydramine HCl [Benadryl Allergy] 25 mg tablet 25 mg PO BID Asmanex HFA 200 mcg/actuation Hfa Aerosol Inhaler 2 puff INHALATION BID Stiolto Respimat 2.5-2.5 mcg/actuation Mist 2 puff INHALATION DAILY albuterol sulfate 0.63 mg/3 mL solution for nebulization 0.63 mg inhalation Q6H PRN (Reason: wheezing) Qty: 90 3RF cetirizine [All Day Allergy (cetirizine)] 10 mg tablet 10 mg PO DAILY PRN (Reason: allergy symptoms) fluticasone propionate [Allergy Relief (fluticasone)] 50 mcg/actuation spray,suspension 1 spray intranasal BID Rx Instructions: administer into each nostril Referrals / Follow Up: Dk Dobbins DO [Primary Care Provider] - Within 2 Weeks Disposition Disposition (needs filled in before D/C Order can be placed): Home, Self Care Charges/Coding Visit Charges Inpatient E&M: 69826 Disch Hosp >30min
[2023-05-31 11:27] VITALS: O2SAT 90; O2SAT 94
[2023-05-31 12:00] VITALS: BP 167/89; PULSE 107; RESP 20; TEMP 36.7; O2SAT 93
[2023-05-31] MEDS: 0.9% Saline Lock 10 ML Syringe IV (12:04)
== END 2023-05-31 12:39 | disposition home or self-care (01) | DRG 193 ==
LOC: ED 20:11 → MS3 20:19
PROVIDERS: Internal Medicine; Internal Medicine Interventional Cardiology; Admitting Provider Internal Medicine; Emergency Provider Emergency Medicine; PCP Family Medicine; Visit Provider Student in an Organized Health Care Education/Training Program
DX: J13 Pneumonia due to Streptococcus pneumoniae (principal); J96.21 Acute and chronic respiratory failure with hypoxia; I21.A1 Myocardial infarction type 2; C34.92 Malignant neoplasm of unspecified part of left bronchus or lung; J47.0 Bronchiectasis with acute lower respiratory infection; J44.0 Chronic obstructive pulmonary disease with (acute) lower respiratory infection; J44.1 Chronic obstructive pulmonary disease with (acute) exacerbation; R04.2 Hemoptysis; Z99.81 Dependence on supplemental oxygen; D50.9 Iron deficiency anemia, unspecified; M19.90 Unspecified osteoarthritis, unspecified site; K21.9 Gastro-esophageal reflux disease without esophagitis; M54.9 Dorsalgia, unspecified; E87.5 Hyperkalemia; R00.0 Tachycardia, unspecified; R53.81 Other malaise; G89.29 Other chronic pain; Z66 Do not resuscitate; Z79.51 Long term (current) use of inhaled steroids; Z79.899 Other long term (current) drug therapy; Z87.891 Personal history of nicotine dependence
CPT/HCPCS: 36415; 71045; 71275; 80048; 80076; 83605; 84484; 85025; 85379; 87040; 87070; 87205; 87449; 87633; 87635; 93005; 93306; 94640; 94660; 94668; 97161; 97530; 97802; 99252; 99285; J7040; Q9957; Q9967; A4216; C8929; G0463

== ENCOUNTER 2023-06-17 03:22 | Inpatient (IN) | payer OTHER, SELFPAY ==
[2023-06-17] VITALS (16 sets, daily range): BP systolic 109–163; BP diastolic 51–85; PULSE 97–130; RESP 12–36; TEMP 36.6–37.1; O2SAT 93–100; BMI 47.4; BMI 21.5
--- NOTE | 2023-06-17 03:39 | EKG12_ITS ---
Test Reason : DYSRHYTHMIA Blood Pressure : / mmHG Vent. Rate : 113 BPM Atrial Rate : 113 BPM P-R Int : 122 ms QRS Dur : 084 ms QT Int : 306 ms P-R-T Axes : 079 -25 044 degrees QTc Int : 419 ms Sinus tachycardia Possible Left atrial enlargement Borderline ECG Confirmed by SEBLE BUTLER, NERI ([id number]), editor newspaper SHAYNE LAURA ([id number]) on 06/19/2023 6:40:28 AM Referred By: Confirmed By:NERI PRUETT MD
--- NOTE | 2023-06-17 03:41 | EDS_ITS ---
HPI History of Present Illness Chief Complaint: Shortness of Breath Informant: patient, spouse/S.O. and EMS Narrative Narrative: Patient with a history of COPD awoke in respiratory distress tonight, EMS was called, placed him on CPAP prior to arrival here as well as giving him some nebulizer treatments, he still having a hard time breathing but these things have helped some. He denies having any chest discomfort this morning. He has had an increased cough with change in his sputum color recently, it is light yellow, this is basically been less than 24 hours. 2 weeks ago he was admitted to the hospital for a COPD exacerbation and pneumonia. He is chronically on 10 mg of prednisone daily as well as 2-4 L of oxygen at home, and around that time he did a burst of steroids but for the past week or so he has been back on his baseline 10 mg daily. No history of CAD or CHF that he knows of. 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 Stage 3 severe COPD by GOLD classification Wears glasses Wears hearing aid Home Medications albuterol sulfate 90 mcg/actuation aerosol inhaler (Proventil HFA) 2 puff inhalation Q6H PRN COPD 12/11/20 [History Last Taken 05/28/23 08:00] montelukast 10 mg tablet 10 mg PO QHS allergies 12/11/20 [History Last Taken 05/27/23 19:00] roflumilast 500 mcg tablet (Daliresp) 500 mcg PO DAILY copd 12/11/20 [History Last Taken 05/28/23 08:00] mometasone 200 mcg/actuation HFA aerosol inhaler (Asmanex HFA) 2 puff inhalation BID breathing 01/10/21 [History Last Taken 05/28/23 08:00] tiotropium 2.5 mcg-olodaterol 2.5 mcg/actuation mist for inhalation (Stiolto Respimat) 2 puff inhalation DAILY breathing 01/10/21 [History Last Taken 05/28/23 08:00] albuterol sulfate 0.63 mg/3 mL solution for nebulization 0.63 mg (3 mL) inhalation Q6H PRN wheezing #90 mL 05/24/21 [Rx Last Taken 05/28/23 08:00] prednisone 10 mg tablet 10 mg PO DAILY #100 tabs 09/25/22 [Rx Last Taken 05/09 06/30 08:00] diphenhydramine HCl 25 mg tablet (Benadryl Allergy) 25 mg PO BID allergies 02/25/23 [History Last Taken Unknown] cetirizine 10 mg tablet (All Day Allergy (cetirizine)) 10 mg PO DAILY PRN a llergy symptoms 05/28/23 [History Last Taken 05/28/23 08:00] fluticasone propionate 50 mcg/actuation nasal spray,suspension (Allergy Relief (fluticasone)) 1 spray intranasal BID allergy symptoms 05/28/23 [History Last Taken 05/28/23 08:00] metoprolol succinate 25 mg tablet,extended release 24 hr 25 mg PO DAILY #30 tabs 05/31/23 [Rx Last Taken Unknown] Allergy/AdvReac Type Severity Reaction Status Date / Time No Known Allergies Allergy Verified 06/17/23 04:15 Surgical History History of hip replacement (~06/11/22) History of inguinal hernia repair History of tonsillectomy and adenoidectomy Hx of bilateral cataract extraction Social History Smoking Status: Former smoker pack-years: 30 Tobacco: How many years used: 30 ROS ROS ED Constitutional Constitutional ED: Denies chills or fever(s) Eyes Eyes: Denies change in vision or diplopia ENT ENT ED: Denies rhinorrhea or sore throat Cardiovascular Cardiovascular: Denies chest pain, leg edema, palpitations or radiating jaw, neck or arm pain Respiratory/Chest Respiratory/Chest: Reports cough, dyspnea and sputum Gastrointestinal Gastrointestinal: Denies abdominal pain, diarrhea, nausea or vomiting Genitourinary Genitourinary ED: Denies dysuria or hematuria Musculoskeletal Musculoskeletal: Denies back pain or neck pain Integumentary Denies abscess or rash Neurologic Neurologic: Denies headache(s), paresthesias or weakness Psychiatric Psychiatric: Denies anxiety or suicidal thoughts EXAM Physical Exam Const Vital Signs: 06/17/23 03:23 06/17/23 03:32 06/17/23 03:32 Temperature 97.9 F 97.9 F Temperature Source Temporal Temporal Pulse Rate 130 H 123 H 123 H Respiratory Rate 32 H 30 H 30 H Respiratory Effort Respiratory Depth Respiratory Pattern Blood Pressure 163/85 H 163/85 H Blood Pressure Mean 111 111 Pulse Ox 93 100 100 Oxygen Delivery Method Nasal Cannula Bi-pap Bi-pap Oxygen Flow Rate (L/min) 6 Fraction of Inspired Oxygen (FIO2) 30 30 06/17/23 03:37 06/17/23 03:36 06/17/23 03:39 Temperature Temperature Source Pulse Rate 122 H Respiratory Rate 36 H Respiratory Effort Short of Breath Labored Accessory Muscle Use Nasal Flaring Pursed Lip Respiratory Depth Deep Respiratory Pattern Tachypnea Tachypnea Blood Pressure Blood Pressure Mean Pulse Ox 96 100 Oxygen Delivery Method Bi-pap Bi-pap Oxygen Flow Rate (L/min) 30 Fraction of Inspired Oxygen (FIO2) 30 30 06/17/23 04:58 06/17/23 05:01 06/17/23 04:00 Temperature 98.6 F 98.6 F Temperature Source Oral Oral Pulse Rate 111 H 108 H 114 H Respiratory Rate 28 H 30 H 28 H Respiratory Effort Respiratory Depth Respiratory Pattern Tachypnea Blood Pressure 112/59 L 113/66 Blood Pressure Mean 76 81 Pulse Ox 95 96 Oxygen Delivery Method Nasal Cannula Nasal Cannula Oxygen Flow Rate (L/min) 4 4 Fraction of Inspired Oxygen (FIO2) Positive well nourished and well developed Constitutional Narrative: Acute respiratory distress General Appearance ED: well developed HEENT Reports moist mucous membranes normocephalic and atraumatic Eyes PERRL and EOMs intact bilaterally Neck full ROM, no lymphadenopathy, supple, no meningeal signs and no JVD Resp Resp Narrative: Moderate respiratory distress, diffusely and symmetrically diminished, with prolonged expiratory phase and expiratory wheezes. Sounds tight. Cardio regular rate, regular rhythm and no murmurs Rate: tachycardic GI non-tender and non-distended Auscultation: normoactive bowel sounds Palpation: soft Back/Spine no CVA tenderness General Back: other FROM Extremity normal to inspection General Extremety ED: Negative for edema, pulses abnormal or tenderness General Extremity: Negative for edema or pulses abnormal Neuro oriented x3, CN's II-XII intact bilaterally and no sensory deficits noted Sensorium / Orientation: awake and alert Motor Exam: strength 5/5 throughout Psych mental status grossly normal Skin no rashes or lesions noted and no wounds MDM MDM MDM Narrative Medical decision making narrative: Upon my evaluation after EMS arrival, respiratory at bedside and transitions the patient to BiPAP, we will obtain an ABG, Solu-Medrol 125 mg IV was already given by EMS, and we will continue nebulizer treatments. He appears to be sinus tachycardia on the monitor. ABG while on BiPAP shows no significant CO2 retention. Chest x-ray shows chronic atelectatic changes/mass in the left lung, and no acute changes or infiltrates on my interpretation, one-view portable. Still awaiting COVID/influenza/RSV results. His lactic acid is hide nonspecific. Clinically he is not septic and his blood pressure is doing fine, his heart rate has come down after nebulizers and some time with the BiPAP and he is tolerating it well, will admit to the hospital, PCU reasonable at this time. History & Record Review Additional record(s) reviewed:: Other (Echo from 2 weeks ago showing reduced LV systolic function with EF 40-45%) Lab Data Attestation: I reviewed the patient's lab results. Labs: Laboratory Results - last 24 hr 06/17/23 03:35 WBC 10.9 RBC 4.30 L Hgb 11.1 L Hct 38.0 L MCV 88.4 MCH 25.8 L MCHC 29.2 L RDW Std Deviation 51.0 H RDW Coeff of Zane 15.8 H Plt Count 292 MPV 10.2 Immature Gran % (Auto) 0.600 Neut % (Auto) 83.2 H Lymph % (Auto) 6.5 L [place] % (Auto) 9.1 Eos % (Auto) 0.1 Baso % (Auto) 0.5 Absolute Neuts (auto) 9.0 H Absolute Lymphs (auto) 0.70 L Nucleated RBC % 0 PT 13.7 INR 1.1 APTT 29.9 Sodium 141 Potassium 3.7 Chloride 105 Carbon Dioxide 29.0 Anion Gap 7 BUN 21 H Creatinine 1.08 Estim Creat Clear Calc 89.44 Est GFR (MDRD) Af Amer 86 Est GFR (MDRD) Non-Af 71 BUN/Creatinine Ratio 19.4 Glucose 131 H Lactic Acid 3.0 H* Calcium 8.5 Total Bilirubin 0.60 AST 21 ALT 18 Alkaline Phosphatase 54 B-Natriuretic Peptide 101.8 H Total Protein 6.7 Albumin 2.9 L Globulin 3.8 Albumin/Globulin Ratio 0.8 L ABG Data ABG results: ABG 06/17/23 03:55 Specimen Type ART Sample Site R Radial pH 7.44 Bicarbonate Actual 25.7 Total CO2 27 Base Excess 2 O2 Saturation 97 O2 % 30.0 ABG pCO2 37.7 ABG pO2 89 Ranulfo Test Positive O2 Delivery Device BiPAP Vent Mode Not entered Clinical Comments BiPAP 23/03 Radiography Diagnostic Testing: Clinical Impression(s) from Imaging Studies Chest X-Ray 06/17/23 04:32 IMPRESSION: Unchanged appearance of the chest with apparent left-sided mass. Electronically Signed: Reta Ruiz MD at 5:14 EST Reading Location ID and State: [facility] / [place] , Service support , Rhythm Strip Rhythm Strip: Sinus Tach Rate: 123 Ectopy: None EKG Initial EKG: Attestation: I personally reviewed and interpreted this EKG as follows: Interpretation: No Acute Injury Pattern and Sinus Tachycardia Management Discussion w/another healthcare provider: Hospitalist Critical Care Time Critical Care Time: Yes Critical care time (excluding procedures): 30-74 minutes (33 min), Including time spent:, Discussing w/Patient &/or Family/Candle Maker, Discussing w/Consultants, Arranging Admission or Transfer and Performing Direct Patient Care at Bedside Discharge Plan Dx/Rx/DC Orders Clinical Impression: Acute respiratory failure, COPD exacerbation Disposition Disposition: Acute Care [facility]
[2023-06-17 03:53] LABS: Basophil# 0.05 X10^3/uL; Basophil% 0.5 % (0-1); Eosinophil# 0.01 X10^3/uL; Eosinophils% 0.1 % (0-5); Hemoglobin 11.1 g/dL (13.0-16.5); Lymphocyte % 6.5 % (19-41); Mean Corp Hgb Conc 29.2 g/dL (32-36); Mean Corpuscular Hgb 25.8 pg (27.0-32.0); Mean Corpuscular Volume 88.4 fL (80-94); Mean Platelet Vol. 10.2 fl (6.2-12.0); Monocyte# 0.99 X10^3/uL; Monocyte% 9.1 % (0-10); NRBC Flagged by Analyzer 0 % (0-5); Neutrophil # 9.04 X10^3/uL (2.7-7.7); Neutrophil % 83.2 % (47-70); Platelet Count 292 K/mm3 (150-450); RBC Distribution Width CV 15.8 % (11.6-14.6); White Blood Count 10.9 K/mm3 (4.4-11.0)
[2023-06-17 04:00] LABS: Allen Test Positive; Base Excess 2 mmol/L (-2 to +2); Bicarbonate 25.7 mmol/L (22-26); Blood Gas Specimen Type ART; Mode Not entered; O2 Delivery Device BiPAP; PO2 89 mmHG (75-100); SITE R Radial; SO2 97 % (95-99); Total Carbon Dioxide 27 mmol/L; pCO2 37.7 mmHg (35-45); pH 7.44 (7.35-7.45)
[2023-06-17] MEDS: Albuterol 2.5 MG/3 ML VIAL.NEB. INHALATION ×2 (04:00→04:07)
--- NOTE | 2023-06-17 04:06 | HP.PCM_ITS ---
[facility] - General General Date of Admission: 06/17/23 Date of Service: 06/17/23 Chief Complaint: Shortness of breath. HPI Narrative TONY SNYDER, is a 73 M with a PMH as outlined who presents via the ED on 06/17/2022 with a complaint of shortness of breath. Patient became acutely short of breath this morning. He usually wears 3L of oxygen at home but had to bump it up to 4L. His shortness of breath worsened so he came in to the ED. He admits to a cough which is chronic. He denied any chest pain, palpitations, dizziness, nausea, vomiting or any other symptoms. Review of systems is otherwise negative. He was recently admitted at the end of May and managed for pneumonia in the setting of Vitals in the ED were temp of 97.9F, WA Of 130, BP of 163/85 and RR of 32. HE was immediately placed on BIPAP on admission in the ED and he was at 100% on FiO2 of 30 in the ED. CBC showed Hb of 11.1 with wbc of 10.9 and platelets of 292. Chemistry was unremarkable. ABG showed pH of 7.44 with oxygen saturation of 97% and pCO2 of 37.7. 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 Stage 3 severe COPD by GOLD classification Wears glasses Wears hearing aid Home Medications albuterol sulfate 90 mcg/actuation aerosol inhaler (Proventil HFA) 2 puff inhalation Q6H PRN COPD 12/11/20 [History Last Taken 05/28/23 08:00] montelukast 10 mg tablet 10 mg PO QHS allergies 12/11/20 [History Last Taken 05/27/23 19:00] roflumilast 500 mcg tablet (Daliresp) 500 mcg PO DAILY copd 12/11/20 [History Last Taken 05/28/23 08:00] mometasone 200 mcg/actuation HFA aerosol inhaler (Asmanex HFA) 2 puff inhalation BID breathing 01/10/21 [History Last Taken 05/28/23 08:00] tiotropium 2.5 mcg-olodaterol 2.5 mcg/actuation mist for inhalation (Stiolto Respimat) 2 puff inhalation DAILY breathing 01/10/21 [History Last Taken 05/28/23 08:00] albuterol sulfate 0.63 mg/3 mL solution for nebulization 0.63 mg (3 mL) inhalation Q6H PRN wheezing #90 mL 05/24/21 [Rx Last Taken 05/28/23 08:00] prednisone 10 mg tablet 10 mg PO DAILY #100 tabs 09/25/22 [Rx Last Taken 05/28/23 08:00] diphenhydramine HCl 25 mg tablet (Benadryl Allergy) 25 mg PO BID allergies 02/25/23 [History Last Taken Unknown] cetirizine 10 mg tablet (All Day Allergy (cetirizine)) 10 mg PO DAILY PRN allergy symptoms 05/28/23 [History Last Taken 05/28/23 08:00] fluticasone propionate 50 mcg/actuation nasal spray,suspension (Allergy Relief (fluticasone)) 1 spray intranasal BID allergy symptoms 05/28/23 [History Last Taken 05/28/23 08:00] metoprolol succinate 25 mg tablet,extended release 24 hr 25 mg PO DAILY #30 tabs 05/31/23 [Rx Last Taken Unknown] Allergy/AdvReac Type Severity Reaction Status Date / Time No Known Allergies Allergy Verified 06/17/23 04:15 Surgical History History of hip replacement (~06/11/22) History of inguinal hernia repair History of tonsillectomy and adenoidectomy Hx of bilateral cataract extraction Social History Smoking Status: Former smoker pack-years: 30 Tobacco: How many years used: 30 ROS Constitutional Constitutional: Reports fatigue and malaise; Denies anorexia, chills, fever(s) or weakness Eyes Eyes: Denies change in vision ENT HEENT: Denies dysphagia, headache(s) or sore throat Cardiovascular Cardiovascular: Denies chest pain, edema, orthopnea, palpitations, paroxysmal nocturnal dyspnea or syncope Respiratory/Chest Respiratory/Chest: Reports cough, shortness of breath at rest, shortness of breath with exertion and wheezing Gastrointestinal Gastrointestinal: Denies constipation or diarrhea Genitourinary Genitourinary: Denies hematuria, polyuria or urinary frequency Musculoskeletal Musculoskeletal: Denies extremity pain Neurologic Neurologic: Denies confusion, dizziness, focal weakness or headache(s) Psychiatric Psychiatric: Denies anxiety Vital Signs Vital Signs Vital Signs: 06/17/23 03:23 06/17/23 03:32 06/17/23 03:32 Temperature 97.9 F 97.9 F Temperature Source Temporal Temporal Pulse Rate 130 H 123 H 123 H Respiratory Rate 32 H 30 H 30 H Respiratory Effort Respiratory Depth Respiratory Pattern Blood Pressure 163/85 H 163/85 H Blood Pressure Mean 111 111 Pulse Ox 93 100 100 Oxygen Delivery Method Nasal Cannula Bi-pap Bi-pap Oxygen Flow Rate (L/min) 6 Fraction of Inspired Oxygen (FIO2) 30 30 06/17/23 03:37 Temperature Temperature Source Pulse Rate Respiratory Rate Respiratory Effort Short of Breath Labored Accessory Muscle Use Nasal Flaring Pursed Lip Respiratory Depth Deep Respiratory Pattern Tachypnea Blood Pressure Blood Pressure Mean Pulse Ox Oxygen Delivery Method Bi-pap Oxygen Flow Rate (L/min) Fraction of Inspired Oxygen (FIO2) 30 Weight Weight: 330 lb 11.094 oz Body Mass Index (BMI) 47.4 Physical Exam Const alert and oriented x3 Constitutional Narrative: in moderate respiratory distress due to shortness of breath, on BIPAP General Appearance: cooperative HEENT normocephalic and head/scalp atraumatic Mouth: dry mucous membranes Eyes PERRL and EOMs intact bilaterally Neck no lymphadenopathy, supple and no JVD Lymph Lymphatic: no lymphadenopathy noted and no lymphedema noted Resp Resp Narrative: in moderate respiratory distress, on BIPAP. Tachypneic. bilateral wheezing and some crackles. Effort and Inspection: tachypneic and respiratory distress Auscultation: rales, wheezes and diminished lung sounds Cardio regular rate, regular rhythm, S1 normal heart sound, S2 normal heart sound and no murmurs Palpation: normal PMI GI normal to inspection, nondistended, normoactive bowel sounds and soft to palpation Extremity normal capillary refill, no clubbing, cyanosis or edema and no calf tenderness General Extremity: no tenderness to palpation of joints or extremities Skin General Skin Exam: no breakdown Neuro CN's II-XII intact bilaterally Motor Exam: strength 5/5 throughout and general weakness Psych thought process normal, cooperative, affect normal and denies homicidal ideation Mood & Affect: anxious Results Lab / Micro Data 06/17/23 03:35 06/17/23 03:35 Labs: Laboratory Results - last 24 hr 06/17/23 03:35: WBC 10.9, RBC 4.30 L, Hgb 11.1 L, Hct 38.0 L, MCV 88.4, MCH 25.8 L, MCHC 29.2 L, RDW Std Deviation 51.0 H, RDW Coeff of Zane 15.8 H, Plt Count 292, MPV 10.2, Immature Gran % (Auto) 0.600, Neut % (Auto) 83.2 H, Lymph % (Auto ) 6.5 L, [place] % (Auto) 9.1, Eos % (Auto) 0.1, Baso % (Auto) 0.5, Absolute Neuts (auto) 9.0 H, Absolute Lymphs (auto) 0.70 L, Nucleated RBC % 0 ABG Data ABG results: ABG 06/17/23 03:55 Specimen Type ART Sample Site R Radial pH 7.44 Bicarbonate Actual 25.7 Total CO2 27 Base Excess 2 O2 Saturation 97 O2 % 30.0 ABG pCO2 37.7 ABG pO2 89 Ranulfo Test Positive O2 Delivery Device BiPAP Vent Mode Not entered Clinical Comments BiPAP 23/03 Rhythm Strip Rhythm Strip: Sinus Tach Rate: 123 Ectopy: None Assessment & Plan Assessment/Plan (1) Acute hypoxemic respiratory failure: (2) Shortness of breath on exertion: (3) Mediastinal lymphadenopathy: (4) S/P total left hip arthroplasty: PLAN: Plan #Acute hypoxic respiratory failure due to COPD exacerbation and influenza A infection * on BIPAP * CXR pending. Usually wears 3:L of oxygen at home * consult pulmonology * Was recently treated for postobstructive pneumonia on Zosyn and azithromycin. He is on p.o. prednisone. Will switch to IV Solu-Medrol. * Titrate oxygen to maintain saturation above 90%. * Breathing treatments bronchodilators. * start on tamiflu * #History of squamous cell lung cancer: on imuotherapy. Continue with oncologist on outptient basis #GERD; on PPI #osteoarthritis: has back pain. ON PO tylenol prn \ DVT prophylaxis lovenox code status: DNRCCA no intubation. \ * Patient and counseled extensively about different types of CODE STATUS including full code, DNR CCA and DNR CCA. Patient elects to be DNRCCA no intubation Total [id number] time 16 minutes. * Total time spent on evaluation and management of patient, reviewing chart and specialist notes, discussing plan with patient and his , discussion with nursing and ancillary staff as well as documentation: 80 mins Charges/Coding Visit Charges Inpatient E&M: 02677 Init Hosp L3 Procedures Hospitalists Procedures: 10084 Advncd Care Plan 30 Min
[2023-06-17 04:07] LABS: International Normalized Ratio 1.1; Partial Thromboplast Time 29.9 Seconds (24.1-36.2); Prothrombin Time (Protime)PT. 13.7 SECONDS (11.7-14.9)
[2023-06-17 04:16] LABS: ALB/GLOB Ratio 0.8 RATIO (0.9-2.4); AST(SGOT) 21 U/L (15-37); Alanine Aminotransfer ALT/SGPT 18 U/L (16-61); Albumin, Serum 2.9 g/dL (3.2-5.0); Alkaline Phosphatase 54 U/L (45-117); Anion Gap 7 (5-15); BUN 21 mg/dL (7-18); BUN/Creat Ratio 19.4 RATIO (10-20); Calcium,Total 8.5 mg/dL (8.5-10.1); Chloride 105 mmol/L (98-107); Creatinine, Serum 1.08 mg/dL (0.70-1.30); EST Glomerular Filtration Rate 71 mL/min (>60); Est Glom Filt Rate - Afr Amer 86 mL/min (>60); Estimated Creatinine Clearance 89.44 ml/min; Globulin 3.8 g/dL (2.2-4.2); Glucose 131 mg/dL (74-106); Potassium 3.7 mmol/L (3.5-5.1); Protein, Total 6.7 g/dL (6.4-8.2); Sodium Level 141 mmol/L (136-145)
--- NOTE | 2023-06-17 04:32 | RAD_ITS ---
STUDY: X-RAY CHEST REASON FOR EXAM: Male, 73 years old patient with shortness of breath. TECHNIQUE: Single AP portable view of the chest. COMPARISON: Chest radiograph dated May 29, 2023. FINDINGS: Right-sided Mediport catheter is present in the internal jugular vein and the tip of the catheter is in the cavoatrial region. Cardiac monitoring leads are present. There is moderate elevation left hemidiaphragm. There is persistent left-sided spiculated mass in the left hilar area. There is no demonstrated pleural abnormality. Normal size heart. Normal mediastinum and urszula. Normal visualized pulmonary arteries. Normal visualized aortic arch and descending thoracic aorta. Normal visualized thoracic spine. Normal visualized ribs, clavicles, and shoulders. There is no demonstrated abnormality of the visualized soft tissue structures of the upper abdomen. RAD/Chest 1 View (Portable) IMPRESSION: Unchanged appearance of the chest with apparent left-sided mass. Electronically Signed: Reta Ruiz MD at 5:14 EST ,
--- NOTE | 2023-06-17 04:38 | CPS ---
[0431] Pt. placed on 4L NC at this time. Pt.'s respiratory status has improved since his arrival to ED.
--- NOTE | 2023-06-17 04:39 | CPS ---
x2 Albuterol given to pt. in ED
[2023-06-17] MEDS: 0.9% Normal Saline (1000mL) 1,000 ML 100 ML IV ×2 (04:58→16:39)
[2023-06-17 05:24] LABS: BNP,B-Type NATRIURETIC PEPTIDE 101.8 pg/mL (0-100)
--- NOTE | 2023-06-17 06:41 | NURSING ---
PCU [facility] RESP FAILURE, COPD EXAC
[2023-06-17] MEDS: Ipratropium/Albuterol Sulfate 3 ML AMPUL.NEB INHALATION ×3 (07:35→19:56)
[2023-06-17 07:45] LABS: Reflex Lactate? Y
--- NOTE | 2023-06-17 09:28 | PCM.HOSP.N ---
Hospitalist Note The patient is stated that he felt very exhausted with increased work of breathing and shortness of breath. He said he felt like increased oxygenation probably not meeting his demand. Morning was admitted with acute shortness of breath. Usually on 3-4 oxygen but still short of breath on 4 L. Chronic cough with no significant change mucus. Denies chest pain. General: Alert, Oriented x3, Cooperative HEENT: Atraumatic, PERRLA, EOMI, Normocephalic Oral: No Gingival or Mucosal Lesions/ Ulcerations Neck: Supple, No JVD, Negative Carotid Bruits Lungs: Air entry diminished in bilateral lung bases. No crepitation/rhonchi Cardiovascular: Regular rate, Regular Rhythm, Normal S1, Normal S2, No murmurs Abdomen: Bowel Sounds Present, Soft, Non Tender, Non-Distended : No renal angle tenderness. No suprapubic tenderness. Extremities: No edema, Capillary Refill Less than 3 Seconds Skin: No rashes, No breakdown Musculoskeletal: No Tenderness to Palpation of Joints or Extremities Neurological: Cranial nerves II-XII grossly intact, DTR 2+/4. No acute focal neurological deficit. Psych/Mental Status: Normal Affect, Appropriate. 1. Acute hypoxic respiratory failure due to COPD exacerbation, most likely from influenza A infection/viral bronchitis flu. COPD was recently treatedWith Zosyn and azithromycin during recent hospitalization in May. Chest x-ray individually reviewed and shows left perihilar spiculated mass similar to the previous chest x-ray and CT scan in May 2023. Patient is being managed on scheduled bronchodilator, IV Solu-Medrol, Mucinex, incentive spirometry and Pep.
[2023-06-17 09:31] LABS: Lactic Acid 4.7 mmol/L (0.4-1.9)
[2023-06-17] MEDS: Enoxaparin 40 MG/0.4 ML Syringe SC (09:35)
[2023-06-17] MEDS: Metoprolol(XL)Succ 25 MG Tablet PO (09:35)
[2023-06-17] MEDS: Oseltamivir Phosphate 75 MG Capsule PO ×2 (09:35→21:35)
[2023-06-17] MEDS: Fluticasone 0.05% 1 SPRAY NASAL.SRY NASAL ×2 (09:35→21:33)
[2023-06-17] MEDS: 0.9 % NaCl (Sterile) Posiflush 10 mL IV (09:36)
[2023-06-17] MEDS: NORMAL SALINE 500 ML IV (11:04)
[2023-06-17] MEDS: guaiFENesin/D-Methorphan TAB.SR.12H 2 TABLET PO ×2 (12:13→21:34)
[2023-06-17] MEDS: 0.9% Saline Lock 10 ML Syringe IV (16:01)
[2023-06-17] MEDS: ROFLUMILAST 500 MCG TABLET PO (18:07)
--- NOTE | 2023-06-17 21:30 | NURSING ---
emergency documentation effective 06/17/2023, 2139
[2023-06-17] MEDS: Montelukast 10 MG Tablet PO (21:35)
[2023-06-18] VITALS (13 sets, daily range): BP systolic 124–152; BP diastolic 78–86; PULSE 91–105; RESP 18–24; TEMP 36.4–36.7; O2SAT 94–100
[2023-06-18] MEDS: 0.9% Normal Saline (1000mL) 1,000 ML 100 ML IV (02:41)
[2023-06-18] MEDS: Ipratropium/Albuterol Sulfate 3 ML AMPUL.NEB INHALATION ×2 (05:54→07:16)
[2023-06-18] MEDS: 0.9% Saline Lock 10 ML Syringe IV ×3 (06:11→21:06)
[2023-06-18 07:08] LABS: Absolute Lymphocyte Count 0.26 X10^3/uL (0.83-4.51); Absolute Neutrophil Count 14.1 X10^3/uL (2.0-7.7); Basophil# 0.01 X10^3/uL; Basophil% 0.1 % (0-1); Hematocrit 31.6 % (40-54); Hemoglobin 9.7 g/dL (13.0-16.5); Lymphocyte # 0.26 X10^3/ul (0.83-4.51); Lymphocyte % 1.8 % (19-41); Mean Corp Hgb Conc 30.7 g/dL (32-36); Mean Corpuscular Hgb 26.7 pg (27.0-32.0); Mean Corpuscular Volume 87.1 fL (80-94); Mean Platelet Vol. 9.5 fl (6.2-12.0); Monocyte% 2.7 % (0-10); NRBC Flagged by Analyzer 0 % (0-5); Neutrophil # 14.07 X10^3/uL (2.7-7.7); Neutrophil % 95.1 % (47-70); POSITIVE DIFFERENTIAL YES; Platelet Count 229 K/mm3 (150-450); RBC Distribution Width CV 15.9 % (11.6-14.6); RBC Distribution Width SD 50.3 fl (35.1-43.9); Red Blood Count 3.63 M/mm3 (4.6-6.2); White Blood Count 14.8 K/mm3 (4.4-11.0)
[2023-06-18 07:44] LABS: Anion Gap 6 (5-15); BUN 18 mg/dL (7-18); Calcium,Total 8.6 mg/dL (8.5-10.1); Chloride 109 mmol/L (98-107); EST Glomerular Filtration Rate 88 mL/min (>60); Est Glom Filt Rate - Afr Amer 106 mL/min (>60); Estimated Creatinine Clearance 70.35 ml/min; Glucose 166 mg/dL (74-106); Potassium 3.8 mmol/L (3.5-5.1); Sodium Level 141 mmol/L (136-145)
[2023-06-18 07:45] LABS: Differential Indicated SCAN CRITERIA MET
[2023-06-18 08:43] LABS: Differential Comment SCANNED
[2023-06-18] MEDS: Oseltamivir Phosphate 75 MG Capsule PO ×2 (08:55→21:03)
[2023-06-18] MEDS: Enoxaparin 40 MG/0.4 ML Syringe SC (08:56)
[2023-06-18] MEDS: guaiFENesin/D-Methorphan TAB.SR.12H 2 TABLET PO ×2 (08:56→21:03)
[2023-06-18] MEDS: Metoprolol(XL)Succ 25 MG Tablet PO (08:56)
[2023-06-18] MEDS: Fluticasone 0.05% 1 SPRAY NASAL.SRY NASAL ×2 (08:57→21:03)
[2023-06-18] MEDS: ROFLUMILAST 500 MCG TABLET PO (08:57)
--- NOTE | 2023-06-18 11:30 | CASEMGMT ---
RN CM chart review: Patient was admitted 05/28-05/31/23 for pneumonia. See RN CM assessment from 05/29/23. Patient was discharged to home with established home oxygen at 2lpm at rest and 2-4lpm with ambulation, family support, and follow-up plans in place. Patient returned to [facility] ED on 06/17/23 for increased SOB. Patient was admitted for COPD exacerbation and influenza A. Patient is currently on Airvo. RN CM in to discuss needs at discharge and readmission. Patient states he followed up with PCP. Patient states he was taking medications as directed. Patient and deny needs at discharge. Will monitor for increase in home oxygen at discharge. CM will continue to follow this patient and plan for a safe discharge.
--- NOTE | 2023-06-18 12:11 | CASEMGMT ---
SHAWN VARGAS received call from [facility] at [place] requesting clinical update. Update provided. Destin's information P:[phone] ext [phone] F: [phone].
--- NOTE | 2023-06-18 14:47 | CHAPLAIN ---
Type of Pastoral Visit _x__ Initial Visit ___ Follow-up Visit ___ On-call Visit ___ General Patient Visit ___ Spiritual Assessment ___ Family Conference ___ Bereavement ___ Rapid Response ___ Code Blue ___ Other (describe below) Pastoral Care Referral From _x__ Patient _x__ Family ___ Nurse ___ Physician ___ Distributing Clerk ___ Target Trimmer ___ Other (describe below) Sacrament/Intervention _x__ Active listening ___ Anointing ___ Buddhist ___ Bereavement ___ Communion _x__ Uma exploration ___ _x__ Life review _x__ Prayer ___ Reconciliation ___ Sacrament of Sick _x__ Supportive presence ___ Wedding ___ Other (describe below) Pastoral Comments patient and spouse are in the room; pt acknowledges several times that I asked you to come and talk to me ; pt and spouse give brief review of his health situation which includes terminal lung cancer; pt acknowledges his understanding that he will be dying; pt identifies himself as someone 'who believes in God and tries to do right, but maybe has lived like an agnostic because i have so many questions'; pt admits to thoughts of fear about 'how one dies and what happens to me?'; pt is asking spiritual questions about uma and the after life; affirmation that these questions are normal to be asking; affirmation of his process in thinking and uses others to help him; referred to his childhood uma in Islam and offered ideas on what belief and acceptance of God's statements;
--- NOTE | 2023-06-18 14:53 | CHAPLAIN ---
Type of Pastoral Visit _x__ Initial Visit ___ Follow-up Visit ___ On-call Visit ___ General Patient Visit ___ Spiritual Assessment ___ Family Conference ___ Bereavement ___ Rapid Response ___ Code Blue ___ Other (describe below) Pastoral Care Referral From _x__ Patient ___ Family ___ Nurse ___ Physician ___ Service Associate ___ Interactive Video Technician ___ Other (describe below) Sacrament/Intervention _x__ Active listening ___ Anointing ___ Rastafarian ___ Bereavement ___ Communion _x__ Uma exploration ___ _x__ Life review _x__ Prayer ___ Reconciliation ___ Sacrament of Sick _x__ Supportive presence ___ Wedding ___ Other (describe below) Pastoral Comments patient and spouse are in the room together; both gives some initial details of health situation for patient and specifically of his lung cancer; pt states that I have asked you to come see me ; pt admits that he 'believes in God and all that but haven't been lutheran'; pt states that in this health situation he has questions about uma and life after ; pt says that other family members have more uma than he does; time given to listen to thoughts and feelings of the pt; affirmed pt in his acknowledgement of acceptance of his own mortality and that it is normal to ask questions or have some fears; pt is referred to his childhood heritage in the Voodoo tradition and how this addresses many of his questions and thoughts; pt is given time to reflect, ask question, express himself, and continue a discussion; spouse is active in the conversation while giving the pt right to express himself; pt welcomes the prayers of the coding clerk and gives invitation to future visits;
--- NOTE | 2023-06-18 15:16 | PN.HOSP_ITS ---
Reason for Visit Reason for Visit: Diagnoses Acute respiratory failure with hypoxia (06/17/23) Shortness of breath (06/17/23) Localized enlarged lymph nodes (06/17/23) Presence of left artificial hip joint (06/17/23) Objective Data Objective Data Vital Signs: Vital Signs Temp Pulse Resp BP Pulse Ox O2 Del Method O2 Flow Rate 98.1 F 103 H 18 152/85 H 100 Airvo 5 06/18/23 14:50 06/18/23 14:50 06/18/23 14:50 06/18/23 14:50 06/18/23 14:50 06/18/23 14:50 06/18/23 09:15 FiO2 70 06/18/23 11:15 Oxygen Flow Rate (L/min) 5 Oxygen Delivery Method Airvo Weight: 150 lb 0.005 oz Body Mass Index (BMI) 21.5 Intake & Output: Intake and Output for Last 24 Hours 06/16/23 06/17/23 06/18/23 23:59 23:59 23:59 Intake Total 3005.00 / 3005.00 1748.33 / 1748.33 Output Total 200 / 200 100 / 100 Balance 2805.00 / 2805.00 1648.33 / 1648.33 Lab / Micro Data 06/18/23 06:45 06/18/23 06:45 Labs: Laboratory Results - last 24 hr 06/18/23 06:45: WBC 14.8 H, RBC 3.63 L, Hgb 9.7 L, Hct 31.6 L, MCV 87.1, MCH 26.7 L, MCHC 30.7 L D, RDW Std Deviation 50.3 H, RDW Coeff of Zane 15.9 H, Plt Count 229, MPV 9.5, Immature Gran % (Auto) 0.300, Neut % (Auto) 95.1 H, Lymph % (Auto) 1.8 L, [place] % (Auto) 2.7, Eos % (Auto) 0.0, Baso % (Auto) 0.1, Absolute Neuts (auto) 14.1 H, Absolute Lymphs (auto) 0.26 L, Nucleated RBC % 0, Differential Comment SCANNED, Sodium 141, Potassium 3.8, Chloride 109 H, Carbon Dioxide 26.0, Anion Gap 6, BUN 18, Creatinine 0.90, Estim Creat Clear Calc 70.35, Est GFR (MDRD) Af Amer 106, Est GFR (MDRD) Non-Af 88, BUN/Creatinine Ratio 20.0, Glucose 166 H, Calcium 8.6 Micro: Microbiology 06/17/23 04:43 Mucosa - Nose SARS-CoV-2, Influenza & RSV (PCR) - Final Influenzae A Rhythm Strip Rhythm Strip: Sinus Tach Rate: 123 Ectopy: None Physical Exam Narrative Patient is still very short of breath. Did not feel much difference from yesterday. Patient still has increased work of breathing. He could not tolerate BiPAP but encouraged to put BiPAP for restful sleep, increased oxygenation and respiration. On 5 L of oxygen. Chronic cough with no significant change mucus. Denies chest pain. General: Alert, Oriented x3, Cooperative HEENT: Atraumatic, PERRLA, EOMI, Normocephalic Oral: No Gingival or Mucosal Lesions/ Ulcerations Neck: Supple, No JVD, Negative Carotid Bruits Lungs: Air entry severely diminished in bilateral lung bases. No crepitation/rhonchi. Increased work of breathing/dyspnea. Tachypnea and severe hypoxia. Cardiovascular: Regular rate, Regular Rhythm, Normal S1, Normal S2, No murmurs Abdomen: Bowel Sounds Present, Soft, Non Tender, Non-Distended : No renal angle tenderness. No suprapubic tenderness. Extremities: No edema, Capillary Refill Less than 3 Seconds Skin: No rashes, No breakdown Musculoskeletal: No Tenderness to Palpation of Joints or Extremities Neurological: Cranial nerves II-XII grossly intact, DTR 2+/4. No acute focal neurological deficit. Psych/Mental Status: Normal Affect, Appropriate. Assessment & Plan Assessment/Plan (1) Acute hypoxemic respiratory failure: (2) Shortness of breath on exertion: (3) Mediastinal lymphadenopathy: (4) S/P total left hip arthroplasty: PLAN: Plan 1. Acute hypoxic respiratory failure due to COPD exacerbation, most likely from influenza A infection/viral bronchitis flu:. Patient is being admitted in PCU. Pneumonia was recently treated With Zosyn and azithromycin during recent hospitalization in May. Chest x-ray individually reviewed and shows left perihilar spiculated mass similar to the previous chest x-ray and CT scan in May 2023. Patient is being managed on scheduled bronchodilator, IV Solu-Medrol, Mucinex, incentive spirometry and Pep. 06/18: Continue Tamiflu. Discussed with respiratory therapist and patient put on Airvo. Encouraged patient and his to comply with BiPAP at night. Restive of to continue. #History of squamous cell lung cancer: on imuotherapy. Continue with oncologist on outptient basis #GERD; on PPI #osteoarthritis: has back pain. ON PO tylenol prn DVT prophylaxis lovenox code status: DNRCCA no intubation. \ * Patient and counseled extensively about different types of CODE STATUS including full code, DNR CCA and DNR CCA. Patient elects to be DNRCCA no intubation Charges/Coding Visit Charges Inpatient E&M: 27910 Subs Hosp L2
[2023-06-18] MEDS: Montelukast 10 MG Tablet PO (21:03)
[2023-06-18] MEDS: Ipratropium 0.5 MG/2.5 ML SOLUTION INHALATION (23:21)
[2023-06-19] VITALS (10 sets, daily range): BP systolic 129–148; BP diastolic 78–95; PULSE 85–102; RESP 16–20; TEMP 36.4–36.9; O2SAT 40–99
[2023-06-19] MEDS: 0.9% Saline Lock 10 ML Syringe IV (05:30)
[2023-06-19] MEDS: Ipratropium 0.5 MG/2.5 ML SOLUTION INHALATION ×3 (05:47→20:38)
[2023-06-19 06:56] LABS: Absolute Lymphocyte Count 0.27 X10^3/uL (0.83-4.51); Absolute Neutrophil Count 13.7 X10^3/uL (2.0-7.7); Basophil# 0.01 X10^3/uL; Basophil% 0.1 % (0-1); Hematocrit 34.4 % (40-54); Hemoglobin 10.2 g/dL (13.0-16.5); Lymphocyte # 0.27 X10^3/ul (0.83-4.51); Lymphocyte % 1.9 % (19-41); Mean Corp Hgb Conc 29.7 g/dL (32-36); Mean Corpuscular Hgb 26.6 pg (27.0-32.0); Mean Corpuscular Volume 89.8 fL (80-94); Mean Platelet Vol. 9.8 fl (6.2-12.0); Monocyte# 0.44 X10^3/uL; NRBC Flagged by Analyzer 0 % (0-5); Neutrophil # 13.65 X10^3/uL (2.7-7.7); Neutrophil % 94.5 % (47-70); POSITIVE DIFFERENTIAL YES; Platelet Count 236 K/mm3 (150-450); RBC Distribution Width CV 15.9 % (11.6-14.6); RBC Distribution Width SD 52.7 fl (35.1-43.9); Red Blood Count 3.83 M/mm3 (4.6-6.2); White Blood Count 14.4 K/mm3 (4.4-11.0)
[2023-06-19 07:04] LABS: Differential Indicated SCAN CRITERIA MET
[2023-06-19 07:31] LABS: Anion Gap 4 (5-15); BUN 26 mg/dL (7-18); BUN/Creat Ratio 34.4 RATIO (10-20); Calcium,Total 8.8 mg/dL (8.5-10.1); Chloride 106 mmol/L (98-107); Creatinine, Serum 0.76 mg/dL (0.70-1.30); EST Glomerular Filtration Rate 107 mL/min (>60); Est Glom Filt Rate - Afr Amer 130 mL/min (>60); Estimated Creatinine Clearance 79.14 ml/min; Glucose 116 mg/dL (74-106); Potassium 4.7 mmol/L (3.5-5.1); Sodium Level 140 mmol/L (136-145)
[2023-06-19] MEDS: Fluticasone 0.05% 1 SPRAY NASAL.SRY NASAL ×2 (10:14→21:20)
[2023-06-19] MEDS: Loratadine 10 MG Tablet PO (10:16)
[2023-06-19] MEDS: Oseltamivir Phosphate 75 MG Capsule PO ×2 (10:17→21:19)
[2023-06-19] MEDS: Metoprolol(XL)Succ 25 MG Tablet PO (10:17)
[2023-06-19] MEDS: Enoxaparin 40 MG/0.4 ML Syringe SC (10:17)
[2023-06-19] MEDS: guaiFENesin/D-Methorphan TAB.SR.12H 2 TABLET PO ×2 (10:18→21:19)
[2023-06-19] MEDS: ROFLUMILAST 500 MCG TABLET PO (10:20)
--- NOTE | 2023-06-19 17:35 | PN.HOSP_ITS ---
Reason for Visit Reason for Visit: Diagnoses Acute respiratory failure with hypoxia (06/17/23) Shortness of breath (06/17/23) Localized enlarged lymph nodes (06/17/23) Presence of left artificial hip joint (06/17/23) Objective Data Objective Data Vital Signs: Vital Signs Temp Pulse Resp BP Pulse Ox O2 Del Method O2 Flow Rate 97.6 F L 90 16 129/80 H 99 Room Air 40 06/19/23 17:30 06/19/23 17:30 06/19/23 17:30 06/19/23 17:30 06/19/23 17:30 06/19/23 17:30 06/19/23 10:11 FiO2 50 06/19/23 10:11 Oxygen Flow Rate (L/min) 40 Oxygen Delivery Method Room Air Weight: 150 lb 0.005 oz Body Mass Index (BMI) 21.5 Intake & Output: Intake and Output for Last 24 Hours 06/17/23 06/18/23 06/19/23 23:59 23:59 23:59 Intake Total 3005.00 / 3005.00 1997.33 / 1997.33 600 / 600 Output Total 200 / 200 250 / 250 150 / 150 Balance 2805.00 / 2805.00 1748.33 / 1748.33 450 / 450 Lab / Micro Data 06/19/23 06:15 06/19/23 06:15 Labs: Laboratory Results - last 24 hr 06/19/23 06:15: WBC 14.4 H, RBC 3.83 L, Hgb 10.2 L, Hct 34.4 L, MCV 89.8, MCH 26.6 L, MCHC 29.7 L, RDW Std Deviation 52.7 H, RDW Coeff of Zane 15.9 H, Plt Count 236, MPV 9.8, Immature Gran % (Auto) 0.500, Neut % (Auto) 94.5 H, Lymph % (Auto) 1.9 L, [place] % (Auto) 3.0, Eos % (Auto) 0.0, Baso % (Auto) 0.1, Absolute Neuts (auto) 13.7 H, Absolute Lymphs (auto) 0.27 L, Nucleated RBC % 0, Sodium 140, Potassium 4.7, Chloride 106, Carbon Dioxide 30.0, Anion Gap 4 L, BUN 26 H, Creatinine 0.76, Estim Creat Clear Calc 79.14, Est GFR (MDRD) Af Amer 130, Est GFR (MDRD) Non-Af 107, BUN/Creatinine Ratio 34.4 H, Glucose 116 H, Calcium 8.8 Micro: Microbiology 06/17/23 04:55 Blood Culture (Wb) - Port Blood Culture - Preliminary No growth in 48 hours. 06/17/23 03:35 Blood Culture (Wb) - Anticubital Right Blood Culture - Preliminary No growth in 48 hours. 06/17/23 04:43 Mucosa - Nose SARS-CoV-2, Influenza & RSV (PCR) - Final Influenzae A Rhythm Strip Rhythm Strip: Sinus Tach Rate: 123 Ectopy: None Physical Exam Narrative Patient subjectively feels mild improvement on Airvo. No dyspnea at rest. Patient able to keep Airvo yesterday. He could not tolerate BiPAP but encouraged to put BiPAP for restful sleep, increased oxygenation and respiration. Chronic cough with no significant change mucus. Denies chest pain. Physical exam General: Alert, Oriented x3, Cooperative HEENT: Atraumatic, PERRLA, EOMI, Normocephalic Oral: No Gingival or Mucosal Lesions/ Ulcerations Neck: Supple, No JVD, Negative Carotid Bruits Lungs: Air entry severely diminished in bilateral lung bases. On Airvo. Tachypnea and severe hypoxia. Cardiovascular: Regular rate, Regular Rhythm, Normal S1, Normal S2, No murmurs Abdomen: Bowel Sounds Present, Soft, Non Tender, Non-Distended : No renal angle tenderness. No suprapubic tenderness. Extremities: No edema, Capillary Refill Less than 3 Seconds Skin: No rashes, No breakdown Musculoskeletal: No Tenderness to Palpation of Joints or Extremities Neurological: Cranial nerves II-XII grossly intact, DTR 2+/4. No acute focal neurological deficit. Psych/Mental Status: Normal Affect, Appropriate. Assessment & Plan Assessment/Plan (1) Acute hypoxemic respiratory failure: (2) Shortness of breath on exertion: (3) Mediastinal lymphadenopathy: (4) S/P total left hip arthroplasty: PLAN: Plan 1. Acute hypoxic respiratory failure due to COPD exacerbation, most likely from influenza A infection/viral bronchitis flu:. Patient is being admitted in PCU. Pneumonia was recently treated With Zosyn and azithromycin during recent hospitalization in May. Chest x-ray individually reviewed and shows left perihilar spiculated mass similar to the previous chest x-ray and CT scan in May 2023. Patient is being managed on scheduled bronchodilator, IV Solu-Medrol, Mucinex, incentive spirometry and Pep. 06/18: Continue Tamiflu. Discussed with respiratory therapist and patient put on Airvo. Encouraged patient and his to comply with BiPAP at night. Rest of to continue. 06/19: Continue Airvo. Patient is tolerating well. No fever. Bronchopulmonary hygiene encouraged. #History of squamous cell lung cancer: on imuotherapy. Continue with oncologist on outptient basis #GERD; on PPI #osteoarthritis: has back pain. ON PO tylenol prn DVT prophylaxis lovenox code status: DNRCCA no intubation. \ * Patient and counseled extensively about different types of CODE STATUS including full code, DNR CCA and DNR CCA. Patient elects to be DNRCCA no intubation Charges/Coding Visit Charges Inpatient E&M: 64105 Subs Hosp L2
[2023-06-19] MEDS: Montelukast 10 MG Tablet PO (21:19)
[2023-06-20 03:56] VITALS: BP 134/79; PULSE 81; RESP 16; TEMP 36.8; O2SAT 98
[2023-06-20 04:12] VITALS: PULSE 84; RESP 18; O2SAT 99
[2023-06-20] MEDS: Ipratropium 0.5 MG/2.5 ML SOLUTION INHALATION ×2 (04:12→07:05)
[2023-06-20] MEDS: 0.9 % NaCl (Sterile) Posiflush 10 mL IV (05:32)
[2023-06-20 06:35] LABS: Differential Comment SCANNED
[2023-06-20 06:40] LABS: Absolute Neutrophil Count 8.3 X10^3/uL (2.0-7.7); Hematocrit 33.5 % (40-54); Hemoglobin 9.9 g/dL (13.0-16.5); Lymphocyte % 3.3 % (19-41); Mean Corp Hgb Conc 29.6 g/dL (32-36); Mean Corpuscular Hgb 26.3 pg (27.0-32.0); Mean Corpuscular Volume 88.9 fL (80-94); Monocyte# 0.45 X10^3/uL; NRBC Flagged by Analyzer 0 % (0-5); Neutrophil # 8.29 X10^3/uL (2.7-7.7); Neutrophil % 91.1 % (47-70); POSITIVE DIFFERENTIAL YES; Platelet Count 223 K/mm3 (150-450); RBC Distribution Width CV 15.5 % (11.6-14.6); Red Blood Count 3.77 M/mm3 (4.6-6.2); White Blood Count 9.1 K/mm3 (4.4-11.0)
[2023-06-20 06:45] LABS: Differential Indicated SCAN CRITERIA MET
[2023-06-20 07:04] LABS: Differential Comment SCANNED
[2023-06-20 07:05] VITALS: PULSE 84; RESP 20
[2023-06-20 07:44] VITALS: O2SAT 96
--- NOTE | 2023-06-20 08:05 | PN.HOSP_ITS ---
Reason for Visit Reason for Visit: Diagnoses Acute respiratory failure with hypoxia (06/17/23) Shortness of breath (06/17/23) Localized enlarged lymph nodes (06/17/23) Presence of left artificial hip joint (06/17/23) Objective Data Objective Data Vital Signs: Vital Signs Temp Pulse Resp BP Pulse Ox O2 Del Method O2 Flow Rate 98.2 F 84 20 H 134/79 H 96 Nasal Cannula 4 06/20/23 03:56 06/20/23 07:05 06/20/23 07:05 06/20/23 03:56 06/20/23 07:44 06/20/23 07:55 06/20/23 07:55 FiO2 94 06/20/23 07:55 Oxygen Flow Rate (L/min) 4 Oxygen Delivery Method Nasal Cannula Weight: 150 lb 0.005 oz Body Mass Index (BMI) 21.5 Intake & Output: Intake and Output for Last 24 Hours 06/18/23 06/19/23 06/20/23 23:59 23:59 23:59 Intake Total 1997.33 / 1997.33 900 / 1100 440 / 440 Output Total 250 / 250 150 / 450 700 / 700 Balance 1748.33 / 1748.33 750 / 650 -260 / -260 Lab / Micro Data 06/20/23 05:37 06/20/23 05:37 Labs: Laboratory Results - last 24 hr 06/19/23 06:15: Differential Comment SCANNED 06/20/23 05:37: WBC 9.1, RBC 3.77 L, Hgb 9.9 L, Hct 33.5 L, MCV 88.9, MCH 26.3 L , MCHC 29.6 L, RDW Std Deviation 51.0 H, RDW Coeff of Zane 15.5 H, Plt Count 223, MPV 10.0, Immature Gran % (Auto) 0.600, Neut % (Auto) 91.1 H, Lymph % (Auto) 3.3 L, [place] % (Auto) 5.0, Eos % (Auto) 0.0, Baso % (Auto) 0.0, Absolute Neuts (auto) 8.3 H, Absolute Lymphs (auto) 0.30 L, Nucleated RBC % 0, Differential Comment SCANNED, Sodium 138, Potassium 4.5, Chloride 101, Carbon Dioxide 34.0 H, Anion Gap 3 L, BUN 28 H, Creatinine 0.76, Estim Creat Clear Calc 79.14, Est GFR (MDRD) Af Amer 130, Est GFR (MDRD) Non-Af 107, BUN/Creatinine Ratio 37.0 H, Glucose 108 H, Calcium 8.8 06/20/23 09:24: POC Glucose 180 H Micro: Microbiology 06/17/23 04:55 Blood Culture (Wb) - Port Blood Culture - Preliminary No growth in 48 hours. 06/17/23 03:35 Blood Culture (Wb) - Anticubital Right Blood Culture - Prel iminary No growth in 48 hours. 06/17/23 04:43 Mucosa - Nose SARS-CoV-2, Influenza & RSV (PCR) - Final Influenzae A Radiography Diagnostic Testing: Radiology Impression Chest X-Ray 06/20/23 08:36 IMPRESSION: No interval change. Electronically Signed: Will Lion MD at 9:31 EST Reading Location ID and State: [address] [place] [address] , Service support , Rhythm Strip Rhythm Strip: Sinus Tach Rate: 123 Ectopy: None Physical Exam Narrative Patient subjectively feels mild improvement on Airvo than yesterday. No dyspnea at rest. Patient had full conversation with me and his near the bedside. Before he could not tolerate BiPAP. Chronic cough with no significant change mucus. Denies chest pain. Physical exam General: Alert, Oriented x3, Cooperative HEENT: Atraumatic, PERRLA, EOMI, Normocephalic Oral: No Gingival or Mucosal Lesions/ Ulcerations Neck: Supple, No JVD, Negative Carotid Bruits Chest wall/lungs: Right chest wall Mediport air entry severely diminished in bilateral lung bases. On Airvo. severe hypoxia. Cardiovascular: Regular rate, Regular Rhythm, Normal S1, Normal S2, No murmurs Abdomen: Bowel Sounds Present, Soft, Non Tender, Non-Distended : No renal angle tenderness. No suprapubic tenderness. Extremities: No edema, Capillary Refill Less than 3 Seconds Skin: No rashes, No breakdown Musculoskeletal: No Tenderness to Palpation of Joints or Extremities Neurological: Cranial nerves II-XII grossly intact, DTR 2+/4. No acute focal neurological deficit. Psych/Mental Status: Normal Affect, Appropriate. Assessment & Plan Assessment/Plan (1) Acute hypoxemic respiratory failure: (2) Shortness of breath on exertion: (3) Mediastinal lymphadenopathy: (4) S/P total left hip arthroplasty: PLAN: Plan 1. Acute hypoxic respiratory failure due to COPD exacerbation, most likely from influenza A infection/viral bronchitis flu:. Patient is being admitted in PCU. Pneumonia was recently treated With Zosyn and azithromycin during recent hospitalization in May. Chest x-ray individually reviewed and shows left perihilar spiculated mass similar to the previous chest x-ray and CT scan in May 2023. Patient is being managed on scheduled bronchodilator, IV Solu-Medrol, Mucinex, incentive spirometry and Pep. 06/18: Continue Tamiflu. Discussed with respiratory therapist and patient put on Airvo. Encouraged patient and his to comply with BiPAP at night. Rest of to continue. 06/19: Continue Airvo. Patient is tolerating well. No fever. Bronchopulmonary hygiene encouraged. 07/07: Subjectively patient feels better. Chest x-ray PA and lateral ordered to see for left lung effusion or improvement from the baseline. Patient's agreed. #History of squamous cell lung cancer: on imuotherapy. Continue with oncologist on outptient basis #GERD; on PPI #osteoarthritis: has back pain. ON PO tylenol prn DVT prophylaxis lovenox code status: DNRCCA no intubation. \ * Patient and counseled extensively about different types of CODE STATUS including full code, DNR CCA and DNR CCA. Patient elects to be DNRCCA no intubation
[2023-06-20 08:34] LABS: Anion Gap 3 (5-15); BUN 28 mg/dL (7-18); Calcium,Total 8.8 mg/dL (8.5-10.1); Chloride 101 mmol/L (98-107); Creatinine, Serum 0.76 mg/dL (0.70-1.30); EST Glomerular Filtration Rate 107 mL/min (>60); Est Glom Filt Rate - Afr Amer 130 mL/min (>60); Estimated Creatinine Clearance 79.14 ml/min; Glucose 108 mg/dL (74-106); Potassium 4.5 mmol/L (3.5-5.1); Sodium Level 138 mmol/L (136-145)
--- NOTE | 2023-06-20 08:36 | RAD_ITS ---
EXAM: XR CHEST, 2 VIEWS CLINICAL INDICATION: COPD, Pneumonia, lung cancer TECHNIQUE: Frontal and lateral views of the chest. COMPARISON: 06/17/2023. FINDINGS: LUNGS AND PLEURAL SPACES: Left perihilar mass and/or scarring. Diminished left lung volume. Right lung hyperinflation with flattening of the right hemidiaphragm. Mild fibrosis in the medial right lung base. No pneumothorax. No effusion. HEART: Unremarkable. Cardiac silhouette not enlarged. MEDIASTINUM: Central airways and mediastinal contour are unremarkable. BONES/JOINTS: Unremarkable. No acute fracture. SOFT TISSUES: Unremarkable. TUBES, LINES AND DEVICES: Right IJ approach portacatheter tip remains in the distal SVC/right upper atrial chamber junction. UPPER ABDOMEN: Elevation left hemidiaphragm. RAD/Chest PA and Lateral IMPRESSION: No interval change. Electronically Signed: Will Lion MD at 9:31 EST ,
--- NOTE | 2023-06-20 09:21 | NURSING ---
humidifier attendant called this RN and said to come to pt's room. This RN met the discharge rn as pt was returning from xray to the room. Staff assist button hit, followed by rapid response team call. Pt unresponsive upon arrival back to room from CXRay. Pt alert and oriented and satting 94% on 4LNC prior to going down to CXR. present in the room.
[2023-06-20 10:01] LABS: Bedside Glucose 180 mg/dL (74-106)
--- NOTE | 2023-06-20 10:04 | PCM.DEATH ---
Preliminary Cause of Preliminary Cause of Preliminary Cause of : V. tach. Acute on chronic hypoxic respiratory failure due to COPD exacerbation, most likely from influenza A infection/viral bronchitis flu: History of squamous cell lung cancer: on imuotherapy. Continue with oncologist on outptient basis GERD osteoarthritis: has back pain. ON PO tylenol prn Date of Admission: 06/17/23 Date of : 06/20/23 Principle Diagnosis Problem List: Active and Suspected Problems (Updated 06/08/23 @ 00:02 by Background Daemon) Influenza A (Acute) Acute respiratory failure (Acute) Shortness of breath on exertion (Acute) Mediastinal lymphadenopathy (Acute) S/P total left hip arthroplasty (Acute) Hospital Course [id number] gentleman was admitted for shortness of breath, acute on chronic in nature. Usually on 3 L of oxygen at home but had increased folate. Still short of breath. Patient also has cough which is chronic. Chest congestion. 1. Acute on chronic hypoxic respiratory failure due to COPD exacerbation, most likely from influenza A infection/viral bronchitis flu: :. Patient is being admitted in PCU. Pneumonia was recently treated With Zosyn and azithromycin during recent hospitalization in May. Chest x-ray individually reviewed and shows left perihilar spiculated mass similar to the previous chest x-ray and CT scan in May 2023. Patient is being managed on scheduled bronchodilator, IV Solu-Medrol, Mucinex, incentive spirometry and Pep. 06/18: Continue Tamiflu. Discussed with respiratory therapist and patient put on Airvo. Encouraged patient and his to comply with BiPAP at night. Rest of to continue. 06/19: Continue Airvo. Patient is tolerating well. No fever. Bronchopulmonary hygiene encouraged. 06/20: Saw the patient in the morning and he states his breathing is better on the Airvo. Initial chest x-ray showed left sided spiculated mass left. I reviewed which is old, moderate elevation left hemidiaphragm.Repeat x-ray was done to see any improvement or concern for left pleural effusion. As soon as patient came from x-ray and transferred to the bed he got unconscious. potline monitor shows V. tach. Patient is DNR CC arrest with no intubation not DC shock therefore epinephrine, BLS ACLS protocol not followed, ordering patient swish. Patient was put oxygen nonrebreather. This was confirmed by patient's present by the bedside. Amiodarone 300 mg IV and then after 3 minutes 115 IV given but later on security monitor shows isoelectric line. Total pupils dilated. Patient unconscious. No spontaneous chest movement. No air entry. Patient declared at 9:39 AM on 06/20/2023. #History of squamous cell lung cancer: on imuotherapy. Continue with oncologist on outptient basis #GERD; on PPI #osteoarthritis: has back pain. ON PO tylenol prn DVT prophylaxis lovenox code status: DNRCCA no intubation. \ Patient and counseled extensively about different types of CODE STATUS including full code, DNR CCA and DNR CCA. Patient elects to be DNRCCA no intubation when patient was having ventricular fibrillation I asked whether she wants due to shock but refused for DC shock and patient is DNR CC. Clinical Impression(s) from Imaging Studies Chest X-Ray 06/17/23 04:32 IMPRESSION: Unchanged appearance of the chest with apparent left-sided mass. Electronically Signed: Reta Ruiz MD at 5:14 EST Reading Location ID and State: [facility] / [place] , Service support , Chest X-Ray 06/20/23 08:36 IMPRESSION: No interval change. Visit Charges Inpatient E&M: 01650 Disch Hosp >30min
--- NOTE | 2023-06-20 10:32 | NURSING ---
Telemetry alarming vtach. This RN back to pt room to check on pt. Pt not in room. This RN back to desk, told pt had been taken down to xray. Pt being wheeled back to room at same time by resident physician in radiology, observed pt unresponsive. seed technician stated that pt had just been talking to her in elevator roughly 30 seconds prior. Primary RN and this RN got pt into room immediately, staff assist called. See PERSONAL VEHICLE ADVISOR paperwork.
== END 2023-06-20 12:02 | DRG 190 ==
LOC: ED 04:00 → PCU 05:48
PROVIDERS: Admitting Provider Student in an Organized Health Care Education/Training Program; Emergency Provider Emergency Medicine; PCP Family Medicine; Visit Provider Internal Medicine
DX: J44.1 Chronic obstructive pulmonary disease with (acute) exacerbation (principal); J96.21 Acute and chronic respiratory failure with hypoxia; C34.90 Malignant neoplasm of unspecified part of unspecified bronchus or lung; J44.0 Chronic obstructive pulmonary disease with (acute) lower respiratory infection; I49.01 Ventricular fibrillation; J10.1 Influenza due to other identified influenza virus with other respiratory manifestations; J20.8 Acute bronchitis due to other specified organisms; K21.9 Gastro-esophageal reflux disease without esophagitis; M54.9 Dorsalgia, unspecified; Z99.81 Dependence on supplemental oxygen; Z79.51 Long term (current) use of inhaled steroids; R59.0 Localized enlarged lymph nodes; Z66 Do not resuscitate; Z96.642 Presence of left artificial hip joint; Z87.891 Personal history of nicotine dependence
CPT/HCPCS: 36415; 36591; 36600; 71045; 71046; 80048; 80053; 82803; 82962; 83605; 83880; 85025; 85610; 85730; 87040; 87631; 93005; 94002; 94640; 94660; 94668; 97802; 99252; 99285; J7030; J7040; A4216; G0463